=== PATIENT | female | born 1930 | race Caucasian/White ===

== ENCOUNTER 2017-06-11 15:50 | Emergency (ER) | payer MEDICARE, OTHER ==
[~2017-06-11] VITALS: Ht 165.1 cm; Wt 83.9 kg
[~2017-06-11 15:50] MED LIST: ACET-77 PO; ACID1TAB PO; ALBU2.5V4 INH; AMLO5TAB2 PO; AMOX1TAB12 PO; APIX5TAB PO; ASCO1TAB36 PO; ASPI-983 PO; BENZ-36 PO; CALC1TAB29 PO; CHOL10007 PO; DILT120C63 PO; DILT240C90 PO; DOCU-143 PO; DOCU100C37 PO; FAMO-119 PO; FISH1CAP15 PO; GFCD10B PO; HYDR-3812 PO; IBUP200C11 PO; LEVO125T6 PO; LISI1TAB10 PO; LOPE2CAP PO; METO-370 PO; MULT-1029 PO; SIMV20TA3 PO; SULF1TAB35 PO
--- OUTSIDE RECORDS SUMMARY | 2017-06-11 15:58 | XMS REPORT | Continuity of Care Document ---
Author Author [facility] Organization [facility] Address Unknown Phone Unavailable Allergies Active Description Code Type Severity Reaction Onset Reported/Identified Relationship to Patient Clinical Status Yes No Known Drug Allergies [id number] Drug Allergy Unknown N/A 05/06/2016 Yes Fish Containing Products [id number] Drug Allergy Unknown N/A 06/02/2016 Medications There is no data. Problems Date Dx Coded Attending Type Code Diagnosis Diagnosed By 05/21/2013 RIN MORALES MD Ot 721.0 CERVICAL SPONDYLOSIS 05/21/2013 RIN MORALES MD Ot V57.1 PHYSICAL THERAPY NEC 09/14/2013 LUANN TORRES DRIFT MINER Ot 715.96 OSTEOARTHROS NOS-L/LEG 09/14/2013 LUANN TORRES DRIFT MINER Ot V57.1 PHYSICAL THERAPY NEC 11/28/2014 LUANN TORRES [employer] Ot 716.90 11/28/2014 LUANN TORRES APRN Ot 724.5 11/28/2014 LUANN TORRES APRN Ot V57.1 12/07/2014 LUANN TORRES [employer] Ot 716.90 ARTHROPATHY NOS-UNSPEC 12/07/2014 LUANN TORRES DR[employer] MINER Ot 724.5 BACKACHE NOS 12/07/2014 LUANN TORRES [employer] MINER Ot V57.1 PHYSICAL THERAPY NEC 11/22/2015 Ot R05 COUGH 12/13/2015 VIVI OATES MD Ot J18.9 PNEUMONIA, UNSPECIFIED ORGANISM 12/17/2015 Ot R05 COUGH 12/28/2015 VIVI OATES MD Ot R00.2 PALPITATIONS 12/28/2015 VIVI OATES MD Ot R42 DIZZINESS AND GIDDINESS 01/01/2016 VIVI OATES MD Ot J18.9 PNEUMONIA, UNSPECIFIED ORGANISM 01/07/2016 VIVI OATES MD Ot R00.2 PALPITATIONS 01/07/2016 VIVI OATES MD Ot R42 DIZZINESS AND GIDDINESS 03/23/2016 VIVI OATES MD Ot R00.2 PALPITATIONS 03/23/2016 VIVI OATES MD Ot R42 DIZZINESS AND GIDDINESS 03/28/2016 VIVI OATES MD Ot R00.2 PALPITATIONS 03/28/2016 VIVI OATES MD Ot R42 DIZZINESS AND GIDDINESS 05/04/2016 Ot 401.9 HYPERTENSION NOS 05/04/2016 Ot 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 05/04/2016 Ot 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 05/04/2016 Ot V76.12 OTH SCREEN MAMMO-MALIGN NEOPLASM OF [place] 05/04/2016 Ot 401.9 HYPERTENSION NOS 05/04/2016 Ot 782.3 EDEMA 05/04/2016 Ot 786.09 RESPIRATORY ABNORM NEC 05/04/2016 VIVI OATES MD Ot 719.41 JOINT PAIN-SHLDER 05/04/2016 VIVI OATES MD Ot 723.1 CERVICALGIA 05/04/2016 VIVI OATES MD Ot 729.5 PAIN IN LIMB 05/04/2016 Ot 721.0 CERVICAL SPONDYLOSIS 05/04/2016 Ot V57.1 PHYSICAL THERAPY NEC 05/04/2016 LUANN TORRES APRN Ot 719.46 JOINT PAIN-L/LEG 05/04/2016 Ot R05 COUGH 05/04/2016 VIVI OATES MD Ot J18.9 PNEUMONIA, UNSPECIFIED ORGANISM 05/04/2016 VIVI OATES MD Ot R00.2 PALPITATIONS 05/04/2016 VIVI OATES MD Ot R42 DIZZINESS AND GIDDINESS 05/05/2016 SANIYA CORRALES MD Ot M54.5 LOW BACK PAIN 05/06/2016 Ot 721.0 CERVICAL SPONDYLOSIS 05/06/2016 Ot V57.1 PHYSICAL THERAPY NEC 05/06/2016 VIVI OATES MD Ot R00.2 PALPITATIONS 05/06/2016 VIVI OATES MD Ot R42 DIZZINESS AND GIDDINESS 05/11/2016 GALLAGHER DO, GEMINI Ot E03.9 HYPOTHYROIDISM, UNSPECIFIED 05/11/2016 GALLAGHER DO, GEMINI Ot E78.5 HYPERLIPIDEMIA, UNSPECIFIED 05/11/2016 GALLAGHER DO, GEMINI Ot I10 ESSENTIAL (PRIMARY) HYPERTENSION 05/11/2016 GALLAGHER DO GEMINI Ot K21.9 GASTRO-ESOPHAGEAL REFLUX DISEASE WITHOUT 05/11/2016 GALLAGHER DO GEMINI Ot M48.06 SPINAL STENOSIS, LUMBAR REGION 05/11/2016 GALLGAHER GEMINI BRADEN Ot M54.16 RADICULOPATHY, LUMBAR REGION 05/11/2016 AILEEN BRADENGEMINI Ot M71.38 OTHER BURSAL CYST, OTHER SITE 05/11/2016 AILEEN BRADEN GEMINI Ot T84.84XA PAIN DUE TO INTERNAL ORTHOPEDIC PROSTH D 05/15/2016 KYLIE REYES MD Ot E03.9 HYPOTHYROIDISM, UNSPECIFIED 05/15/2016 KYLIE REYES MD Ot E78.5 HYPERLIPIDEMIA, UNSPECIFIED 05/15/2016 KYLIE REYES MD E Ot F41.9 ANXIETY DISORDER, UNSPECIFIED 05/15/2016 KYLIE REYES MD Ot I10 ESSENTIAL (PRIMARY) HYPERTENSION 05/15/2016 KYLIE REYES MD Ot K21.9 GASTRO-ESOPHAGEAL REFLUX DISEASE WITHOUT 05/15/2016 KYLIE REYES MD Ot M54.5 LOW BACK PAIN 05/15/2016 KYLIE REYES MD Ot R29.898 OTH SYMPTOMS AND SIGNS INVOLVING THE MUS 05/15/2016 KYLIE REYES MD Ot Z48.89 ENCOUNTER FOR OTHER SPECIFIED SURGICAL A 05/15/2016 KYLIE REYES MD Ot Z96.651 PRESENCE OF RIGHT ARTIFICIAL KNEE JOINT 05/15/2016 KYLIE REYES MD Ot Z96.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 LEFT ARTIFICIAL KNEE JOINT 05/24/2016 REJI LAU MD Ot A41.89 OTHER SPECIFIED SEPSIS 05/24/2016 REJI LAU MD Ot B96.4 PROTEUS (MIRABILIS) (MORGANII) CAUSING D 05/24/2016 REJI LAU MD Ot B96.89 OTH BACTERIAL AGENTS THE CAUSE OF DIS 05/24/2016 REJI LAU MD Ot D64.89 OTHER SPECIFIED ANEMIAS 05/24/2016 REJI LAU MD Ot E78.00 PURE HYPERCHOLESTEROLEMIA, UNSPECIFIED 05/24/2016 REJI LAU MD Ot E87.1 HYPO-OSMOLALITY AND HYPONATREMIA 05/24/2016 REJI LAU MD Ot I10 ESSENTIAL (PRIMARY) HYPERTENSION 05/24/2016 REJI LAU MD Ot I48.0 PAROXYSMAL ATRIAL FIBRILLATION 05/24/2016 REJI LAU MD Ot I50.31 ACUTE DIASTOLIC (CONGESTIVE) HEART FAILU 05/24/2016 REJI LAU MD Ot J18.9 PNEUMONIA, UNSPECIFIED ORGANISM 05/24/2016 REJI LAU MD Ot K80.20 CALCULUS OF GALLBLADDER W/O CHOLECYSTITI 05/24/2016 REJI LAU MD Ot N30.00 ACUTE CYSTITIS WITHOUT HEMATURIA 05/24/2016 REJI LAU MD Ot R19.7 DIARRHEA, UNSPECIFIED 05/24/2016 REJI LAU MD Ot R73.9 HYPERGLYCEMIA, UNSPECIFIED 05/24/2016 REJI LAU MD Ot Z87.891 PERSONAL HISTORY OF NICOTINE DEPENDENCE 05/24/2016 REJI LAU MD Ot Z98.890 OTHER SPECIFIED POSTPROCEDURAL STATES 05/28/2016 SAVANNA GUIDO, SANIYA Howell Ot M54.5 LOW BACK PAIN 05/30/2016 KYLIE REYES MD E Ot B00.1 HERPESVIRAL VESICULAR DERMATITIS 05/30/2016 KYLIE REYES MD E Ot E03.9 HYPOTHYROIDISM, UNSPECIFIED 05/30/2016 FADUMO REYES MDIC E Ot E87.1 HYPO-OSMOLALITY AND HYPONATREMIA 05/30/2016 FADUMO REYES MDIC E Ot E87.70 FLUID OVERLOAD, UNSPECIFIED 05/30/2016 AMY GUIDO KYLIE E Ot I10 ESSENTIAL (PRIMARY) HYPERTENSION 05/30/2016 AMY GUIDO KYLIE E Ot I48.91 UNSPECIFIED ATRIAL FIBRILLATION 05/30/2016 KYLIE REYES MD E Ot J18.9 PNEUMONIA, UNSPECIFIED ORGANISM 05/30/2016 KYLIE REYES MD E Ot R19.7 DIARRHEA, UNSPECIFIED 05/30/2016 KYLIE REYES MD E Ot R41.0 DISORIENTATION, UNSPECIFIED 05/30/2016 KYLIE REYES MD E Ot R53.1 WEAKNESS 05/30/2016 KYLIE REYES MD E Ot R60.0 LOCALIZED EDEMA 05/30/2016 FADUMO REYES MDIC E Ot T36.95XA ADVERSE EFFECT OF UNSP SYSTEMIC ANTIBIOT 05/30/2016 FADUMO REYES MDIC E Ot Z79.01 [facility] (CURRENT) USE OF 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 05/31/2016 KYLIE REYES MD E Ot B00.1 HERPESVIRAL VESICULAR DERMATITIS 05/31/2016 AMY GUIDO KYLIE E Ot E03.9 HYPOTHYROIDISM, UNSPECIFIED 05/31/2016 KYLIE REYES MD E Ot E87.1 HYPO-OSMOLALITY AND HYPONATREMIA 05/31/2016 KYLIE REYES MD E Ot E87.70 FLUID OVERLOAD, UNSPECIFIED 05/31/2016 KYLIE REYES MD E Ot I10 ESSENTIAL (PRIMARY) HYPERTENSION 05/31/2016 FADUMO REYES MDIC E Ot I48.91 UNSPECIFIED ATRIAL FIBRILLATION 05/31/2016 KYLIE REYES MD E Ot J18.9 PNEUMONIA, UNSPECIFIED ORGANISM 05/31/2016 FADUMO REYES MDIC E Ot R19.7 DIARRHEA, UNSPECIFIED 05/31/2016 KYLIE REYES MD E Ot R41.0 DISORIENTATION, UNSPECIFIED 05/31/2016 FADUMO REYES MDIC E Ot R53.1 WEAKNESS 05/31/2016 FADUMO REYES MDIC E Ot R60.0 LOCALIZED EDEMA 05/31/2016 AMY GUIDO KYLIE E Ot T36.95XA ADVERSE EFFECT OF UNSP SYSTEMIC ANTIBIOT 05/31/2016 KYLIE REYES MD E Ot Z79.01 [employer] (CURRENT) USE OF 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 06/01/2016 KYLIE REYES MD E Ot B00.1 HERPESVIRAL VESICULAR DERMATITIS 06/01/2016 FADUMO REYES MDIC E Ot E03.9 HYPOTHYROIDISM, UNSPECIFIED 06/01/2016 KYLIE REYES MD E Ot E87.1 HYPO-OSMOLALITY AND HYPONATREMIA 06/01/2016 FADUMO REYES MDIC E Ot E87.70 FLUID OVERLOAD, UNSPECIFIED 06/01/2016 KYLIE REYES MD E Ot I10 ESSENTIAL (PRIMARY) HYPERTENSION 06/01/2016 KYLIE REYES MD E Ot I48.91 UNSPECIFIED ATRIAL FIBRILLATION 06/01/2016 KYLIE REYES MD E Ot J18.9 PNEUMONIA, UNSPECIFIED ORGANISM 06/01/2016 KYLIE REYES MD E Ot R19.7 DIARRHEA, UNSPECIFIED 06/01/2016 FADUMO REYES MDIC E Ot R41.0 DISORIENTATION, UNSPECIFIED 06/01/2016 AMY GUIDO KYLIE E Ot R53.1 WEAKNESS 06/01/2016 AMY GUIDO KYLIE E Ot R60.0 LOCALIZED EDEMA 06/01/2016 FADUMO REYES MDIC E Ot T36.95XA ADVERSE EFFECT OF UNSP SYSTEMIC ANTIBIOT 06/01/2016 KYLIE REYES MD E Ot Z79.01 [facility] (CURRENT) USE OF 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 06/01/2016 KYLIE REYES MD E Ot B00.1 HERPESVIRAL VESICULAR DERMATITIS 06/01/2016 FADUMO REYES MDIC E Ot E03.9 HYPOTHYROIDISM, UNSPECIFIED 06/01/2016 KYLIE REYES MD E Ot E87.1 HYPO-OSMOLALITY AND HYPONATREMIA 06/01/2016 KYLIE REYES MD E Ot E87.70 FLUID OVERLOAD, UNSPECIFIED 06/01/2016 KYLIE REYES MD E Ot I10 ESSENTIAL (PRIMARY) HYPERTENSION 06/01/2016 FADUMO REYES MDIC E Ot I48.91 UNSPECIFIED ATRIAL FIBRILLATION 06/01/2016 FADUMO REYES MDIC E Ot J18.9 PNEUMONIA, UNSPECIFIED ORGANISM 06/01/2016 FADUMO REYES MDIC E Ot R19.7 DIARRHEA, UNSPECIFIED 06/01/2016 FADUMO REYES MDIC E Ot R41.0 DISORIENTATION, UNSPECIFIED 06/01/2016 FADUMO REYES MDIC E Ot R53.1 WEAKNESS 06/01/2016 FADUMO REYES MDIC E Ot R60.0 LOCALIZED EDEMA 06/01/2016 AMY GUIDO KYLIE E Ot T36.95XA ADVERSE EFFECT OF UNSP SYSTEMIC ANTIBIOT 06/01/2016 KYLIE REYES MD E Ot Z79.01 [employer] (CURRENT) USE OF 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 06/02/2016 KYLIE REYES MD E Ot B00.1 HERPESVIRAL VESICULAR DERMATITIS 06/02/2016 FADUMO REYES MDIC E Ot E03.9 HYPOTHYROIDISM, UNSPECIFIED 06/02/2016 FADUMO REYES MDIC E Ot E87.1 HYPO-OSMOLALITY AND HYPONATREMIA 06/02/2016 KYLIE REYES MD E Ot E87.70 FLUID OVERLOAD, UNSPECIFIED 06/02/2016 FADUMO REYES MDIC E Ot I10 ESSENTIAL (PRIMARY) HYPERTENSION 06/02/2016 FADUMO REYES MDIC E Ot I48.91 UNSPECIFIED ATRIAL FIBRILLATION 06/02/2016 AMY GUIDO KYLIE E Ot J18.9 PNEUMONIA, UNSPECIFIED ORGANISM 06/02/2016 AMY GUIDO KYLIE E Ot R19.7 DIARRHEA, UNSPECIFIED 06/02/2016 AMY GUIDO KYLIE E Ot R41.0 DISORIENTATION, UNSPECIFIED 06/02/2016 FADUMO REYES MDIC E Ot R53.1 WEAKNESS 06/02/2016 FADUMO REYES MDIC E Ot R60.0 LOCALIZED EDEMA 06/02/2016 REYES MD, KYLIE E Ot T36.95XA ADVERSE EFFECT OF UNSP SYSTEMIC ANTIBIOT 06/02/2016 AMY GUIDO KYLIE E Ot Z79.01 [employer] (CURRENT) USE OF 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 06/02/2016 Ot 721.0 CERVICAL SPONDYLOSIS 06/02/2016 Ot V57.1 PHYSICAL THERAPY NEC 06/02/2016 VIVI OATES MD Ot R00.2 PALPITATIONS 06/02/2016 VIVI OATES MD Ot R42 DIZZINESS AND GIDDINESS 06/02/2016 AMY GUIDO KYLIE E Ot B00.1 HERPESVIRAL VESICULAR DERMATITIS 06/02/2016 AMY GUIDO KYLIE E Ot E03.9 HYPOTHYROIDISM, UNSPECIFIED 06/02/2016 AMY GUIDO KYLIE E Ot E87.1 HYPO-OSMOLALITY AND HYPONATREMIA 06/02/2016 AMY GUIDO KYLIE E Ot E87.70 FLUID OVERLOAD, UNSPECIFIED 06/02/2016 AMY GUIDO KYLIE E Ot I10 ESSENTIAL (PRIMARY) HYPERTENSION 06/02/2016 AMY GUIDO KYLIE E Ot I48.91 UNSPECIFIED ATRIAL FIBRILLATION 06/02/2016 AMY GUIDO KYLIE E Ot J18.9 PNEUMONIA, UNSPECIFIED ORGANISM 06/02/2016 AMY GUIDO KYLIE E Ot R19.7 DIARRHEA, UNSPECIFIED 06/02/2016 AMY GUIDO KYLIE E Ot R41.0 DISORIENTATION, UNSPECIFIED 06/02/2016 AMY GUIDO KYLIE E Ot R53.1 WEAKNESS 06/02/2016 AMY GUIDO KYLIE E Ot R60.0 LOCALIZED EDEMA 06/02/2016 AMY GUIDO KYLIE E Ot T36.95XA ADVERSE EFFECT OF UNSP SYSTEMIC ANTIBIOT 06/02/2016 AMY GUIDO KYLIE E Ot Z79.01 [employer] (CURRENT) USE OF 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 06/02/2016 AMY GUIDO KYLIE E Ot B00.1 HERPESVIRAL VESICULAR DERMATITIS 06/02/2016 AMY GUIDO KYLIE E Ot E03.9 HYPOTHYROIDISM, UNSPECIFIED 06/02/2016 AMY GUIDO KYLIE E Ot E87.1 HYPO-OSMOLALITY AND HYPONATREMIA 06/02/2016 AMY GUIDO KYLIE E Ot E87.70 FLUID OVERLOAD, UNSPECIFIED 06/02/2016 AMY GUIDO KYLIE E Ot I10 ESSENTIAL (PRIMARY) HYPERTENSION 06/02/2016 AMY GUIDO KYLIE E Ot I48.91 UNSPECIFIED ATRIAL FIBRILLATION 06/02/2016 REYES MD, KYLIE E Ot J18.9 PNEUMONIA, UNSPECIFIED ORGANISM 06/02/2016 KYLIE REYES MD, Ot R19.7 DIARRHEA, UNSPECIFIED 06/02/2016 KYLIE REYES MD, Ot R41.0 DISORIENTATION, UNSPECIFIED 06/02/2016 KYLIE REYES MD, Ot R53.1 WEAKNESS 06/02/2016 KYLIE REYES MD, Ot R60.0 LOCALIZED EDEMA 06/02/2016 KYLIE REYES MD, Ot T36.95XA ADVERSE EFFECT OF UNSP SYSTEMIC ANTIBIOT 06/02/2016 KYLIE REYES MD, Ot Z79.01 [facility] (CURRENT) USE OF 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 Procedures Code Description Performed By Performed On [id number] INTRODUCE OF ANTI-INFLAM INTO EPIDURAL S 05/07/2016 [id number] EXCISION OF LUMBAR SPINAL CORD, OPEN SANAZ 05/08/2016 [id number] RELEASE LUMBAR NERVE, OPEN APPROACH 05/08/2016 [id number] REMOVAL OF INT FIX FROM LUM JT, OPEN SANAZ 05/08/2016 [id number] CAODAISM OF CARDIAC RHYTHM, SINGLE 05/20/2016 Results Test Result Range Complete urinalysis with reflex to culture - 05/06/16 19:40 Urine color determination YELLOW NRG Urine clarity determination CLEAR NRG Urine pH measurement by test strip 5 5-9 Specific gravity of urine by test strip 1.015 1.016- 1.022 Urine protein assay by test strip, semi-quantitative NEGATIVE NEGATIVE Urine glucose detection by automated test strip NEGATIVE NEGATIVE Erythrocytes detection in urine sediment by light microscopy NEGATIVE NEGATIVE Urine ketones detection by automated test strip NEGATIVE NEGATIVE Urine nitrite detection by test strip NEGATIVE NEGATIVE Urine total bilirubin detection by test strip NEGATIVE NEGATIVE Urine urobilinogen measurement by automated test strip (mass/volume) NORMAL NORMAL Urine leukocyte esterase detection by dipstick 1+ NEGATIVE Automated urine sediment erythrocyte count by microscopy (number/high power field) NONE NRG Automated urine sediment leukocyte count by microscopy (number/high power field ) RARE NRG Bacteria detection in urine sediment by light microscopy TRACE NRG Squamous epithelial cells detection in urine sediment by light microscopy 0-2 NRG Crystals detection in urine sediment by light microscopy NONE NRG Casts detection in urine sediment by light microscopy NONE NRG Mucus detection in urine sediment by light microscopy NEGATIVE NRG Complete urinalysis with reflex to culture NO NRG Complete blood count (CBC) with automated white blood cell (WBC) differential - 05/07/16 05:12 Blood leukocytes automated count (number/volume) 9.4 10*3/uL 4.3-11.0 Blood erythrocytes automated count (number/volume) 4.30 10*6/uL 4.35-5.85 Venous blood hemoglobin measurement (mass/volume) 12.8 g/dL 11.5-16.0 Blood hematocrit (volume fraction) 37 % 35-52 Automated erythrocyte mean corpuscular volume 87 [foz_us] 80-99 Automated erythrocyte mean corpuscular hemoglobin (mass per erythrocyte) 30 pg 25-34 Automated erythrocyte mean corpuscular hemoglobin concentration measurement ( mass/volume) 34 g/dL 32-36 Automated erythrocyte distribution width ratio 13.0 % 10.0-14.5 Automated blood platelet count (count/volume) 218 10*3/uL 130-400 Automated blood platelet mean volume measurement 10.7 [foz_us] 7.4-10.4 Automated blood neutrophils/100 leukocytes 92 % 42-75 Automated blood lymphocytes/100 leukocytes 5 % 12-44 Blood monocytes/100 leukocytes 3 % 0-12 Automated blood eosinophils/100 leukocytes 0 % 0-10 Automated blood basophils/100 leukocytes 0 % 0-10 Blood neutrophils automated count (number/volume) 8.7 10*3 1.8-7.8 Blood lymphocytes automated count (number/volume) 0.5 10*3 1.0-4.0 Blood monocytes automated count (number/volume) 0.3 10*3 0.0-1.0 Automated eosinophil count 0.0 10*3/uL 0.0-0.3 Automated blood basophil count (count/volume) 0.0 10*3/uL 0.0-0.1 Blood manual differential performed detection - 05/07/16 05:12 Blood monocytes/100 leukocytes 3 % NRG Manual blood segmented neutrophils/100 leukocytes 93 % NRG Blood band neutrophils/100 leukocytes 0 % NRG Manual blood lymphocytes/100 leukocytes 4 % NRG Manual eosinophils/100 leukocytes in nose 0 % NRG Manual blood basophils/100 leukocytes 0 % NRG Blood erythrocyte morphology finding identification NORMAL NRG Methicillin resistant Staphylococcus aureus (MRSA) screening culture - 08:20 Methicillin resistant Staphylococcus aureus (MRSA) screening culture NEG NRG Complete blood count (CBC) with automated white blood cell (WBC) differential - 05/13/16 05:39 Blood leukocytes automated count (number/volume) 12.6 10*3/uL 4.3-11.0 Blood erythrocytes automated count (number/volume) 3.94 10*6/uL 4.35-5.85 Venous blood hemoglobin measurement (mass/volume) 12.1 g/dL 11.5-16.0 Blood hematocrit (volume fraction) 35 % 35-52 Automated erythrocyte mean corpuscular volume 88 [foz_us] 80-99 Automated erythrocyte mean corpuscular hemoglobin (mass per erythrocyte) 31 pg 25-34 Automated erythrocyte mean corpuscular hemoglobin concentration measurement ( mass/volume) 35 g/dL 32-36 Automated erythrocyte distribution width ratio 13.3 % 10.0-14.5 Automated blood platelet count (count/volume) 194 10*3/uL 130-400 Automated blood platelet mean volume measurement 10.3 [foz_us] 7.4-10.4 Automated blood neutrophils/100 leukocytes 87 % 42-75 Automated blood lymphocytes/100 leukocytes 7 % 12-44 Blood monocytes/100 leukocytes 6 % 0-12 Automated blood eosinophils/100 leukocytes 1 % 0-10 Automated blood basophils/100 leukocytes 0 % 0-10 Blood neutrophils automated count (number/volume) 10.9 10*3 1.8-7.8 Blood lymphocytes automated count (number/volume) 0.8 10*3 1.0-4.0 Blood monocytes automated count (number/volume) 0.8 10*3 0.0-1.0 Automated eosinophil count 0.1 10*3/uL 0.0-0.3 Automated blood basophil count (count/volume) 0.0 10*3/uL 0.0-0.1 Comprehensive metabolic panel - 05/13/16 05:39 Serum or plasma sodium measurement (moles/volume) 136 mmol/L 135-145 Serum or plasma potassium measurement (moles/volume) 4.2 mmol/L 3.6-5.0 Serum or plasma chloride measurement (moles/volume) 102 mmol/L 98-107 Carbon dioxide 23 mmol/L 21-32 Serum or plasma anion gap determination (moles/volume) 11 mmol/L 5-14 Serum or plasma urea nitrogen measurement (mass/volume) 40 mg/dL 7-18 Serum or plasma creatinine measurement (mass/volume) 1.01 mg/dL 0.60-1.30 Serum or plasma urea nitrogen/creatinine mass ratio 40 NRG Serum or plasma creatinine measurement with calculation of estimated glomerular filtration rate 52 NRG Serum or plasma glucose measurement (mass/volume) 135 mg/dL 70-105 Serum or plasma calcium measurement (mass/volume) 9.0 mg/dL 8.5-10.1 Serum or plasma total bilirubin measurement (mass/volume) 0.8 mg/dL 0.1-1.0 Serum or plasma alkaline phosphatase measurement (enzymatic activity/volume) 67 U/L 40-136 Serum or plasma aspartate aminotransferase measurement (enzymatic activity/ volume) 18 U/L 5-34 Serum or plasma alanine aminotransferase measurement (enzymatic activity/volume ) 21 U/L 0-55 Serum or plasma protein measurement (mass/volume) 5.6 g/dL 6.4-8.2 Serum or plasma albumin measurement (mass/volume) 3.5 g/dL 3.2-4.5 Blood manual differential performed detection - 05/13/16 05:39 Blood monocytes/100 leukocytes 3 % NRG Manual blood segmented neutrophils/100 leukocytes 91 % NRG Blood band neutrophils/100 leukocytes 0 % NRG Manual blood lymphocytes/100 leukocytes 6 % NRG Manual eosinophils/100 leukocytes in nose 0 % NRG Manual blood basophils/100 leukocytes 0 % NRG Blood poikilocytosis detection by light microscopy SLIGHT NRG Complete urinalysis with reflex to culture - 05/16/16 12:00 Urine color determination YELLOW NRG Urine clarity determination CLEAR NRG Urine pH measurement by test strip 5 5-9 Specific gravity of urine by test strip 1.020 1.016- 1.022 Urine protein assay by test strip, semi-quantitative 1+ NEGATIVE Urine glucose detection by automated test strip NEGATIVE NEGATIVE Erythrocytes detection in urine sediment by light microscopy NEGATIVE NEGATIVE Urine ketones detection by automated test strip NEGATIVE NEGATIVE Urine nitrite detection by test strip NEGATIVE NEGATIVE Urine total bilirubin detection by test strip NEGATIVE NEGATIVE Urine urobilinogen measurement by automated test strip (mass/volume) NORMAL NORMAL Urine leukocyte esterase detection by dipstick 3+ NEGATIVE Automated urine sediment erythrocyte count by microscopy (number/high power field) NONE NRG Automated urine sediment leukocyte count by microscopy (number/high power field ) [HPF] NRG Bacteria detection in urine sediment by light microscopy FEW NRG Squamous epithelial cells detection in urine sediment by light microscopy 2-5 NRG Crystals detection in urine sediment by light microscopy NONE NRG Casts detection in urine sediment by light microscopy NONE NRG Mucus detection in urine sediment by light microscopy NEGATIVE NRG Complete urinalysis with reflex to culture YES NRG Bacterial urine culture - 05/16/16 12:00 Bacterial urine culture [id number] NRG COLONY COUNT 10,000/ML - 100,000/ML NRG FTX;REPORTABLE SENSITIVITY REPORTED AT 0755, 05-18-16 NRG URINE CULTURE RESULTS PLUS NRG Bacterial susceptibility panel - 05/16/16 12:00 Gentamicin susceptibility test by minimum inhibitory concentration < = NRG Trimethoprim/sulfamethoxazole susceptibility test by minimum inhibitoryconcentration <= NRG Tobramycin susceptibility test by minimum inhibitory concentration < = NRG Cefazolin susceptibility test by minimum inhibitory concentration > = NRG Ceftriaxone susceptibility test by minimum inhibitory concentration 16 NRG Piperacillin/tazobactam susceptibility test by minimum inhibitory concentration >= NRG Ciprofloxacin susceptibility test by minimum inhibitory concentration <= NRG Meropenem susceptibility test by minimum inhibitory concentration < = NRG Nitrofurantoin susceptibility test by minimum inhibitory concentration 64 NRG Aztreonam susceptibility test by minimum inhibitory concentration 16 NRG Cefepime susceptibility test by minimum inhibitory concentration <= NRG Bacterial susceptibility panel - 05/16/16 12:00 Gentamicin susceptibility test by minimum inhibitory concentration < = NRG Trimethoprim/sulfamethoxazole susceptibility test by minimum inhibitoryconcentration <= NRG Ampicillin susceptibility test by minimum inhibitory concentration > = NRG Tobramycin susceptibility test by minimum inhibitory concentration < = NRG Cefazolin susceptibility test by minimum inhibitory concentration > = NRG Ceftriaxone susceptibility test by minimum inhibitory concentration <= NRG Ampicillin/sulbactam susceptibility test by minimum inhibitory concentration <= NRG Piperacillin/tazobactam susceptibility test by minimum inhibitory concentration <= NRG Ciprofloxacin susceptibility test by minimum inhibitory concentration <= NRG Meropenem susceptibility test by minimum inhibitory concentration < = NRG Nitrofurantoin susceptibility test by minimum inhibitory concentration R NRG Aztreonam susceptibility test by minimum inhibitory concentration < = NRG Cefepime susceptibility test by minimum inhibitory concentration <= NRG Complete blood count (CBC) with automated white blood cell (WBC) differential - 05/16/16 12:07 Blood leukocytes automated count (number/volume) 21.6 10*3/uL 4.3-11.0 Blood erythrocytes automated count (number/volume) 4.05 10*6/uL 4.35-5.85 Venous blood hemoglobin measurement (mass/volume) 12.2 g/dL 11.5-16.0 Blood hematocrit (volume fraction) 35 % 35-52 Automated erythrocyte mean corpuscular volume 87 [foz_us] 80-99 Automated erythrocyte mean corpuscular hemoglobin (mass per erythrocyte) 30 pg 25-34 Automated erythrocyte mean corpuscular hemoglobin concentration measurement ( mass/volume) 35 g/dL 32-36 Automated erythrocyte distribution width ratio 13.5 % 10.0-14.5 Automated blood platelet count (count/volume) 211 10*3/uL 130-400 Automated blood platelet mean volume measurement 10.3 [foz_us] 7.4-10.4 Automated blood neutrophils/100 leukocytes 93 % 42-75 Automated blood lymphocytes/100 leukocytes 2 % 12-44 Blood monocytes/100 leukocytes 5 % 0-12 Automated blood eosinophils/100 leukocytes 0 % 0-10 Automated blood basophils/100 leukocytes 0 % 0-10 Blood neutrophils automated count (number/volume) 20.1 10*3 1.8-7.8 Blood lymphocytes automated count (number/volume) 0.5 10*3 1.0-4.0 Blood monocytes automated count (number/volume) 1.0 10*3 0.0-1.0 Automated eosinophil count 0.0 10*3/uL 0.0-0.3 Automated blood basophil count (count/volume) 0.0 10*3/uL 0.0-0.1 Comprehensive metabolic panel - 05/16/16 12:07 Serum or plasma sodium measurement (moles/volume) 132 mmol/L 135-145 Serum or plasma potassium measurement (moles/volume) 4.5 mmol/L 3.6-5.0 Serum or plasma chloride measurement (moles/volume) 98 mmol/L 98-107 Carbon dioxide 24 mmol/L 21-32 Serum or plasma anion gap determination (moles/volume) 10 mmol/L 5-14 Serum or plasma urea nitrogen measurement (mass/volume) 42 mg/dL 7-18 Serum or plasma creatinine measurement (mass/volume) 1.24 mg/dL 0.60-1.30 Serum or plasma urea nitrogen/creatinine mass ratio 34 NRG Serum or plasma creatinine measurement with calculation of estimated glomerular filtration rate 41 NRG Serum or plasma glucose measurement (mass/volume) 158 mg/dL 70-105 Serum or plasma calcium measurement (mass/volume) 9.4 mg/dL 8.5-10.1 Serum or plasma total bilirubin measurement (mass/volume) 2.0 mg/dL 0.1-1.0 Serum or plasma alkaline phosphatase measurement (enzymatic activity/volume) 91 U/L 40-136 Serum or plasma aspartate aminotransferase measurement (enzymatic activity/ volume) 28 U/L 5-34 Serum or plasma alanine aminotransferase measurement (enzymatic activity/volume ) 40 U/L 0-55 Serum or plasma protein measurement (mass/volume) 6.8 g/dL 6.4-8.2 Serum or plasma albumin measurement (mass/volume) 4.0 g/dL 3.2-4.5 Blood manual differential performed detection - 05/16/16 12:07 Blood monocytes/100 leukocytes 5 % NRG Manual blood segmented neutrophils/100 leukocytes 94 % NRG Manual blood lymphocytes/100 leukocytes 1 % NRG Blood erythrocyte morphology finding identification NORMAL NRG Blood hypersegmented neutrophils detection by light microscopy MODERATE NRG PT panel in platelet poor plasma by coagulation assay - 05/16/16 12:49 Prothrombin time (PT) in platelet poor plasma by coagulation assay 12.8 s 12.2-14.7 INR in platelet poor plasma or blood by coagulation assay 1.0 0.8-1.4 Activated partial thromboplastin time (aPTT) in platelet poor plasma bycoagulation assay - 05/16/16 12:49 Activated partial thromboplastin time (aPTT) in platelet poor plasma bycoagulation assay 26 s 24-35 Blood lactic acid measurement (moles/volume) - 05/16/16 12:49 Blood lactic acid measurement (moles/volume) 0.7 mmol/L 0.5-2.0 Bacterial blood culture - 05/16/16 12:49 Bacterial blood culture NG NR Bacterial blood culture - 05/16/16 13:05 Bacterial blood culture NG NR Blood lactic acid measurement (moles/volume) - 05/16/16 18:28 Blood lactic acid measurement (moles/volume) 1.4 mmol/L 0.5-2.0 Complete blood count (CBC) with automated white blood cell (WBC) differential - 05/17/16 05:20 Blood leukocytes automated count (number/volume) 15.0 10*3/uL 4.3-11.0 Blood erythrocytes automated count (number/volume) 3.50 10*6/uL 4.35-5.85 Venous blood hemoglobin measurement (mass/volume) 10.5 g/dL 11.5-16.0 Blood hematocrit (volume fraction) 31 % 35-52 Automated erythrocyte mean corpuscular volume 89 [foz_us] 80-99 Automated erythrocyte mean corpuscular hemoglobin (mass per erythrocyte) 30 pg 25-34 Automated erythrocyte mean corpuscular hemoglobin concentration measurement ( mass/volume) 34 g/dL 32-36 Automated erythrocyte distribution width ratio 13.7 % 10.0-14.5 Automated blood platelet count (count/volume) 154 10*3/uL 130-400 Automated blood platelet mean volume measurement 10.5 [foz_us] 7.4-10.4 Automated blood neutrophils/100 leukocytes 91 % 42-75 Automated blood lymphocytes/100 leukocytes 4 % 12-44 Blood monocytes/100 leukocytes 5 % 0-12 Automated blood eosinophils/100 leukocytes 0 % 0-10 Automated blood basophils/100 leukocytes 0 % 0-10 Blood neutrophils automated count (number/volume) 13.7 10*3 1.8-7.8 Blood lymphocytes automated count (number/volume) 0.5 10*3 1.0-4.0 Blood monocytes automated count (number/volume) 0.8 10*3 0.0-1.0 Automated eosinophil count 0.0 10*3/uL 0.0-0.3 Automated blood basophil count (count/volume) 0.0 10*3/uL 0.0-0.1 Comprehensive metabolic panel - 05/17/16 05:20 Serum or plasma sodium measurement (moles/volume) 135 mmol/L 135-145 Serum or plasma potassium measurement (moles/volume) 4.3 mmol/L 3.6-5.0 Serum or plasma chloride measurement (moles/volume) 104 mmol/L 98-107 Carbon dioxide 23 mmol/L 21-32 Serum or plasma anion gap determination (moles/volume) 8 mmol/L 5-14 Serum or plasma urea nitrogen measurement (mass/volume) 32 mg/dL 7-18 Serum or plasma creatinine measurement (mass/volume) 0.95 mg/dL 0.60-1.30 Serum or plasma urea nitrogen/creatinine mass ratio 34 NRG Serum or plasma creatinine measurement with calculation of estimated glomerular filtration rate 56 NRG Serum or plasma glucose measurement (mass/volume) 142 mg/dL 70-105 Serum or plasma calcium measurement (mass/volume) 8.3 mg/dL 8.5-10.1 Serum or plasma total bilirubin measurement (mass/volume) 1.3 mg/dL 0.1-1.0 Serum or plasma alkaline phosphatase measurement (enzymatic activity/volume) 81 U/L 40-136 Serum or plasma aspartate aminotransferase measurement (enzymatic activity/ volume) 25 U/L 5-34 Serum or plasma alanine aminotransferase measurement (enzymatic activity/volume ) 34 U/L 0-55 Serum or plasma protein measurement (mass/volume) 5.5 g/dL 6.4-8.2 Serum or plasma albumin measurement (mass/volume) 3.1 g/dL 3.2-4.5 Complete blood count (CBC) with automated white blood cell (WBC) differential - 05/18/16 04:50 Blood leukocytes automated count (number/volume) 11.7 10*3/uL 4.3-11.0 Blood erythrocytes automated count (number/volume) 3.18 10*6/uL 4.35-5.85 Venous blood hemoglobin measurement (mass/volume) 9.6 g/dL 11.5-16.0 Blood hematocrit (volume fraction) 28 % 35-52 Automated erythrocyte mean corpuscular volume 88 [foz_us] 80-99 Automated erythrocyte mean corpuscular hemoglobin (mass per erythrocyte) 30 pg 25-34 Automated erythrocyte mean corpuscular hemoglobin concentration measurement ( mass/volume) 34 g/dL 32-36 Automated erythrocyte distribution width ratio 13.6 % 10.0-14.5 Automated blood platelet count (count/volume) 148 10*3/uL 130-400 Automated blood platelet mean volume measurement 10.2 [foz_us] 7.4-10.4 Automated blood neutrophils/100 leukocytes 93 % 42-75 Automated blood lymphocytes/100 leukocytes 2 % 12-44 Blood monocytes/100 leukocytes 5 % 0-12 Automated blood eosinophils/100 leukocytes 0 % 0-10 Automated blood basophils/100 leukocytes 0 % 0-10 Blood neutrophils automated count (number/volume) 10.8 10*3 1.8-7.8 Blood lymphocytes automated count (number/volume) 0.3 10*3 1.0-4.0 Blood monocytes automated count (number/volume) 0.6 10*3 0.0-1.0 Automated eosinophil count 0.0 10*3/uL 0.0-0.3 Automated blood basophil count (count/volume) 0.0 10*3/uL 0.0-0.1 Comprehensive metabolic panel - 05/18/16 04:50 Serum or plasma sodium measurement (moles/volume) 133 mmol/L 135-145 Serum or plasma potassium measurement (moles/volume) 4.0 mmol/L 3.6-5.0 Serum or plasma chloride measurement (moles/volume) 105 mmol/L 98-107 Carbon dioxide 20 mmol/L 21-32 Serum or plasma anion gap determination (moles/volume) 8 mmol/L 5-14 Serum or plasma urea nitrogen measurement (mass/volume) 25 mg/dL 7-18 Serum or plasma creatinine measurement (mass/volume) 0.83 mg/dL 0.60-1.30 Serum or plasma urea nitrogen/creatinine mass ratio 30 NRG Serum or plasma creatinine measurement with calculation of estimated glomerular filtration rate > NRG Serum or plasma glucose measurement (mass/volume) 123 mg/dL 70-105 Serum or plasma calcium measurement (mass/volume) 7.7 mg/dL 8.5-10.1 Serum or plasma total bilirubin measurement (mass/volume) 1.1 mg/dL 0.1-1.0 Serum or plasma alkaline phosphatase measurement (enzymatic activity/volume) 77 U/L 40-136 Serum or plasma aspartate aminotransferase measurement (enzymatic activity/ volume) 28 U/L 5-34 Serum or plasma alanine aminotransferase measurement (enzymatic activity/volume ) 35 U/L 0-55 Serum or plasma protein measurement (mass/volume) 5.0 g/dL 6.4-8.2 Serum or plasma albumin measurement (mass/volume) 2.7 g/dL 3.2-4.5 Serum or plasma troponin i.cardiac measurement (mass/volume) - 05/18/16 04:50 Serum or plasma troponin i.cardiac measurement (mass/volume) < ng/ mL <0.30 Serum or plasma lithium measurement (moles/volume) - 05/18/16 04:50 BNP level 431.9 pg/mL <100.0 Serum or plasma C reactive protein measurement (mass/volume) - 05/18/16 04:50 Serum or plasma C reactive protein measurement (mass/volume) 26.71 mg/dL 0.00-0.50 THYROID STIMULATING HORMONE - 05/18/16 04:50 THYROID STIMULATING HORMONE 0.24 u[iU]/mL 0.35-4.94 PT panel in platelet poor plasma by coagulation assay - 05/18/16 04:50 Prothrombin time (PT) in platelet poor plasma by coagulation assay 14.3 s 12.2-14.7 INR in platelet poor plasma or blood by coagulation assay 1.1 0.8-1.4 Activated partial thromboplastin time (aPTT) in platelet poor plasma bycoagulation assay - 05/18/16 04:50 Activated partial thromboplastin time (aPTT) in platelet poor plasma bycoagulation assay 33 s 24-35 Activated partial thromboplastin time (aPTT) in platelet poor plasma bycoagulation assay - 05/18/16 13:10 Activated partial thromboplastin time (aPTT) in platelet poor plasma bycoagulation assay 106 s 24-35 Bacterial blood culture - 05/18/16 14:56 Bacterial blood culture NG NRG Bacterial blood culture - 05/18/16 14:57 Bacterial blood culture NG NRG Activated partial thromboplastin time (aPTT) in platelet poor plasma bycoagulation assay - 05/18/16 17:22 Activated partial thromboplastin time (aPTT) in platelet poor plasma bycoagulation assay 63 s 24-35 Activated partial thromboplastin time (aPTT) in platelet poor plasma bycoagulation assay - 05/18/16 23:45 Activated partial thromboplastin time (aPTT) in platelet poor plasma bycoagulation assay > s 24-35 Bacterial urine culture - 05/19/16 04:30 Bacterial urine culture [id number] NRG COLONY COUNT 10,000/ML - 100,000/ML NRG FTX;REPORTABLE NO FURTHER STUDIES UNLESS REQUESTED NR Automated blood complete blood count (hemogram) panel - 05/19/16 07:48 Blood leukocytes automated count (number/volume) 11.4 10*3/uL 4.3-11.0 Blood erythrocytes automated count (number/volume) 3.31 10*6/uL 4.35-5.85 Venous blood hemoglobin measurement (mass/volume) 9.7 g/dL 11.5-16.0 Blood hematocrit (volume fraction) 29 % 35-52 Automated erythrocyte mean corpuscular volume 88 [foz_us] 80-99 Automated erythrocyte mean corpuscular hemoglobin (mass per erythrocyte) 29 pg 25-34 Automated erythrocyte mean corpuscular hemoglobin concentration measurement ( mass/volume) 33 g/dL 32-36 Automated erythrocyte distribution width ratio 13.9 % 10.0-14.5 Automated blood platelet count (count/volume) 161 10*3/uL 130-400 Automated blood platelet mean volume measurement 11.5 [foz_us] 7.4-10.4 Activated partial thromboplastin time (aPTT) in platelet poor plasma bycoagulation assay - 05/19/16 07:48 Activated partial thromboplastin time (aPTT) in platelet poor plasma bycoagulation assay 145 s 24-35 Comprehensive metabolic panel - 05/19/16 07:48 Serum or plasma sodium measurement (moles/volume) 130 mmol/L 135-145 Serum or plasma potassium measurement (moles/volume) 3.8 mmol/L 3.6-5.0 Serum or plasma chloride measurement (moles/volume) 99 mmol/L 98-107 Carbon dioxide 22 mmol/L 21-32 Serum or plasma anion gap determination (moles/volume) 9 mmol/L 5-14 Serum or plasma urea nitrogen measurement (mass/volume) 26 mg/dL 7-18 Serum or plasma creatinine measurement (mass/volume) 0.95 mg/dL 0.60-1.30 Serum or plasma urea nitrogen/creatinine mass ratio 27 NRG Serum or plasma creatinine measurement with calculation of estimated glomerular filtration rate 56 NRG Serum or plasma glucose measurement (mass/volume) 157 mg/dL 70-105 Serum or plasma calcium measurement (mass/volume) 7.8 mg/dL 8.5-10.1 Serum or plasma total bilirubin measurement (mass/volume) 0.9 mg/dL 0.1-1.0 Serum or plasma alkaline phosphatase measurement (enzymatic activity/volume) 94 U/L 40-136 Serum or plasma aspartate aminotransferase measurement (enzymatic activity/ volume) 43 U/L 5-34 Serum or plasma alanine aminotransferase measurement (enzymatic activity/volume ) 49 U/L 0-55 Serum or plasma protein measurement (mass/volume) 5.2 g/dL 6.4-8.2 Serum or plasma albumin measurement (mass/volume) 2.6 g/dL 3.2-4.5 Serum or plasma phosphate measurement (mass/volume) - 05/19/16 07:48 Serum or plasma phosphate measurement (mass/volume) 3.2 mg/dL 2.3-4.7 Magnesium - 05/19/16 07:48 Magnesium 1.5 mg/dL 1.8-2.4 Activated partial thromboplastin time (aPTT) in platelet poor plasma bycoagulation assay - 05/19/16 14:30 Activated partial thromboplastin time (aPTT) in platelet poor plasma bycoagulation assay 93 s 24-35 Activated partial thromboplastin time (aPTT) in platelet poor plasma bycoagulation assay - 05/19/16 20:20 Activated partial thromboplastin time (aPTT) in platelet poor plasma bycoagulation assay 102 s 24-35 Complete blood count (CBC) with automated white blood cell (WBC) differential - 05/20/16 04:29 Blood leukocytes automated count (number/volume) 8.6 10*3/uL 4.3-11.0 Blood erythrocytes automated count (number/volume) 3.10 10*6/uL 4.35-5.85 Venous blood hemoglobin measurement (mass/volume) 9.3 g/dL 11.5-16.0 Blood hematocrit (volume fraction) 27 % 35-52 Automated erythrocyte mean corpuscular volume 86 [foz_us] 80-99 Automated erythrocyte mean corpuscular hemoglobin (mass per erythrocyte) 30 pg 25-34 Automated erythrocyte mean corpuscular hemoglobin concentration measurement ( mass/volume) 35 g/dL 32-36 Automated erythrocyte distribution width ratio 13.6 % 10.0-14.5 Automated blood platelet count (count/volume) 172 10*3/uL 130-400 Automated blood platelet mean volume measurement 10.4 [foz_us] 7.4-10.4 Automated blood neutrophils/100 leukocytes 93 % 42-75 Automated blood lymphocytes/100 leukocytes 2 % 12-44 Blood monocytes/100 leukocytes 5 % 0-12 Automated blood eosinophils/100 leukocytes 0 % 0-10 Automated blood basophils/100 leukocytes 0 % 0-10 Blood neutrophils automated count (number/volume) 8.0 10*3 1.8-7.8 Blood lymphocytes automated count (number/volume) 0.2 10*3 1.0-4.0 Blood monocytes automated count (number/volume) 0.4 10*3 0.0-1.0 Automated eosinophil count 0.0 10*3/uL 0.0-0.3 Automated blood basophil count (count/volume) 0.0 10*3/uL 0.0-0.1 Comprehensive metabolic panel - 05/20/16 04:29 Serum or plasma sodium measurement (moles/volume) 127 mmol/L 135-145 Serum or plasma potassium measurement (moles/volume) 3.6 mmol/L 3.6-5.0 Serum or plasma chloride measurement (moles/volume) 99 mmol/L 98-107 Carbon dioxide 17 mmol/L 21-32 Serum or plasma anion gap determination (moles/volume) 11 mmol/L 5-14 Serum or plasma urea nitrogen measurement (mass/volume) 28 mg/dL 7-18 Serum or plasma creatinine measurement (mass/volume) 1.12 mg/dL 0.60-1.30 Serum or plasma urea nitrogen/creatinine mass ratio 25 NRG Serum or plasma creatinine measurement with calculation of estimated glomerular filtration rate 46 NRG Serum or plasma glucose measurement (mass/volume) 161 mg/dL 70-105 Serum or plasma calcium measurement (mass/volume) 7.6 mg/dL 8.5-10.1 Serum or plasma total bilirubin measurement (mass/volume) 0.6 mg/dL 0.1-1.0 Serum or plasma alkaline phosphatase measurement (enzymatic activity/volume) 107 U/L 40-136 Serum or plasma aspartate aminotransferase measurement (enzymatic activity/ volume) 59 U/L 5-34 Serum or plasma alanine aminotransferase measurement (enzymatic activity/volume ) 70 U/L 0-55 Serum or plasma protein measurement (mass/volume) 5.1 g/dL 6.4-8.2 Serum or plasma albumin measurement (mass/volume) 2.6 g/dL 3.2-4.5 Serum or plasma phosphate measurement (mass/volume) - 05/20/16 04:29 Serum or plasma phosphate measurement (mass/volume) 2.8 mg/dL 2.3-4.7 Magnesium - 05/20/16 04:29 Magnesium 1.5 mg/dL 1.8-2.4 Activated partial thromboplastin time (aPTT) in platelet poor plasma bycoagulation assay - 05/20/16 04:29 Activated partial thromboplastin time (aPTT) in platelet poor plasma bycoagulation assay 77 s 24-35 Sputum Gram stain - 05/20/16 06:15 GRAM STAIN SPUTUM AND MIXED BACTERIAL [facility] Bacterial sputum culture - 11/23/16 06:15 Bacterial sputum culture NORMAL NRG Vancomycin trough - 05/20/16 06:50 Vancomycin trough 9.6 ug/mL 10.0-20.0 Complete blood count (CBC) with automated white blood cell (WBC) differential - 05/21/16 04:13 Blood leukocytes automated count (number/volume) 7.5 10*3/uL 4.3-11.0 Blood erythrocytes automated count (number/volume) 2.96 10*6/uL 4.35-5.85 Venous blood hemoglobin measurement (mass/volume) 8.7 g/dL 11.5-16.0 Blood hematocrit (volume fraction) 26 % 35-52 Automated erythrocyte mean corpuscular volume 86 [foz_us] 80-99 Automated erythrocyte mean corpuscular hemoglobin (mass per erythrocyte) 29 pg 25-34 Automated erythrocyte mean corpuscular hemoglobin concentration measurement ( mass/volume) 34 g/dL 32-36 Automated erythrocyte distribution width ratio 13.7 % 10.0-14.5 Automated blood platelet count (count/volume) 203 10*3/uL 130-400 Automated blood platelet mean volume measurement 10.2 [foz_us] 7.4-10.4 Automated blood neutrophils/100 leukocytes 92 % 42-75 Automated blood lymphocytes/100 leukocytes 3 % 12-44 Blood monocytes/100 leukocytes 5 % 0-12 Automated blood eosinophils/100 leukocytes 0 % 0-10 Automated blood basophils/100 leukocytes 0 % 0-10 Blood neutrophils automated count (number/volume) 6.9 10*3 1.8-7.8 Blood lymphocytes automated count (number/volume) 0.3 10*3 1.0-4.0 Blood monocytes automated count (number/volume) 0.4 10*3 0.0-1.0 Automated eosinophil count 0.0 10*3/uL 0.0-0.3 Automated blood basophil count (count/volume) 0.0 10*3/uL 0.0-0.1 PT panel in platelet poor plasma by coagulation assay - 05/21/16 04:13 Prothrombin time (PT) in platelet poor plasma by coagulation assay 14.4 s 12.2-14.7 INR in platelet poor plasma or blood by coagulation assay 1.2 0.8-1.4 Activated partial thromboplastin time (aPTT) in platelet poor plasma bycoagulation assay - 05/21/16 04:13 Activated partial thromboplastin time (aPTT) in platelet poor plasma bycoagulation assay 91 s 24-35 Comprehensive metabolic panel - 05/21/16 04:13 Serum or plasma sodium measurement (moles/volume) 132 mmol/L 135-145 Serum or plasma potassium measurement (moles/volume) 3.8 mmol/L 3.6-5.0 Serum or plasma chloride measurement (moles/volume) 104 mmol/L 98-107 Carbon dioxide 17 mmol/L 21-32 Serum or plasma anion gap determination (moles/volume) 11 mmol/L 5-14 Serum or plasma urea nitrogen measurement (mass/volume) 22 mg/dL 7-18 Serum or plasma creatinine measurement (mass/volume) 1.09 mg/dL 0.60-1.30 Serum or plasma urea nitrogen/creatinine mass ratio 20 NRG Serum or plasma creatinine measurement with calculation of estimated glomerular filtration rate 48 NRG Serum or plasma glucose measurement (mass/volume) 172 mg/dL 70-105 Serum or plasma calcium measurement (mass/volume) 7.6 mg/dL 8.5-10.1 Serum or plasma total bilirubin measurement (mass/volume) 0.5 mg/dL 0.1-1.0 Serum or plasma alkaline phosphatase measurement (enzymatic activity/volume) 101 U/L 40-136 Serum or plasma aspartate aminotransferase measurement (enzymatic activity/ volume) 55 U/L 5-34 Serum or plasma alanine aminotransferase measurement (enzymatic activity/volume ) 80 U/L 0-55 Serum or plasma protein measurement (mass/volume) 4.9 g/dL 6.4-8.2 Serum or plasma albumin measurement (mass/volume) 2.5 g/dL 3.2-4.5 Serum or plasma phosphate measurement (mass/volume) - 05/21/16 04:13 Serum or plasma phosphate measurement (mass/volume) 3.4 mg/dL 2.3-4.7 Magnesium - 05/21/16 04:13 Magnesium 1.6 mg/dL 1.8-2.4 Complete blood count (CBC) with automated white blood cell (WBC) differential - 05/22/16 04:21 Blood leukocytes automated count (number/volume) 7.2 10*3/uL 4.3-11.0 Blood erythrocytes automated count (number/volume) 3.07 10*6/uL 4.35-5.85 Venous blood hemoglobin measurement (mass/volume) 9.0 g/dL 11.5-16.0 Blood hematocrit (volume fraction) 26 % 35-52 Automated erythrocyte mean corpuscular volume 86 [foz_us] 80-99 Automated erythrocyte mean corpuscular hemoglobin (mass per erythrocyte) 29 pg 25-34 Automated erythrocyte mean corpuscular hemoglobin concentration measurement ( mass/volume) 34 g/dL 32-36 Automated erythrocyte distribution width ratio 13.8 % 10.0-14.5 Automated blood platelet count (count/volume) 222 10*3/uL 130-400 Automated blood platelet mean volume measurement 9.7 [foz_us] 7.4-10.4 Automated blood neutrophils/100 leukocytes 89 % 42-75 Automated blood lymphocytes/100 leukocytes 4 % 12-44 Blood monocytes/100 leukocytes 7 % 0-12 Automated blood eosinophils/100 leukocytes 1 % 0-10 Automated blood basophils/100 leukocytes 0 % 0-10 Blood neutrophils automated count (number/volume) 6.4 10*3 1.8-7.8 Blood lymphocytes automated count (number/volume) 0.3 10*3 1.0-4.0 Blood monocytes automated count (number/volume) 0.5 10*3 0.0-1.0 Automated eosinophil count 0.0 10*3/uL 0.0-0.3 Automated blood basophil count (count/volume) 0.0 10*3/uL 0.0-0.1 Activated partial thromboplastin time (aPTT) in platelet poor plasma bycoagulation assay - 05/22/16 04:21 Activated partial thromboplastin time (aPTT) in platelet poor plasma bycoagulation assay 37 s 24-35 Comprehensive metabolic panel - 05/22/16 04:21 Serum or plasma sodium measurement (moles/volume) 133 mmol/L 135-145 Serum or plasma potassium measurement (moles/volume) 3.5 mmol/L 3.6-5.0 Serum or plasma chloride measurement (moles/volume) 104 mmol/L 98-107 Carbon dioxide 19 mmol/L 21-32 Serum or plasma anion gap determination (moles/volume) 10 mmol/L 5-14 Serum or plasma urea nitrogen measurement (mass/volume) 22 mg/dL 7-18 Serum or plasma creatinine measurement (mass/volume) 1.30 mg/dL 0.60-1.30 Serum or plasma urea nitrogen/creatinine mass ratio 17 NRG Serum or plasma creatinine measurement with calculation of estimated glomerular filtration rate 39 NRG Serum or plasma glucose measurement (mass/volume) 157 mg/dL 70-105 Serum or plasma calcium measurement (mass/volume) 7.9 mg/dL 8.5-10.1 Serum or plasma total bilirubin measurement (mass/volume) 0.6 mg/dL 0.1-1.0 Serum or plasma alkaline phosphatase measurement (enzymatic activity/volume) 102 U/L 40-136 Serum or plasma aspartate aminotransferase measurement (enzymatic activity/ volume) 41 U/L 5-34 Serum or plasma alanine aminotransferase measurement (enzymatic activity/volume ) 75 U/L 0-55 Serum or plasma protein measurement (mass/volume) 5.1 g/dL 6.4-8.2 Serum or plasma albumin measurement (mass/volume) 2.6 g/dL 3.2-4.5 Serum or plasma phosphate measurement (mass/volume) - 05/22/16 04:21 Serum or plasma phosphate measurement (mass/volume) 3.2 mg/dL 2.3-4.7 Magnesium - 05/22/16 04:21 Magnesium 2.1 mg/dL 1.8-2.4 Blood manual differential performed detection - 05/22/16 04:21 Blood monocytes/100 leukocytes 6 % NRG Manual blood segmented neutrophils/100 leukocytes 88 % NRG Blood band neutrophils/100 leukocytes 2 % NRG Manual blood lymphocytes/100 leukocytes 4 % NRG Manual eosinophils/100 leukocytes in nose 0 % NRG Manual blood basophils/100 leukocytes 0 % NRG Blood polychromasia detection by light microscopy SLIGHT NRG Blood ovalocytes detection by light microscopy SLIGHT NRG Blood toxic granules detection by light microscopy 2+ NRG Blood poikilocytosis detection by light microscopy SLIGHT NRG Blood job cells detection by light microscopy SLIGHT NRG THYROID STIMULATING HORMONE - 05/22/16 04:21 THYROID STIMULATING HORMONE 0.61 u[iU]/mL 0.35-4.94 Complete blood count (CBC) with automated white blood cell (WBC) differential - 05/23/16 05:25 Blood leukocytes automated count (number/volume) 7.6 10*3/uL 4.3-11.0 Blood erythrocytes automated count (number/volume) 3.28 10*6/uL 4.35-5.85 Venous blood hemoglobin measurement (mass/volume) 9.6 g/dL 11.5-16.0 Blood hematocrit (volume fraction) 28 % 35-52 Automated erythrocyte mean corpuscular volume 87 [foz_us] 80-99 Automated erythrocyte mean corpuscular hemoglobin (mass per erythrocyte) 29 pg 25-34 Automated erythrocyte mean corpuscular hemoglobin concentration measurement ( mass/volume) 34 g/dL 32-36 Automated erythrocyte distribution width ratio 13.8 % 10.0-14.5 Automated blood platelet count (count/volume) 263 10*3/uL 130-400 Automated blood platelet mean volume measurement 9.2 [foz_us] 7.4-10.4 Automated blood neutrophils/100 leukocytes 86 % 42-75 Automated blood lymphocytes/100 leukocytes 7 % 12-44 Blood monocytes/100 leukocytes 7 % 0-12 Automated blood eosinophils/100 leukocytes 1 % 0-10 Automated blood basophils/100 leukocytes 0 % 0-10 Blood neutrophils automated count (number/volume) 6.5 10*3 1.8-7.8 Blood lymphocytes automated count (number/volume) 0.5 10*3 1.0-4.0 Blood monocytes automated count (number/volume) 0.5 10*3 0.0-1.0 Automated eosinophil count 0.1 10*3/uL 0.0-0.3 Automated blood basophil count (count/volume) 0.0 10*3/uL 0.0-0.1 Comprehensive metabolic panel - 05/23/16 05:25 Serum or plasma sodium measurement (moles/volume) 138 mmol/L 135-145 Serum or plasma potassium measurement (moles/volume) 4.1 mmol/L 3.6-5.0 Serum or plasma chloride measurement (moles/volume) 104 mmol/L 98-107 Carbon dioxide 22 mmol/L 21-32 Serum or plasma anion gap determination (moles/volume) 12 mmol/L 5-14 Serum or plasma urea nitrogen measurement (mass/volume) 22 mg/dL 7-18 Serum or plasma creatinine measurement (mass/volume) 1.38 mg/dL 0.60-1.30 Serum or plasma urea nitrogen/creatinine mass ratio 16 NRG Serum or plasma creatinine measurement with calculation of estimated glomerular filtration rate 36 NRG Serum or plasma glucose measurement (mass/volume) 135 mg/dL 70-105 Serum or plasma calcium measurement (mass/volume) 8.4 mg/dL 8.5-10.1 Serum or plasma total bilirubin measurement (mass/volume) 0.7 mg/dL 0.1-1.0 Serum or plasma alkaline phosphatase measurement (enzymatic activity/volume) 101 U/L 40-136 Serum or plasma aspartate aminotransferase measurement (enzymatic activity/ volume) 33 U/L 5-34 Serum or plasma alanine aminotransferase measurement (enzymatic activity/volume ) 69 U/L 0-55 Serum or plasma protein measurement (mass/volume) 5.6 g/dL 6.4-8.2 Serum or plasma albumin measurement (mass/volume) 2.9 g/dL 3.2-4.5 Magnesium - 05/23/16 05:25 Magnesium 1.6 mg/dL 1.8-2.4 Complete blood count (CBC) with automated white blood cell (WBC) differential - 05/24/16 04:00 Blood leukocytes automated count (number/volume) 7.5 10*3/uL 4.3-11.0 Blood erythrocytes automated count (number/volume) 3.15 10*6/uL 4.35-5.85 Venous blood hemoglobin measurement (mass/volume) 9.3 g/dL 11.5-16.0 Blood hematocrit (volume fraction) 28 % 35-52 Automated erythrocyte mean corpuscular volume 88 [foz_us] 80-99 Automated erythrocyte mean corpuscular hemoglobin (mass per erythrocyte) 30 pg 25-34 Automated erythrocyte mean corpuscular hemoglobin concentration measurement ( mass/volume) 34 g/dL 32-36 Automated erythrocyte distribution width ratio 13.8 % 10.0-14.5 Automated blood platelet count (count/volume) 281 10*3/uL 130-400 Automated blood platelet mean volume measurement 9.2 [foz_us] 7.4-10.4 Automated blood neutrophils/100 leukocytes 84 % 42-75 Automated blood lymphocytes/100 leukocytes 9 % 12-44 Blood monocytes/100 leukocytes 6 % 0-12 Automated blood eosinophils/100 leukocytes 1 % 0-10 Automated blood basophils/100 leukocytes 0 % 0-10 Blood neutrophils automated count (number/volume) 6.3 10*3 1.8-7.8 Blood lymphocytes automated count (number/volume) 0.6 10*3 1.0-4.0 Blood monocytes automated count (number/volume) 0.5 10*3 0.0-1.0 Automated eosinophil count 0.1 10*3/uL 0.0-0.3 Automated blood basophil count (count/volume) 0.0 10*3/uL 0.0-0.1 Comprehensive metabolic panel - 05/24/16 04:00 Serum or plasma sodium measurement (moles/volume) 138 mmol/L 135-145 Serum or plasma potassium measurement (moles/volume) 3.9 mmol/L 3.6-5.0 Serum or plasma chloride measurement (moles/volume) 105 mmol/L 98-107 Carbon dioxide 23 mmol/L 21-32 Serum or plasma anion gap determination (moles/volume) 10 mmol/L 5-14 Serum or plasma urea nitrogen measurement (mass/volume) 21 mg/dL 7-18 Serum or plasma creatinine measurement (mass/volume) 1.14 mg/dL 0.60-1.30 Serum or plasma urea nitrogen/creatinine mass ratio 18 NRG Serum or plasma creatinine measurement with calculation of estimated glomerular filtration rate 45 NRG Serum or plasma glucose measurement (mass/volume) 140 mg/dL 70-105 Serum or plasma calcium measurement (mass/volume) 8.3 mg/dL 8.5-10.1 Serum or plasma total bilirubin measurement (mass/volume) 0.6 mg/dL 0.1-1.0 Serum or plasma alkaline phosphatase measurement (enzymatic activity/volume) 91 U/L 40-136 Serum or plasma aspartate aminotransferase measurement (enzymatic activity/ volume) 30 U/L 5-34 Serum or plasma alanine aminotransferase measurement (enzymatic activity/volume ) 62 U/L 0-55 Serum or plasma protein measurement (mass/volume) 5.2 g/dL 6.4-8.2 Serum or plasma albumin measurement (mass/volume) 2.8 g/dL 3.2-4.5 Magnesium - 05/24/16 04:00 Magnesium 1.6 mg/dL 1.8-2.4 Complete urinalysis with reflex to culture - 05/31/16 20:55 Urine color determination YELLOW NRG Urine clarity determination SLIGHTLY CLOUDY NRG Urine pH measurement by test strip 5 5-9 Specific gravity of urine by test strip 1.020 1.016- 1.022 Urine protein assay by test strip, semi-quantitative 1+ NEGATIVE Urine glucose detection by automated test strip NEGATIVE NEGATIVE Erythrocytes detection in urine sediment by light microscopy 2+ NEGATIVE Urine ketones detection by automated test strip NEGATIVE NEGATIVE Urine nitrite detection by test strip NEGATIVE NEGATIVE Urine total bilirubin detection by test strip NEGATIVE NEGATIVE Urine urobilinogen measurement by automated test strip (mass/volume) 1 mg/dL NORMAL Urine leukocyte esterase detection by dipstick 3+ NEGATIVE Automated urine sediment erythrocyte count by microscopy (number/high power field) [HPF] NRG Automated urine sediment leukocyte count by microscopy (number/high power field ) [HPF] NRG Bacteria detection in urine sediment by light microscopy FEW NRG Squamous epithelial cells detection in urine sediment by light microscopy 5-10 NRG Crystals detection in urine sediment by light microscopy NONE NRG Casts detection in urine sediment by light microscopy NONE NRG Mucus detection in urine sediment by light microscopy TRACE NRG Complete urinalysis with reflex to culture YES NRG Bacterial urine culture - 05/31/16 20:55 Bacterial urine culture [id number] NRG COLONY COUNT <10,000 NRG FTX;REPORTABLE SENSITIVITY REPORTED AT 0817, 06-02-16 NRG Bacterial susceptibility panel - 05/31/16 20:55 Trimethoprim/sulfamethoxazole susceptibility test by minimum inhibitoryconcentration <= NRG Cefazolin susceptibility test by minimum inhibitory concentration > = NRG Ceftriaxone susceptibility test by minimum inhibitory concentration 16 NRG Piperacillin/tazobactam susceptibility test by minimum inhibitory concentration >= NRG Ciprofloxacin susceptibility test by minimum inhibitory concentration <= NRG Meropenem susceptibility test by minimum inhibitory concentration < = NRG Nitrofurantoin susceptibility test by minimum inhibitory concentration 64 NRG Aztreonam susceptibility test by minimum inhibitory concentration 16 NRG Cefepime susceptibility test by minimum inhibitory concentration <= NRG Complete blood count (CBC) with automated white blood cell (WBC) differential - 06/01/16 04:20 Blood leukocytes automated count (number/volume) 11.9 10*3/uL 4.3-11.0 Blood erythrocytes automated count (number/volume) 3.74 10*6/uL 4.35-5.85 Venous blood hemoglobin measurement (mass/volume) 11.1 g/dL 11.5-16.0 Blood hematocrit (volume fraction) 33 % 35-52 Automated erythrocyte mean corpuscular volume 88 [foz_us] 80-99 Automated erythrocyte mean corpuscular hemoglobin (mass per erythrocyte) 30 pg 25-34 Automated erythrocyte mean corpuscular hemoglobin concentration measurement ( mass/volume) 34 g/dL 32-36 Automated erythrocyte distribution width ratio 14.7 % 10.0-14.5 Automated blood platelet count (count/volume) 241 10*3/uL 130-400 Automated blood platelet mean volume measurement 9.2 [foz_us] 7.4-10.4 Automated blood neutrophils/100 leukocytes 89 % 42-75 Automated blood lymphocytes/100 leukocytes 6 % 12-44 Blood monocytes/100 leukocytes 5 % 0-12 Automated blood eosinophils/100 leukocytes 1 % 0-10 Automated blood basophils/100 leukocytes 0 % 0-10 Blood neutrophils automated count (number/volume) 10.6 10*3 1.8-7.8 Blood lymphocytes automated count (number/volume) 0.7 10*3 1.0-4.0 Blood monocytes automated count (number/volume) 0.5 10*3 0.0-1.0 Automated eosinophil count 0.1 10*3/uL 0.0-0.3 Automated blood basophil count (count/volume) 0.0 10*3/uL 0.0-0.1 Comprehensive metabolic panel - 06/01/16 04:20 Serum or plasma sodium measurement (moles/volume) 139 mmol/L 135-145 Serum or plasma potassium measurement (moles/volume) 4.3 mmol/L 3.6-5.0 Serum or plasma chloride measurement (moles/volume) 105 mmol/L 98-107 Carbon dioxide 24 mmol/L 21-32 Serum or plasma anion gap determination (moles/volume) 10 mmol/L 5-14 Serum or plasma urea nitrogen measurement (mass/volume) 28 mg/dL 7-18 Serum or plasma creatinine measurement (mass/volume) 0.85 mg/dL 0.60-1.30 Serum or plasma urea nitrogen/creatinine mass ratio 33 NRG Serum or plasma creatinine measurement with calculation of estimated glomerular filtration rate > NRG Serum or plasma glucose measurement (mass/volume) 133 mg/dL 70-105 Serum or plasma calcium measurement (mass/volume) 8.7 mg/dL 8.5-10.1 Serum or plasma total bilirubin measurement (mass/volume) 0.7 mg/dL 0.1-1.0 Serum or plasma alkaline phosphatase measurement (enzymatic activity/volume) 100 U/L 40-136 Serum or plasma aspartate aminotransferase measurement (enzymatic activity/ volume) 18 U/L 5-34 Serum or plasma alanine aminotransferase measurement (enzymatic activity/volume ) 39 U/L 0-55 Serum or plasma protein measurement (mass/volume) 5.7 g/dL 6.4-8.2 Serum or plasma albumin measurement (mass/volume) 3.2 g/dL 3.2-4.5 Encounters ACCT No. Visit Date/Time Discharge Status Pt. Type Provider Facility Loc./Unit Complaint [id number] 05/24/2016 15:18:00 06/02/2016 13:00:00 DIS Inpatient KYLIE REYES MD [facility] IRF DEBILITY [id number] 2016 13:55:00 05/24/2016 15:18:00 DIS Inpatient JUDI GUIDO, REJI Tony [facility] 4TH SEPSIS,UTI [id number] 05/11/2016 11:31:00 05/15/2016 11:00:00 DIS Inpatient KYLIE REYES MD [facility] IRF LUMBAR RADIOLOPATHY, INTRACTABLE LOW BACK PAIN [id number] 05/08/2016 10:00:00 05/11/2016 11:30:00 DIS Inpatient GEMINI GALLAGHER DO [facility] 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, INTRACTABLE LOW BACK PAIN [id number] 05/04/2016 16:50:00 05/04/2016 23:59:59 CLS Outpatient SANIYA CORRALES MD [facility] RAD LOW BACK PAIN [id number] 03/24/2016 10:30:00 03/24/2016 23:59:59 CLS Preadmit VIVI OATES MD [facility] CARD DIZZINESS,PALPITATIONS [id number] 12/24/2015 10:29:00 03/23/2016 00:01:00 DIS Outpatient VIVI OATES MD [facility] CARD DIZZINESS,PALPITATIONS [id number] 12/10/2015 13:11:00 12/10/2015 23:59:59 CLS Outpatient VIVI OATES MD [facility] RAD FLU PNEUMONIA [id number] 12/05/2014 13:00:00 12/07/2014 15:38:00 DIS Outpatient LUANN TORRES APRN [facility] REHAB BACK PAIN, ARTHRITIS [id number] 08/25/2013 13:30:00 09/14/2013 09:39:00 DIS Outpatient LUANN TORRES APRN [facility] REHAB RT KNEE PAIN OA [id number] 07/11/2013 14:43:00 07/11/2013 23:59:59 CLS Outpatient LUANN TORRES APRN [facility] RAD KNEE PAIN [id number] 03/23/2013 10:30:00 05/21/2013 00:01:00 DIS Outpatient RIN MORALES MD [facility] REHAB CERVICAL SPONDYLOSIS, CERVICALGIA [id number] 05/09/2013 13:08:00 05/09/2013 23:59:59 CLS Outpatient [id number] 02/06/2013 13:05:00 02/06/2013 23:59:59 CLS Outpatient LASHON GUIDO, VIVI Arias [facility] RAD RT SHOULDER PAIN,ARM PAIN ,HAND AND NECK PAIN [id number] 06/11/2017 15:51:00 ACT Emergency CATRACHITO GUIDO, TERRENCE Blanco [facility] ER FALL [id number] 11/20/2015 10:47:00 Document Registration [id number] 05/22/2013 00:00:00 Document Registration [id number] 11/30/2011 08:18:00 Document Registration [id number] 03/05/2011 09:46:00 Document Registration [id number] 11/26/2010 06:46:00 Document Registration
--- NOTE | 2017-06-11 16:00 | ED Head Injury ---
General Stated Complaint: FALL Source: patient Exam Limitations: no limitations History of Present Illness Time seen by provider: 15:58 Initial Comments [place] and fell striking the right side of her head. No loss of consciousness. No dizziness. No neck pain. She has no pain, however, she is concerned because she is on Eliquis. Also reported some midsternal pain just after the fall. Occurred: just prior to arrival Severity: moderate Loss of Consciousness: no loss of consciousness Allergies and Home Medications Allergies Coded Allergies: Fish Containing Products (Verified Allergy, Unknown, 06/02/16) Home Medications Acetaminophen 500 Mg Tablet, 500 MG PO Q4H PRN for TEMPERATURE GREATER THAN 101 for 14 Days Prescribed by: GEMINI GALLAGHER on 05/24/16 1207 Amlodipine Besylate 5 Mg Tablet, 5 MG PO DAILY, (Reported) Apixaban 5 Mg Tablet, 5 MG PO BID for 14 Days Prescribed by: GEMINI GALLAGHER on 05/24/16 120 Aspirin 81 Mg Tablet.dr, 81 MG PO DAILY for 14 Days Prescribed by: GEMINI GALLAGHER on 05/24/16 1207 Calcium Carbonate/Vitamin D3 1 Each Tablet, 1 TAB PO HS, (Reported) Diltiazem HCl 120 Mg Cap.er.24h, 120 MG PO HS for 14 Days Prescribed by: GEMINI GALLAGHER on 05/24/16 120 Diltiazem HCl 240 Mg Cap.er.24h, 240 MG PO DAILY for 14 Days Prescribed by: GEMINI GALLAGHER on 05/24/16 120 Famotidine 20 Mg Tablet, 20 MG PO DAILY PRN for ACID REFLUX, (Reported) L. Acidophilus/Bulgaricus 1 Each Tablet, 1 TAB.CHEW PO AC for 14 Days Prescribed by: GEMINI GALLAGHER on 05/24/16 1207 Levothyroxine Sodium 125 Mcg Tablet, 125 MCG PO DAILY, (Reported) Metoprolol Succinate 50 Mg Tab.er.24h, 50 MG PO HS, (Reported) Simvastatin 20 Mg Tablet, 20 MG PO HS, (Reported) Sulfamethoxazole/Trimethoprim 1 Each Tablet, 1 EACH PO BID for 7 Days Prescribed by: AERL DOLAN on 06/02/16 1115 Constitutional: see HPI Eyes: No Symptoms Reported Ears, Nose, Mouth, Throat: no symptoms reported Respiratory: see HPI Cardiovascular: no symptoms reported Genitourinary: no symptoms reported Musculoskeletal: no symptoms reported Skin: no symptoms reported Psychiatric/Neurological: No Symptoms Reported Past [id number]-[id number] Hx Patient Social History Type Used: Cigarettes Former Smoker, Quit: May 24, 1966 Recent Hopitalizations: Yes Immunizations Up To Date Date of Pneumonia Vaccine: October 28, 2015 Seasonal Allergies Seasonal Allergies: No Surgeries Surgeries: Hysterectomy, Joint Replacement Respiratory Respiratory Disorders: Pneumonia Currently Using CPAP: No Currently Using BIPAP: No Cardiovascular Cardiac Disorders: High Cholesterol, Hypertension Reproductive System Hx Reproductive Disorders: Yes POT MAKER History: Hysterectomy Gastrointestinal Gastrointestinal Disorders: Gastroesophageal Reflux, Chronic Constipation, Chronic Diarrhea, Gall Bladder Disease Musculoskeletal Musculoskeletal Disorders: Arthritis, Back Injury, Chronic Back Pain Endocrine Endocrine Disorders: Hypothyroidsim Psychosocial Behavioral Health Disorders: Anxiety Blood Transfusions Adverse Reaction to a Blood Tr: No Family Medical History Significant Family History: No Pertinent Family Hx Family Medial History: Physical Exam Vital Signs Vital Sign - Last 12Hours 06/11/17 15:50 Temp 98.0 Pulse 74 Resp 18 B/P (MAP) 153/63 (93) Pulse Ox 94 Capillary Refill : General Appearance: WD/WN, no apparent distress HEENT: PERRL/EOMI, normal ENT inspection, other (hematoma right synagogue. no bleeding no lacerations) Neck: non-tender, full range of motion Cardiovascular: regular rate, rhythm, no edema Respiratory: chest non-tender, lungs clear, normal breath sounds, no respiratory distress, no accessory muscle use Gastrointestinal: normal bowel sounds, non tender Extremities: normal range of motion, non-tender Psychiatric: alert, oriented x 3 Crainal Nerves: normal hearing, normal speech, PERRL no hip pain [place] Coma Score Best Eye Response: (4) Open Spontaneously Best Verbal Response: (5) Oriented Best Motor Response: (6) Obeys Commands Isma Total: 15 Progress/Results/Core Measures Results/Orders My Orders Orders - DOLORES BURGESS APRN Ct Head/Cervical Spine Wo (06/11/17 15:56) Chest Pa/Lat (2 View) (06/11/17 15:56) Vital Signs/I&O Vital Sign - Last 12Hours 06/11/17 15:50 Temp 98.0 Pulse 74 Resp 18 B/P (MAP) 153/63 (93) Pulse Ox 94 Departure Communication (Admissions) Family Conversation Patient will be discharged to home in care of her daughter. Patient remains a symptomatically. Still no neck pain. Progress Notes NAME: NIKHIL ARAIZA [facility] REC#: [id number] PT STATUS: REG ER : 1930 PHYSICIAN: DOLORES BURGESS WEB COORDINATOR ADMIT DATE: 06/11/17/ER Draft Date of Exam:06/11/17 CT HEAD/CERVICAL SPINE WO INDICATION: Fall with head and neck pain. CT BRAIN FINDINGS: Noncontrast study was performed. CT HEAD FINDINGS: There are diffuse atrophic changes. There is no subdural or epidural collection. There is a calcified lesion along the left side of the falx in the posterior frontal region, measuring about 1.7 cm in greatest diameter, compatible with a densely calcified meningioma. This does not cause significant mass effect or shift. There is no intraparenchymal abnormality in the brain. Calvarial windows show no fractures. There is right frontal scalp swelling. CT CERVICAL SPINE FINDINGS: Axial slices are obtained with sagittal and coronal reconstructions without contrast. There is no evidence of cervical spine fracture. There is extensive degenerative change throughout the cervical spine. There is disc space narrowing with osteophyte formation at essentially all levels. There is about 3 mm of anterolisthesis of C3 on C4, which may be on a degenerative basis. There is marked degenerative change throughout the facets. There is significant neural frontal narrowing at C5-6 on both sides due to osteophyte formation. There is moderate diffuse canal narrowing due to osteophytes. IMPRESSION: 1. CT brain shows atrophic changes with no acute intracranial hemorrhage, mass effect or calvarial fracture. There is right frontal scalp swelling. There is incidental calcified meningioma along the anterior falx to the left of the midline. 2. CT cervical spine demonstrates extensive degenerative findings throughout the cervical spine, as described above, with no acute fracture. There is about 3 mm of anterolisthesis of C3 on C4 which may be on a degenerative basis although we do not have prior studies for comparison. Dictated on workstation # [id number] Dict: 06/11/17 1645 Trans: 06/11/17 1701 PJE [id number] Interpreted by: TYLER OCHOA MD Electronically signed by: Impression Impression: Primary Impression: Scalp contusion Disposition: 01 HOME, SELF-CARE Condition: Stable Departure-Patient Inst. Decision time for Depature: 17:04 Referrals: VIVI OATES MD (PCP/Family) Primary Care Physician Patient Instructions: Minor Head Injury (DC) Add. Discharge Instructions: 1. Return to the emergency room for any concerns such as confusion, nausea, headache. Follow up with your doctor next week. Please stay with her daughter brett or have her stay with use was to keep an eye on you and evaluate for any confusion and bring you back to the emergency room if she has any concerns. DOLORES BURGESS WEB COORDINATOR Jun 11, 2017 16:00
--- NOTE | 2017-06-11 16:41 | Diagnostic Imaging Report ---
INDICATION: Fall. TECHNIQUE: Two view chest at 4:48 PM. CORRELATION STUDY: 05/22/2016. FINDINGS: The heart size, mediastinal configuration, and pulmonary vasculature are within normal limits. The lungs are clear with no consolidating infiltrate. There is no significant pleural effusion or pneumothorax. There is mild eventration of the right diaphragm. Multilevel degenerative changes including bridging osteophytes are noted in the thoracic spine. There are advanced degenerative changes of the bilateral shoulders. IMPRESSION: Negative for acute abnormality about the chest. Dictated by: Dictated on workstation # [id number]
--- NOTE | 2017-06-11 17:02 | Diagnostic Imaging Report ---
INDICATION: Fall with head and neck pain. CT BRAIN FINDINGS: Noncontrast study was performed. CT HEAD FINDINGS: There are diffuse atrophic changes. There is no subdural or epidural collection. There is a calcified lesion along the left side of the falx in the posterior frontal region, measuring about 1.7 cm in greatest diameter, compatible with a densely calcified meningioma. This does not cause significant mass effect or shift. There is no intraparenchymal abnormality in the brain. Calvarial windows show no fractures. There is right frontal scalp swelling. CT CERVICAL SPINE FINDINGS: Axial slices are obtained with sagittal and coronal reconstructions without contrast. There is no evidence of cervical spine fracture. There is extensive degenerative change throughout the cervical spine. There is disc space narrowing with osteophyte formation at essentially all levels. There is about 3 mm of anterolisthesis of C3 on C4, which may be on a degenerative basis. There is marked degenerative change throughout the facets. There is significant neural frontal narrowing at C5-6 on both sides due to osteophyte formation. There is moderate diffuse canal narrowing due to osteophytes. IMPRESSION: 1. CT brain shows atrophic changes with no acute intracranial hemorrhage, mass effect or calvarial fracture. There is right frontal scalp swelling. There is incidental calcified meningioma along the anterior falx to the left of the midline. 2. CT cervical spine demonstrates extensive degenerative findings throughout the cervical spine, as described above, with no acute fracture. There is about 3 mm of anterolisthesis of C3 on C4 which may be on a degenerative basis although we do not have prior studies for comparison. Dictated by: Dictated on workstation # [id number]
[2017-06-11 17:17] VITALS: BP 177/70
== END 2017-06-11 17:17 | disposition home or self-care (01) ==
LOC: EDUNIT# 15:50 → ER 15:51
DX: S00.03XA Contusion of scalp, initial encounter (principal); E78.00 Pure hypercholesterolemia, unspecified; I10 Essential (primary) hypertension; K21.9 Gastro-esophageal reflux disease without esophagitis; F41.9 Anxiety disorder, unspecified; E03.9 Hypothyroidism, unspecified; Z87.19 Personal history of other diseases of the digestive system; Z79.01 Long term (current) use of anticoagulants; Z79.82 Long term (current) use of aspirin; Z90.710 Acquired absence of both cervix and uterus; Z87.01 Personal history of pneumonia (recurrent); W01.198A Fall on same level from slipping, tripping and stumbling with subsequent striking against other object, initial encounter
CPT/HCPCS: 70450; 71020; 72125; 99283

== ENCOUNTER 2017-08-26 14:42 | Observation (INO) | payer MEDICARE, OTHER ==
[~2017-08-26] VITALS: Ht 165.1 cm; Wt 83.9 kg
[~2017-08-26 14:42] MED LIST changes: +ACHD5005 PO; -HYDR-3812 PO
--- OUTSIDE RECORDS SUMMARY | 2017-08-26 14:49 | XMS REPORT | Continuity of Care Document ---
Author Author [facility] Organization [facility] Address Unknown Phone Unavailable Allergies Active Description Code Type Severity Reaction Onset Reported/Identified Relationship to Patient Clinical Status Yes No Known Drug Allergies [id number] Drug Allergy Unknown N/A 05/06/2016 Yes Fish Containing Products [id number] Drug Allergy Unknown N/A 06/02/2016 Medications There is no data. Problems Date Dx Coded Attending Type Code Diagnosis Diagnosed By 05/21/2013 RIN MORALES MD Ot 721.0 CERVICAL SPONDYLOSIS 05/21/2013 RIN MORALES MD Ot V57.1 PHYSICAL THERAPY NEC 09/14/2013 LUANN TORRES SENIOR HRIS ANALYST Ot 715.96 OSTEOARTHROS NOS-L/LEG 09/14/2013 LUANN TORRES SENIOR HRIS ANALYST Ot V57.1 PHYSICAL THERAPY NEC 11/28/2014 LUANN TORRES SENIOR HRIS ANALYST Ot 716.90 11/28/2014 LUANN TORRES APRN Ot 724.5 11/28/2014 LUANN TORRES APRN Ot V57.1 12/07/2014 LUANN TORRES SENIOR HRIS ANALYST Ot 716.90 ARTHROPATHY NOS-UNSPEC 12/07/2014 LUANN TORRES SENIOR HRIS ANALYST Ot 724.5 BACKACHE NOS 12/07/2014 LUANN TORRES SENIOR HRIS ANALYST Ot V57.1 PHYSICAL THERAPY NEC 11/22/2015 Ot [...] Ot M48.06 SPINAL STENOSIS, LUMBAR REGION 05/11/2016 GALLAGHER GEMINI BRADEN Ot M54.16 RADICULOPATHY, LUMBAR REGION [...] E87.70 FLUID OVERLOAD, UNSPECIFIED 05/30/2016 AMY GUIDO KLYIE E Ot I10 ESSENTIAL (PRIMARY) HYPERTENSION 05/30/2016 [...] 05/30/2016 FADUMO REYES MDIC E Ot Z79.01 GROUP HOME (CURRENT) USE OF 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 05/31/2016 KYLIE REYES [...] 05/31/2016 KYLIE REYES MD E Ot 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7 DIARRHEA, UNSPECIFIED 06/02/2016 KYLIE REYES MD Ot R41.0 DISORIENTATION, UNSPECIFIED 06/02/2016 KYLIE REYES MD Ot R53.1 WEAKNESS 06/02/2016 KYLIE REYES MD Ot R60.0 LOCALIZED EDEMA 06/02/2016 KYLIE REYES MD Ot T36.95XA ADVERSE EFFECT OF UNSP SYSTEMIC ANTIBIOT 06/02/2016 KYLIE REYES MD Ot Z79.01 GROUP HOME (CURRENT) USE OF 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 06/11/2017 DOLORES BURGESS APRN Ot E03.9 HYPOTHYROIDISM, UNSPECIFIED 06/11/2017 DOLORES BURGESS APRN Ot E78.00 PURE HYPERCHOLESTEROLEMIA, UNSPECIFIED 06/11/2017 DOLORES BURGESS APRN Ot F41.9 ANXIETY DISORDER, UNSPECIFIED 06/11/2017 DOLORES BURGESS APRN Ot I10 ESSENTIAL (PRIMARY) HYPERTENSION 06/11/2017 DOLORES BURGESS APRN Ot K21.9 GASTRO-ESOPHAGEAL REFLUX DISEASE WITHOUT 06/11/2017 DOLORES BURGESS APRN Ot S00.03XA CONTUSION OF SCALP, INITIAL ENCOUNTER 06/11/2017 DOLORES BURGESS APRN Ot W01.198A FALL SAME LEV FROM SLIP/TRIP W STRIKE AG 06/11/2017 DOLORES BURGESS APRN Ot Z79.01 GROUP HOME (CURRENT) USE OF 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 06/11/2017 DOLORES BURGESS APRN Ot Z79.82 GROUP HOME (CURRENT) USE OF ASPIRIN 06/11/2017 DOLORES BURGESS APRN Ot Z87.01 PERSONAL HISTORY OF PNEUMONIA (RECURRENT 06/11/2017 DOLORES BURGESS APRN Ot Z87.19 PERSONAL HISTORY OF OTHER DISEASES OF TH 06/11/2017 DOLORES BURGESS APRN Ot Z90.710 ACQUIRED ABSENCE OF BOTH CERVIX AND UTER Procedures Code Description Performed By Performed On 3T6V73U INTRODUCE OF ANTI-INFLAM INTO EPIDURAL S 05/07/2016 [id number] EXCISION OF LUMBAR SPINAL CORD, OPEN SANAZ 05/08/2016 [id number] RELEASE LUMBAR NERVE, OPEN APPROACH 05/08/2016 7FU958B REMOVAL OF INT FIX FROM LUM JT, OPEN SANAZ 05/08/2016 [id number] EVANGELICAL OF CARDIAC RHYTHM, SINGLE 05/20/2016 Results Test [...] culture - 05/16/16 12:00 Bacterial urine culture [id number] NRG COLONY COUNT 10,000/ML - 100,000/ML NRG FTX;REPORTABLE SENSITIVITY REPORTED AT 0755, 05-18-16 NR URINE CULTURE RESULTS PLUS NR Bacterial susceptibility panel - 05/16/16 12:00 Gentamicin [...] - 05/16/16 12:49 Bacterial blood culture NG NRG Bacterial blood culture - 05/16/16 13:05 Bacterial blood culture NG NRG Blood lactic acid measurement (moles/volume) - 05/16/16 [...] culture - 05/19/16 04:30 Bacterial urine culture [id number] NRG COLONY COUNT 10,000/ML - 100,000/ML NRG FTX;REPORTABLE NO FURTHER STUDIES UNLESS REQUESTED NRG Automated blood complete blood count (hemogram) panel [...] GRAM STAIN SPUTUM AND MIXED BACTERIAL [facility] Bacterial sputum culture - 05/20/16 06:15 Bacterial sputum culture NORMAL [facility] Vancomycin trough - 05/20/16 06:50 Vancomycin trough [...] culture - 05/31/16 20:55 Bacterial urine culture [id number] NRG COLONY COUNT <10,000 NRG FTX;REPORTABLE SENSITIVITY [...] 0.0 10*3/uL 0.0-0.1 Comprehensive metabolic panel - 12/05/16 04:20 Serum or plasma sodium measurement (moles/volume) [...] Status Pt. Type Provider Facility Loc./Unit Complaint [id number] 06/11/2017 15:51:00 06/11/2017 17:17:00 DIS Emergency DOLORES BURGESS SENIOR HRIS ANALYST [facility] ER FALL [id number] 05/24/2016 15:18:00 06/02/2016 13:00:00 DIS Inpatient KYLIE REYES MD [facility] IRF DEBILITY [id number] 2016 13:55:00 05/24/2016 15:18:00 DIS Inpatient JUDI GUIDO, REJI Tony [facility] 4TH SEPSIS,UTI [id number] 05/11/2016 11:31:00 05/15/2016 11:00:00 DIS Inpatient KYLIE REYES MD [facility] IRF LUMBAR RADIOLOPATHY, INTRACTABLE LOW BACK PAIN [id number] 05/08/2016 10:00:00 05/11/2016 11:30:00 DIS Inpatient GEMINI GALLAGHER DO [facility] 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, INTRACTABLE LOW BACK PAIN [id number] 05/04/2016 16:50:00 05/04/2016 23:59:59 CLS Outpatient SANIYA CORRALES MD [facility] RAD LOW BACK PAIN [id number] 03/24/2016 10:30:00 03/24/2016 23:59:59 CLS Preadmit VIVI OATES MD [facility] CARD DIZZINESS,PALPITATIONS [id number] 12/24/2015 10:29:00 03/23/2016 00:01:00 DIS Outpatient VIVI OATES MD [facility] CARD DIZZINESS,PALPITATIONS [id number] 12/10/2015 13:11:00 12/10/2015 23:59:59 CLS Outpatient VIVI OATES MD [facility] RAD FLU PNEUMONIA [id number] 12/05/2014 13:00:00 12/07/2014 15:38:00 DIS Outpatient LUANN TORRES APRN [facility] REHAB BACK PAIN, ARTHRITIS [id number] 08/25/2013 13:30:00 09/14/2013 09:39:00 DIS Outpatient LUANN TORRES APRN [facility] REHAB RT KNEE PAIN OA [id number] 07/11/2013 14:43:00 07/11/2013 23:59:59 CLS Outpatient LUANN TORRES APRN [facility] RAD KNEE PAIN [id number] 03/23/2013 10:30:00 05/21/2013 00:01:00 DIS Outpatient RIN MORALES MD [facility] REHAB CERVICAL SPONDYLOSIS, CERVICALGIA [id number] 05/09/2013 13:08:00 05/09/2013 23:59:59 CLS Outpatient [id number] 02/06/2013 13:05:00 02/06/2013 23:59:59 [facility] Outpatient LASHON GUIDO, VIVI Arias [facility] RT SHOULDER PAIN,ARM PAIN ,HAND AND NECK PAIN [id number] 11/20/2015 10:47:00 Document Registration [id number] 05/22/2013 00:00:00 Document Registration [id number] 11/30/2011 08:18:00 Document Registration [id number] 03/05/2011 09:46:00 Document Registration [id number] 11/26/2010 06:46:00 Document Registration
--- NOTE | 2017-08-26 14:54 | ED General ---
General Stated Complaint: DIZZY/NAUSEA Source of Information: Patient, EMS Exam Limitations: No Limitations History of Present Illness Date Seen by Provider: Aug 26, 2017 Time Seen by Provider: 14:50 Initial Comments To ER per EMS from home with reports of sudden onset dizziness nausea and vomiting. She had awakened and was going about her daily activities. She developed sudden onset dizziness, became very nauseous. EMS was summoned and gave 4 mg of Zofran in route to the hospital without significant improvement in the nausea. She is on Eliquis history of paroxysmal atrial fibrillation. Does report a humming sensation in left ear last night. Timing/Duration: 1-3 Hours Severity: Severe Allergies and Home Medications Allergies Coded Allergies: Fish Containing Products (Verified Allergy, Unknown, 06/02/16) Home Medications Acetaminophen 500 Mg Tablet, 500 MG PO Q4H PRN for TEMPERATURE GREATER THAN 101 Prescribed by: GEMINI GALLAGHER on 05/24/16 1207 Amlodipine Besylate 5 Mg Tablet, 5 MG PO DAILY, (Reported) Apixaban 5 Mg Tablet, 5 MG PO BID Prescribed by: GEMINI GALLAGHER on 05/24/16 120 Aspirin 81 Mg Tablet.dr, 81 MG PO DAILY Prescribed by: GEMINI GALLAGHER on 05/24/16 1207 Calcium Carbonate/Vitamin D3 1 Each Tablet, 1 TAB PO HS, (Reported) Diltiazem HCl 120 Mg Cap.er.24h, 120 MG PO HS Prescribed by: GEMINI GALLAGHER on 05/24/16 120 Diltiazem HCl 240 Mg Cap.er.24h, 240 MG PO DAILY Prescribed by: GEMINI GALLAGHER on 05/24/16 1207 Famotidine 20 Mg Tablet, 20 MG PO DAILY PRN for ACID REFLUX, (Reported) L. Acidophilus/Bulgaricus 1 Each Tablet, 1 TAB.CHEW PO AC Prescribed by: GEMINI GALLAGHER on 05/24/16 120 Levothyroxine Sodium 125 Mcg Tablet, 125 MCG PO DAILY, (Reported) Metoprolol Succinate 50 Mg Tab.er.24h, 50 MG PO HS, (Reported) Simvastatin 20 Mg Tablet, 20 MG PO HS, (Reported) Sulfamethoxazole/Trimethoprim 1 Each Tablet, 1 EACH PO BID Prescribed by: EARL DOLAN on 06/02/16 1115 Constitutional: see HPI EENTM: see HPI Respiratory: no symptoms reported Cardiovascular: no symptoms reported Genitourinary: no symptoms reported Musculoskeletal: no symptoms reported Skin: no symptoms reported Psychiatric/Neurological: See HPI, Other (dizzy) Hematologic/Lymphatic: No Symptoms Reported Immunological/Allergic: no symptoms reported Past Iqlslgq-Uxjixh-Ovvoii Hx Patient Social History Type Used: Cigarettes Former Smoker, Quit: May 24, 1966 Recent Hopitalizations: Yes Immunizations Up To Date Date of Pneumonia Vaccine: October 28, 2015 Seasonal Allergies Seasonal Allergies: No Surgeries History of Surgeries: Yes (CYST REMOVED, GOITER REMOVED, LAMINECTOMY) Surgeries: Hysterectomy, Joint Replacement Respiratory History of Respiratory Disorde: Yes Respiratory Disorders: Pneumonia Currently Using CPAP: No Currently Using BIPAP: No Cardiovascular History of Cardiac Disorders: Yes Cardiac Disorders: High Cholesterol, Hypertension Neurological History of Neurological Disord: No Reproductive System Hx Reproductive Disorders: Yes 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 Gastrointestinal History of Gastrointestinal Di: Yes (TAKES PEPCID) Gastrointestinal Disorders: Gastroesophageal Reflux, Chronic Constipation, Chronic Diarrhea, Gall Bladder Disease Musculoskeletal History of Musculoskeletal Dis: Yes Musculoskeletal Disorders: Arthritis, Back Injury, Chronic Back Pain Endocrine History of Endocrine Disorders: Yes Endocrine Disorders: Hypothyroidsim Cancer History of Cancer: No Psychosocial History of Psychiatric Problem: Yes Behavioral Health Disorders: Anxiety Integumentary History of Skin or Integumenta: No Blood Transfusions History of Blood Disorders: No Adverse Reaction to a Blood Tr: No Family Medical History Significant Family History: No Pertinent Family Hx Family Medial History: Physical Exam Vital Signs Vital Signs - First Documented 08/26/17 14:52 Temp 98.4 Pulse 75 Resp 18 B/P (MAP) 198/90 (126) Pulse Ox 93 O2 Delivery Room Air Capillary Refill : General Appearance: No Apparent Distress, WD/WN Eyes: Bilateral Eye Normal Inspection, Bilateral Eye PERRL, Bilateral Eye EOMI HEENT: PERRL/EOMI, TMs Normal, Other (patient is unable to open her eyes due to the dizziness. Dizziness is worse with movement.) Neck: Full Range of Motion, Normal Inspection Respiratory: Lungs Clear, Normal Breath Sounds, No Accessory Muscle Use, No Respiratory Distress Cardiovascular: Regular Rate, Rhythm, Normal Peripheral Pulses Gastrointestinal: Normal Bowel Sounds, Non Tender, Soft Extremity: Normal Capillary Refill, Normal Inspection, Normal Range of Motion Neurologic/Psychiatric: Alert, Oriented x3, No Motor/Sensory Deficits Skin: Normal Color, Warm/Dry Progress/Results/Core Measures Suspected Sepsis SIRS Temperature: Pulse: Respiratory Rate: Laboratory Tests 08/26/17 14:50: White Blood Count 6.3 Blood Pressure / Mean: Laboratory Tests 08/26/17 14:50: Creatinine 1.01, Platelet Count 216, Total Bilirubin 1.2H Results/Orders Lab Results Laboratory Tests Test 08/26/17 14:50 08/26/17 15:23 Range/Units White Blood Count 6.3 4.3-11.0 10^3/uL Red Blood Count 3.42 L 4.35-5.85 10^6/uL Hemoglobin 11.1 L 11.5-16.0 G/DL Hematocrit 33 L 35-52 % Mean Corpuscular Volume 95 80-99 FL Mean Corpuscular Hemoglobin 33 25-34 PG Mean Corpuscular Hemoglobin Concent 34 32-36 G/DL Red Cell Distribution Width 16.0 H 10.0-14.5 % Platelet Count 216 130-400 10^3/uL Mean Platelet Volume 9.5 7.4-10.4 FL Neutrophils (%) (Auto) 77 H 42-75 % Lymphocytes (%) (Auto) 13 12-44 % Monocytes (%) (Auto) 6 0-12 % Eosinophils (%) (Auto) 5 0-10 % Basophils (%) (Auto) 0 0-10 % Neutrophils # (Auto) 4.8 1.8-7.8 X 10^3 Lymphocytes # (Auto) 0.8 L 1.0-4.0 X 10^3 Monocytes # (Auto) 0.4 0.0-1.0 X 10^3 Eosinophils # (Auto) 0.3 0.0-0.3 10^3/uL Basophils # (Auto) 0.0 0.0-0.1 10^3/uL Sodium Level 136 135-145 MMOL/L Potassium Level 4.7 3.6-5.0 MMOL/L Chloride Level 102 98-107 MMOL/L Carbon Dioxide Level 21 21-32 MMOL/L Anion Gap 13 5-14 MMOL/L Blood Urea Nitrogen 21 H 7-18 MG/DL Creatinine 1.01 0.60-1.30 MG/DL Estimat Glomerular Filtration Rate 52 BUN/Creatinine Ratio 21 Glucose Level 153 H 70-105 MG/DL Calcium Level 8.9 8.5-10.1 MG/DL Total Bilirubin 1.2 H 0.1-1.0 MG/DL Aspartate Amino Transf (AST/SGOT) 26 5-34 U/L Alanine Aminotransferase (ALT/SGPT) 19 0-55 U/L Alkaline Phosphatase 103 40-136 U/L B-Type Natriuretic Peptide 97.2 <100.0 PG/ML Total Protein 7.2 6.4-8.2 GM/DL Albumin 4.0 3.2-4.5 GM/DL Urine Color YELLOW Urine Clarity CLEAR Urine pH 8 5-9 Urine Specific [place] 1.010 L 1.016-1.022 Urine Protein 1+ H NEGATIVE Urine Glucose (UA) NEGATIVE NEGATIVE Urine Ketones NEGATIVE NEGATIVE Urine Nitrite NEGATIVE NEGATIVE Urine Bilirubin NEGATIVE NEGATIVE Urine Urobilinogen NORMAL NORMAL MG/DL Urine Leukocyte Esterase 1+ H NEGATIVE Urine RBC (Auto) 2+ H NEGATIVE Urine RBC 2-5 H /HPF Urine WBC 0-2 /HPF Urine Squamous Epithelial Cells 10-25 H /HPF Urine Crystals NONE /LPF Urine Bacteria TRACE /HPF Urine Casts NONE /LPF Urine Mucus NEGATIVE /LPF Urine Culture Indicated NO My Orders Orders - DOLORES BURGESS APRN Cbc With Automated Diff (08/26/17 14:48) Comprehensive Metabolic Panel (08/26/17 14:48) Ekg Tracing (08/26/17 14:48) Ua Culture If Indicated (08/26/17 14:48) Ct Head Wo (08/26/17 14:48) Promethazine Injection (Phenergan Injec (08/26/17 15:00) Chest 1 View, Ap/Pa Only (08/26/17 14:57) BNP (08/26/17 14:57) Ct Angio Head/Neck (08/26/17 15:58) Ns Iv 1000 Ml (Sodium Chloride 0.9%) (08/26/17 16:00) Iohexol Injection (Omnipaque 350 Mg/Ml 1 (08/26/17 16:15) Sodium Chloride Flush (Catheter Flush Sy (08/26/17 16:15) Ns (Ivpb) (Sodium Chloride 0.9%) (08/26/17 16:15) Pharmacy Communication (Pharmacy Communi (08/26/17 16:05) Medications Given in ED Current Medications Medications Dose Ordered Sig/Susanne Route Start Time Stop Time Status Last Admin Dose Admin Iohexol 100 ml ONCE ONCE IV 08/26/17 16:15 3/1/18 16:16 DC 08/26/17 16:39 85 ML Promethazine HCl 12.5 mg ONCE ONCE IVP 08/26/17 15:00 08/26/17 15:01 DC 08/26/17 15:03 12.5 MG Sodium Chloride 10 ml NEEDED PRN IV 08/26/17 16:15 08/26/17 16:39 10 ML Sodium Chloride 250 ml ONCE ONCE IV 08/26/17 16:15 08/26/17 16:16 DC 08/26/17 16:39 80 ML Vital Signs/I&O Vital Sign - Last 12Hours 08/26/17 14:52 Temp 98.4 Pulse 75 Resp 18 B/P (MAP) 198/90 (126) Pulse Ox 93 O2 Delivery Room Air Capillary Refill : Diagnostic Imaging Diagonstic Imaging: Xray, CT Comments NAME: JOSE GNIKHIL J Ouner REC#: [id number] PT STATUS: REG ER : 1930 PHYSICIAN: DOLORES BURGESS APRN ADMIT DATE: 08/26/17/ER Draft Date of Exam:08/26/17 CT HEAD WO INDICATION: Dizziness and nausea. CT head obtained without IV contrast and compared with 06/11/2017. FINDINGS: There are diffuse atrophic changes. There are no extra-axial fluid collections. No intracranial hemorrhage. There are patchy low-density changes in the deep white matter compatible with chronic ischemic change, similar to the prior study. There is no acute intracranial abnormality. There is a calcified lesion along the left side of the falx, measuring about 1.6 cm, probably a calcified meningioma. This is unchanged compared to the prior study as well. IMPRESSION: Atrophic changes and chronic changes in the deep white matter. No acute hemorrhage or mass effect or acute intracranial abnormality. 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 Dictated on workstation # [id number] Dict: 08/26/17 1532 Trans: 08/26/17 1545 [id number] Interpreted by: TYLER OCHOA MD Electronically signed by: NAME: NIKHIL ARAIZA Ouner REC#: [id number] PT STATUS: REG ER : 1930 PHYSICIAN: DOLORES BURGESS APRN ADMIT DATE: 08/26/17/ER Draft Date of Exam:08/26/17 CHEST 1 VIEW, AP/PA ONLY PATIENT HISTORY: Dizziness and nausea. TECHNIQUE: Single frontal view of the chest. COMPARISON: 06/11/2017 FINDINGS: Lung volumes are mildly decreased when compared to the prior study. Mildly increased interstitial opacities are seen in the right lung base, may represent mild infiltrate versus atelectasis. The cardiac silhouette is upper normal in size. No pleural effusion or pneumothorax is seen. Degenerative changes are seen in the spine and shoulders, with no acute osseous abnormality seen. IMPRESSION: Mildly increased interstitial opacities in right lung base, may represent infiltrate or atelectasis. Dictated on workstation # [id number] Dict: 08/26/17 1545 Trans: 08/26/17 1550 [id number] Interpreted by: KENNEDY IVORY MD Electronically signed by: Departure Communication (Admissions) Progress Notes 1603-patient states that her nausea is gone but the dizziness persists. She is very lethargic from the 12.5 mg of Phenergan given. She lives at home alone and daughter at the bedside states that she cannot care for the patient and would prefer admission and at least until patient is able to perform activities of daily living again as it stands currently, her dizziness is incapacitating. Her renal function is less than perfect but due to concern of posterior circulation occlusion we will proceed with a CT angiogram head and neck and hydrate with fluids. 1731- CT angiogram unremarkable for occlusion or stenosis. We'll admit the patient due to her inability to care for herself at home secondary to this dizziness. Once this improves, she can be discharged home more safely.. Impression Impression: Primary Impression: Vertigo Disposition: HOME, SELF-CARE Condition: Stable Departure-Patient Inst. Decision time for Depature: 15:54 Referrals: VIVI OATES MD (PCP/Family) Primary Care Physician Patient Instructions: Vertigo (a Type of Dizziness) (DC) Add. Discharge Instructions: 1. Return to ER for any concerns 2. Follow up with your your doctor next week for recheck. DOLORES BURGESS APRN Aug 26, 2017 14:54
[2017-08-26 14:55] LABS: BASOPHILS % (AUTO) 0 % (0-10); EOSINOPHILS # (AUTO) 0.3 10^3/uL (0.0-0.3); EOSINOPHILS % (AUTO) 5 % (0-10); HEMATOCRIT 33 % (35-52); HEMOGLOBIN 11.1 G/DL (11.5-16.0); LYMPHOCYTES # (AUTO) 0.8 X 10^3 (1.0-4.0); LYMPHOCYTES % (AUTO) 13 % (12-44); MEAN CORPUSCULAR HEMOGLOBIN 33 PG (25-34); MEAN CORPUSCULAR HGB CONC 34 G/DL (32-36); MEAN CORPUSCULAR VOLUME 95 FL (80-99); MEAN PLATELET VOLUME 9.5 FL (7.4-10.4); MONOCYTES # (AUTO) 0.4 X 10^3 (0.0-1.0); MONOCYTES % (AUTO) 6 % (0-12); NEUTROPHILS # (AUTO) 4.8 X 10^3 (1.8-7.8); NEUTROPHILS % (AUTO) 77 % (42-75); PLATELET COUNT 216 10^3/uL (130-400); RED BLOOD COUNT 3.42 10^6/uL (4.35-5.85); WHITE BLOOD COUNT 6.3 10^3/uL (4.3-11.0)
[2017-08-26] MEDS ORDERED: PROMETHAZINE INJ 25 MG/ML (PHENERGAN) AMP IVP ONE (15:00)
[2017-08-26 15:19] LABS: BILIRUBIN,TOTAL 1.2 MG/DL (0.1-1.0); CALCIUM 8.9 MG/DL (8.5-10.1); CREATININE SERUM 1.01 MG/DL (0.60-1.30); POTASSIUM 4.7 MMOL/L (3.6-5.0); TOTAL PROTEIN 7.2 GM/DL (6.4-8.2)
[2017-08-26 15:27] LABS: BILIRUBIN,URINE NEGATIVE (NEGATIVE); CLARITY,URINE CLEAR; COLOR,URINE YELLOW; GLUCOSE, URINE (UA) NEGATIVE (NEGATIVE); KETONES,URINE NEGATIVE (NEGATIVE); LEUKOCYTE ESTERASE ,URINE 1+ (NEGATIVE); NITRITE,URINE NEGATIVE (NEGATIVE); PH,URINE 8 (5-9); PROTEIN,URINE 1+ (NEGATIVE); UROBILINOGEN,URINE NORMAL (NORMAL)
--- NOTE | 2017-08-26 15:46 | Diagnostic Imaging Report ---
INDICATION: Dizziness and nausea. CT head obtained without IV contrast and compared with 06/11/2017. FINDINGS: There are diffuse atrophic changes. There are no extra-axial fluid collections. No intracranial hemorrhage. There are patchy low-density changes in the deep white matter compatible with chronic ischemic change, similar to the prior study. There is no acute intracranial abnormality. There is a calcified lesion along the left side of the falx, measuring about 1.6 cm, probably a calcified meningioma. This is unchanged compared to the prior study as well. IMPRESSION: Atrophic changes and chronic changes in the deep white matter. No acute hemorrhage or mass effect or acute intracranial abnormality. 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 Dictated by: Dictated on workstation # [id number]
[2017-08-26 15:47] LABS: BACTERIA,URINE TRACE /HPF; WBC,URINE 0-2 /HPF
--- NOTE | 2017-08-26 15:51 | Diagnostic Imaging Report ---
PATIENT HISTORY: Dizziness and nausea. TECHNIQUE: Single frontal view of the chest. COMPARISON: 06/11/2017 FINDINGS: Lung volumes are mildly decreased when compared to the prior study. Mildly increased interstitial opacities are seen in the right lung base, may represent mild infiltrate versus atelectasis. The cardiac silhouette is upper normal in size. No pleural effusion or pneumothorax is seen. Degenerative changes are seen in the spine and shoulders, with no acute osseous abnormality seen. IMPRESSION: Mildly increased interstitial opacities in right lung base, may represent infiltrate or atelectasis. Dictated by: Dictated on workstation # [id number]
[2017-08-26] MEDS ORDERED: NS IV 1000 ML 1,000 ML IV SCH (16:00)
[2017-08-26] MEDS ORDERED: NS 250 ML (IVPB) BAG IV ONE (16:15)
[2017-08-26] MEDS ORDERED: CATHETER FLUSH 10 ML SYR IV PRN ×2 (16:15→18:30)
[2017-08-26] MEDS ORDERED: IOHEXOL 350 MG/ML 100 ML (OMNIPAQUE 350) VIAL IV ONE (16:15)
--- NOTE | 2017-08-26 17:26 | Diagnostic Imaging Report ---
PROCEDURE: CT angiography of the head and CT angiography of the neck with and without contrast. TECHNIQUE: Contiguous noncontrast images were obtained from the skull base through the vertex. After intravenous contrast administration, helical CT angiography of the neck was performed. Source data was reformatted into multiple MIP projections. Delayed post contrast acquisition was also obtained. DATE: August 26, 2017. INDICATION: 87-year-old female, dizziness, nausea. High blood pressure. COMPARISON: CT head without contrast, August 26, 2017. CT head and cervical spine, June 11, 2017. FINDINGS: There is a densely calcified extra-axial mass along the left side of the falx, most compatible with meningioma which measures 1.7 x 1.2 cm in size. This is unchanged in size since June 11, 2017. There is very mild proportional prominence of the ventricles and CSF spaces, consistent with very mild cerebral volume loss. There is no abnormal extra-axial fluid collection. There is no abnormal intracranial enhancement. There is no pronounced mass effect or midline shift. The visualized portions of the paranasal sinuses, mastoid air cells, and middle ears are well aerated. The left common carotid artery is patent. There are calcifications at the left carotid bifurcation. The left internal carotid artery is patent. There is no high-grade stenosis of the left internal carotid artery. The left anterior cerebral artery is patent. The left middle cerebral artery is patent. There is a patent anterior communicating artery. The right anterior cerebral artery is patent. The right middle cerebral artery is patent. The right internal carotid artery is patent. There are mild areas of calcified plaque along the proximal right internal carotid artery which is without significant stenosis. There is also calcified plaque at the right carotid bifurcation. The right common carotid artery is patent. There is conventional origin of the left vertebral artery. The left vertebral artery is patent. The basilar artery is patent. The right and left posterior cerebral arteries are patent. The left posterior cerebral artery is predominantly supplied by a patent left posterior communicating artery. The right and left posterior inferior cerebellar arteries are patent. The right vertebral artery is patent and conventional in origin. Lung apices are clear. The thyroid gland is not seen and may be surgically absent. There is no identified abnormally enlarged lymph node in the neck which meets CT size criteria for adenopathy. There are multilevel degenerative changes of the spine. There is no identified acute bony abnormality. IMPRESSION: 1. Extra-axial lesion along the left side of the falx measuring 1.2 x 1.7 cm in size which is densely calcified and most compatible with meningioma. This is unchanged in size since June 11, 2017. 2. Patent arterial head and neck vasculature without high-grade stenosis, occlusion, or aneurysm. 3. Very mild cerebral volume loss. 4. Absence of visualization of the thyroid. No identified abnormally enlarged cervical lymph node in the neck specifically meeting CT size criteria for adenopathy. Dictated by: Dictated on workstation # [id number]
--- OUTSIDE RECORDS SUMMARY | 2017-08-26 17:44 | XMS REPORT | Continuity of Care Document ---
Author Author [facility] Organization [facility] Address Unknown Phone Unavailable Allergies Active Description Code Type Severity Reaction Onset Reported/Identified Relationship to Patient Clinical Status Yes No Known Drug Allergies [id number] Drug Allergy Unknown N/A 05/06/2016 Yes Fish Containing Products [id number] Drug Allergy Unknown N/A 06/02/2016 Medications There is no data. Problems Date Dx Coded Attending Type Code Diagnosis Diagnosed By 05/21/2013 RIN MORALES MD Ot 721.0 CERVICAL SPONDYLOSIS 05/21/2013 RIN MORALES MD Ot V57.1 PHYSICAL THERAPY NEC 09/14/2013 LUANN TORRES STATION JAILER Ot 715.96 OSTEOARTHROS NOS-L/LEG 09/14/2013 LUANN TORRES STATION JAILER Ot V57.1 PHYSICAL THERAPY NEC 11/28/2014 LUANN TORRES STATION JAILER Ot 716.90 11/28/2014 LUANN TORRES APRN Ot 724.5 11/28/2014 LUANN TORRES APRN Ot V57.1 12/07/2014 LUANN TORRES STATION JAILER Ot 716.90 ARTHROPATHY NOS-UNSPEC 12/07/2014 LUANN TORRES STATION JAILER Ot 724.5 BACKACHE NOS 12/07/2014 LUANN TORRES STATION JAILER Ot V57.1 PHYSICAL THERAPY NEC 11/22/2015 Ot [...] OATES MD Ot R00.2 PALPITATIONS 03/23/2016 VIVI OTAES MD Ot R42 DIZZINESS AND GIDDINESS 03/28/2016 [...] OATES MD Ot R00.2 PALPITATIONS 05/04/2016 VIVI OTAES MD Ot R42 DIZZINESS AND GIDDINESS 05/05/2016 [...] 05/30/2016 FADUMO REYES MDIC E Ot Z79.01 MCC (CURRENT) USE OF 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 05/31/2016 KYLIE REYES [...] 05/31/2016 KYLIE REYES MD E Ot Z79.01 ARBORIST (CURRENT) USE OF 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 06/01/2016 KYLIE REYES [...] 06/01/2016 KYLIE REYES MD E Ot Z79.01 MCC (CURRENT) USE OF 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 06/01/2016 KYLIE REYES [...] 06/01/2016 KYLIE REYES MD E Ot Z79.01 ARBORIST (CURRENT) USE OF 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 06/02/2016 KYLIE REYES [...] 06/02/2016 AMY GUIDO KYLIE E Ot Z79.01 ARBORIST (CURRENT) USE OF 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 06/02/2016 Ot 721.0 [...] 06/02/2016 AMY GUIDO KYLIE E Ot Z79.01 ARBORIST (CURRENT) USE OF 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 06/02/2016 AMY GUIDO [...] ANTIBIOT 06/02/2016 KYLIE REYES MD Ot Z79.01 MCC (CURRENT) USE OF 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 06/11/2017 DOLORES BURGESS [...] AG 06/11/2017 DOLORES BURGESS APRN Ot Z79.01 MCC (CURRENT) USE OF 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 06/11/2017 DOLORES BURGESS APRN Ot Z79.82 MCC (CURRENT) USE OF ASPIRIN 06/11/2017 DOLORES BURGESS APRN Ot Z87.01 PERSONAL HISTORY OF PNEUMONIA (RECURRENT 06/11/2017 DOLORES BURGESS APRN Ot Z87.19 PERSONAL HISTORY OF OTHER DISEASES OF TH 06/11/2017 DOLORES BURGESS APRN Ot Z90.710 ACQUIRED ABSENCE OF BOTH CERVIX AND UTER Procedures Code Description Performed By Performed On 1G3Y19V INTRODUCE OF ANTI-INFLAM INTO EPIDURAL S 05/07/2016 14KE6QO EXCISION OF LUMBAR SPINAL CORD, OPEN SANAZ 05/08/2016 91BX6VT RELEASE LUMBAR NERVE, OPEN APPROACH 05/08/2016 9TR750F REMOVAL OF INT FIX FROM LUM JT, OPEN SANAZ 05/08/2016 [id number] SYNAGOGUE OF CARDIAC RHYTHM, SINGLE 05/20/2016 Results Test [...] culture - 05/16/16 12:00 Bacterial urine culture [id number] NRG COLONY COUNT 10,000/ML - 100,000/ML NRG [...] culture - 05/19/16 04:30 Bacterial urine culture [id number] NRG COLONY COUNT 10,000/ML - 100,000/ML NRG [...] GRAM STAIN SPUTUM AND MIXED BACTERIAL NIEVES [facility] Bacterial sputum culture - 05/20/16 06:15 Bacterial sputum culture NORMAL [facility] Vancomycin trough - 05/20/16 06:50 [...] culture - 05/31/16 20:55 Bacterial urine culture [id number] NRG COLONY COUNT <10,000 NRG FTX;REPORTABLE SENSITIVITY [...] plasma albumin measurement (mass/volume) 3.2 g/dL 3.2-4.5 Complete blood count (CBC) with automated white blood cell (WBC) differential - 08/26/17 14:50 Blood leukocytes automated count (number/volume) 6.3 10*3/uL 4.3-11.0 Blood erythrocytes automated count (number/volume) 3.42 10*6/uL 4.35-5.85 Venous blood hemoglobin measurement (mass/volume) 11.1 g/dL 11.5-16.0 Blood hematocrit (volume fraction) 33 % 35-52 Automated erythrocyte mean corpuscular volume 95 [foz_us] 80-99 Automated erythrocyte mean corpuscular hemoglobin (mass per erythrocyte) 33 pg 25-34 Automated erythrocyte mean corpuscular hemoglobin concentration measurement ( mass/volume) 34 g/dL 32-36 Automated erythrocyte distribution width ratio 16.0 % 10.0-14.5 Automated blood platelet count (count/volume) 216 10*3/uL 130-400 Automated blood platelet mean volume measurement 9.5 [foz_us] 7.4-10.4 Automated blood neutrophils/100 leukocytes 77 % 42-75 Automated blood lymphocytes/100 leukocytes 13 % 12-44 Blood monocytes/100 leukocytes 6 % 0-12 Automated blood eosinophils/100 leukocytes 5 % 0-10 Automated blood basophils/100 leukocytes 0 % 0-10 Blood neutrophils automated count (number/volume) 4.8 10*3 1.8-7.8 Blood lymphocytes automated count (number/volume) 0.8 10*3 1.0-4.0 Blood monocytes automated count (number/volume) 0.4 10*3 0.0-1.0 Automated eosinophil count 0.3 10*3/uL 0.0-0.3 Automated blood basophil count (count/volume) 0.0 10*3/uL 0.0-0.1 Comprehensive metabolic panel - 08/26/17 14:50 Serum or plasma sodium measurement (moles/volume) 136 mmol/L 135-145 Serum or plasma potassium measurement (moles/volume) 4.7 mmol/L 3.6-5.0 Serum or plasma chloride measurement (moles/volume) 102 mmol/L 98-107 Carbon dioxide 21 mmol/L 21-32 Serum or plasma anion gap determination (moles/volume) 13 mmol/L 5-14 Serum or plasma urea nitrogen measurement (mass/volume) 21 mg/dL 7-18 Serum or plasma creatinine measurement (mass/volume) 1.01 mg/dL 0.60-1.30 Serum or plasma urea nitrogen/creatinine mass ratio 21 NRG Serum or plasma creatinine measurement with calculation of estimated glomerular filtration rate 52 NRG Serum or plasma glucose measurement (mass/volume) 153 mg/dL 70-105 Serum or plasma calcium measurement (mass/volume) 8.9 mg/dL 8.5-10.1 Serum or plasma total bilirubin measurement (mass/volume) 1.2 mg/dL 0.1-1.0 Serum or plasma alkaline phosphatase measurement (enzymatic activity/volume) 103 U/L 40-136 Serum or plasma aspartate aminotransferase measurement (enzymatic activity/ volume) 26 U/L 5-34 Serum or plasma alanine aminotransferase measurement (enzymatic activity/volume ) 19 U/L 0-55 Serum or plasma protein measurement (mass/volume) 7.2 g/dL 6.4-8.2 Serum or plasma albumin measurement (mass/volume) 4.0 g/dL 3.2-4.5 Serum or plasma lithium measurement (moles/volume) - 08/26/17 14:50 BNP level 97.2 pg/mL <100.0 Complete urinalysis with reflex to culture - 08/26/17 15:23 Urine color determination YELLOW NRG Urine clarity determination CLEAR NRG Urine pH measurement by test strip 8 5-9 Specific gravity of urine by test strip 1.010 1.016- 1.022 Urine protein assay by test [...] detection in urine sediment by light microscopy 10-25 NRG Crystals detection in urine sediment by light microscopy NONE NRG Casts detection in urine sediment by light microscopy NONE NRG Mucus detection in urine sediment by light microscopy NEGATIVE NRG Complete urinalysis with reflex to culture NO NRG Encounters ACCT No. Visit Date/Time Discharge Status Pt. Type Provider Facility Loc./Unit Complaint [id number] 06/11/2017 15:51:00 06/11/2017 17:17:00 DIS Emergency DOLORES BURGESS STATION JAILER [facility] ER FALL [id number] 05/24/2016 15:18:00 06/02/2016 13:00:00 DIS Inpatient KYLIE REYES MD [facility] IRF DEBILITY [id number] 2016 13:55:00 05/24/2016 15:18:00 DIS Inpatient JUDI GUIDO, REJI Tony [facility] 4TH SEPSIS,UTI [id number] 05/11/2016 11:31:00 05/15/2016 11:00:00 DIS Inpatient KYLIE REYES MD [facility] IRF LUMBAR RADIOLOPATHY, INTRACTABLE LOW BACK PAIN [id number] 05/08/2016 10:00:00 05/11/2016 11:30:00 DIS Inpatient GEMINI GALLAGHER DO [facility] 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, INTRACTABLE LOW BACK PAIN [id number] 05/04/2016 16:50:00 05/04/2016 23:59:59 CLS Outpatient SANIYA CORRALES MD [facility] RAD LOW BACK PAIN [id number] 03/24/2016 10:30:00 03/24/2016 23:59:59 CLS Preadmit VIVI OATES MD [facility] CARD DIZZINESS,PALPITATIONS [id number] 12/24/2015 10:29:00 03/23/2016 00:01:00 DIS Outpatient VIVI OATES MD [facility] CARD DIZZINESS,PALPITATIONS [id number] 12/10/2015 13:11:00 12/10/2015 23:59:59 CLS Outpatient VIVI OATES MD [facility] RAD FLU PNEUMONIA [id number] 12/05/2014 13:00:00 12/07/2014 15:38:00 DIS Outpatient LUANN TORRES APRN [facility] REHAB BACK PAIN, ARTHRITIS [id number] 08/25/2013 13:30:00 09/14/2013 09:39:00 DIS Outpatient LUANN TORRES APRN [facility] REHAB RT KNEE PAIN OA [id number] 07/11/2013 14:43:00 07/11/2013 23:59:59 CLS Outpatient LUANN TORRES APRN [facility] RAD KNEE PAIN [id number] 03/23/2013 10:30:00 05/21/2013 00:01:00 DIS Outpatient RIN MORALES MD [facility] REHAB CERVICAL SPONDYLOSIS, CERVICALGIA [id number] 05/09/2013 13:08:00 05/09/2013 23:59:59 CLS Outpatient [id number] 02/06/2013 13:05:00 02/06/2013 23:59:59 [facility] Outpatient LASHON GUIDO, VIVI Arias [facility] RT SHOULDER PAIN,ARM PAIN ,HAND AND NECK PAIN [id number] 08/26/2017 14:57:00 Document Registration [id number] 11/20/2015 10:47:00 Document Registration [id number] 05/22/2013 00:00:00 Document Registration [id number] 11/30/2011 08:18:00 Document Registration [id number] 03/05/2011 09:46:00 Document Registration [id number] 11/26/2010 06:46:00 Document Registration
[2017-08-26 18:05] VITALS: BP 188/72
[2017-08-26] MEDS ORDERED: ONDANSETRON 4 MG/2 ML (SDV) Z0FRAN IV PRN (18:30)
[2017-08-26] MEDS ORDERED: PROMETHAZINE 25 MG (PHENERGAN) TAB PO PRN (18:30)
[2017-08-26] MEDS ORDERED: ACETAMINOPHEN 325 MG TABLET/CAPLET (TYLENOL) PO PRN (18:30)
[2017-08-26] MEDS: NS IV 1000 ML 1,000 ML IV SCH (19:41)
[2017-08-26 20:00] VITALS: BP 112/72
[2017-08-26] MEDS ORDERED: INFLUENZA TRIvalent 2017-2018 0.5 ML/45 MCG SYR IM ONE (20:00)
[2017-08-26] MEDS: MECLIZINE 25 MG (ANTIVERT) TAB PO SCH (22:04)
[2017-08-27] VITALS: BP 170/76
[2017-08-27 04:00] VITALS: BP 155/70
[2017-08-27] MEDS: MECLIZINE 25 MG (ANTIVERT) TAB PO SCH ×3 (05:47→21:07)
[2017-08-27 06:49] LABS: CALCIUM 8.4 MG/DL (8.5-10.1); CREATININE SERUM 0.92 MG/DL (0.60-1.30); POTASSIUM 4.4 MMOL/L (3.6-5.0)
[2017-08-27] MEDS: NS IV 1000 ML 1,000 ML IV SCH ×2 (07:45→21:07)
[2017-08-27 08:00] VITALS: BP 150/80
[2017-08-27] MEDS ORDERED: ROSU5TAB11 PO (08:25)
[2017-08-27] MEDS ORDERED: DILT240C53 PO (08:25)
[2017-08-27] MEDS ORDERED: TRIM100T PO (08:25)
[2017-08-27] MEDS ORDERED: DILT120C53 PO (08:25)
[2017-08-27] MEDS ORDERED: ASPI-983 PO (08:36)
[2017-08-27] MEDS ORDERED: APIX5TAB PO (08:36)
[2017-08-27] MEDS ORDERED: LOPE-134 PO (08:36)
[2017-08-27] MEDS ORDERED: IBUP-30 PO (08:36)
[2017-08-27] MEDS ORDERED: L.AC1CAP6 PO (08:36)
[2017-08-27] MEDS ORDERED: OMEG-9 PO (08:36)
[2017-08-27] MEDS ORDERED: LORA10TA76 PO (08:36)
[2017-08-27] MEDS ORDERED: FAMOTIDINE 20 MG (PEPCID) TABLET PO PRN (09:00)
[2017-08-27] MEDS ORDERED: NON-FORMULARY MEDICATION 1 EA EA (Loperamide HCl (Imodium A-D) 2 MG) PO PRN (09:00)
[2017-08-27] MEDS ORDERED: LORATADINE (CLARITIN) 10 MG TAB PO PRN (09:00)
[2017-08-27] MEDS ORDERED: IBUPROFEN TABLET 200 MG TAB PO PRN (09:00)
[2017-08-27] MEDS: LEVOTHYROXINE 125 MCG (LEVOTHROID) TABLET PO SCH (09:22)
[2017-08-27] MEDS: ASPIRIN E.C. 81 MG (ECOTRIN) TAB PO SCH (09:23)
[2017-08-27] MEDS: DILTIAZEM 240 MG (CARDIZEM CD) CAP PO SCH (09:23)
[2017-08-27] MEDS: APIXABAN 5 MG (ELIQUIS) TABLET PO SCH ×2 (09:23→21:07)
--- NOTE | 2017-08-27 09:27 | Short Stay Summary-Hospitalist ---
HPI History of Present Illness: HPI/Chief Complaint CC: Severe vertigo HPI: This is an 87-year-old white female known to me from prior hospital stays who presents to the ER with complaints of severe vertigo. She awoke yesterday morning with a whooshing sound in her left ear then became very dizzy andthe room spinning and was at high risk for falls. In-depth workup in the ER ensued and showed no evidence of any central source of vertigo so she was placed in the hospital due to incapacitating vertigo and high risk for falls and subtle confusion. Patient feels much better but is slightly dizzy and has vertigo when she stood up with physical therapy so will hold off until discharge tomorrow and she will go home with her daughter with a walker. Source: patient Exam Limitations: no limitations Date Seen 08/27/17 Time Seen by Provider: 08:30 Attending Physician Staci Cowart DO PCP Jugn Burkett MD Referring Physician Date of Admission Aug 26, 2017 at 17:37 Home Medications & Allergies Home Medications Reviewed patient Home Medication Reconciliation Form Allergies Allergies Coded Allergies Fish Containing Products (Verified Allergy, Unknown, 06/02/16) Past Lichqcn-Tpfylk-Djdyjx Hx Patient Social History Marrital Status: Employed/Student: retired Alcohol Use: Denies Use Recreational Drug Use: No Smoking Status: Former Smoker Former Smoker, Quit: May 24, 1966 Type Used: Cigarettes Physical Abuse Screen: No Sexual Abuse: No Recent Foreign Travel: No Contact w/other who traveled: No Recent Hopitalizations: Yes Recent Infectious Disease Expo: No Immunizations Up To Date Date of Pneumonia Vaccine: October 28, 2015 Seasonal Allergies Seasonal Allergies: No Surgeries Yes (CYST REMOVED, GOITER REMOVED, LAMINECTOMY) Hysterectomy, Joint Replacement Respiratory Yes COPD Currently Using CPAP: No Currently Using BIPAP: No Cardiovascular Yes High Cholesterol, Hypertension Neurological Yes Dementia, Neuropathy Reproductive System Hx Reproductive Disorders: Yes 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 Genitourinary No Gastrointestinal Yes (TAKES PEPCID) Gastroesophageal Reflux, Chronic Constipation, Chronic Diarrhea, Gall Bladder Disease Musculoskeletal Yes Arthritis, Back Injury, Chronic Back Pain Endocrine History of Endocrine Disorders: Yes Endocrine Disorders: Hypothyroidsim HEENT History of HEENT Disorders: No Cancer No Psychosocial History of Psychiatric Problem: Yes Behavioral Health Disorders: Anxiety Integumentary History of Skin or Integumenta: No Blood Transfusions History of Blood Disorders: No Adverse Reaction to a Blood Tr: No Family Medical History Significant Family History: No Pertinent Family Hx Family Hx: Review of Systems Constitutional: see HPI, dizziness EENTM: ear pain Respiratory: no symptoms reported Cardiovascular: no symptoms reported Gastrointestinal: no symptoms reported Genitourinary: no symptoms reported Musculoskeletal: no symptoms reported Skin: no symptoms reported Psychiatric/Neurological: No Symptoms Reported All Other Systems Reviewed Negative Unless Noted: Yes Physical Exam Physical Exam Vital Signs Vital Signs - First Documented 08/26/17 08/26/17 14:52 18:05 Temp 98.4 Pulse 75 Resp 18 B/P (MAP) 198/90 (126) Pulse Ox 93 O2 Delivery Room Air O2 Flow Rate 2.00 Capillary Refill : Less Than 3 Seconds General Appearance: No Apparent Distress, WD/WN, Chronically ill Eyes: Bilateral Eye Normal Inspection, Bilateral Eye PERRL HEENT: PERRL/EOMI, Normal ENT Inspection, Pharynx Normal Neck: Full Range of Motion, Normal Inspection, Non Tender, Supple, Carotid Bruit Respiratory: Chest Non Tender, Lungs Clear, Normal Breath Sounds, No Accessory Muscle Use, No Respiratory Distress Cardiovascular: No Edema, No Gallop, No JVD, No Murmur, Normal Peripheral Pulses, Irregularly Irregular Gastrointestinal: Normal Bowel Sounds, No Organomegaly, No Pulsatile Mass, Non Tender, Soft Back: Normal Inspection, No CVA Tenderness, No Vertebral Tenderness Extremity: Normal Capillary Refill, Normal Inspection, Normal Range of Motion, Non Tender, No Calf Tenderness, No Pedal Edema Neurologic/Psychiatric: Alert, Oriented x3, No Motor/Sensory Deficits, Depressed Affect, Other (subtle cognitive deficit) Skin: Normal Color, Warm/Dry Lymphatic: No Adenopathy Results Results/Procedures Lab Laboratory Tests 08/26/17 14:50 08/27/17 05:52 Short Stay Diagnosis Discharge Diagnosis-Short Stay Admission Diagnosis Assessment: Severe and incapacitating vertigo at high risk for falls Lumbar stenosisstatus post surgical resolution Hypertension Atrial fibrillation Hypothyroidism Chronic UTIs Overactive bladder History of hyponatremia Final Discharge Diagnosis Assessment: Severe and incapacitating vertigo at high risk for falls Lumbar stenosisstatus post surgical resolution Hypertension Atrial fibrillation Hypothyroidism Chronic UTIs Overactive bladder History of hyponatremia Conclusion Plan Plan: PT Fall risk Home meds Monitor closely Clinical Quality Measures DVT/VTE Risk/Contraindication: Risk Factor Score Per Nursin RFS Level Per Nursing on Admit: 4+=Very High STACI COWART DO Aug 27, 2017 09:27
[2017-08-27] MEDS ORDERED: LOPERAMIDE 2 MG (IMODIUM) CAP PO PRN (09:30)
--- NOTE | 2017-08-27 11:20 | Physical Therapy Evaluation ---
PT Evaluation-General Medical Diagnosis Admission Date Aug 26, 2017 at 17:37 Medical Diagnosis: vertigo Onset Date: Aug 26, 2017 Therapy Diagnosis Therapy Diagnosis: dizziness; weakness Height/Weight Height (Feet): 5 Height (Inches): 5.00 Weight (Pounds): 185 Weight (Ounces): 0.0 Precautions Precautions/Isolations: Fall Prevention, Standard Precautions Referral Physician: Supa Reason for Referral: Evaluation/Treatment Medical History Pertinent Medical History: Atrial Fib, Arthritis, HTN, Hypothroidism, Smoking Current History Pt had acute onset of dizziness/vertigo and nausea; unable to get up. Presented to ED via EMS. Reviewed History: Yes Social History Home: Single Level Current Living Status: Alone Entry Into Home: Stairs With Railing Prior/Core FIM Prior Level of Function Functional [place] Measure 0=Not Assessed/NA 4=Minimal Assistance 1=Total Assistance 5=Supervision or Setup 2=Maximal Assistance 6=Modified [place] 3=Moderate Assistance 7=Complete [place] Bed Mobility: 6 Transfers (B,C,W/C) (FIM): 6 Gait: 6 (uses a cane) Locomotion: 6 (cane) Pt lives alone and cares for herself; her spouse is in an [employer]ESE. PT Evaluation-Current Subjective Reports light nausea and dizziness when sitting up. Agrees to get to the chairl. Pain Numeric Pain Scale: 0-No Pain Location: No Pain Reported Pt/Family Goals Home alone as before Objective Patient Orientation: Person, Confused (in terms of safety or problem solving), Place, Time, Situation Problem Solving: Fair Attachments: IV ROM/Strength ROM Lower Extremities wNL Strength Lower Extremities WFL Integumentary/Posture Integumentary Refer to nursing notes. Bowel Incontinence: No Posture normal and symmetrical Neuromuscular (Tone, Coordination, Reflexes) WFL Sensory Vision: Functional Hearing: Functional Hand Dominance: Right Sensation Right Lower Extremit: Intact Sensation Left Lower Extremity: Intact Transfers Functional [place] Measure 0=Not Assessed/NA 4=Minimal Assistance 1=Total Assistance 5=Supervision or Setup 2=Maximal Assistance 6=Modified [place] 3=Moderate Assistance 7=Complete [place] Transfers (B, C, W/C) (FIM): 5 transfers are SBA for safety due to dizziness; pt does require cues to sequence ; seems to have a bit of difficulty with problem solving. Gait Mode of Locomotion: Walk Anticipated Mode of Locomotion: Walk Gait (FIM): 2 Distance (FIM): 5=425-68 ft Distance: 50 ft Gait Assistive Device: FWW Balance Sitting Static: Good Sitting Dynamic: Good Standing Static: Fair Standing Dynamic: Fair Treatment Pt was able to walk to the watkins and back with FWW; pt up in chair post treatment with needs met and daughter present. Assessment/Needs Pt is slow with mobilty and does need some cues to sequence. She is limited by reports of dizziness. She did fairly well with mobility but may benefit from short term PT to work on mobility and safety. Rehab Potential: Good PT Jail Goals Quality Director Goals PT Quality Director Goals Time Frame: Aug 31, 2017 Transfers (B,C,W/C) (FIM): 6 Gait (FIM): 6 Gait distance (FIM): 3=150 ft Gait Assistive Device: FWW PT Plan Problem List Problem List: Activity Tolerance, Functional Strength, Safety, Balance, Gait, Transfer, Bed Mobility Treatment/Plan Treatment Plan: Continue Plan of Care Treatment Plan: Bed Mobility, Education, Functional Activity Gwen, Functional Strength, Gait, Safety, Therapeutic Exercise, Transfers Treatment Duration: Aug 31, 2017 Frequency: 6 times per week Estimated Hrs Per Day: .25 hour per day Patient and/or Family Agrees t: Yes Safety Risks/Education Patient Education: Transfer Techniques, Safety Issues Teaching Recipient: Patient Teaching Methods: Demonstration, Discussion Response to Teaching: Reinforcement Needed Time/GCodes Time In: 950 Time Out: 1010 Total Billed Treatment Time: 20 Total Billed Treatment visit EVM 20 CRISTHIAN VENTURA PT Aug 27, 2017 11:20
[2017-08-27] MEDS: LACTOBACILLUS Acidoph/Bulgar (LACTINEX/FLORANEX) TAB PO SCH (11:43)
[2017-08-27] MEDS: OMEGA 3 (FISH OIL) 1000 MG CAP PO SCH (11:43)
[2017-08-27 12:00] VITALS: BP 155/77
[2017-08-27] MEDS ORDERED: NON-FORMULARY MEDICATION 1 EA EA (L.acidoph & Paracasei,B.lactis (Probiotic) 1 CAP) PO SCH (12:00)
--- NOTE | 2017-08-27 15:14 | Occupational Therapy Eval ---
OT Evaluation-General/PLF Medical Diagnosis Admission Date Aug 26, 2017 at 17:37 Medical Diagnosis: vertigo Onset Date: Aug 26, 2017 Therapy Diagnosis Therapy Diagnosis: decr self care Height/Weight Height (Feet): 5 Height (Inches): 5.00 Weight (Pounds): 185 Weight (Ounces): 0.0 Precautions Precautions/Isolations: Fall Prevention, Standard Precautions Safety Interventions: Reorient-PRN Referral Physician: Supa Referral Reason: Evaluation/Treatment Medical History Pertinent Medical History: Atrial Fib, Arthritis, GERD, HTN, Hypothroidism, Smoking Additional Medical History Goiter removed. Pneumonia. Chronic diarrhea and constipation, UTIs. Anxiety. Joint replacement. Lumbar stenosis, L3-5 laminectomy. Current History Dizziness, nausea/vomiting Reviewed History: Yes Social History Home: Single Level Current Living Status: Alone Entry Into Home: Stairs With Railing ADL-Prior Level of Function ADL PLOF Comments Pt reported that she has been able to manage her basic self care needs and also manages laundry, simple cooking, cleaning. She does not drive any longer. Daughter lives nearby and checks on her. is living in [facility]) DME/Equipment: Bath Bench, Grab Bars, Tall Toilet, Tub/Shower OT Current Status Subjective Pt seen in room, up in recliner, agreeable to OT. Pain reported 0/10 Appearance Alert, cooperative Mental Status/Objective Attachments: Central Line, IV Current Glasses/Contacts: Yes Hand Dominance: Right Upper Extremity ROM Grossly WFL bilat Upper Extremity Strength Grossly WFL bilat ADL-Treatment ADL-Current Pt was able to lean forward to take slipper sock off and put it on without problems with dizziness. She got up from recliner with SBA, talked to bathroom with SBA for safety, FWW with OT managing IV pole. Nursing reported that she pretty much toilets herself except that they help her with wiping. She said that this is a problem that she's had for several years and just uses wash clothes. She has tried toilet aids and doesn't use them. She was able to get on/ off toilet without assistance except using grab bar and declined to manage clothing and actually toilet. She walked back to her recliner with SBA, FWW, no dizziness reported and no LOb observed. She anticipates discharge to home tomorrow, with no problems. Both she and her daughter do not anticipate any concerns with discharge since her dizziness appears to be resolving. Functional [place] Measure 0=Not Assessed/NA 4=Minimal Assistance 1=Total Assistance 5=Supervision or Setup 2=Maximal Assistance 6=Modified [place] 3=Moderate Assistance 7=Complete IndependenceIRFPAI Quality Coding Scale 6 Independent with activity with or without an assistive device 5 Patient requires set up or clean up by helper. Patient completes activity by themselves 4 Supervision or touching assist (CGA). [place] provide cues , steadying assist 3 The helper provides less than half the effort to complete the activity 2 The helper provides more than half the effort to complete the activity 1 Dependent. The helper does all the effort to complete an activity 7 Patient refused to complete or attempt activity 9 The patient did not perform the activity before the current illness or injury 88 Not attempted due to Medical conditions or safety concerns Education OT Patient Education: Purpose of tx/functional activities, Rehab process Teaching Recipient: Patient Teaching Methods: Discussion Response to Teaching: Verbalize Understanding OT Education/Plan Problem List/Assessment Assessment: No Skilled OT Needs ID'd Pt is able to manage basic ADLs at prior level of function, per her report. No skilled OT needs identified Discharge Recommendations Plan/Recommendations: Discontinue OT Treatment Plan/Plan of Care Treatment,Training & Education: No Patient would benefit from OT for education, treatment and training to promote independence in ADL's, mobility, safety and/or upper extremity function for ADL' s. Treatment Duration: Aug 27, 2017 Frequency: 1 time per week Estimated Hrs Per Day: .25 hour per day Agreement: Yes Rehab Potential: Good Time/GCodes Start Time: 14:10 Stop Time: 14:38 Total Time Billed (hr/min): 28 Billed Treatment Time visit, 28 minutes evaluation low intensity ARTEMIO SALEH OT Aug 27, 2017 15:13
[2017-08-27 16:39] VITALS: BP 166/71
[2017-08-27] MEDS ORDERED: CALCIUM CARB + VIT D 600 MG (CALCARB + D) TAB PO SCH (17:00)
[2017-08-27 20:31] VITALS: BP 168/73
[2017-08-27] MEDS ORDERED: ROSUVASTATIN 5 MG (CRESTOR) TABLET PO SCH (21:00)
[2017-08-27] MEDS ORDERED: VITAMIN D3 PO SCH (21:00)
[2017-08-27] MEDS ORDERED: CALCIUM CARBONATE PO SCH (21:00)
[2017-08-27] MEDS ORDERED: [UNRECOGNIZED DRUG - OTHER] PO SCH (21:00)
[2017-08-27] MEDS ORDERED: NON-FORMULARY MEDICATION 1 EA EA (Trimethoprim 100 MG) PO SCH (21:00)
[2017-08-27] MEDS ORDERED: meTOproloL SUCCINATE 50 MG (TOPROL XL) TAB PO SCH (21:00)
[2017-08-27] MEDS ORDERED: DILTIAZEM 120 MG (CARDIZEM CD) CAP PO SCH (21:00)
[2017-08-28] VITALS: BP 160/67
[2017-08-28 04:00] VITALS: BP 130/92
[2017-08-28] MEDS: LEVOTHYROXINE 125 MCG (LEVOTHROID) TABLET PO SCH (05:33)
[2017-08-28] MEDS: MECLIZINE 25 MG (ANTIVERT) TAB PO SCH (05:33)
[2017-08-28] MEDS ORDERED: DILTIAZEM 180 MG (CARDIZEM CD) CAP PO PRN (07:30)
[2017-08-28 08:00] VITALS: BP 146/69
[2017-08-28] MEDS: DILTIAZEM 240 MG (CARDIZEM CD) CAP PO SCH (09:02)
[2017-08-28] MEDS: APIXABAN 5 MG (ELIQUIS) TABLET PO SCH (09:03)
[2017-08-28] MEDS: ASPIRIN E.C. 81 MG (ECOTRIN) TAB PO SCH (09:03)
[2017-08-28] MEDS: NS IV 1000 ML 1,000 ML IV SCH (10:33)
--- NOTE | 2017-08-28 11:12 | Discharge Summary-Hospitalist ---
Diagnosis/Chief Complaint Date of Admission Aug 26, 2017 at 18:15 Date of Discharge Admission Diagnosis Assessment: Severe and incapacitating vertigo at high risk for falls Lumbar stenosis status post surgical resolution Hypertension Atrial fibrillation Hypothyroidism Chronic UTIs Overactive bladder History of hyponatremia Discharge Diagnosis Assessment: Severe and incapacitating vertigo at high risk for falls almost entirely resolved at discharge Lumbar stenosis status post surgical resolution Hypertension Atrial fibrillation with episode of slight atrial fibrillation with rapid ventricular response resolved with additional dose of Cardizem appreciate Dr. Squires consultation Hypothyroidism Chronic UTIs Overactive bladder History of hyponatremia Cognitive deficit noted Plan: PT Fall risk Home meds Monitor closely Discharge Summary Discharge Physical Examination Allergies: Coded Allergies: Fish Containing Products (Verified Allergy, Unknown, 06/02/16) Vitals & I&Os Vital Signs Date Time Temp Pulse Resp B/P (MAP) Pulse Ox O2 Delivery O2 Flow Rate FiO2 08/28/17 13:05 67 18 110/57 96 Room Air 08/28/17 12:00 99.5 2.00 Hospital Course Note from 08/28/17: Patient doing well but had a tachycardic episode with A. fib with RVR of 120 last night prompting cardiology consultation who gave an additional dose of Cardizem placed on telemetry and IV fluids but now doing much better. She agrees that she wants to go home and will evaluate any need for additional medication from cardiology in order to discharge her. Sure he has a walker at home and her daughter lives with her No fever, vital signs stable, pleasant, improved, in chair, family at bedside Irregular irregular rhythm with heart rate of 72, clear to auscultation bilaterally No edema Hospital course: Patient had a brief Hospital course she was placed in observation due to no organic cause that could be reversed of vertigo. Her home medications were resumed patient was placed on gentle IV fluids and physical therapy was consulted. Vertigo eventually resolved with conservative management did have an episode of A. fib with RVR that resolved with additional dose of Cardizem given by cardiology consultation which was appreciated. Patient was eating and drinking bowels were moving and she was in agreement for discharge with close follow-up with primary care provider. Discussion & Recommendations Discharge Planning: <30 minutes discharge planning Discharge Home Medications: Active Scripts Active Reported Imodium A-D (Loperamide HCl) 2 Mg Tablet 2 Mg PO UD PRN Claritin (Loratadine) 10 Mg Tablet 10 Mg PO HS PRN Advil (Ibuprofen) 200 Mg Tablet 400 Mg PO TID PRN Fish Oil 1,400 mg Softgel ([place]-3/Dha/Epa/Fish Oil) 1 Each Capsule.dr 1,400 Mg PO 1200 Probiotic (L.acidoph & Paracasei,B.lactis) 1 Each Capsule 1 Cap PO 1200 Aspirin EC (Aspirin) 81 Mg Tablet.dr 81 Mg PO DAILY Eliquis (Apixaban) 5 Mg Tablet 5 Mg PO BID Trimethoprim 100 Mg Tablet 100 Mg PO HS Rosuvastatin Calcium 5 Mg Tablet 5 Mg PO HS Cartia Xt (Diltiazem HCl) 120 Mg Cap.er.24h 120 Mg PO HS Cartia Xt (Diltiazem HCl) 240 Mg Cap.er.24h 240 Mg PO DAILY Pepcid (Famotidine) 20 Mg Tablet 20 Mg PO DAILY PRN Metoprolol Succinate 50 Mg Tab.er.24h 50 Mg PO HS Levothyroxine Sodium 125 Mcg Tablet 125 Mcg PO DAILY Os-Sanya 500+D3 Caplet (Calcium Carbonate/Vitamin D3) 1 Each Tablet 1 Tab PO HS Instructions to patient/family Please see electronic discharge instructions given to patient. Clinical Quality Measures DVT/VTE Risk/Contraindication: Risk Factor Score Per Nursin RFS Level Per Nursing on Admit: 4+=Very High GEMINI GALLAGHER DO Aug 28, 2017 11:12
[2017-08-28 12:00] VITALS: BP 110/57
[2017-08-28] MEDS: OMEGA 3 (FISH OIL) 1000 MG CAP PO SCH (12:12)
[2017-08-28] MEDS: LACTOBACILLUS Acidoph/Bulgar (LACTINEX/FLORANEX) TAB PO SCH (12:13)
--- NOTE | 2017-08-28 12:51 | Consultation-Cardiology ---
HPI-Cardiology Cardiology Consultation: Date of Consultation 08/28/17 Time Seen by Provider: 12:40 Date of Admission Attending Physician Staci Cowart DO Admitting Physician Jung Burkett MD Consulting Physician ANTWON BURLESON MD, MA, FACP, FACC, FSCAI, CCDS HPI: Chief Complaint: Vertigo and dizziness HPI: 87 yo woman admitted with vertigo, ringing in the ears, and dizziness to Dr Cowart. We have been asked in consult because of PAF. She has a chronic h/o of PAF. Heart rate has been under fair control during the hosp. She does not report palp or syncope or cp or shortness of breath. Vertigo is better Review of Systems-Cardiology Review of Systems Constitutional: malaise, No weight loss, No weight gain Eyes: No vision change Ears/Nose/Throat: As described under HPI, No ear discharge, No nasal drainage, No recent hearing loss Respiratory: As described under HPI Cardiovascular: As described under HPI Gastrointestinal: No constipation, No diarrhea, No vomiting Genitourinary: No dysuria, No hematuria, No urine frequency changes Musculoskeletal: back pain (chronic) Skin: No rash, No ulcerations Psychiatric/Neurological: As described under HPI, No seizure, No focal weakness , No syncope Hematologic: No bleeding abnormalities All Other Systems Reviewed Negative Unless Noted: Yes OWB-Pmnwdn-Tvtjmb Hx Patient Social History Marrital Status: Employed/Student: retired Alcohol Use: Denies Use Recreational Drug Use: No Smoking Status: Former Smoker Type Used: Cigarettes Recent Foreign Travel: No Recent Infectious Disease Expo: No Physical Abuse Screen: No Sexual Abuse: No Immunizations Up To Date Date of Pneumonia Vaccine: October 28, 2015 Past Medical History PMH As described under Assessment. Family Medical History Family Medical History: No fam history of early CAD Family History: Allergies and Home Medications Allergies Coded Allergies: Fish Containing Products (Verified Allergy, Unknown, 06/02/16) Home Medications Apixaban 5 Mg Tablet, 5 MG PO BID, (Reported) Aspirin 81 Mg Tablet.dr, 81 MG PO DAILY, (Reported) Calcium Carbonate/Vitamin D3 1 Each Tablet, 1 TAB PO HS, (Reported) Diltiazem HCl 240 Mg Cap.er.24h, 240 MG PO DAILY, (Reported) Diltiazem HCl 120 Mg Cap.er.24h, 120 MG PO HS, (Reported) Famotidine 20 Mg Tablet, 20 MG PO DAILY PRN for ACID REFLUX, (Reported) Ibuprofen 200 Mg Tablet, 400 MG PO TID PRN for PAIN-MILD, (Reported) L.acidoph & Paracasei,B.lactis 1 Each Capsule, 1 CAP PO 1200, (Reported) Levothyroxine Sodium 125 Mcg Tablet, 125 MCG PO DAILY, (Reported) Loperamide HCl 2 Mg Tablet, 2 MG PO UD PRN for DIARRHEA, (Reported) Loratadine 10 Mg Tablet, 10 MG PO HS PRN for ALLERGIES, (Reported) Metoprolol Succinate 50 Mg Tab.er.24h, 50 MG PO HS, (Reported) [place]-3/Dha/Epa/Fish Oil 1 Each Capsule.dr, 1,400 MG PO 1200, (Reported) Rosuvastatin Calcium 5 Mg Tablet, 5 MG PO HS, (Reported) Trimethoprim 100 Mg Tablet, 100 MG PO HS, (Reported) Patient Home Medication List Home Medication List Reviewed: Yes Physical Exam-Cardiology Physical Exam Vital Signs/I&O Vital Sign - Last 12Hours 08/28/17 08/28/17 08/28/17 08/28/17 01:00 04:00 07:30 08:00 Temp 98.5 99.2 Pulse 74 90 71 75 Resp 20 16 B/P (MAP) 130/92 (105) 146/69 (94) Pulse Ox 91 92 O2 Delivery Nasal Cannula Nasal Cannula O2 Flow Rate 2.00 2.00 08/28/17 08/28/17 09:00 12:00 Temp 99.5 Pulse 67 Resp 18 B/P (MAP) 110/57 (74) Pulse Ox 99 96 O2 Delivery Nasal Cannula Nasal Cannula O2 Flow Rate 2.00 2.00 Intake and Output 08/28/17 00:00 Intake Total 1580 ml Output Total 850 ml Balance 730 ml Capillary Refill : Less Than 3 Seconds Constitutional: AAO x 3, well-developed, well-nourished HEENT: EOMI, hearing is well preserved, No xanthelasmas are seen Neck: No carotid bruit, carotid pulses are 2 + bilaterally, with good upstrokes Respiratory: No accessory muscle use, lungs clear to percussion, lungs clear to auscultation Cardiovascular: irregularly irregular, S1 and S2, systolic murmur (faint MAHENDRA at card base) Gastrointestinal: No tender, soft, No guarding, No rebound, audible bowel sounds Extremities: No clubbing, No cyanosis, No significant edema Neurologic/Psychiatric: oriented x 3, other (walks with a walker at the time of this exam), grossly intact, power is 5/5 both on sides Skin: No rash on exposed areas, No ulcerations on exposed areas Data Review Labs Laboratory Tests 08/26/17 14:50 08/27/17 05:52 ECG Impression ECG Comment ECG at 12:41 on 08/28/17: A Fib with levi trate 75 bpm, no evidence of ischemia A/P-Cardiology Assessment/Admission Diagnosis Vertigo and dizziness of undetermined etiology (no syncope) being managed by Dr Cowart Paroxysmal atrial fibrillation. In a fib during this admission with fair to good rate control. On long-acting dilt for rate control and apixaban for stroke prophylaxis History of chronic compensated left ventricular diastolic dysfunction. Most recent 2-D echocardiogram of April 2016 showe normal left ventricular size, EF 60 percent, mild mitral and tricuspid regurgitation, PA pressure 45 mmHg Hypertension, controlled Hypothyroidism, managed by primary care physician. Mild bilateral carotid stenosis, nonobstructive disease, last ultrasound was done in June 2016. Monitored by Dr Garcia Hyperlipidemia, managed by Dr Garcia Discussion and Recomendations * Heart rate well controlled at the time of this writing * Continue long-acting dilt and metoprolol and apixaban that she has been taking chronically (managed by Dr Mccabe) * We have advised outpatient f/u with Dr Garcia within a week or two * We answered her CV related questions Clinical Quality Measures DVT/VTE Risk/Contraindication: Risk Factor Score Per Nursin RFS Level Per Nursing on Admit: 4+=Very High ANTWON BURLESON MD FACP FAC CCDS Aug 28, 2017 12:51
[2017-08-28 13:05] VITALS: BP 110/57
--- NOTE | 2017-08-28 14:15 | Physical Therapy Daily Note ---
PT Daily Note-Current Subjective Pt denied vertigo or any episode of dizziness in the past 12 hours. Mental Status Patient Orientation: Person, Place, Situation Transfers Functional Sandwich Measure 0=Not Assessed/NA 4=Minimal Assistance 1=Total Assistance 5=Supervision or Setup 2=Maximal Assistance 6=Modified Sandwich 3=Moderate Assistance 7=Complete IndependenceIRFPAI Quality Coding Scale 6 Independent with activity with or without an assistive device 5 Patient requires set up or clean up by helper. Patient completes activity by themselves 4 Supervision or touching assist (CGA). [place] provide cues , steadying assist 3 The helper provides less than half the effort to complete the activity 2 The helper provides more than half the effort to complete the activity 1 Dependent. The helper does all the effort to complete an activity 7 Patient refused to complete or attempt activity 9 The patient did not perform the activity before the current illness or injury 88 Not attempted due to Medical conditions or safety concerns Transfers (B, C, W/C) (FIM): 5 Scootin Rollin Supine to/from Sit: 5 Sit to/from Stand: 5 Gait Training Gait (FIM): 5 Distance (FIM): 3=150 ft Distance: 250ft Gait Level of Assist: 5 Gait Persons Needed: 1 Gait Assistive Device: FWW (1) Balance Special Test Comments Pt was able to perform narrow stance with no LOB. Standing with normal stance with additional head movement, without adverse effects. Assessment Pt did not report dizziness or display any instability with treatment. PT Abap Developer Goals Abap Developer Goals PT Nursing Home Goals Time Frame: Aug 31, 2017 Transfers (B,C,W/C) (FIM): 6 Gait (FIM): 6 Gait distance (FIM): 3=150 ft Gait Assistive Device: FWW PT Plan Treatment/Plan Treatment Plan: Continue Plan of Care Treatment Plan: Bed Mobility, Education, Functional Activity Gwen, Functional Strength, Gait, Safety, Therapeutic Exercise, Transfers Treatment Duration: Aug 31, 2017 Frequency: 6 times per week Estimated Hrs Per Day: .25 hour per day Patient and/or Family Agrees t: Yes Discharge Recommendations Plan Instructed family (daughter) that if she has any further issues with dizziness/ vertigo, to contact her physician and we can do a full assessment in the outpatient clinic. Therapy D/C Recommendations: Home w/ Family Support Time/GCodes Time In: 1105 Time Out: 1120 Total Billed Treatment Time: 15 Total Billed Treatment 1, gt 15 GARRET PRECIADO PT Aug 28, 2017 14:14
== END 2017-08-28 13:05 | disposition home or self-care (01) ==
LOC: EDUNIT# 14:42 → ER 14:43 → 4TH 17:37 → UNDOADMOB 17:37 → 4TH 18:15
PROVIDERS: ADMIT Internal Medicine; ATTEND Internal Medicine
DX: R42 Dizziness and giddiness (principal); I48.1 Persistent atrial fibrillation; I11.0 Hypertensive heart disease with heart failure; I50.32 Chronic diastolic (congestive) heart failure; I08.1 Rheumatic disorders of both mitral and tricuspid valves; I65.23 Occlusion and stenosis of bilateral carotid arteries; E03.9 Hypothyroidism, unspecified; N32.81 Overactive bladder; J44.9 Chronic obstructive pulmonary disease, unspecified; E78.5 Hyperlipidemia, unspecified; F03.90 Unspecified dementia, unspecified severity, without behavioral disturbance, psychotic disturbance, mood disturbance, and anxiety; G62.9 Polyneuropathy, unspecified; K21.9 Gastro-esophageal reflux disease without esophagitis; F41.9 Anxiety disorder, unspecified; Z79.82 Long term (current) use of aspirin; Z79.899 Other long term (current) drug therapy
CPT/HCPCS: 36415; 70450; 70496; 70498; 71045; 80048; 80053; 81000; 83880; 85025; 94760; 96361; 96374

== ENCOUNTER 2017-09-08 09:37 | Day surgery (SDC) | payer MEDICARE, OTHER ==
[~2017-09-08] VITALS: Ht 165.1 cm; Wt 83.9 kg
[~2017-09-08 09:37] MED LIST changes: +DILT120C53 PO; +DILT240C53 PO; +IBUP-30 PO; +L.AC1CAP6 PO; +LOPE-134 PO; +LORA10TA76 PO; +OMEG-9 PO; +ROSU5TAB11 PO; +TRIM100T PO
--- OUTSIDE RECORDS SUMMARY | 2017-09-08 09:43 | XMS REPORT | Continuity of Care Document ---
Author Author [facility] Organization [facility] Address Unknown Phone Unavailable Allergies Active Description Code Type Severity Reaction Onset Reported/Identified Relationship to Patient Clinical Status Yes No Known Drug Allergies [id number] Drug Allergy Unknown N/A 05/06/2016 Yes Fish Containing Products [id number] Drug Allergy Unknown N/A 06/02/2016 Medications There is no data. Problems Date Dx Coded Attending Type Code Diagnosis Diagnosed By 05/21/2013 RIN MORALES MD Ot 721.0 CERVICAL SPONDYLOSIS 05/21/2013 RIN MORALES MD Ot V57.1 PHYSICAL THERAPY NEC 09/14/2013 LUANN TORRES REGISTERED NURSE CARDIAC Ot 715.96 OSTEOARTHROS NOS-L/LEG 09/14/2013 LUANN TORRES REGISTERED NURSE CARDIAC Ot V57.1 PHYSICAL THERAPY NEC 11/28/2014 LUANN TORRES REGISTERED NURSE CARDIAC Ot 716.90 11/28/2014 LUANN TORRES APRN Ot 724.5 11/28/2014 LUANN TORRES APRN Ot V57.1 12/07/2014 LUANN TORRES REGISTERED NURSE CARDIAC Ot 716.90 ARTHROPATHY NOS-UNSPEC 12/07/2014 LUANN TORRES REGISTERED NURSE CARDIAC Ot 724.5 BACKACHE NOS 12/07/2014 LUANN TORRES REGISTERED NURSE CARDIAC Ot V57.1 PHYSICAL THERAPY NEC 11/22/2015 Ot [...] E Ot R19.7 DIARRHEA, UNSPECIFIED 05/30/2016 KYLIE REEYS MD E Ot R41.0 DISORIENTATION, UNSPECIFIED 05/30/2016 KYLIE REYES MD E Ot R53.1 WEAKNESS 05/30/2016 KYLIE REYES MD E Ot R60.0 LOCALIZED EDEMA 05/30/2016 FADUMO REYES MDIC E Ot T36.95XA ADVERSE EFFECT OF UNSP SYSTEMIC ANTIBIOT 05/30/2016 FADUMO REYES MDIC E Ot Z79.01 SENIOR LIVING (CURRENT) USE OF 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 05/31/2016 KYLIE REYES [...] 05/31/2016 KYLIE REYES MD E Ot Z79.01 SEED PACKER (CURRENT) USE OF 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 06/01/2016 KYLIE REYES [...] 06/01/2016 KYLIE REYES MD E Ot Z79.01 SENIOR LIVING (CURRENT) USE OF 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 06/01/2016 KYLIE REYES [...] 06/01/2016 KYLIE REYES MD E Ot Z79.01 SEED PACKER (CURRENT) USE OF 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 06/02/2016 KYLIE REYES [...] 06/02/2016 AMY GUIDO KYLIE E Ot Z79.01 SEED PACKER (CURRENT) USE OF 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 06/02/2016 Ot 721.0 [...] 06/02/2016 AMY GUIDO KYLIE E Ot Z79.01 SEED PACKER (CURRENT) USE OF 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 06/02/2016 AMY GUIDO [...] ANTIBIOT 06/02/2016 KYLIE REYES MD Ot Z79.01 SENIOR LIVING (CURRENT) USE OF 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 06/11/2017 DOLORES BURGESS APRN Ot E03.9 HYPOTHYROIDISM, UNSPECIFIED 06/11/2017 DOLORES BURGESS APRN Ot E78.00 PURE HYPERCHOLESTEROLEMIA, UNSPECIFIED 06/11/2017 DOLORES BURGESS APRN Ot F41.9 ANXIETY DISORDER, UNSPECIFIED 06/11/2017 DOLORES BURGESS APRN Ot I10 ESSENTIAL (PRIMARY) HYPERTENSION 06/11/2017 DOLORES BURGESS APRN Ot K21.9 GASTRO-ESOPHAGEAL REFLUX DISEASE WITHOUT 06/11/2017 DOLORES BURGESS APRN Ot S00.03XA CONTUSION OF SCALP, INITIAL ENCOUNTER 06/11/2017 ODLORES BURGESS APRN Ot W01.198A FALL SAME LEV FROM SLIP/TRIP W STRIKE AG 06/11/2017 DOLORES BURGESS APRN Ot Z79.01 SENIOR LIVING (CURRENT) USE OF 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 06/11/2017 DOLORES BURGESS APRN Ot Z79.82 SENIOR LIVING (CURRENT) USE OF ASPIRIN 06/11/2017 DOLORES BURGESS APRN Ot Z87.01 PERSONAL HISTORY OF PNEUMONIA (RECURRENT 06/11/2017 DOLORES BURGESS APRN Ot Z87.19 PERSONAL HISTORY OF OTHER DISEASES OF TH 06/11/2017 DOLORES BURGESS APRN Ot Z90.710 ACQUIRED ABSENCE OF BOTH CERVIX AND UTER 08/28/2017 GALLAGHER DO GEMINI Ot E03.9 HYPOTHYROIDISM, UNSPECIFIED 08/28/2017 GALLAGHER DO GEMINI Ot E78.5 HYPERLIPIDEMIA, UNSPECIFIED 08/28/2017 GALLAGHER DO GEMINI Ot F03.90 UNSPECIFIED DEMENTIA WITHOUT BEHAVIORAL 08/28/2017 AILEEN BRADEN GEMINI Ot F41.9 ANXIETY DISORDER, UNSPECIFIED 08/28/2017 AILEEN BRADEN GEMINI Ot G62.9 POLYNEUROPATHY, UNSPECIFIED 08/28/2017 AILEEN BRADEN GEMINI Ot I08.1 RHEUMATIC DISORDERS OF BOTH MITRAL AND T 08/28/2017 AILEEN BRADEN GEMINI Ot I11.0 HYPERTENSIVE HEART DISEASE WITH HEART FA 08/28/2017 AILEEN BRADEN GEMINI Ot I48.1 PERSISTENT ATRIAL FIBRILLATION 08/28/2017 AILEEN BRADEN GEMINI Ot I50.32 CHRONIC DIASTOLIC (CONGESTIVE) HEART ALBERT 08/28/2017 AILEEN BRADEN GEMINI Ot 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 08/28/2017 AILEEN BRADEN GEMINI Ot J44.9 CHRONIC OBSTRUCTIVE PULMONARY DISEASE, U 08/28/2017 AILEEN BRADEN GEMINI Ot K21.9 GASTRO-ESOPHAGEAL REFLUX DISEASE WITHOUT 08/28/2017 AILEEN BRADEN GEMINI Ot N32.81 OVERACTIVE BLADDER 08/28/2017 GALLAGHER GEMINI Ot R42 DIZZINESS AND GIDDINESS 08/28/2017 GALLAGHER GEMINI Ot Z79.82 SEED PACKER (CURRENT) USE OF ASPIRIN 08/28/2017 AILEEN BRADEN GEMINI Ot Z79.899 OTHER SENIOR LIVING (CURRENT) DRUG THERAPY Procedures Code Description Performed By Performed On 3J3O41M INTRODUCE OF ANTI-INFLAM INTO EPIDURAL S 05/07/2016 [id number] EXCISION OF LUMBAR SPINAL CORD, OPEN SANAZ 05/08/2016 [id number] RELEASE LUMBAR NERVE, OPEN APPROACH 05/08/2016 [id number] REMOVAL OF INT FIX FROM LUM JT, OPEN SANAZ 05/08/2016 [id number] HINDU OF CARDIAC RHYTHM, SINGLE 05/20/2016 Results Test [...] culture - 05/16/16 12:00 Bacterial urine culture [id number] NRG COLONY COUNT 10,000/ML - 100,000/ML NRG FTX;REPORTABLE SENSITIVITY REPORTED AT 0755, 16 NR URINE CULTURE RESULTS PLUS NR Bacterial susceptibility panel - 05/16/16 12:00 Gentamicin susceptibility test by minimum inhibitory concentration < = NRG Trimethoprim/sulfamethoxazole susceptibility test by minimum inhibitoryconcentration <= NRG Tobramycin susceptibility test by minimum inhibitory concentration < = NR Cefazolin susceptibility test by minimum inhibitory concentration > = NR Ceftriaxone susceptibility test by minimum inhibitory concentration 16 NRG Piperacillin/tazobactam susceptibility test by minimum inhibitory concentration >= NR Ciprofloxacin susceptibility test by minimum inhibitory concentration <= NRG Meropenem susceptibility test by minimum inhibitory concentration < = NR Nitrofurantoin susceptibility test by minimum inhibitory concentration 64 NRG Aztreonam susceptibility test by minimum inhibitory concentration 16 NRG Cefepime susceptibility test by minimum inhibitory concentration <= NR Bacterial susceptibility panel - 05/16/16 12:00 Gentamicin susceptibility test by minimum inhibitory concentration < = NRG Trimethoprim/sulfamethoxazole susceptibility test by minimum inhibitoryconcentration <= NRG Ampicillin susceptibility test by minimum inhibitory concentration > = NR Tobramycin susceptibility test by minimum inhibitory concentration < = NRG Cefazolin susceptibility test by minimum inhibitory concentration > = NR Ceftriaxone susceptibility test by minimum inhibitory concentration [...] culture - 05/19/16 04:30 Bacterial urine culture [id number] NRG COLONY COUNT 10,000/ML - 100,000/ML NRG [...] calculation of estimated glomerular filtration rate 56 NR Serum or plasma glucose measurement (mass/volume) 157 [...] GRAM STAIN SPUTUM AND MIXED BACTERIAL NIEVES NRG Bacterial sputum culture - 05/20/16 06:15 Bacterial sputum culture NORMAL NRG Vancomycin [...] measurement (mass/volume) 2.8 g/dL 3.2-4.5 Magnesium - 11/27/16 04:00 Magnesium 1.6 mg/dL 1.8-2.4 Complete urinalysis [...] culture - 05/31/16 20:55 Bacterial urine culture [id number] NRG COLONY COUNT <10,000 NRG FTX;REPORTABLE SENSITIVITY [place]PORTED AT 0817, 12-6-16 NRG Bacterial susceptibility panel - 05/31/16 20:55 [...] urinalysis with reflex to culture NO NRG Whole blood basic metabolic panel - 08/27/17 05:52 Serum or plasma sodium measurement (moles/volume) 142 mmol/L 135-145 Serum or plasma potassium measurement (moles/volume) 4.4 mmol/L 3.6-5.0 Serum or plasma chloride measurement (moles/volume) 107 mmol/L 98-107 Carbon dioxide 24 mmol/L 21-32 Serum or plasma anion gap determination (moles/volume) 11 mmol/L 5-14 Serum or plasma urea nitrogen measurement (mass/volume) 16 mg/dL 7-18 Serum or plasma creatinine measurement (mass/volume) 0.92 mg/dL 0.60-1.30 Serum or plasma urea nitrogen/creatinine mass ratio 17 NRG Serum or plasma creatinine measurement with calculation of estimated glomerular filtration rate 58 NRG Serum or plasma glucose measurement (mass/volume) 148 mg/dL 70-105 Serum or plasma calcium measurement (mass/volume) 8.4 mg/dL 8.5-10.1 Encounters ACCT No. Visit Date/Time Discharge Status Pt. Type Provider Facility Loc./Unit Complaint [id number] 08/26/2017 18:15:00 08/28/2017 13:05:00 DIS Outpatient GEMINI GALLAGHER DO [facility] 4TH VERTIGO,INCAPACITATE [id number] 06/11/2017 15:51:00 06/11/2017 17:17:00 DIS Emergency DOLORES BURGESS APRN [facility] ER FALL [id number] 05/24/2016 15:18:00 06/02/2016 13:00:00 DIS Inpatient KYLIE REYES MD [facility] IRF DEBILITY [id number] 2016 13:55:00 05/24/2016 15:18:00 DIS Inpatient JUDI GUIDO, REJI M [facility] 4TH SEPSIS,UTI [id number] 05/11/2016 11:31:00 05/15/2016 11:00:00 DIS Inpatient KYLIE REYES MD [facility] IRF LUMBAR RADIOLOPATHY, INTRACTABLE LOW BACK PAIN [id number] 05/08/2016 10:00:00 05/11/2016 11:30:00 DIS Inpatient GEMINI GALLAGHER DO [facility] 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, INTRACTABLE LOW BACK PAIN [id number] 05/04/2016 16:50:00 05/04/2016 23:59:59 CLS Outpatient SANIYA CORRALES MD [facility] RAD LOW BACK PAIN [id number] 03/24/2016 10:30:00 03/24/2016 23:59:59 CLS Preadmit VIVI OATES MD [facility] CARD DIZZINESS,PALPITATIONS [id number] 12/24/2015 10:29:00 03/23/2016 00:01:00 DIS Outpatient VIVI OATES MD [facility] CARD DIZZINESS,PALPITATIONS [id number] 12/10/2015 13:11:00 12/10/2015 23:59:59 CLS Outpatient VIVI OATES MD [facility] RAD FLU PNEUMONIA [id number] 12/05/2014 13:00:00 12/07/2014 15:38:00 DIS Outpatient LUANN TORRES APRN [facility] REHAB BACK PAIN, ARTHRITIS [id number] 08/25/2013 13:30:00 09/14/2013 09:39:00 DIS Outpatient LUANN TORRES APRN [facility] REHAB RT KNEE PAIN OA [id number] 07/11/2013 14:43:00 07/11/2013 23:59:59 CLS Outpatient LUANN TORRES APRN [facility] RAD KNEE PAIN [id number] 03/23/2013 10:30:00 05/21/2013 00:01:00 DIS Outpatient CARMEN GUIDO, RIN Abarca [facility] REHAB CERVICAL SPONDYLOSIS, CERVICALGIA [id number] 05/09/2013 13:08:00 05/09/2013 23:59:59 CLS Outpatient [id number] 02/06/2013 13:05:00 02/06/2013 23:59:59 CLS Outpatient LASHON GUIDO, VIVI Arias [facility] RAD RT SHOULDER PAIN,ARM PAIN ,HAND AND NECK PAIN [id number] 11/20/2015 10:47:00 Document Registration [id number] 05/22/2013 00:00:00 Document Registration [id number] 11/30/2011 08:18:00 Document Registration [id number] 03/05/2011 09:46:00 Document Registration [id number] 11/26/2010 06:46:00 Document Registration
[2017-09-08 10:29] VITALS: BP 171/70
[2017-09-08] MEDS ORDERED: LIDOCAINE 1% INJ 50 ML (XYLOCAINE) VIAL ONE (10:41)
--- NOTE | 2017-09-08 11:20 | Implantation of Loop Monitor ---
Implant of Loop Monitior IMPLANTATION OF LOOP MONITOR REPORT DATE OF PROCEDURE: 09/08/17 PREOP DIAGNOSIS: Long-term surveillance of atrial fibrillation POSTOP DIAGNOSIS: Atrial fibrillation, s/p implantation of loop recorder. PROCEDURE DETAILS: The patient is a 87 female with history of paroxysmal atrial fibrillation requiring long-term surveillance. Therefore implantable loop recorder was discussed and agreed with the patient. Informed consent was taken. All risks and complications were discussed at length. The patient was draped and prepped in the usual sterile fashion. Local anesthesia was lidocaine, which was given in the substernal area close to the 4th intercostal space. Loop monitor Cinnamon with serial number [id number] was implanted according to the protocol. Steri-Strips were placed at the end of the procedure. There were no complications and the patient tolerated the procedure well. The device was interrogated with a voltage of. ANESTHESIA: Local anesthesia with lidocaine. COMPLICATIONS: None CONTRAST/FLUOROSCOPY: None CONCLUSION: 1. Successful implantation of loop monitor for judgment of atrial fibrillation 2. No complication and the patient tolerated the procedure well. CESAR LEYVA MD Sep 08, 2017 11:20
[2017-09-08 11:55] VITALS: BP 168/72
== END 2017-09-08 11:57 | disposition home or self-care (01) ==
LOC: CATH 09:37
PROVIDERS: ATTEND Internal Medicine Cardiovascular Disease
DX: I48.0 Paroxysmal atrial fibrillation (principal); I10 Essential (primary) hypertension; I65.23 Occlusion and stenosis of bilateral carotid arteries; E03.9 Hypothyroidism, unspecified; E78.5 Hyperlipidemia, unspecified; Z79.82 Long term (current) use of aspirin; Z79.899 Other long term (current) drug therapy; Z87.891 Personal history of nicotine dependence
CPT/HCPCS: 33282

== ENCOUNTER 2017-11-01 16:05 | Inpatient (IN) | payer MEDICARE, OTHER ==
[~2017-11-01] VITALS: Ht 165.1 cm; Wt 84.8 kg
--- NOTE | 2017-11-01 16:35 | ED General ---
General Chief Complaint: Neurological Problems Stated Complaint: WEAKNESS/CONFUSION/BLOOD IN URINE Source of Information: Patient, Family Exam Limitations: No Limitations History of Present Illness Date Seen by Provider: November 01, 2017 Time Seen by Provider: 16:32 Initial Comments 87-year-old female presents to ER from home accompanied by daughter. She prefers to be called Brinda. Complaints of altered mental status since last night. Daughter noticed last night at sabianism the patient became unusually lethargic and this morning was unable to get out of bed without assistance and had been incontinent of urine. Daughter helped her to the chair, took a urine sample to Dr. Oates's office and the plan was for her to be seen at Dr. Oates' s office tomorrow. However, daughter was concerned patient should be seen sooner given the symptoms. The patient herself only reports dizziness. She denies any recent falls or head injuries. Daughter believes this to be related to a bladder infection as she had a similar presentation with a bladder infection about a year ago. The patient is on trimethoprim daily for UTI suppression. Timing/Duration: 1-2 Days Severity: Moderate Allergies and Home Medications Allergies Coded Allergies: Fish Containing Products (Verified Allergy, Unknown, 06/02/16) Home Medications Apixaban 5 Mg Tablet, 5 MG PO BID, (Reported) Aspirin 81 Mg Tablet.dr, 81 MG PO DAILY, (Reported) Calcium Carbonate/Vitamin D3 1 Each Tablet, 1 TAB PO HS, (Reported) Diltiazem HCl 240 Mg Cap.er.24h, 240 MG PO DAILY, (Reported) Diltiazem HCl 120 Mg Cap.er.24h, 120 MG PO HS, (Reported) Famotidine 20 Mg Tablet, 20 MG PO DAILY PRN for ACID REFLUX, (Reported) Ibuprofen 200 Mg Tablet, 400 MG PO TID PRN for PAIN-MILD, (Reported) L.acidoph & Paracasei,B.lactis 1 Each Capsule, 1 CAP PO 1200, (Reported) Levothyroxine Sodium 125 Mcg Tablet, 125 MCG PO DAILY, (Reported) Loperamide HCl 2 Mg Tablet, 2 MG PO UD PRN for DIARRHEA, (Reported) Loratadine 10 Mg Tablet, 10 MG PO HS PRN for ALLERGIES, (Reported) Metoprolol Succinate 50 Mg Tab.er.24h, 50 MG PO HS, (Reported) [place]-3/Dha/Epa/Fish Oil 1 Each Capsule.dr, 1,400 MG PO 1200, (Reported) Rosuvastatin Calcium 5 Mg Tablet, 5 MG PO HS, (Reported) Trimethoprim 100 Mg Tablet, 100 MG PO HS, (Reported) Patient Home Medication List Home Medication List Reviewed: Yes Review of Systems Constitutional: see HPI EENTM: see HPI Respiratory: no symptoms reported Cardiovascular: no symptoms reported Genitourinary: no symptoms reported Musculoskeletal: no symptoms reported Skin: no symptoms reported Psychiatric/Neurological: No Symptoms Reported Hematologic/Lymphatic: No Symptoms Reported Immunological/Allergic: no symptoms reported Past Bbwzppe-Fstmwq-Aaryjt Hx Patient Social History Type Used: Cigarettes Former Smoker, Quit: May 24, 1966 Recent Foreign Travel: No Contact w/Someone Who Travel: No Recent Hopitalizations: Yes Immunizations Up To Date Date of Pneumonia Vaccine: October 28, 2015 Seasonal Allergies Seasonal Allergies: No Past Medical History Surgeries: Yes (CYST REMOVED, GOITER REMOVED, LAMINECTOMY) Hysterectomy, Joint Replacement Respiratory: Yes Pneumonia Currently Using CPAP: No Currently Using BIPAP: No Cardiac: Yes High Cholesterol, Hypertension Neurological: Yes Dementia, Neuropathy 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 Genitourinary: No Gastrointestinal: Yes (TAKES PEPCID) Gastroesophageal Reflux, Chronic Constipation, Chronic Diarrhea, Gall Bladder Disease Musculoskeletal: Yes Arthritis, Back Injury, Chronic Back Pain Endocrine: Yes Hypothyroidsim HEENT: No Cancer: No Psychosocial: Yes Anxiety Integumentary: No Blood Disorders: No Adverse Reaction/Blood Tranf: No Family Medical History No Pertinent Family Hx Physical Exam Vital Signs Vital Signs - First Documented 11/01/17 16:23 Temp 99.3 Pulse 74 Resp 20 B/P (MAP) 125/100 (108) Pulse Ox 95 O2 Delivery Room Air Capillary Refill : General Appearance: No Apparent Distress, WD/WN Eyes: Bilateral Eye Normal Inspection, Bilateral Eye PERRL, Bilateral Eye EOMI HEENT: PERRL/EOMI, TMs Normal Neck: Full Range of Motion, Normal Inspection Respiratory: Normal Breath Sounds, No Accessory Muscle Use, No Respiratory Distress Cardiovascular: Normal Peripheral Pulses Extremity: Other (Trace pitting edema bilateral lower extremities) Neurologic/Psychiatric: Alert, Other (She is alert, smiling and pleasant, she is unaware of the year or the month but she knows her name and where she is at. When asked why she is at the hospital she replies "because my daughter thinks I' m sick") Skin: Normal Color, Warm/Dry Progress/Results/Core Measures Suspected Sepsis SIRS Temperature: Pulse: Respiratory Rate: Laboratory Tests 11/01/17 16:45: White Blood Count 6.6 Blood Pressure / Mean: Laboratory Tests 11/01/17 16:45: Creatinine 1.58H, Platelet Count 141, Total Bilirubin 2.0H Results/Orders Lab Results Laboratory Tests Test 11/01/17 16:45 11/01/17 17:26 Range/Units White Blood Count 6.6 4.3-11.0 10^3/uL Red Blood Count 2.85 L 4.35-5.85 10^6/uL Hemoglobin 9.8 L 11.5-16.0 G/DL Hematocrit 28 L 35-52 % Mean Corpuscular Volume 100 H 80-99 FL Mean Corpuscular Hemoglobin 34 25-34 PG Mean Corpuscular Hemoglobin Concent 35 32-36 G/DL Red Cell Distribution Width 15.8 H 10.0-14.5 % Platelet Count 141 130-400 10^3/uL Mean Platelet Volume 8.8 7.4-10.4 FL Neutrophils (%) (Auto) 93 H 42-75 % Lymphocytes (%) (Auto) 4 L 12-44 % Monocytes (%) (Auto) 4 0-12 % Eosinophils (%) (Auto) 0 0-10 % Basophils (%) (Auto) 0 0-10 % Neutrophils # (Auto) 6.1 1.8-7.8 X 10^3 Lymphocytes # (Auto) 0.3 L 1.0-4.0 X 10^3 Monocytes # (Auto) 0.2 0.0-1.0 X 10^3 Eosinophils # (Auto) 0.0 0.0-0.3 10^3/uL Basophils # (Auto) 0.0 0.0-0.1 10^3/uL Neutrophils % (Manual) 77 % Lymphocytes % (Manual) 3 % Monocytes % (Manual) 1 % Eosinophils % (Manual) 0 % Band Neutrophils 19 % Blood Morphology Comment NORMAL Sodium Level 134 L 135-145 MMOL/L Potassium Level 4.6 3.6-5.0 MMOL/L Chloride Level 100 98-107 MMOL/L Carbon Dioxide Level 25 21-32 MMOL/L Anion Gap 9 5-14 MMOL/L Blood Urea Nitrogen 30 H 7-18 MG/DL Creatinine 1.58 H 0.60-1.30 MG/DL Estimat Glomerular Filtration Rate 31 BUN/Creatinine Ratio 19 Glucose Level 160 H 70-105 MG/DL Calcium Level 8.4 L 8.5-10.1 MG/DL Total Bilirubin 2.0 H 0.1-1.0 MG/DL Aspartate Amino Transf (AST/SGOT) 45 H 5-34 U/L Alanine Aminotransferase (ALT/SGPT) 30 0-55 U/L Alkaline Phosphatase 81 40-136 U/L Troponin I < 0.30 <0.30 NG/ML Total Protein 6.0 L 6.4-8.2 GM/DL Albumin 3.5 3.2-4.5 GM/DL Urine Color ANNAMARIA H Urine Clarity SLIGHTLY CLOUDY Urine pH 5 5-9 Urine Specific [place] 1.025 H 1.016-1.022 Urine Protein 1+ H NEGATIVE Urine Glucose (UA) NEGATIVE NEGATIVE Urine Ketones NEGATIVE NEGATIVE Urine Nitrite NEGATIVE NEGATIVE Urine Bilirubin 1+ H NEGATIVE Urine Urobilinogen 1 NORMAL MG/DL Urine Leukocyte Esterase 2+ H NEGATIVE Urine RBC (Auto) 3+ H NEGATIVE Urine RBC 2-5 H /HPF Urine WBC 2-5 /HPF Urine Squamous Epithelial Cells 5-10 /HPF Urine Crystals NONE /LPF Urine Bacteria TRACE /HPF Urine Casts PRESENT /LPF Urine Coarse Granular Casts 5-10 H /LPF Urine Mucus SMALL H /LPF Urine Culture Indicated YES My Orders Orders - DOLORES BURGESS APRN Cbc With Automated Diff (11/01/17 16:22) Comprehensive Metabolic Panel (11/01/17 16:22) Ua Culture If Indicated (11/01/17 16:22) Ekg Tracing (11/01/17 16:22) Troponin I (11/01/17 16:22) Iv [place]-Insert (Order) (11/01/17 16:22) Ns Iv 1000 Ml (Sodium Chloride 0.9%) (11/01/17 16:45) Manual Differential (11/01/17 16:45) Chest 1 View, Ap/Pa Only (11/01/17 17:25) Urine Culture (11/01/17 17:26) Ct Head Wo (11/01/17 18:12) Vital Signs/I&O 11/01/17 11/01/17 11/01/17 16:23 19:40 20:35 Temp 99.3 99.3 101.7 Pulse 74 74 Resp 20 20 B/P (MAP) 125/100 (108) 118/91 (108) Pulse Ox 95 95 O2 Delivery Room Air Capillary Refill : Progress Note : Progress Note NAME: NIKHIL ARAIZA [facility] REC#: [id number] PT STATUS: REG ER : 1930 PHYSICIAN: DOLORES BURGESS APRN ADMIT DATE: 11/01/17/ER Signed Date of Exam:11/01/17 CHEST 1 VIEW, AP/PA ONLY INDICATION: Chest pain. FINDINGS: Loop recorder overlies the left chest. The heart is enlarged, increased from prior. There is mild distention of the central vascularity. No effusion or pneumothorax. Elevated right diaphragm noted. IMPRESSION: Increased heart size and vascular congestion. No acute pleural pathology. Loop recorder overlies the left chest. Right diaphragmatic elevation more pronounced. Dictated by: Dictated on workstation # [id number] Dict: 11/01/171823 Trans: 11/01/171846 [facility] [id number] Interpreted by: BERNARDO MESA Electronically signed by: BERNARDO MESA 11/01/171846 Departure Communication (Admissions) Time/Spoke to Admitting Phy: 18:10 I discussed the acute renal insufficiency. She states that the patient has been on clindamycin for a salivary gland infection on the left a few weeks ago and then amoxicillin after having a tooth pulled. She finished the antibiotics during the last week of September and was having some loose stools but not but they would consider diarrhea. The loose stools have resolved and in fact she is now a bit constipated secondary to Imodium use over the past few days but patient has not been drinking her usual amount of fluids. Impression Primary Impression: Acute renal insufficiency Additional Impression: Altered mental status Disposition: 01 HOME, SELF-CARE Condition: Stable Admissions Decision to Admit Reason: Admit from ER (General) Decision to Admit/Date: November 01, 2017 Time/Decision to Admit Time: 18:10 Departure-Patient Inst. Referrals: VIVI OATES MD (PCP/Family) Primary Care Physician DOLORES BURGESS APRN November 01, 2017 16:35
[2017-11-01] MEDS ORDERED: NS IV 1000 ML 1,000 ML IV SCH (16:45)
[2017-11-01 17:04] LABS: BASOPHILS % (AUTO) 0 % (0-10); EOSINOPHILS % (AUTO) 0 % (0-10); HEMATOCRIT 28 % (35-52); HEMOGLOBIN 9.8 G/DL (11.5-16.0); LYMPHOCYTES # (AUTO) 0.3 X 10^3 (1.0-4.0); LYMPHOCYTES % (AUTO) 4 % (12-44); MEAN CORPUSCULAR HEMOGLOBIN 34 PG (25-34); MEAN CORPUSCULAR HGB CONC 35 G/DL (32-36); MEAN CORPUSCULAR VOLUME 100 FL (80-99); MEAN PLATELET VOLUME 8.8 FL (7.4-10.4); MONOCYTES # (AUTO) 0.2 X 10^3 (0.0-1.0); MONOCYTES % (AUTO) 4 % (0-12); NEUTROPHILS # (AUTO) 6.1 X 10^3 (1.8-7.8); NEUTROPHILS % (AUTO) 93 % (42-75); PLATELET COUNT 141 10^3/uL (130-400); RED BLOOD COUNT 2.85 10^6/uL (4.35-5.85); RED CELL DISTRIBUTION WIDTH 15.8 % (10.0-14.5); WHITE BLOOD COUNT 6.6 10^3/uL (4.3-11.0)
[2017-11-01 17:21] LABS: ALANINE AMINOTRANSFERASE 30 U/L (0-55); ALBUMIN 3.5 GM/DL (3.2-4.5); ALKALINE PHOSPHATASE 81 U/L (40-136); BUN/CREATININE RATIO 19; CALCIUM 8.4 MG/DL (8.5-10.1); CARBON DIOXIDE 25 MMOL/L (21-32); CHLORIDE 100 MMOL/L (98-107); CREATININE SERUM 1.58 MG/DL (0.60-1.30); GFR ESTIMATED 31; GLUCOSE 160 MG/DL (70-105); POTASSIUM 4.6 MMOL/L (3.6-5.0); SODIUM 134 MMOL/L (135-145)
[2017-11-01 17:35] LABS: CLARITY,URINE SLIGHTLY CLOUDY; COLOR,URINE AMBER; GLUCOSE, URINE (UA) NEGATIVE (NEGATIVE); KETONES,URINE NEGATIVE (NEGATIVE); LEUKOCYTE ESTERASE ,URINE 2+ (NEGATIVE); NITRITE,URINE NEGATIVE (NEGATIVE); PH,URINE 5 (5-9); PROTEIN,URINE 1+ (NEGATIVE); UROBILINOGEN,URINE 1 MG/DL (NORMAL)
[2017-11-01 18:06] LABS: BACTERIA,URINE TRACE /HPF; BILIRUBIN,URINE 1+ (NEGATIVE)
[2017-11-01 18:14] LABS: BAND NEUTROPHILS 19 %; EOSINOPHILS % (MANUAL) 0 %; LYMPHOCYTES % (MANUAL) 3 %; MONOCYTES % (MANUAL) 1 %; NEUTROPHILS % (MANUAL) 77 %; RBC MORPH NORMAL
--- NOTE | 2017-11-01 18:30 | Diagnostic Imaging Report ---
INDICATION: Chest pain. FINDINGS: Loop recorder overlies the left chest. The heart is enlarged, increased from prior. There is mild distention of the central vascularity. No effusion or pneumothorax. Elevated right diaphragm noted. IMPRESSION: Increased heart size and vascular congestion. No acute pleural pathology. Loop recorder overlies the left chest. Right diaphragmatic elevation more pronounced. Dictated by: Dictated on workstation # [id number]
--- NOTE | 2017-11-01 18:43 | Diagnostic Imaging Report ---
PROCEDURE: CT head without contrast. TECHNIQUE: Multiple contiguous axial images were obtained through the brain without the use of intravenous contrast. INDICATION: Weakness and confusion. COMPARISON: Study compared 08/26/2017. FINDINGS: Atrophy is an unchanged chronic finding. Heavily calcified extra-axial nodule left parafalcine near the vertex anteriorly unchanged presumed densely calcified meningioma 1.6 cm without adjacent edema. No new mass. No hemorrhage. No sulcal effacement. No evidence for elevation to the intracranial pressures. Slight chronic white matter small vessel sequelae stable. No acute finding. IMPRESSION: Unchanged from prior. Calcified parafalcine meningioma chronic. Atrophy and minimal white matter disease chronic. No hemorrhage, edema or acute finding. Dictated by: Dictated on workstation # [id number]
[2017-11-01] MEDS: ACETAMINOPHEN 325 MG TABLET/CAPLET (TYLENOL) PO PRN (20:35)
[2017-11-01] MEDS: NS IV 1000 ML 1,000 ML IV SCH (22:27)
[2017-11-02] VITALS: BP 145/64
[2017-11-02 03:50] VITALS: BP 147/65
[2017-11-02] MEDS: ACETAMINOPHEN 325 MG TABLET/CAPLET (TYLENOL) PO PRN ×2 (05:08→11:47)
[2017-11-02 07:19] LABS: CALCIUM 7.7 MG/DL (8.5-10.1); CREATININE SERUM 1.19 MG/DL (0.60-1.30); POTASSIUM 4.4 MMOL/L (3.6-5.0)
[2017-11-02 08:00] VITALS: BP 138/50
[2017-11-02] MEDS ORDERED: IBUPROFEN 600 MG (MOTRIN) TAB PO PRN (08:15)
[2017-11-02] MEDS: NS IV 1000 ML 1,000 ML IV SCH ×2 (08:20→21:23)
--- NOTE | 2017-11-02 09:49 | History & Physical-Hospitalist ---
History of Present Illness HPI/Chief Complaint CC: Severe weakness with acute renal failure HPI: This is an 87-year-old white female debilitated clinic patient of Dr. Burkett known to me from multiple hospital stays that presented to the ER with severe weakness and overall decline status after receiving clindamycin for left neck mass diagnosed at urgent care and had seen Osiel Medrano for the fatigue and not feeling well but she completed that antibiotic and then she took amoxicillin prior to a dentist procedure due to history of joint replacement and overall continued to decline was not feeling well unable to really get out of bed so she went to the ER found to have acute renal failure and just overall decline status. At this current time her confusion has resolved her daughters at the bedside and she is willing to get up and around so I initiated physical therapy and had the nurse help her to the chair and we will restart all of her home medications and monitor closely. I will slow her IV fluids down since the renal failure is now resolved and will monitor patient closely. Source: patient, caregiver Exam Limitations: no limitations Date Seen 11/02/17 Time Seen by Provider: 09:00 Attending Physician Terrance Briceno MD PCP Jung Burkett MD Referring Physician Date of Admission November 01, 2017 at 19:10 Home Medications & Allergies Home Medications Reviewed patient Home Medication Reconciliation performed by pharmacy medication reconciliations engine emission technician and/or nursing. Patients Allergies have been reviewed. Allergies Allergies Coded Allergies Fish Containing Products (Verified Allergy, Unknown, 06/02/16) Past Gavfjmr-Kdvqer-Jgbqow Hx Past Med/Social Hx: Reviewed Nursing Past Med/Soc Hx, Reviewed and Corrections made Patient Social History Marrital Status: single Employed/Student: retired Alcohol Use: Denies Use Recreational Drug Use: No Smoking Status: Former Smoker Former Smoker, Quit: May 24, 1966 Type Used: Cigarettes 2nd Hand Smoke Exposure: No Physical Abuse Screen: No Sexual Abuse: No Recent Foreign Travel: No Contact w/other who traveled: No Recent Hopitalizations: No Recent Infectious Disease Expo: No Immunizations Up To Date Pediatric: No Date of Pneumonia Vaccine: October 28, 2015 Seasonal Allergies Seasonal Allergies: No Past Medical History Surgeries: Hysterectomy, Joint Replacement Respiratory: COPD Currently Using CPAP: No Currently Using BIPAP: No Cardiac: High Cholesterol, Hypertension Neurological: Dementia, Neuropathy Reproductive: Yes Hysterectomy Gastrointestinal: Gastroesophageal Reflux, Gall Bladder Disease Musculoskeletal: Chronic Back Pain Endocrine: Hypothyroidsim Psychosocial: Anxiety History of Blood Disorders: No Adverse Reaction to Blood [place]: No Family History No Pertinent Family Hx, Hypertension Review of Systems Constitutional: see HPI, dizziness, malaise, weakness EENTM: no symptoms reported Respiratory: no symptoms reported Cardiovascular: no symptoms reported Gastrointestinal: abdominal pain (LUQ) Genitourinary: decreased output Musculoskeletal: back pain Skin: no symptoms reported Psychiatric/Neurological: Anxiety, Depressed All Other Systems Reviewed Negative Unless Noted: Yes Physical Exam Physical Exam Vital Signs Vital Signs - First Documented 11/01/17 16:23 Temp 99.3 Pulse 74 Resp 20 B/P (MAP) 125/100 (108) Pulse Ox 95 O2 Delivery Room Air Capillary Refill : Less Than 3 Seconds General Appearance: No Apparent Distress, WD/WN, Chronically ill, Obese Eyes: Bilateral Eye Normal Inspection, Bilateral Eye PERRL HEENT: PERRL/EOMI, Normal ENT Inspection, Pharynx Normal Neck: Full Range of Motion, Normal Inspection, Non Tender, Supple, Carotid Bruit Respiratory: Chest Non Tender, Lungs Clear, Normal Breath Sounds, No Accessory Muscle Use, No Respiratory Distress Cardiovascular: No Edema, No Gallop, No JVD, No Murmur, Normal Peripheral Pulses, Irregularly Irregular Gastrointestinal: Normal Bowel Sounds, No Organomegaly, No Pulsatile Mass, Non Tender, Soft Back: Normal Inspection, No CVA Tenderness, No Vertebral Tenderness Extremity: Normal Capillary Refill, Normal Inspection, Normal Range of Motion, Non Tender, No Calf Tenderness, No Pedal Edema Neurologic/Psychiatric: Alert, Oriented x3 (decreased recall noted), No Motor/ Sensory Deficits, Normal Mood/Affect Skin: Normal Color, Warm/Dry Lymphatic: No Adenopathy Results Results/Procedures Labs Laboratory Tests 11/01/17 16:45 11/02/17 06:18 Patient resulted labs reviewed. Assessment/Plan Admission Diagnosis Assessment: Acute renal failure with altered mental status Admission Status: Observation Assessment and Plan Plan: Restart all home meds Decrease IV fluid to 70 mL/hour Check labs in morning Out of bed Physical therapy Monitor closely Diagnosis/Problems Diagnosis/Problems (1) Altered mental status Status: Acute Qualifiers: Altered mental status type: delirium Qualified Codes: R41.0 - Disorientation, unspecified (2) Acute renal insufficiency Status: Acute (3) Atrial fibrillation Status: Chronic (4) CAD (coronary artery disease) Status: Chronic Qualifiers: Coronary Disease-Associated Artery/Lesion type: [place] artery [place] vs. transplanted heart: [place] heart Associated angina: without angina Qualified Codes: I25.10 - Atherosclerotic heart disease of [place] coronary artery without angina pectoris (5) Dementia Status: Chronic Qualifiers: Dementia type: Alzheimer's disease Alzheimer's disease onset: unspecified onset Dementia behavioral disturbance: without behavioral disturbance Qualified Codes: G30.9 - Alzheimer's disease, unspecified; F02.80 - Dementia in other diseases classified elsewhere without behavioral disturbance (6) Debility Status: Chronic Clinical Quality Measures DVT/VTE Risk/Contraindication: Risk Factor Score Per Nursin RFS Level Per Nursing on Admit: 3=High GEMINI GALLAGHER DO November 02, 2017 09:49
[2017-11-02] MEDS ORDERED: APIX5TAB PO (10:59)
[2017-11-02] MEDS ORDERED: RANI150T46 PO (10:59)
[2017-11-02] MEDS ORDERED: AMOX500C2 PO (11:01)
[2017-11-02 11:59] VITALS: BP 126/62
--- NOTE | 2017-11-02 14:13 | Physical Therapy Evaluation ---
PT Evaluation-General Medical Diagnosis Admission Date November 01, 2017 at 19:10 Medical Diagnosis: AMS/weakness/ARF Onset Date: November 01, 2017 Therapy Diagnosis Therapy Diagnosis: debility/weakness Height/Weight Height (Feet): 5 Height (Inches): 5.00 Weight (Pounds): 187 Weight (Ounces): 0.0 Precautions Precautions/Isolations: Fall Prevention, Standard Precautions Weight Bear Status Right Lower Extremity: Right Full Weight Bearing Left Lower Extremity: Left Full Weight Bearing Referral Physician: Supa Reason for Referral: Evaluation/Treatment Medical History Pertinent Medical History: Atrial Fib, Arthritis, GERD, HTN, Hypothroidism, Smoking Current History ED via daughter with confusion/weakness and blood in urine Reviewed History: Yes Social History Home: Single Level Current Living Status: Alone (with family checking in on her frequently) Prior/Core FIM Prior Level of Function Functional [place] Measure 0=Not Assessed/NA 4=Minimal Assistance 1=Total Assistance 5=Supervision or Setup 2=Maximal Assistance 6=Modified [place] 3=Moderate Assistance 7=Complete [place] Bed Mobility: 6 Transfers (B,C,W/C) (FIM): 6 Gait: 6 uses FWW PT Evaluation-Current Subjective Patient agrees to PT. Family present. Pain Numeric Pain Scale: 0-No Pain Location: No Pain Reported Objective Patient Orientation: Person, Time, Situation Problem Solving: Fair Attachments: IV ROM/Strength ROM Lower Extremities bilateral LE WNL Strength Lower Extremities 4/5 grossly bilaterally Integumentary/Posture Integumentary refer to nursing notes Bowel Incontinence: No Bladder Incontinence: No Posture WFL Neuromuscular (Tone, Coordination, Reflexes) grossly intact Sensory Vision: Wears Glasses Hearing: Functional Sensation Right Lower Extremit: Impaired Sensation Left Lower Extremity: Impaired Transfers Functional [place] Measure 0=Not Assessed/NA 4=Minimal Assistance 1=Total Assistance 5=Supervision or Setup 2=Maximal Assistance 6=Modified [place] 3=Moderate Assistance 7=Complete [place] Transfers (B, C, W/C) (FIM): 5 Scootin Rollin Supine to/from Sit: 5 Sit to/from Stand: 5 Gait Mode of Locomotion: Walk Anticipated Mode of Locomotion: Walk Gait (FIM): 5 Distance (FIM): 3=150 ft Distance: 250' Gait Level of Assist: 5 Gait Assistive Device: FWW Comments/Gait Description slow, safe, steady Balance Sitting Static: Normal Sitting Dynamic: Normal Standing Static: Normal Standing Dynamic: Normal Assessment/Needs 87 y.o. female, will benefit from short term skilled PT to address functional strength and mobility to improve current LOF and to return to home or care facility at maximum LOF. Rehab Potential: Fair PT Secondary School Teacher Goals Skilled Nursing Goals PT Secondary School Teacher Goals Time Frame: November 12, 2017 Transfers (B,C,W/C) (FIM): 6 Gait (FIM): 6 Gait distance (FIM): 3=150 ft Gait Level of Assist: 6 Gait Assistive Device: FWW PT Plan Problem List Problem List: Activity Tolerance, Functional Strength, Safety Treatment/Plan Treatment Plan: Continue Plan of Care Treatment Plan: Bed Mobility, Education, Functional Activity Gwen, Functional Strength, Gait, Safety, Therapeutic Exercise, Transfers Treatment Duration: November 12, 2017 Frequency: 6 times per week Estimated Hrs Per Day: .25 hour per day Patient and/or Family Agrees t: Yes Discharge Recommendations Therapy D/C Recommendations: Home w/ Family Support, Intermediate Placement Time/GCodes Time In: 1300 Time Out: 1320 Total Billed Treatment Time: 20 Total Billed Treatment 1 visit [facility] 20 min ABDULAZIZ BLACKMAN PT November 02, 2017 14:12
--- NOTE | 2017-11-02 14:33 | Occupational Therapy Eval ---
OT Evaluation-General/PLF Medical Diagnosis Admission Date November 01, 2017 at 19:10 Medical Diagnosis: AMS/weakness/ARF Onset Date: November 01, 2017 Therapy Diagnosis Therapy Diagnosis: decreased self care Height/Weight Height (Feet): 5 Height (Inches): 5.00 Weight (Pounds): 187 Weight (Ounces): 0.0 Precautions Precautions/Isolations: Fall Prevention, Standard Precautions Referral Physician: Supa Medical History Pertinent Medical History: Atrial Fib, Arthritis, GERD, HTN, Hypothroidism, Smoking Additional Medical History high cholesterol, dementia, neuropathy, gallbladder disease, chronic back pain, anxiety Reviewed History: Yes Social History Home: Single Level Current Living Status: Alone (with family checking in on her frequently) ADL-Prior Level of Function ADL PLOF Comments Pt reports being independent with basic self care and mobility. Has a systems tester 1x/month for heavy cleaning. Pt states she does not drive anymore and daughter provides transportation. DME/Equipment: Bath Chair, Grab Bars, Shower, Tall Toilet, Tub/Shower OT Current Status Subjective Pt sitting in chair, agrees to treatment. Pt has no c/o pain. Mental Status/Objective Patient Orientation: Person, Place Attachments: IV Current Glasses/Contacts: Yes Hearing Aids: No Dentures/Partials: No Hand Dominance: Right Upper Extremity ROM Grossly WFL. Unable to assess right elbow secondary to placement of IV and brace to keep elbow straight. Upper Extremity Coordination Fair Upper Extremity Sensation intact per pt report ADL-Treatment ADL-Current Pt states she was able to feed herself and states she just finished bathing with assist from nursing. Pt sit to stand with supervision. Demonstrates ability to perform transfers with SBA. ADLs somewhat difficult to assess secondary to placement of IV and brace to keep right elbow straight (pt is right handed.) Will continue to assess in future sessions. Pt sitting in chair with needs met after session. Functional [place] Measure 0=Not Assessed/NA 4=Minimal Assistance 1=Total Assistance 5=Supervision or Setup 2=Maximal Assistance 6=Modified [place] 3=Moderate Assistance 7=Complete IndependenceIRFPAI Quality Coding Scale 6 Independent with activity with or without an assistive device 5 Patient requires set up or clean up by helper. Patient completes activity by themselves 4 Supervision or touching assist (CGA). [place] provide cues , steadying assist 3 The helper provides less than half the effort to complete the activity 2 The helper provides more than half the effort to complete the activity 1 Dependent. The helper does all the effort to complete an activity 7 Patient refused to complete or attempt activity 9 The patient did not perform the activity before the current illness or injury 88 Not attempted due to Medical conditions or safety concerns Education OT Patient Education: Rehab process Teaching Recipient: Patient Teaching Methods: Discussion Response to Teaching: Reinforcement Needed OT Short Term Goals Short Term Goals 1=Demonstrate adherence to instructed precautions during ADL tasks. 2=Patient will verbalize/demonstrate understanding of assistive devices/ modifications for ADL. 3=Patient will improve strength/tolerance for activity to enable patient to perform ADL's. OT Java Development Team Lead Goals Java Development Team Lead Goals Time Frame: November 16, 2017 Eating (FIM): 6 Grooming(FIM): 6 Bathing(FIM): 5 Upper Body Dressing(FIM): 5 Lower Body Dressing(FIM): 5 Toileting(FIM): 6 Toilet/Commode Transfer(FIM): 6 Additional Goals: 2-Verbalize Understanding, 3-ImproveStrength/Gwen 1=Demonstrate adherence to instructed precautions during ADL tasks. 2=Patient will verbalize/demonstrate understanding of assistive devices/ modifications for ADL. 3=Patient will improve strength/tolerance for activity to enable patient to perform ADL's. OT Education/Plan Problem List/Assessment Assessment: Decreased Activ Tolerance, Decreased UE Strength, Dependent Transfers, Impaired Self-Care Skills Pt to benefit from skilled OT intervention for ADL training, transfers, strengthening, and safety education to increase functional independence and allow safe discharge. Discharge Recommendations Plan/Recommendations: Continue POC Treatment Plan/Plan of Care Treatment,Training & Education: Yes Patient would benefit from OT for education, treatment and training to promote independence in ADL's, mobility, safety and/or upper extremity function for ADL' s. Plan of Care: ADL Retraining, Functional Mobility, UE Funct Exercise/Act Treatment Duration: November 16, 2017 Frequency: 5 times per week Estimated Hrs Per Day: .25 hour per day Agreement: Yes Rehab Potential: Fair Time/GCodes Start Time: 13:45 Stop Time: 14:01 Total Time Billed (hr/min): 16 Billed Treatment Time 1 visit, EUGENIO(16minutes) HARIS KING OT November 02, 2017 14:33
[2017-11-02] MEDS ORDERED: LORATADINE (CLARITIN) 10 MG TAB PO PRN (16:23)
[2017-11-02] MEDS ORDERED: LOPERAMIDE 2 MG (IMODIUM) CAP PO PRN (16:30)
[2017-11-02] MEDS ORDERED: IBUPROFEN TABLET 200 MG TAB PO PRN (16:30)
[2017-11-02 16:52] VITALS: BP 112/57
[2017-11-02 20:00] VITALS: BP 134/68
[2017-11-02] MEDS ORDERED: meTOproloL SUCCINATE 50 MG (TOPROL XL) TAB PO SCH (21:00)
[2017-11-02] MEDS ORDERED: DILTIAZEM 120 MG (CARDIZEM CD) CAP PO SCH (21:00)
[2017-11-02] MEDS ORDERED: ROSUVASTATIN 5 MG (CRESTOR) TABLET PO SCH (21:00)
[2017-11-02] MEDS ORDERED: FAMOTIDINE 20 MG (PEPCID) TABLET PO PRN (21:00)
[2017-11-02] MEDS: APIXABAN 5 MG (ELIQUIS) TABLET PO SCH (21:23)
[2017-11-03] VITALS: BP 126/73
[2017-11-03 06:07] LABS: BASOPHILS % (AUTO) 0 % (0-10); EOSINOPHILS % (AUTO) 0 % (0-10); HEMATOCRIT 25 % (35-52); HEMOGLOBIN 8.7 G/DL (11.5-16.0); LYMPHOCYTES # (AUTO) 0.2 X 10^3 (1.0-4.0); LYMPHOCYTES % (AUTO) 7 % (12-44); MEAN CORPUSCULAR HEMOGLOBIN 35 PG (25-34); MEAN CORPUSCULAR HGB CONC 34 G/DL (32-36); MEAN CORPUSCULAR VOLUME 101 FL (80-99); MEAN PLATELET VOLUME 9.5 FL (7.4-10.4); MONOCYTES # (AUTO) 0.1 X 10^3 (0.0-1.0); MONOCYTES % (AUTO) 4 % (0-12); NEUTROPHILS # (AUTO) 3.1 X 10^3 (1.8-7.8); NEUTROPHILS % (AUTO) 90 % (42-75); PLATELET COUNT 73 10^3/uL (130-400); RED CELL DISTRIBUTION WIDTH 15.7 % (10.0-14.5); WHITE BLOOD COUNT 3.4 10^3/uL (4.3-11.0)
[2017-11-03 06:28] LABS: ALBUMIN 2.9 GM/DL (3.2-4.5); BILIRUBIN,TOTAL 2.9 MG/DL (0.1-1.0); CALCIUM 7.4 MG/DL (8.5-10.1); CREATININE SERUM 1.18 MG/DL (0.60-1.30); POTASSIUM 4.6 MMOL/L (3.6-5.0)
[2017-11-03 08:00] VITALS: BP 138/64
[2017-11-03] MEDS ORDERED: FAMOTIDINE 20 MG (PEPCID) TABLET PO PRN (08:00)
[2017-11-03] MEDS ORDERED: DILTIAZEM 240 MG (CARDIZEM CD) CAP PO SCH (09:00)
[2017-11-03] MEDS ORDERED: LACTOBACILLUS Acidoph/Bulgar (LACTINEX/FLORANEX) TAB PO SCH (09:00)
[2017-11-03] MEDS ORDERED: LEVOTHYROXINE 125 MCG (LEVOTHROID) TABLET PO SCH (09:00)
[2017-11-03] MEDS ORDERED: ASPIRIN E.C. 81 MG (ECOTRIN) TAB PO SCH (09:00)
[2017-11-03] MEDS: APIXABAN 5 MG (ELIQUIS) TABLET PO SCH (09:05)
[2017-11-03] MEDS ORDERED: ACID1TAB5 PO (10:23)
[2017-11-03] MEDS ORDERED: CIPR500T4 PO (10:23)
--- NOTE | 2017-11-03 10:28 | D/C HH Face to Face Order ---
D/C Face to Face Orders Instructions for Patient Patient Instructions/FollowUp: Brendon Medrano 11/08/17 at 2:30pm Physician to follow Patient: Dr Burkett Discharge Diet for Home: No Restrictions Patient Problems: Recurrent UTI Dementia AF Anemis of chronic illness Patient Data-Allergies,Ht & Wt Patient Allergies: Coded Allergies: Fish Containing Products (Verified Allergy, Unknown, 06/02/16) Height (Feet): 5 Height (Inches): 5.00 Weight (Pounds): 187 Weight (Ounces): 0.0 Home Health Need/Face to Face Date of Face to Face: November 03, 2017 Clinical Findings: Generalized weakness and fatigue I have seen Pt [id number]: Yes Discharged To: Home Diagnosis/Conditions: Recurrent UTI Dementia AF Anemis of chronic illness Patient is Homebound due to: CognItive deficits, Jaja fall risk due to instabilty Homebound Status Due to the above stated illness, injury or surgical procedure (medical condition or diagnosis) and associated clinical findings, the patient is homebound because of his/her inability to leave home except with aid of a supportive device and/or person AND leaving the home requires a considerable and taxing effort or is medically contraindicated. Pt req the following assistanc: [facility] Nursing Orders Home Health Services Order: Nursing Services, Medical Clerical Assistant-Evaluate & Treat, Physical Therapy-Evaluate & Treat Home Health Infusion Therapy Line Start Date: November 01, 2017 Line Start Time: 1645 Line Type: Peripheral IV Site Location: Antecubital Certify Stmt I certify that this patient is under my care and that I, a nurse practitioner or a physician; a general assistant working with me, had a face to face encounter that - meets the physician face to face encounter requirements with this patient as dated. GEMINI GALLAGHER DO November 03, 2017 10:28
--- NOTE | 2017-11-03 10:29 | Discharge Summary-Hospitalist ---
Diagnosis/Chief Complaint Date of Admission November 01, 2017 at 19:10 Date of Discharge Discharge Date: November 03, 2017 Admission Diagnosis Assessment: Acute renal failure with altered mental status Discharge Diagnosis Plan: Restart all home meds Decrease IV fluid to 70 mL/hour Check labs in morning Out of bed Physical therapy Monitor closely (1) Altered mental status Status: Resolved (2) Acute renal insufficiency Status: Resolved (3) Atrial fibrillation Status: Chronic (4) CAD (coronary artery disease) Status: Chronic (5) Dementia Status: Chronic (6) Debility Status: Chronic (7) Urinary tract infection Status: Acute Assessment & Plan: Receive notification of low level Pseudomonas on urine culture at day of discharge so we'll place on Cipro per sensitivity profile the patient has recurrent UTIs Discharge Summary Discharge Physical Exam Allergies: Coded Allergies: Fish Containing Products (Verified Allergy, Unknown, 06/02/16) Vitals & I&Os Vital Signs Date Time Temp Pulse Resp B/P (MAP) Pulse Ox O2 Delivery O2 Flow Rate FiO2 11/03/17 09:00 Room Air 11/03/17 08:00 98.2 72 18 138/64 (88) 94 General Appearance: Alert, Cooperative, Other (poor recall no change in baseline) Respiratory: Clear to Auscultation, Normal Air Movement Cardiovascular: Regular Rate Neuro: Normal Gait, Normal Speech, Strength at 5/5 X4 Ext Psych/Mental Status: Mood NL Hospital Course Hospital course: Patient was admitted for altered mental status with delirium on dementia chronic baseline and acute renal failure. Patient was placed on IV fluids which resolved renal failure at time of discharge. UA originally showed no evidence of active infection she does have history of recurrent UTIs and on day of discharge she was found to have Pseudomonas between 10,000 and less than 100,000 colonies so she was placed on Cipro 500 mg twice a day at time of discharge. Overall she appeared to be very declined I did speak with provider Brendon Medrano with Dr. Burkett office and he recommended usp placement but she was very resistant and the daughter told me that she was really unable to keep on taking care of her because she can't be there 18/01 and patient was very upset and very worried that she would be placed in a usp but at this point I think that that is the only option for the patient that they will need to talk to Brendon Medrano and Dr. Burkett regarding those arrangements. At this current time patient has a poor long-term prognosis would be better served in an assisted living versus skilled care usp facility but we'll discharge home at her insistence and the daughter in agreement but will have home health with physical therapy to evaluate and nursing services to evaluate but overall prognosis remains poor. Labs (last 24 hrs) Laboratory Tests 11/03/17 05:20: White Blood Count 3.4L, Red Blood Count 2.50L, Hemoglobin 8.7L, Hematocrit 25L, Mean Corpuscular Volume 101H, Mean Corpuscular Hemoglobin 35H, Mean Corpuscular Hemoglobin Concent 34, Red Cell Distribution Width 15.7H, Platelet Count 73L, Mean Platelet Volume 9.5, Neutrophils (%) (Auto) 90H, Lymphocytes (%) (Auto) 7L , Monocytes (%) (Auto) 4, Eosinophils (%) (Auto) 0, Basophils (%) (Auto) 0, Neutrophils # (Auto) 3.1, Lymphocytes # (Auto) 0.2L, Monocytes # (Auto) 0.1, Eosinophils # (Auto) 0.0, Basophils # (Auto) 0.0, Sodium Level 136, Potassium Level 4.6, Chloride Level 105, Carbon Dioxide Level 20L, Anion Gap 11, Blood Urea Nitrogen 28H, Creatinine 1.18, Estimat Glomerular Filtration Rate 43, BUN/ Creatinine Ratio 24, Glucose Level 176H, Calcium Level 7.4L, Total Bilirubin 2.9H, Aspartate Amino Transf (AST/SGOT) 48H, Alanine Aminotransferase (ALT/SGPT ) 33, Alkaline Phosphatase 91, Total Protein 5.0L, Albumin 2.9L Microbiology 11/01/17 Urine Culture - Final, Complete Pseudomonas aeruginosa Patient resulted labs reviewed. Pending Labs Laboratory Tests 11/03/17 05:20: White Blood Count 3.4, Red Blood Count 2.50, Hemoglobin 8.7, Hematocrit 25, Mean Corpuscular Volume 101, Mean Corpuscular Hemoglobin 35, Mean Corpuscular Hemoglobin Concent 34, Red Cell Distribution Width 15.7, Platelet Count 73, Mean Platelet Volume 9.5, Neutrophils (%) (Auto) 90, Lymphocytes (%) (Auto) 7, Monocytes (%) (Auto) 4, Eosinophils (%) (Auto) 0, Basophils (%) (Auto) 0, Neutrophils # (Auto) 3.1, Lymphocytes # (Auto) 0.2, Monocytes # (Auto) 0.1, Eosinophils # (Auto) 0.0, Basophils # (Auto) 0.0, Sodium Level 136, Potassium Level 4.6, Chloride Level 105, Carbon Dioxide Level 20, Anion Gap 11, Blood Urea Nitrogen 28, Creatinine 1.18, Estimat Glomerular Filtration Rate 43, BUN/ Creatinine Ratio 24, Glucose Level 176, Calcium Level 7.4, Total Bilirubin 2.9, Aspartate Amino Transf (AST/SGOT) 48, Alanine Aminotransferase (ALT/SGPT) 33, Alkaline Phosphatase 91, Total Protein 5.0, Albumin 2.9 Discussion & Recommendations Discharge Planning: <30 minutes discharge planning Discharge Home Medications: Active Scripts Active Lactinex Chewable Tablet (L. Acidophilus/Bulgaricus) 1 Each Tab.chew 1 Each PO ACHS Ciprofloxacin HCl 500 Mg Tablet 500 Mg PO BID Reported Amoxicillin 500 Mg Capsule PO UD PRN Zantac (Ranitidine HCl) 150 Mg Tablet 150 Mg PO BID PRN Eliquis (Apixaban) 5 Mg Tablet 5 Mg PO BID Imodium A-D (Loperamide HCl) 2 Mg Tablet 2 Mg PO UD PRN Claritin (Loratadine) 10 Mg Tablet 10 Mg PO HS PRN Advil (Ibuprofen) 200 Mg Tablet 200-400 Mg PO TID PRN Fish Oil 1,400 mg Softgel ([place]-3/Dha/Epa/Fish Oil) 1 Each Capsule.dr 1,400 Mg PO 1200 Probiotic (L.acidoph & Paracasei,B.lactis) 1 Each Capsule 1 Cap PO 1200 Aspirin EC (Aspirin) 81 Mg Tablet.dr 81 Mg PO DAILY Rosuvastatin Calcium 5 Mg Tablet 5 Mg PO HS Cartia Xt (Diltiazem HCl) 120 Mg Cap.er.24h 120 Mg PO HS Cartia Xt (Diltiazem HCl) 240 Mg Cap.er.24h 240 Mg PO DAILY Metoprolol Succinate 50 Mg Tab.er.24h 50 Mg PO HS Levothyroxine Sodium 125 Mcg Tablet 125 Mcg PO DAILY [place] 500+D3 Caplet (Calcium Carbonate/Vitamin D3) 1 Each Tablet 1 Tab PO HS Instructions to patient/family Please see electronic discharge instructions given to patient. Clinical Quality Measures DVT/VTE Risk/Contraindication: Risk Factor Score Per Nursin RFS Level Per Nursing on Admit: 3=High Problem Qualifiers (1) Altered mental status: Altered mental status type: delirium Qualified Codes: R41.0 - Disorientation , unspecified (2) CAD (coronary artery disease): Coronary Disease-Associated Artery/Lesion type: [place] artery [place] vs. transplanted heart: [place] heart Associated angina: without angina Qualified Codes: I25.10 - Atherosclerotic heart disease of [place] coronary artery without angina pectoris (3) Dementia: Dementia type: Alzheimer's disease Alzheimer's disease onset: unspecified onset Dementia behavioral disturbance: without behavioral disturbance Qualified Codes: G30.9 - Alzheimer's disease, unspecified; F02.80 - Dementia in other diseases classified elsewhere without behavioral disturbance (4) Urinary tract infection: Urinary tract infection type: acute cystitis Hematuria presence: without hematuria Qualified Codes: N30.00 - Acute cystitis without hematuria GEMINI GALLAGHER DO November 03, 2017 10:29
[2017-11-03] MEDS ORDERED: CIPROFLOXACIN 500 MG (CIPRO) TABLET PO SCH (10:30)
--- NOTE | 2017-11-03 11:57 | Occ Therapy Progress Note ---
Therapy Progress Note Pt sitting in chair with daughter present. Pt states she has already showered, dressed, and walked in the hallway this morning. Pt states she will be discharged home today. Declined activity at this time, states she is waiting for her lunch to be delivered. Pt has no questions or concerns at this time. Daughter states pt has everything for home and will be having someone present when she showers for increased safety. Pt sitting in chair with needs met and daughter present. 1, visit HARIS KING OT November 03, 2017 11:56
--- NOTE | 2017-11-03 13:19 | Physical Therapy Daily Note ---
PT Daily Note-Current Subjective Pt just finishing shower & dressing with Aide's assistance upon arrival. Dr Cowart arrives at start of tx to discuss discharge today. Pt agrees to PT but is very anxious about discharge. Pain Location: No Pain Reported Mental Status Patient Orientation: Person, Time, Situation Transfers Functional [place] Measure 0=Not Assessed/NA 4=Minimal Assistance 1=Total Assistance 5=Supervision or Setup 2=Maximal Assistance 6=Modified [place] 3=Moderate Assistance 7=Complete IndependenceIRFPAI Quality Coding Scale 6 Independent with activity with or without an assistive device 5 Patient requires set up or clean up by helper. Patient completes activity by themselves 4 Supervision or touching assist (CGA). [place] provide cues , steadying assist 3 The helper provides less than half the effort to complete the activity 2 The helper provides more than half the effort to complete the activity 1 Dependent. The helper does all the effort to complete an activity 7 Patient refused to complete or attempt activity 9 The patient did not perform the activity before the current illness or injury 88 Not attempted due to Medical conditions or safety concerns Scootin Sit to/from Stand: 5 Weight Bearing Right Lower Extremity: Right Full Weight Bearing Left Lower Extremity: Left Full Weight Bearing Gait Training Distance (FIM): 3=150 ft Distance: 250' Gait Level of Assist: 5 Gait Persons Needed: 1 Gait Assistive Device: FWW CLIENT RELATIONSHIP MANAGER assists pt with management of IV pole. Treatments Pt returns to recliner after leaving bathroom with Aide. Pt rests and Dr Cowart checks pt. Pt then transfers from recliner to standing using FWW at A. Pt ambulates in hallway then returns to room to rest in recliner at end of tx. Pt has all needs met, including call light in hand at end of tx. Assessment Current Status: Good Progress Pt is not socially aware of limitations sometimes but Dr Cowart states this is baseline. Pt does not always follow VC given because pt feels she has a better way to complete task. PT Product Safety Officer Goals [facility] Goals PT Product Safety Officer Goals Time Frame: November 12, 2017 Transfers (B,C,W/C) (FIM): 6 Gait (FIM): 6 Gait distance (FIM): 3=150 ft Gait Level of Assist: 6 Gait Assistive Device: FWW PT Plan Problem List Problem List: Activity Tolerance, Safety Treatment/Plan Treatment Plan: Continue Plan of Care Treatment Plan: Bed Mobility, Education, Functional Activity Gwen, Functional Strength, Gait, Safety, Therapeutic Exercise, Transfers Treatment Duration: November 12, 2017 Frequency: 6 times per week Estimated Hrs Per Day: .25 hour per day Patient and/or Family Agrees t: Yes Safety Risks/Education Patient Education: Gait Training, Transfer Techniques, Correct Positioning, Safety Issues Teaching Recipient: Patient Teaching Methods: Discussion Response to Teaching: Reinforcement Needed Time/GCodes Time In: 1015 Time Out: 1035 Total Billed Treatment Time: 20 Total Billed Treatment 1, GT (20m) G Codes Necessary: REINA Butt CLIENT RELATIONSHIP MANAGER November 03, 2017 13:19
[2017-11-03 13:28] VITALS: BP 138/64
== END 2017-11-03 12:15 | disposition home health service (06) | DRG 683 ==
LOC: EDUNIT# 16:05 → ER 16:07 → 4TH 19:10
PROVIDERS: ADMIT Internal Medicine; ATTEND Internal Medicine
DX: N17.9 Acute kidney failure, unspecified (principal); R41.82 Altered mental status, unspecified; N30.00 Acute cystitis without hematuria; J44.9 Chronic obstructive pulmonary disease, unspecified; I48.91 Unspecified atrial fibrillation; I25.10 Atherosclerotic heart disease of native coronary artery without angina pectoris; I10 Essential (primary) hypertension; E78.00 Pure hypercholesterolemia, unspecified; E03.9 Hypothyroidism, unspecified; E66.9 Obesity, unspecified; G30.9 Alzheimer's disease, unspecified; F02.80 Dementia in other diseases classified elsewhere, unspecified severity, without behavioral disturbance, psychotic disturbance, mood disturbance, and anxiety; G62.9 Polyneuropathy, unspecified; K21.9 Gastro-esophageal reflux disease without esophagitis; K59.09 Other constipation; M19.91 Primary osteoarthritis, unspecified site; M54.9 Dorsalgia, unspecified; F41.9 Anxiety disorder, unspecified; F32.9 Major depressive disorder, single episode, unspecified; Z68.31 Body mass index [BMI] 31.0-31.9, adult; Z87.891 Personal history of nicotine dependence
CPT/HCPCS: 36415; 70450; 71045; 80048; 80053; 81000; 84484; 85007; 85025; 85027; 87077; 87088; 87186; 93005; 96360; 96361

== ENCOUNTER 2017-11-08 09:22 | Inpatient (IN) | payer MEDICARE, OTHER ==
[~2017-11-08] VITALS: Ht 165.1 cm; Wt 85.7 kg
[~2017-11-08 09:22] MED LIST changes: +ACID1TAB5 PO; +AMOX500C2 PO; +CIPR500T4 PO; +RANI150T46 PO
--- NOTE | 2017-11-08 11:35 | Physical Therapy Evaluation ---
PT Evaluation-General Medical Diagnosis Admission Date 11/08/2017 Medical Diagnosis: debility Onset Date: November 05, 2017 Therapy Diagnosis Therapy Diagnosis: weakness; abn gait Height/Weight Height (Feet): 5 Height (Inches): 5.00 Weight (Pounds): 187 Weight (Ounces): 0.0 Precautions Precautions/Isolations: Standard Precautions Referral Physician: sherley Reason for Referral: Evaluation/Treatment Medical History Pertinent Medical History: Atrial Fib, Arthritis, GERD, HTN, Hypothroidism, Smoking Current History Pt admitted to ARU post recent hospital stay with UTI and confusion. Physician and daughter report a recent decline in her mobility at home and recent falls. Reviewed History: Yes Social History Home: Single Level Current Living Status: Alone (family checks on her frequently and provides transportation) Entry Into Home: Stairs Without Railing (1 step up) PT Steps Inside Home: 3 (handrail on both sides but she can only reach 1 side at a time. the steps are from the main level of the house down to the living room. ) Prior/Core FIM Prior Level of Function Functional [place] Measure 0=Not Assessed/NA 4=Minimal Assistance 1=Total Assistance 5=Supervision or Setup 2=Maximal Assistance 6=Modified [place] 3=Moderate Assistance 7=Complete [place] Bed Mobility: 7 Transfers (B,C,W/C) (FIM): 6 Gait: 6 (FWW or cane for ambulation) Pt lives alone with family checking on her frequently. She ambulates in her home mod indep; she reports she is able to prepare light meals. PT Evaluation-Current Subjective Agreeable to PT. reports she remembers being her about a year and a half ago. Wants to get stronger. Pain Numeric Pain Scale: 0-No Pain Location: No Pain Reported Comment: Pt reprots she occas has back pain, but no pain right now. Pt/Family Goals Return home as before. Objective Patient Orientation: Person, Place, Time, Situation Problem Solving: Fair ROM/Strength ROM Lower Extremities WFL Strenght Lower Extremities B LE strength is grossly 4/5 throughout; except hip flexion is 3/5. Integumentary/Posture Integumentary Intact; refer to nursing notes. Bladder Incontinence: Yes (leakage) Posture normal and symmetrical Neuromuscular (Tone, Coordination, Reflexes) functional and intact Sensory Vision: Wears Glasses Hearing: Functional Hand Dominance: Right Sensation Right Lower Extremit: Intact Sensation Left Lower Extremity: Intact Transfers Functional [place] Measure 0=Not Assessed/NA 4=Minimal Assistance 1=Total Assistance 5=Supervision or Setup 2=Maximal Assistance 6=Modified [place] 3=Moderate Assistance 7=Complete IndependenceIRFPAI Quality Coding Scale 6 Independent with activity with or without an assistive device 5 Patient requires set up or clean up by helper. Patient completes activity by themselves 4 Supervision or touching assist (CGA). [place] provide cues , steadying assist 3 The helper provides less than half the effort to complete the activity 2 The helper provides more than half the effort to complete the activity 1 Dependent. The helper does all the effort to complete an activity 7 Patient refused to complete or attempt activity 9 The patient did not perform the activity before the current illness or injury 88 Not attempted due to Medical conditions or safety concerns Transfers (B, C, W/C) (FIM): 4 Roll Left to Right (QC): 5 Supine to/from Sit: 5 Sit to/from Stand: 4 (CGA for safety and skilled cues for hand placement) bed t/f WC(FIM only if WC use): 4 Sit to Lying (QC): 5 Lying to Sitting/Side of Bed(Q: 5 Sit to Stand (QC): 4 Chair/Kqb-rq-Dytbt Xfer(QC): 4 Car Transfer (QC): 4 Gait Does the Patient Walk?: Yes Mode of Locomotion: Walk Anticipated Mode of Locomotion: Walk Gait (FIM): 4 Distance (FIM): 3=150 ft Walk 10 feet (QC): 4 Walk 50 ft with 2 Turns(QC): 4 Walk 150 ft (QC): 4 Walking 10ft/uneven surface-QC: 4 Gait Assistive Device: FWW Comments/Gait Description CGa for safety with giat. Wheelchair Training Does the Pt Use a Wheelchair?: No Stairs Stairs (FIM): 2 #of Steps: 1 1 Step (curb) (QC): 4 4 Steps (QC): 88 12 Steps (QC): 88 Balance Sitting Static: Good Sitting Dynamic: Fair (impaired with functional activity) Standing Static: Fair Standing Dynamic: Fair (fair with AD and CGA) Treatment Co treat with OT. OT addressed functional tasks such as lower body dressing and toileting as PT addressed fucntional balance in sitting and standing for these tasks with tactile and verbal cues for safety and balance. Due to her new admission and learning new information and the complexity of skill, skill of 2 clinicians is indicated this visit. Assessment/Needs Pt presents with a recent decline in functional mobilty and functional strength ; she is needing increased assist from her daughter at home and has experienced recent falls. She has decreased safety with gait and transfers, impaired balance and seems to have some safety awareness deficits. She will benefit from skilled PT to address these deficits and allow her to return home as before. Rehab Potential: Good (good family support; motivated; compliant) PT Short Term Goals Short Term Goals Time Frame: November 15, 2017 Transfers (B,C,W/C) (FIM): 5 Gait (FIM): 5 Distance (FIM): 3=150 ft Gait Assistive Device: FWW PT Assisted Goals Regional Program Manager Goals PT Assisted Goals Time Frame: November 24, 2017 Transfers (B,C,W/C) (FIM): 7 Sit to Lying (QC): 6 Lying-Sitting on Side/Bed(QC): 6 Sit to Stand (QC): 6 Roll Left to Right (QC): 6 Chair/Ycg-fu-Qrhbg Xfer(QC): 6 Car Transfer (QC): 6 Does the Patient Walk: Yes Gait (FIM): 6 Gait distance (FIM): 3=150 ft Walk 10 feet (QC): 6 Walk 10ft-Uneven Surface(QC): 6 Walk 50ft with 2 Turns (QC): 6 Walk 150 ft (QC): 6 Gait Level of Assist: 6 Gait Assistive Device: FWW Does the Pt use WC or Scooter?: No Stairs (FIM): 5 # of Steps: 8 1 Step (curb) (QC): 6 4 Steps (QC): 5 12 Steps (QC): 88 Picking up an Object (QC): 4 LTG's are set with goal to be mod indep in her home. PT Plan Problem List Problem List: Activity Tolerance, Functional Strength, Safety, Balance, Gait, Transfer, Bed Mobility Treatment/Plan Treatment Plan: Continue Plan of Care Treatment Plan: Bed Mobility, Education, Functional Activity Gwen, Functional Strength, Group Therapy, Gait, Safety, Therapeutic Exercise, Transfers Treatment Duration: November 24, 2017 Frequency: At least 5 of 7 days/Wk (IRF) Estimated Hrs Per Day: 1.5 hours per day Patient and/or Family Agrees t: Yes Safety Risks/Education Patient Education: Transfer Techniques, Safety Issues Teaching Recipient: Patient, Family Teaching Methods: Discussion Response to Teaching: Reinforcement Needed Discharge Recommendations Therapy D/C Recommendations: Physical Therapy Home Care Time/GCodes Time In: 1105 Time Out: 1215 (out [id number] (OT eval)) Total Billed Treatment Time: 60 Total Billed Treatment visit EVM 10 FA 50 (of this time, co treat x 40 minutes) CRISTHIAN VENTURA PT November 08, 2017 11:35
[2017-11-08 12:00] VITALS: BP 129/69
[2017-11-08] MEDS ORDERED: LORATADINE (CLARITIN) 10 MG TAB PO PRN (12:15)
[2017-11-08] MEDS ORDERED: IBUPROFEN TABLET 200 MG TAB PO PRN (12:15)
[2017-11-08] MEDS ORDERED: ZANTAC 150 MG PO PRN (12:30)
[2017-11-08] MEDS ORDERED: FAMOTIDINE 20 MG (PEPCID) TABLET PO PRN (13:00)
--- NOTE | 2017-11-08 13:53 | Occupational Therapy Eval ---
OT Evaluation-General/PLF Medical Diagnosis Admission Date November 08, 2017 at 12:19 Medical Diagnosis: debility Onset Date: November 05, 2017 Therapy Diagnosis Therapy Diagnosis: Weakness Height/Weight Height (Feet): 5 Height (Inches): 5.00 Weight (Pounds): 187 Weight (Ounces): 0.0 Precautions Precautions/Isolations: Standard Precautions Weight Bear Status Weight Bearing Restriction: Weight Bearing/Tolerated Referral Physician: sherley Referral Reason: Activity Tolerance, Self Care, Evaluation/Treatment, Strengthening/ROM Medical History Pertinent Medical History: Atrial Fib, Arthritis, GERD, HTN, Hypothroidism, Smoking Additional Medical History knee replacement Current History Pt. in hospital recently for infections. Pt. on different antibiotics. Daughter reports that she has had increasing weakness and confusion. Reviewed History: Yes Social History Home: Single Level Current Living Status: Alone (family checks on her frequently and provides transportation) Entry Into Home: Stairs Without Railing (1 step up) Steps Inside Home: 3 (handrail on both sides but she can only reach 1 side at a time. the steps are from the main level of the house down to the living room. ) ADL-Prior Level of Function ADL PLOF Comments Daughter states that pt. is able to do most basic ADL skills, but that she stays with her while she showers and provides supervision. Pt. does report however that she can't "wipe." Daughter states that they have bought toileting device, but that pt. is unable to fully use it. DME/Equipment: Bath Bench, Tub/Shower DME/Equipment Comments Pt. has a walker and cane. OT Current Status Subjective Pt. does not report pain level. Appearance Pt. up in chair. Agrees to work with therapy. Mental Status/Objective Patient Orientation: Person, Unable to Assess Current Glasses/Contacts: Yes Hand Dominance: Right Upper Extremity ROM Pt. has limited ROM in right shoulder. Does not state why. Full ROM demonstrated in left shoulder. Upper Extremity Strength 3+/5 left UE, 2+/5 right UE. ADL-Treatment Functional [place] Measure 0=Not Assessed/NA 4=Minimal Assistance 1=Total Assistance 5=Supervision or Setup 2=Maximal Assistance 6=Modified [place] 3=Moderate Assistance 7=Complete IndependenceIRFPAI Quality Coding Scale 6 Independent with activity with or without an assistive device 5 Patient requires set up or clean up by helper. Patient completes activity by themselves 4 Supervision or touching assist (CGA). [place] provide cues , steadying assist 3 The helper provides less than half the effort to complete the activity 2 The helper provides more than half the effort to complete the activity 1 Dependent. The helper does all the effort to complete an activity 7 Patient refused to complete or attempt activity 9 The patient did not perform the activity before the current illness or injury 88 Not attempted due to Medical conditions or safety concerns Lower Body Dressing (FIM): 5 (SBA to doff/don shoes and socks. This is a struggle however for pt.) Lower Body Dressing (QC): 4 On/Off Footwear (QC): 4 Toileting (FIM): 5 (SBA to cleanse self after urinating.) Toileting Hygiene (QC): 4 Transfers (B, C, W/C) (FIM): 4 (CGA to ambulate with walker.) Toilet/Commode Transfer (FIM): 4 Toilet Transfer (QC): 4 Other Treatments OT/PT co-treated due to pt's fatigue level. OT focused on ADL education and training while PT focused on transfer training and mobility. Education OT Patient Education: Correct positioning, Modified ADL techniques, Progress toward Goal/Update tx plan, Purpose of tx/functional activities, Reviewed precautions, Rehab process, Transfer techniques Teaching Recipient: Patient Teaching Methods: Demonstration, Discussion Response to Teaching: Verbalize Understanding, Return Demonstration OT Short Term Goals Short Term Goals Transfers (B,C,W/C) (FIM): 5 1=Demonstrate adherence to instructed precautions during ADL tasks. 2=Patient will verbalize/demonstrate understanding of assistive devices/ modifications for ADL. 3=Patient will improve strength/tolerance for activity to enable patient to perform ADL's. OT Fpc Goals Fpc Goals Time Frame: November 22, 2017 Eating (FIM): 6 Eating (QC): 6 Groomin Oral Hygiene (QC): 6 Bathing(FIM): 6 Shower/Bathe Self (QC): 5 Upper Body Dressing(FIM): 6 Upper Body Dressing (QC): 6 Lower Body Dressing(FIM): 6 Lower Body Dressing (QC): 6 On/Off Footwear (QC): 6 Toileting(FIM): 6 Toileting Hygiene (QC): 6 Transfers (B,C,W/C) (FIM): 6 Toilet/Commode Transfer(FIM): 6 Toilet/Commode Transfer (QC): 6 Shower Transfer(FIM): 5 Additional Goals: 1-Demonstrate ADL Tasks, 2-Verbalize Understanding, 3- ImproveStrength/Gwen 1=Demonstrate adherence to instructed precautions during ADL tasks. 2=Patient will verbalize/demonstrate understanding of assistive devices/ modifications for ADL. 3=Patient will improve strength/tolerance for activity to enable patient to perform ADL's. OT Education/Plan Problem List/Assessment Assessment: Decreased Activ Tolerance, Decreased UE Strength, Dependent Transfers, Impaired I ADL's, Impaired Self-Care Skills, Restricted Funct UE ROM Discharge Recommendations Plan/Recommendations: Continue POC Therapy D/C Recommendations: Home w/ Family Support, Occupational Therapy Home Care Equpiment Recommendations-D/C: Hip Kit Treatment Plan/Plan of Care Treatment,Training & Education: Yes Patient would benefit from OT for education, treatment and training to promote independence in ADL's, mobility, safety and/or upper extremity function for ADL' s. Plan of Care: ADL Retraining, Functional Mobility, Group Exercise/Act as Ind, UE Funct Exercise/Act Treatment Duration: November 22, 2017 Frequency: At least 5 of 7 days/Wk (IRF) Estimated Hrs Per Day: 1.5 hours per day Agreement: Yes Rehab Potential: Good (good family support; motivated; compliant) Time/GCodes Start Time: 11:15 Stop Time: 12:05 Total Time Billed (hr/min): 50 Billed Treatment Time 1476-5471 1, EVM x 10 minutes [id number] ADL x 40 minutes DAVID PFEIFFER OT November 08, 2017 13:53
--- NOTE | 2017-11-08 14:55 | Therapy Group Daily Note ---
Therapy Daily Group Note Patient Education Topic Home Safety, Fall Prevention Other/Notes Pt ambulated using FWW to [facility] for OT/PT group. Group consisted of introductions (name, place from, word of advice for people starting out in the field they worked in), socialization and home safety education. Pt was able to introduce self appropriately then actively listened to peers. Pt was able to contribute to surrounding conversations with peers. Pt verbalized strategies for home safety and gave examples of safety against fraud. Pt then ambulated back to room using FWW. After group, pt sitting in recliner with call light/ phone in reach. All needs met in room. Start Time: 13:00 Stop Time: 14:20 Total Billed Treatment Time: 80 Total Billed Treatment 1-GRP CRISTHIAN STACK November 08, 2017 14:55
--- NOTE | 2017-11-08 15:30 | ST Cognitive Linguistic Eval ---
Speech Evaluation-General Medical Diagnosis Debility Onset Date: November 05, 2017 Therapy Diagnosis Therapy Diagnosis: Confusion Precautions Precautions/Isolations: Standard Precautions Referral Referring Physician: Dr. Jerson Jaramillo Reason for Referral: Evaluation/Treatment Cognitive Evaluation Medical History Pertinent Medical History: Atrial Fib, Arthritis, GERD, HTN, Hypothroidism, Smoking Current History The patient was recently admitted to [facility] with a diagnosis of debility. Reviewed History: Yes Social History Current Living Status: Alone (family checks on her frequently and provides transportation) Speech PLF-Current Status Prior Level of Function The patient reported a loss of memory function "slowly over the past months." When probed for additional information and details regarding the memory impairment, the patient grew defensive and said "you know what, just don't ask me." Subjective The patient was seated upright in recliner upon entrance (chair alarm in place) . The patient greeted the clinician appropriately, however, quickly stated "you can talk if you talk fast, I don't need you just in here chatting." The clinician shared her intent for a cognitive, speech, and language evaluation and the patient hesitantly agreed. Per patient, "if you're just going to ask me to subtract seven from stuff, you can forget it." Language Eval: Auditory Comprehends Simple Yes/No Ques: Mild (The patient attempted to re-word yes and no questions. While she answered the questions appropriately and accurately, she often displayed a delayed response.) Indent/Objects Multiple [place]: Functional Ident/Pics in Multiple [place]: Functional Follows Complex Directions: Moderate Follows General Conversations: Mild Language Eval: Verbal Language Completes Spontaneous Greeting: Functional Produces Auto, Serial Info: Functional Imitates Simple Words/Phrases: Functional Word Finding: Mild Requests Basic Needs: Functional States Basic Personal Info: Functional Language Evaluation: Reading Comprehends Single Nouns: Functional Follows Simple Written Direct: Functional The patient was able to read the hospital menu, as well as, the TV guide. Prior to placing these objects in front of the patient, the patient stated, "I can't see. I just can't see anything so no, I guess I don't read that well." Regardless of this statement, the patient was able to easily and accurately read both objects. Language Evaluation: Writing Writes Personal Information: Functional (The patient transcribed her first name prior to refusing additional writing tasks.) Cognitive Patient Orientation The patient stated the month was September (October), however, was accurate with date, day of week, year, city, and location. Objective Cognitive Domain Attention: Moderate (Frequent redirection to task was required.) Memory: Moderate (The patient was unable to recall why she was in the hospital last week and why she is currently admitted on this date. "I said if you want this information, you need to get it from my daughter. I don't know any of it. I don't even know why I'm here. I just can't get right." The patient was asked to repeat five digits forward and stated, "No, I'm not going to do that. This is just a stupid trick.") Problem Solving: Moderate (The patient's confusion results in increased impulsivity and lack of awareness.) Objective Impression The patient displays moderate confusion which is impacted by reduced memory abilities, poor attention to task, and high impulsivity. The importance of speech pathology was discussed with the patient, as well as, the skilled therapy tasks the patient could receive from this service. The patient abruptly stated, "no, I said I don't want to do this. I know my memory is slipping but that's just how it is. I said no." The clinician offered the patient an opportunity to think about completing speech therapy, however, the patient stated, "I don't need you coming in here asking me again. I'm not going to do it." Regardless of clinician's evaluation and the patient's increased confusion, speech pathology will be discontinued at the patient's persistent, abrupt, and insistent request. Communication/Social Cognition Comprehension: 3 Expression: 4 Social Interaction: 4 Problem Solvin Memory: 3 Speech Patient Assess Expression of Ideas/Wants: Exhibits (3) Understanding [place] Content: Usually Understands (3) Brief Interview-Mental Status: Yes Repetition of Three Words: Three (3) Temporal Orientation: Year: Correct (3) Temporal Orientation: Month: Missed by 6 days-1 month (1) Temporal Orientation: Day: Correct (1) Recall : Wear to say "Sock": Yes, no cue required (2) Recall : Color: Yes, no cue required (2) Recall : Bed: Yes, no cue required (2) Speech-Plan Treatment Plan Speech Therapy Treatment Plan: Discontinue ST Evaluation, only. Frequency: Modified Program (IRF) (No ST warranted.) Estimated Hrs Per Day: Other (No ST warranted.) Rehab Potential: Guarded Safety Risks/Education Teaching Recipient: Patient Teaching Methods: Discussion Response to Teaching: Reinforcement Needed Education Topics Provided: Results, Recommendations, Plan of Care Time Speech Therapy Time In: 15:00 Speech Therapy Time Out: 15:20 Total Billed Time: 20 Billed Treatment Time 1, KAYCEE BAUTISTA November 08, 2017 15:30
[2017-11-08] MEDS ORDERED: LACTOBACILLUS Acidoph/Bulgar (LACTINEX/FLORANEX) TAB PO SCH (16:00)
[2017-11-08] MEDS ORDERED: CALCIUM CARB + VIT D 600 MG (CALCARB + D) TAB PO SCH (17:00)
[2017-11-08 17:05] VITALS: BP 131/71
[2017-11-08] MEDS: LACTOBACILLUS Acidoph/Bulgar (LACTINEX/FLORANEX) TAB PO SCH ×2 (17:09→21:46)
--- NOTE | 2017-11-08 19:14 | PM&R Post Admission Assessment ---
Post Admission Physician Asses Date seen by provider: November 08, 2017 Time seen by provider: 19:00 Admisison Dx: (1) Debility The preadmission screen agrees with the post admission assessment that the patient is a good candidate for inpatient rehabilitation. The patient will have a comprehensive program of inpatient rehabilitation with a goal of maximizing level of functional independence prior to discharge home with family and HHC. The patient will have PT/OT ninety minutes per day, each discipline, five days a week for gait, strengthening, conditioning, balance, ADLs, any patient/family/caregiver training as necessary. Speech therapy to do cognitive assessment and treat as indicated. Rehabilitation nursing to assist with bowel, bladder, skin, medication administration, pain management. Cnc Service Technician to assist with discharge planning, community reentry. SCD's for DVT prophylaxis. She appears to be well motivated to participate in three hours of therapy a day. She should be able to tolerate three hours of therapy a day from a medical standpoint. She should benefit from the three hours of therapy a day. She has a reasonable discharge plan, reasonable discharge rehabilitation goals and a supportive family. She has various comorbidities that need to be closely monitored with medications and treatments adjusted on a daily basis as needed. These include: UTI Mi;ld dementia A FIB CAD Barriers to discharge for this patient who had been independent prior to this are for her to be modified independent to supervision for ADLs and mobility skills prior to discharge home with family and HHC, so as to lessen the burden of the caregivers. Risks for this patient include: 1. Fall 2. Fracture 3. DVT 4. Pulmonary embolism 5. Recurrent UTI 6. Skin breakdown 7. Contractures 8. Poorly controlled pain 9. Urinary retention 10. Recurrent UTI 11. Respiratory infection 12. Aspiration 13. Worsening confusion/dementia Estimated Length of Stay: 10-14 days Prognosis: Rehab prognosis appears good for goal of discharge home with family and HHC modified independent to supervision for ADLs and mobility skills. General: Alert, Oriented X3, Cooperative, No Acute Distress HEENT: Atraumatic, PERRLA, EOMI, Mucous Memb Moist/[place] Neck: Supple, No JVD Lungs: Clear to Auscultation Heart: Regular Rate Abdomen: Normal Bowel Sounds, Soft, No Tenderness Extremities: No Edema Neuro: Other (Upper limb strength 2+5 RUE 3+/5 LUE Lower limb strength 3/5 hip flex distal 4/5 MIld memory loss ) KYLIE REYES MD November 08, 2017 19:14
--- NOTE | 2017-11-08 19:42 | HISTORY AND PHYSICAL ---
DATE OF SERVICE: 11/08/2017 CHIEF COMPLAINT: Difficulty with walking. HISTORY OF PRESENT ILLNESS: The patient is an 87-year-old female, who lives alone in [place], [place], but has family checking on her daily and doing her meds, who has had a general decline in function since being released from this hospital on the following treatment for a UTI. She had been modified independent with a front wheel walker or cane prior to this, but has had some memory loss, which has impacted upon her function as well. Currently, she is on antibiotic for UTI. She is min assist for transfers, min assist for ambulation with a front wheel walker. She has limited endurance. She is min assist for lower body dressing, toileting hygiene and toilet transfers. One of her daughters is in to visit her this evening. PAST MEDICAL HISTORY: UTI, dehydration with altered mental status, atrial fibrillation, coronary artery disease, mild dementia, UTI. PAST SURGICAL HISTORY: She has had prior spinal surgery and a knee replacement. ALLERGIES: FISH-CONTAINING PRODUCTS. FAMILY HISTORY: Noncontributory. SOCIAL HISTORY: Essentially as per above. PCP, Dr. Burkett. Hospitalist service following the patient at this time. Tobaccoism. REVIEW OF SYSTEMS: A 10-point review of systems significant for weakness, UTIs, memory loss. MEDICATIONS: 1. ASA 81 mg p.o. every day. 2. Diltiazem 240 mg p.o. daily. 3. Synthroid 125 mcg p.o. daily. 4. Cipro 500 mg p.o. b.i.d. 5. Eliquis 5 mg p.o. b.i.d. 6. Toprol-XL 50 mg p.o. at bedtime. 7. Crestor 5 mg p.o. at bedtime. 8. Diltiazem 120 mg p.o. at bedtime. 9. Lactinex 1 tablet p.o. q.i.d., a.c. and at bedtime. 10. Pepcid 20 mg p.o. b.i.d. p.r.n. heartburn. 11. Ibuprofen one to two tablets p.o. t.i.d. p.r.n. mild pain. 12. Claritin 10 mg p.o. at bedtime p.r.n. allergies. 13. Imodium 2 mg p.o. as needed p.r.n. loose stools. PHYSICAL EXAMINATION: GENERAL: Significant for a pleasant female appearing her stated age, sitting in chair in no acute distress. VITAL SIGNS: She is afebrile, pulse is 67, respirations 18, blood pressure 129/69, O2 sat 95% on room air. HEENT: Vision, speech, hearing is functional. No oral lesion is noted. NECK: Supple without mass. HEART: Regular rhythm. CHEST: Clear. ABDOMEN: Soft, nontender, bowel sounds present. EXTREMITIES: No limb edema. No calf tenderness. MUSCULOSKELETAL: The patient has functional active range of motion in all 4 extremities. NEUROLOGIC: She has mild memory loss. Strength, the right upper limb is 2+/5 and left upper limb 3+/5. She has limited active range of motion in the right shoulder. Full range of motion demonstrated in left shoulder. She is right hand dominant. Speech therapy notes some cognitive deficits, but the patient declines any compensatory technique therapy for this and speech therapy has signed off. Strength in both lower extremities grossly 4/5 except for hip flexion 3/5. She does report some bladder leakage. Sensation is grossly intact to touch. ASSESSMENT: 1. General debilitation secondary to recurrent urinary tract infection associated with dehydration and confusion. 2. Urinary tract infection, under treatment. 3. Coronary artery disease, stable. 4. Atrial fibrillation, controlled with medication. 5. Recent acute renal insufficiency, resolved. 6. Mild dementia PLAN: The patient will have a comprehensive program of inpatient rehabilitation with goal of maximizing level of functional independence prior to discharge home with home health care and family. The patient will have PT and OT 90 minutes per day each discipline, 5 days a week for 10 to 14 days for gait strengthening, conditioning, ADLs. Please see post-admission physician evaluation for details of plan of care. This is a separate document. Speech therapy has done cognitive assessment found some recommendations to assist the patient with her memory loss. The patient declined. They have signed off. Rehabilitation nursing assist with bowel, bladder, skin care, medication administration, pain management and certified social workers in health care assist with discharge planning, community reentry. Follow up with Dr. Cowart and hospitalist service as per their schedule. Continue current medications.SCDS for DVT Prophylaxis. ESTIMATED LENGTH OF STAY: 10 to 14 days. PROGNOSIS: Rehab prognosis appears good for goal of discharging home with family and home health care and modified independent to supervision for ADLs and mobility skills. DIET: Regular. CODE STATUS: Full code. Job ID: [id number] DocumentID: [id number] Dictated Date: 11/08/2017 19:07:52 Flow Coordinator Date: 11/08/2017 19:42:28 Dictated By: KYLIE REYES MD [facility]
[2017-11-08] MEDS ORDERED: [UNRECOGNIZED DRUG - OTHER] PO SCH (21:00)
[2017-11-08] MEDS ORDERED: OS CAL PO SCH (21:00)
[2017-11-08] MEDS ORDERED: DILTIAZEM 60 MG (CARDIZEM) TAB PO SCH (21:00)
[2017-11-08] MEDS: DILTIAZEM 120 MG (CARDIZEM CD) CAP PO SCH (21:46)
[2017-11-08] MEDS: CALCIUM CARB + VIT D 600 MG (CALCARB + D) TAB PO SCH (21:46)
[2017-11-08] MEDS: meTOproloL SUCCINATE 50 MG (TOPROL XL) TAB PO SCH (21:46)
[2017-11-08] MEDS: ROSUVASTATIN 5 MG (CRESTOR) TABLET PO SCH (21:46)
[2017-11-08] MEDS: CIPROFLOXACIN 500 MG (CIPRO) TABLET PO SCH (21:46)
[2017-11-08] MEDS: APIXABAN 5 MG (ELIQUIS) TABLET PO SCH (21:46)
[2017-11-09] MEDS: LACTOBACILLUS Acidoph/Bulgar (LACTINEX/FLORANEX) TAB PO SCH ×4 (05:57→20:03)
[2017-11-09] MEDS: LEVOTHYROXINE 125 MCG (LEVOTHROID) TABLET PO SCH (05:57)
[2017-11-09 06:46] VITALS: BP 120/66
[2017-11-09] MEDS: APIXABAN 5 MG (ELIQUIS) TABLET PO SCH ×2 (07:50→20:03)
[2017-11-09] MEDS: DILTIAZEM 240 MG (CARDIZEM CD) CAP PO SCH (07:50)
[2017-11-09] MEDS: ASPIRIN E.C. 81 MG (ECOTRIN) TAB PO SCH (07:50)
[2017-11-09] MEDS: CIPROFLOXACIN 500 MG (CIPRO) TABLET PO SCH ×2 (07:50→20:03)
--- NOTE | 2017-11-09 09:18 | Physical Therapy Daily Note ---
PT Daily Note-Current Subjective Agreeable to PT. Reports she slept well last night. Pain Numeric Pain Scale: 0-No Pain Location: No Pain Reported Mental Status Patient Orientation: Person, Confused (slight confusion/problem solving), Place , Time, Situation Transfers Functional [place] Measure 0=Not Assessed/NA 4=Minimal Assistance 1=Total Assistance 5=Supervision or Setup 2=Maximal Assistance 6=Modified [place] 3=Moderate Assistance 7=Complete IndependenceIRFPAI Quality Coding Scale 6 Independent with activity with or without an assistive device 5 Patient requires set up or clean up by helper. Patient completes activity by themselves 4 Supervision or touching assist (CGA). [place] provide cues , steadying assist 3 The helper provides less than half the effort to complete the activity 2 The helper provides more than half the effort to complete the activity 1 Dependent. The helper does all the effort to complete an activity 7 Patient refused to complete or attempt activity 9 The patient did not perform the activity before the current illness or injury 88 Not attempted due to Medical conditions or safety concerns Transfers (B, C, W/C) (FIM): 4 Supine to/from Sit: 4 Sit to Stand (QC): 4 (skilled cues for hand placement and sequencing. ) Multiple sit to stand transfers during treatment session this date. Toileted x 2 and on/off chair several times, all iwth CGA and cues for sequencing, hand placment and safety. Gait Training Does the Patient Walk?: Yes Gait (FIM): 4 Distance (FIM): 3=150 ft Distance: 150 ft x 4 and 50 ft x 4 Gait Assistive Device: FWW Skilled cues for safety with gait. Exercises NuStep Minutes: 12 (functonal strength and act pelon) Treatments Treatment focused on functional mobiltty and transfers throughout the session; out of bed training, sit to stand, gait, varied surfaces to stand up from, Assessment Current Status: Good Progress She seems a bit confused this morning but able to process direction. Decreased problem solving skills. Mobility is safe and only requires CGA and cues for sequencing. PT Short Term Goals Short Term Goals Time Frame: November 15, 2017 Transfers (B,C,W/C) (FIM): 5 Gait (FIM): 5 Distance (FIM): 3=150 ft Gait Assistive Device: FWW PT Mcfp Goals Account Coordinator Goals PT Mcfp Goals Time Frame: November 24, 2017 Transfers (B,C,W/C) (FIM): 7 Sit to Lying (QC): 6 Lying-Sitting on Side/Bed(QC): 6 Sit to Stand (QC): 6 Roll Left to Right (QC): 6 Chair/Cdd-yy-Lbwsz Xfer(QC): 6 Car Transfer (QC): 6 Does the Patient Walk: Yes Gait (FIM): 6 Gait distance (FIM): 3=150 ft Walk 10 feet (QC): 6 Walk 10ft-Uneven Surface(QC): 6 Walk 50ft with 2 Turns (QC): 6 Walk 150 ft (QC): 6 Gait Level of Assist: 6 Gait Assistive Device: FWW Does the Pt use WC or Scooter?: No Stairs (FIM): 5 # of Steps: 8 1 Step (curb) (QC): 6 4 Steps (QC): 5 12 Steps (QC): 88 Picking up an Object (QC): 4 PT Plan Problem List Problem List: Activity Tolerance, Functional Strength, Safety, Balance, Gait, Transfer Treatment/Plan Treatment Plan: Continue Plan of Care Treatment Plan: Bed Mobility, Education, Functional Activity Gwen, Functional Strength, Group Therapy, Gait, Safety, Therapeutic Exercise, Transfers Treatment Duration: November 24, 2017 Frequency: At least 5 of 7 days/Wk (IRF) Estimated Hrs Per Day: 1.5 hours per day Patient and/or Family Agrees t: Yes Safety Risks/Education Patient Education: Transfer Techniques, Safety Issues Teaching Recipient: Patient Teaching Methods: Demonstration, Discussion Response to Teaching: Reinforcement Needed Time/GCodes Time In: 810 Time Out: 910 Total Billed Treatment Time: 60 Total Billed Treatment visit EX 12 FA 48 CRISTHIAN VENTURA PT November 09, 2017 09:18
--- NOTE | 2017-11-09 11:16 | Occupational Ther Daily Note ---
OT Current Status-Daily Note Subjective Pt alert, sitting in recliner. Pt c/o stomach rolling, but was able to eat something. Pt agrees to therapy. No c/o pain. Mental Status/Objective Patient Orientation: Person, Place, Time, Situation Functional [place] Measure 0=Not Assessed/NA 4=Minimal Assistance 1=Total Assistance 5=Supervision or Setup 2=Maximal Assistance 6=Modified [place] 3=Moderate Assistance 7=Complete [place] ADL-Treatment Pt agrees to shower. Set up for clothing. After therapy, pt sitting in recliner with call light/phone in reach. All needs met in room. Functional [place] Measure 0=Not Assessed/NA 4=Minimal Assistance 1=Total Assistance 5=Supervision or Setup 2=Maximal Assistance 6=Modified [place] 3=Moderate Assistance 7=Complete IndependenceIRFPAI Quality Coding Scale 6 Independent with activity with or without an assistive device 5 Patient requires set up or clean up by helper. Patient completes activity by themselves 4 Supervision or touching assist (CGA). [place] provide cues , steadying assist 3 The helper provides less than half the effort to complete the activity 2 The helper provides more than half the effort to complete the activity 1 Dependent. The helper does all the effort to complete an activity 7 Patient refused to complete or attempt activity 9 The patient did not perform the activity before the current illness or injury 88 Not attempted due to Medical conditions or safety concerns Eating (FIM): 6 (Set own self up and uses regular utensils to eat with.) Grooming (FIM): 5 (Standing at sink with FWW, pt able to complete own grooming , supervision for safety.) Oral Hygiene (QC): 4 Bathing (FIM): 5 (SBA using shower bench, grabbar, hand held shower and ) Bathing Location: L Arm, R Arm, L Upper Leg, R Upper Leg, L Lower Leg ( including foot), R Lower Leg (including foot), Chest, Abdomen, Buttocks, Perineal Area Shower/Bathe Self (QC): 4 Upper Body (FIM): 5 (Setup. Pt able to complete own upper body dressing.) Upper Body Dressing (QC): 5 Lower Body Dressing (FIM): 5 (Set up and education for sock aide and dressing stick to doff socks. Pt able to don clothing with supervision.) Lower Body Dressing (QC): 4 On/Off Footwear (QC): 4 Toileting (FIM): 5 (SBA for toileting.) Toileting Hygiene (QC): 4 Toilet/Commode Transfer (FIM): 5 (SBA for transfer.) Toilet Transfer (QC): 4 Shower Transfer(FIM): 5 (SBA using shower bench, grabbar and FWW.) OT Short Term Goals Short Term Goals Transfers (B,C,W/C) (FIM): 5 1=Demonstrate adherence to instructed precautions during ADL tasks. 2=Patient will verbalize/demonstrate understanding of assistive devices/ modifications for ADL. 3=Patient will improve strength/tolerance for activity to enable patient to perform ADL's. OT Assault Amphibious Vehicle Crewman Goals Residential Goals Time Frame: November 22, 2017 Eating (FIM): 6 Eating (QC): 6 Groomin Oral Hygiene (QC): 6 Bathing(FIM): 6 Shower/Bathe Self (QC): 5 Upper Body Dressing(FIM): 6 Upper Body Dressing (QC): 6 Lower Body Dressing(FIM): 6 Lower Body Dressing (QC): 6 On/Off Footwear (QC): 6 Toileting(FIM): 6 Toileting Hygiene (QC): 6 Transfers (B,C,W/C) (FIM): 6 Toilet/Commode Transfer(FIM): 6 Toilet/Commode Transfer (QC): 6 Shower Transfer(FIM): 5 Additional Goals: 1-Demonstrate ADL Tasks, 2-Verbalize Understanding, 3- ImproveStrength/Gwen 1=Demonstrate adherence to instructed precautions during ADL tasks. 2=Patient will verbalize/demonstrate understanding of assistive devices/ modifications for ADL. 3=Patient will improve strength/tolerance for activity to enable patient to perform ADL's. OT Education/Plan Discharge Recommendations Plan/Recommendations: Continue POC Treatment Plan/Plan of Care Patient would benefit from OT for education, treatment and training to promote independence in ADL's, mobility, safety and/or upper extremity function for ADL' s. Plan of Care: ADL Retraining, Functional Mobility, Group Exercise/Act as Ind, UE Funct Exercise/Act Treatment Duration: November 22, 2017 Frequency: At least 5 of 7 days/Wk (IRF) Estimated Hrs Per Day: 1.5 hours per day Agreement: Yes Rehab Potential: Guarded Time/GCodes Start Time: 01:00 Stop Time: 11:00 Total Time Billed (hr/min): 60 Billed Treatment Time 1 visit-ADL 4 (60 min) CRISTHIAN STACK November 09, 2017 11:16
--- NOTE | 2017-11-09 13:39 | Physical Therapy Daily Note ---
PT Daily Note-Current Subjective Patient is in recliner and agrees to PT. Pain Numeric Pain Scale: 0-No Pain Location: No Pain Reported Mental Status Patient Orientation: Confused Transfers Functional [place] Measure 0=Not Assessed/NA 4=Minimal Assistance 1=Total Assistance 5=Supervision or Setup 2=Maximal Assistance 6=Modified [place] 3=Moderate Assistance 7=Complete IndependenceIRFPAI Quality Coding Scale 6 Independent with activity with or without an assistive device 5 Patient requires set up or clean up by helper. Patient completes activity by themselves 4 Supervision or touching assist (CGA). [place] provide cues , steadying assist 3 The helper provides less than half the effort to complete the activity 2 The helper provides more than half the effort to complete the activity 1 Dependent. The helper does all the effort to complete an activity 7 Patient refused to complete or attempt activity 9 The patient did not perform the activity before the current illness or injury 88 Not attempted due to Medical conditions or safety concerns Transfers (B, C, W/C) (FIM): 5 Scootin Sit to/from Stand: 5 Sit to Stand (QC): 5 Gait Training Does the Patient Walk?: Yes Gait (FIM): 5 Distance (FIM): 3=150 ft Distance: 200' x 3 Walk 10 feet (QC): 5 Walk 50 ft with 2 Turns(QC): 5 Walk 150 ft (QC): 5 Gait Level of Assist: 5 Gait Assistive Device: FWW functional gait sequence/Patient requires redirection to remain on task. Exercises Seated Therapy Exercises: Ankle pumps, Long arc quads Seated Reps: 15 (2 sets) Standing: Heel/toe raises, 3 way Ex=Flex, Abd, Ext, Mini squats Standing Reps: 15 Assessment Patient requires redirection to remain on task and it appears patient's confusion increases in p.m. Patient is progressing with gross motor skills. PT Short Term Goals Short Term Goals Time Frame: November 15, 2017 Transfers (B,C,W/C) (FIM): 5 Gait (FIM): 5 Distance (FIM): 3=150 ft Gait Assistive Device: FWW PT Roll Up Machine Operator Goals Roll Up Machine Operator Goals PT Roll Up Machine Operator Goals Time Frame: November 24, 2017 Transfers (B,C,W/C) (FIM): 7 Sit to Lying (QC): 6 Lying-Sitting on Side/Bed(QC): 6 Sit to Stand (QC): 6 Roll Left to Right (QC): 6 Chair/Hca-va-Scfsb Xfer(QC): 6 Car Transfer (QC): 6 Does the Patient Walk: Yes Gait (FIM): 6 Gait distance (FIM): 3=150 ft Walk 10 feet (QC): 6 Walk 10ft-Uneven Surface(QC): 6 Walk 50ft with 2 Turns (QC): 6 Walk 150 ft (QC): 6 Gait Level of Assist: 6 Gait Assistive Device: FWW Does the Pt use WC or Scooter?: No Stairs (FIM): 5 # of Steps: 8 1 Step (curb) (QC): 6 4 Steps (QC): 5 12 Steps (QC): 88 Picking up an Object (QC): 4 PT Plan Treatment/Plan Treatment Plan: Continue Plan of Care Treatment Plan: Bed Mobility, Education, Functional Activity Gwen, Functional Strength, Group Therapy, Gait, Safety, Therapeutic Exercise, Transfers Treatment Duration: November 24, 2017 Frequency: At least 5 of 7 days/Wk (IRF) Estimated Hrs Per Day: 1.5 hours per day Patient and/or Family Agrees t: Yes Time/GCodes Time In: 1300 Time Out: 1330 Total Billed Treatment Time: 30 Total Billed Treatment 1 visit EX 15 min GT 15 min ABDULAZIZ BLACKMAN PT November 09, 2017 13:39
--- NOTE | 2017-11-09 14:07 | Occupational Ther Daily Note ---
OT Current Status-Daily Note Subjective Pt alert, sitting in recliner. Pt agreed to therapy. No c/o pain at this time. Mental Status/Objective Patient Orientation: Person, Place, Time, Situation Functional [place] Measure 0=Not Assessed/NA 4=Minimal Assistance 1=Total Assistance 5=Supervision or Setup 2=Maximal Assistance 6=Modified [place] 3=Moderate Assistance 7=Complete [place] ADL-Treatment Pt able to go from sit to stand, supervision. Ambulated with FWW to therapy gym , required verbal cues to keep FWW in front when transferring to surface. After therapy, pt sitting in recliner with call light/phone in reach. All needs met in room. Functional [place] Measure 0=Not Assessed/NA 4=Minimal Assistance 1=Total Assistance 5=Supervision or Setup 2=Maximal Assistance 6=Modified [place] 3=Moderate Assistance 7=Complete IndependenceIRFPAI Quality Coding Scale 6 Independent with activity with or without an assistive device 5 Patient requires set up or clean up by helper. Patient completes activity by themselves 4 Supervision or touching assist (CGA). [place] provide cues , steadying assist 3 The helper provides less than half the effort to complete the activity 2 The helper provides more than half the effort to complete the activity 1 Dependent. The helper does all the effort to complete an activity 7 Patient refused to complete or attempt activity 9 The patient did not perform the activity before the current illness or injury 88 Not attempted due to Medical conditions or safety concerns Other Treatment Pt completed arm bike 15 min duration 10 rogers resistance, 2 breaks, to increase strength and activity tolerance for daily functional tasks. OT Short Term Goals Short Term Goals Transfers (B,C,W/C) (FIM): 5 1=Demonstrate adherence to instructed precautions during ADL tasks. 2=Patient will verbalize/demonstrate understanding of assistive devices/ modifications for ADL. 3=Patient will improve strength/tolerance for activity to enable patient to perform ADL's. OT Tool Grinder Goals Senior Care Goals Time Frame: November 22, 2017 Eating (FIM): 6 Eating (QC): 6 Groomin Oral Hygiene (QC): 6 Bathing(FIM): 6 Shower/Bathe Self (QC): 5 Upper Body Dressing(FIM): 6 Upper Body Dressing (QC): 6 Lower Body Dressing(FIM): 6 Lower Body Dressing (QC): 6 On/Off Footwear (QC): 6 Toileting(FIM): 6 Toileting Hygiene (QC): 6 Transfers (B,C,W/C) (FIM): 6 Toilet/Commode Transfer(FIM): 6 Toilet/Commode Transfer (QC): 6 Shower Transfer(FIM): 5 Additional Goals: 1-Demonstrate ADL Tasks, 2-Verbalize Understanding, 3- ImproveStrength/Gwen 1=Demonstrate adherence to instructed precautions during ADL tasks. 2=Patient will verbalize/demonstrate understanding of assistive devices/ modifications for ADL. 3=Patient will improve strength/tolerance for activity to enable patient to perform ADL's. OT Education/Plan Discharge Recommendations Plan/Recommendations: Continue POC Treatment Plan/Plan of Care Patient would benefit from OT for education, treatment and training to promote independence in ADL's, mobility, safety and/or upper extremity function for ADL' s. Plan of Care: ADL Retraining, Functional Mobility, Group Exercise/Act as Ind, UE Funct Exercise/Act Treatment Duration: November 22, 2017 Frequency: At least 5 of 7 days/Wk (IRF) Estimated Hrs Per Day: 1.5 hours per day Agreement: Yes Rehab Potential: Guarded Time/GCodes Start Time: 13:30 Stop Time: 14:00 Total Time Billed (hr/min): 30 Billed Treatment Time 1 visit-FA 1 (10 min) EX 1 (20 min) CRISTHIAN STACK November 09, 2017 14:07
[2017-11-09] MEDS ORDERED: FAMOTIDINE 20 MG (PEPCID) TABLET PO PRN (14:15)
--- NOTE | 2017-11-09 14:51 | PM & R (SOAP) Progress Note ---
Subjective This was a face to face visit with the patient. Date Seen by Provider: November 09, 2017 Time Seen by Provider: 08:00 Subjective/Events-last exam Patient was seen in her room this AM Adjusting well to unit Patient SBA for transfers Review of Systems Neurological: Weakness Objective Physician Exam Last Set of Vital Signs Vital Signs Date Time Temp Pulse Resp B/P (MAP) Pulse Ox O2 Delivery O2 Flow Rate FiO2 11/09/17 08:00 Room Air 11/09/17 06:46 98.4 70 18 120/66 (84) 95 Capillary Refill : I&O Intake and Output 11/09/17 00:00 Intake Total 150 ml Balance 150 ml Intake Oral 150 ml # Voids 1 Daily Weight Change No General: Alert, Oriented X3, Cooperative, No Acute Distress HEENT: Atraumatic, PERRLA, EOMI, Mucous Memb Moist/[place] Neck: Supple, No JVD Lungs: Clear to Auscultation Heart: Regular Rate Abdomen: Normal Bowel Sounds, Soft, No Tenderness Extremities: No Edema Neuro: Other (Upper limb strength 2+5 RUE 3+/5 LUE Lower limb strength 3/5 hip flex distal 4/5 MIld memory loss ) Assessment/Plan Assessment and Plan General debil secondary to recurrent UTIS UTI under treatment CAD stable A FIB controlled with meds Recent Acute renal insufficiency due to dehydration resolved Mild dementia Plan CONTINE PT/OT Patient declines ST Team CONference tomorrow F/U with PCP (1) Debility Status: Acute Co-Morbidities that are continuing to impact the rehab process: (include details ) KYLIE REYES MD November 09, 2017 14:51
[2017-11-09 16:56] VITALS: BP 154/72
[2017-11-09] MEDS: CALCIUM CARB + VIT D 600 MG (CALCARB + D) TAB PO SCH (20:03)
[2017-11-09] MEDS: ROSUVASTATIN 5 MG (CRESTOR) TABLET PO SCH (20:03)
[2017-11-09] MEDS: meTOproloL SUCCINATE 50 MG (TOPROL XL) TAB PO SCH (20:03)
[2017-11-09] MEDS: DILTIAZEM 120 MG (CARDIZEM CD) CAP PO SCH (20:03)
[2017-11-09] MEDS ORDERED: inSUlin ASPART (NovoLOG) 1 UNIT/0.01 ML (CHARGE PER UNIT) SC SCH (21:00)
[2017-11-10] MEDS: LEVOTHYROXINE 125 MCG (LEVOTHROID) TABLET PO SCH (04:34)
[2017-11-10] MEDS: LACTOBACILLUS Acidoph/Bulgar (LACTINEX/FLORANEX) TAB PO SCH ×4 (04:34→20:22)
[2017-11-10 05:54] VITALS: BP 134/68
--- NOTE | 2017-11-10 08:49 | PM & R (SOAP) Progress Note ---
Subjective This was a face to face visit with the patient. Date Seen by Provider: November 10, 2017 Time Seen by Provider: 08:05 Subjective/Events-last exam Patient was seen in her room this AM Patient SBA for transfers Review of Systems Neurological: Confusion Objective Physician Exam Last Set of Vital Signs Vital Signs Date Time Temp Pulse Resp B/P (MAP) Pulse Ox O2 Delivery O2 Flow Rate FiO2 11/10/17 05:54 97.2 66 19 134/68 (90) 97 Room Air Capillary Refill : I&O Intake and Output 11/10/17 00:00 Intake Total 950 ml Balance 950 ml Intake Oral 950 ml # Voids 14 # Bowel Movements 3 General: Alert, Oriented X3, Cooperative, No Acute Distress HEENT: Atraumatic, PERRLA, EOMI, Mucous Memb Moist/[place] Neck: Supple, No JVD Lungs: Clear to Auscultation Heart: Regular Rate Abdomen: Normal Bowel Sounds, Soft, No Tenderness Extremities: No Edema Neuro: Other (Upper limb strength 2+5 RUE 3+/5 LUE Lower limb strength 3/5 hip flex distal 4/5 MIld memory loss ) Assessment/Plan Assessment and Plan General debil secondary to recurrent UTI UTI under treatment CAD Stable A FIB controlled with med Recent Acute renal insuffiicency resolved Mild dementia Plan Continue PT/Ot Patient has declined ST Team Conference later today-See report for full functional update and POC and TINOS (1) Debility Status: Acute Co-Morbidities that are continuing to impact the rehab process: (include details ) KYLIE REYES MD November 10, 2017 08:49
--- NOTE | 2017-11-10 08:54 | Individualized Plan of Care ---
Individualized Plan of Care Rehab Nursing IPOC Order Admission Date November 08, 2017 at 12:19 Current Orders Orders Admission Arrival Bed Request (11/08/17 11:19) General/Regular (11/08/17 Lunch) Ciprofloxacin Tablet (Cipro Tablet) (11/08/17 21:00) Lactobacillus/Bulgaricus Tab (Lactinex (11/08/17 16:00) Apixaban Tablet (Eliquis Tablet) (11/08/17 21:00) Aspirin Enteric Coated Tablet (Ecotrin T (11/09/17 09:00) Diltiazem Cd 24 Hr Capsule (Cardizem Cd (11/09/17 09:00) Diltiazem Tablet (Cardizem Tablet) (11/08/17 21:00) Ibuprofen Tablet (Motrin Tablet) (11/08/17 12:15) (Nf) Os-Sanya 500+D3 (11/08/17 21:00) Levothyroxine Tablet (Synthroid Tablet) (11/09/17 06:30) Loratadine Tablet (Claritin Tablet) (11/08/17 12:15) Loperamide Capsule (Imodium Capsule) (11/08/17 12:15) Metoprolol Succinate (Xl) Tab (Toprol Xl (11/08/17 21:00) Lactobacillus/Bulgaricus Tab (Lactinex (11/08/17 16:00) Rosuvastatin Tablet (Crestor Tablet) (11/08/17 21:00) (Nf) Zantac (11/08/17 12:30) Calcium Carbonate W/Vitamin D3 (Calcarb (11/08/17 17:00) Famotidine Tablet (Pepcid Tablet) (11/08/17 13:00) Diltiazem Cd 24 Hr Capsule (Cardizem Cd (11/08/17 21:00) Sequential Compression Device 08,20 (11/08/17 14:27) Dvt/Vte Risk - Notifiy Physici 08 (11/08/17 14:27) Consult Physician (11/08/17 14:27) Physical Therapy [place] (11/08/17 14:27) Occupational Therapy Order (11/08/17 14:27) Request Speech/Language Servic (11/08/17 14:27) Calcium Carbonate W/Vitamin D3 (Calcarb (11/08/17 21:00) Patient Visit (11/08/17 ) Speech Sound Lang Comp (11/08/17 ) Patient Visit (11/08/17 ) Pt Eval Moderate Complexity (11/08/17 ) Functional Activities, Ea 15 (11/08/17 ) Patient Visit (11/09/17 ) Functional Activities, Ea 15 (11/09/17 ) Exercise Therap, Ea 15 Min (11/09/17 ) Patient Visit (11/09/17 ) Exercise Therap, Ea 15 Min (11/09/17 ) Gait Training, Ea 15 Min (11/09/17 ) Famotidine Tablet (Pepcid Tablet) (11/09/17 14:15) Insulin Aspart (Novolog) (Novolog (Charg (11/09/17 21:00) Other Nursing Orders: Monitor for urinary retention and constipation PT IPOC Problem List: Activity Tolerance, Functional Strength, Safety, Balance, Gait, Transfer Treatment Plan: Continue Plan of Care Bed Mobility, Education, Functional Activity Gwen, Functional Strength, Group Therapy, Gait, Safety, Therapeutic Exercise, Transfers Treatment Duration: November 24, 2017 Frequency: At least 5 of 7 days/Wk (IRF) Estimated Hrs Per Day: 1.5 hours per day OT IPOC Problems: Decreased Activ Tolerance, Decreased UE Strength, Dependent Transfers , Impaired I ADL's, Impaired Self-Care Skills, Restricted Funct UE ROM OT Treatment, Training and Edu: Yes Plan of Care: ADL Retraining, Functional Mobility, Group Exercise/Act as Ind, UE Funct Exercise/Act Treatment Duration: November 22, 2017 Frequency: At least 5 of 7 days/Wk (IRF) Estimated Hrs Per Day: 1.[address] IPOC Speech Therapy Treatment Plan: Discontinue ST Treatment Duration: November 10, 2017 Frequency: Modified Program (IRF) (No ST warranted.) Estimated Hrs Per Day: Other (No ST warranted.) Nutritional Chemist/Case Mgmt Nutritional Chemist/Case Managemen: Discharge Planning, Patient/Family Counseling Dietitian/Railroad Crane Operator Dietitian/Railroad Crane Operator to monitor nutritional status and make changes and/or recommendations as needed and work with speech pathology on dietary upgrades as the occur. Physician IPOC Medical Issues being managed closely and that require the 24 hour availability of a physician UTI MIld dementia CAD A FIB: Medical Issues: Bowel/Bladder Function, DVT Prophylaxis, Falls Precautions, Fluid/Electrolyte/Nutrition Balance, Infection Protection, Pain Management, Other (List) (as per above) Brief Synthesis of Preadmission Screen, Post-Admission Evaluation, and Therapy Evaluations: 87 yo female who lives alone and was recently discharged from Hospital for treatment of UTI associated with dehydration and increased confusion who is admitted to IRU as she was struggling at home Has supportive daughter who lives nearby Has mild dementia.Had been Modified Independent until recently Medical Prognosis: Good Anticipated Length of Stay: 11-17-17 Modified Independent to supervision for adls and mobility skills Anticipated d/c Destination: Home with family and [facility] KYLIE BROOKS MD November 10, 2017 08:54
--- NOTE | 2017-11-10 09:00 | Occupational Ther Daily Note ---
OT Current Status-Daily Note Subjective Pt alert, lying in bed. Pt agreed to therapy. No c/o pain. Mental Status/Objective Patient Orientation: Person, Place, Time, Situation Functional [place] Measure 0=Not Assessed/NA 4=Minimal Assistance 1=Total Assistance 5=Supervision or Setup 2=Maximal Assistance 6=Modified [place] 3=Moderate Assistance 7=Complete [place] ADL-Treatment Functional [place] Measure 0=Not Assessed/NA 4=Minimal Assistance 1=Total Assistance 5=Supervision or Setup 2=Maximal Assistance 6=Modified [place] 3=Moderate Assistance 7=Complete IndependenceIRFPAI Quality Coding Scale 6 Independent with activity with or without an assistive device 5 Patient requires set up or clean up by helper. Patient completes activity by themselves 4 Supervision or touching assist (CGA). [place] provide cues , steadying assist 3 The helper provides less than half the effort to complete the activity 2 The helper provides more than half the effort to complete the activity 1 Dependent. The helper does all the effort to complete an activity 7 Patient refused to complete or attempt activity 9 The patient did not perform the activity before the current illness or injury 88 Not attempted due to Medical conditions or safety concerns Grooming (FIM): 5 (Supervision standing at sink with FWW. Pt able to complete. ) Oral Hygiene (QC): 4 Bathing (FIM): 5 (Supervision. Pt able to complete using shower bench, hand held shower, grabbar and long handle sponge.) Bathing Location: L Arm, R Arm, L Upper Leg, R Upper Leg, L Lower Leg ( including foot), R Lower Leg (including foot), Chest, Abdomen, Buttocks, Perineal Area Shower/Bathe Self (QC): 4 Upper Body (FIM): 5 Upper Body Dressing (QC): 5 Lower Body Dressing (FIM): 5 (Set up and SBA for lower body dressing.) Lower Body Dressing (QC): 4 On/Off Footwear (QC): 5 Toileting (FIM): 5 (Pt using toileting tongs to cleanse self after bowel movement. Manipulates clothing using grabbars and FWW. Supervision.) Toileting Hygiene (QC): 4 Toilet/Commode Transfer (FIM): 5 (Supervision using FWW.) Toilet Transfer (QC): 4 Shower Transfer(FIM): 5 (Supervision using grabbar, FWW and shower bench.) After therapy, pt sitting in recliner with call light/phone in reach. Safety measures in place. All needs met in room. OT Short Term Goals Short Term Goals Transfers (B,C,W/C) (FIM): 5 1=Demonstrate adherence to instructed precautions during ADL tasks. 2=Patient will verbalize/demonstrate understanding of assistive devices/ modifications for ADL. 3=Patient will improve strength/tolerance for activity to enable patient to perform ADL's. OT Gamb Cutter Goals Gamb Cutter Goals Time Frame: November 22, 2017 Eating (FIM): 6 Eating (QC): 6 Groomin Oral Hygiene (QC): 6 Bathing(FIM): 6 Shower/Bathe Self (QC): 5 Upper Body Dressing(FIM): 6 Upper Body Dressing (QC): 6 Lower Body Dressing(FIM): 6 Lower Body Dressing (QC): 6 On/Off Footwear (QC): 6 Toileting(FIM): 6 Toileting Hygiene (QC): 6 Transfers (B,C,W/C) (FIM): 6 Toilet/Commode Transfer(FIM): 6 Toilet/Commode Transfer (QC): 6 Shower Transfer(FIM): 5 Additional Goals: 1-Demonstrate ADL Tasks, 2-Verbalize Understanding, 3- ImproveStrength/Gwen 1=Demonstrate adherence to instructed precautions during ADL tasks. 2=Patient will verbalize/demonstrate understanding of assistive devices/ modifications for ADL. 3=Patient will improve strength/tolerance for activity to enable patient to perform ADL's. OT Education/Plan Discharge Recommendations Plan/Recommendations: Continue POC Treatment Plan/Plan of Care Patient would benefit from OT for education, treatment and training to promote independence in ADL's, mobility, safety and/or upper extremity function for ADL' s. Plan of Care: ADL Retraining, Functional Mobility, Group Exercise/Act as Ind, UE Funct Exercise/Act Treatment Duration: November 22, 2017 Frequency: At least 5 of 7 days/Wk (IRF) Estimated Hrs Per Day: 1.5 hours per day Agreement: Yes Rehab Potential: Guarded Time/GCodes Start Time: 08:00 Stop Time: 09:00 Total Time Billed (hr/min): 60 Billed Treatment Time 1 visit-ADL 4 (60 min) CRISTHIAN STACK November 10, 2017 09:00
[2017-11-10] MEDS: CIPROFLOXACIN 500 MG (CIPRO) TABLET PO SCH (09:29)
[2017-11-10] MEDS: APIXABAN 5 MG (ELIQUIS) TABLET PO SCH ×2 (09:30→20:22)
[2017-11-10] MEDS: ASPIRIN E.C. 81 MG (ECOTRIN) TAB PO SCH (09:30)
[2017-11-10] MEDS: DILTIAZEM 240 MG (CARDIZEM CD) CAP PO SCH (09:34)
--- NOTE | 2017-11-10 11:05 | Physical Therapy Daily Note ---
PT Daily Note-Current Subjective Pt. smiles, explains her routine at home and that she feels very comfortable with her arrangement with her daughter. Denies any pain Pain Numeric Pain Scale: 0-No Pain Mental Status Patient Orientation: Normal For Age Transfers Functional [place] Measure 0=Not Assessed/NA 4=Minimal Assistance 1=Total Assistance 5=Supervision or Setup 2=Maximal Assistance 6=Modified [place] 3=Moderate Assistance 7=Complete IndependenceIRFPAI Quality Coding Scale 6 Independent with activity with or without an assistive device 5 Patient requires set up or clean up by helper. Patient completes activity by themselves 4 Supervision or touching assist (CGA). [place] provide cues , steadying assist 3 The helper provides less than half the effort to complete the activity 2 The helper provides more than half the effort to complete the activity 1 Dependent. The helper does all the effort to complete an activity 7 Patient refused to complete or attempt activity 9 The patient did not perform the activity before the current illness or injury 88 Not attempted due to Medical conditions or safety concerns Transfers (B, C, W/C) (FIM): 6 Scootin Rollin Supine to/from Sit: 6 Sit to/from Stand: 6 Bed to/from Chair: 6 Gait Training Does the Patient Walk?: Yes Gait (FIM): 5 Distance (FIM): 3=150 ft (x3) Gait Level of Assist: 5 Gait Persons Needed: 1 Gait Assistive Device: FWW Stair Training Stair Training: Handrails/: 1 handrail (and 1 cane) Stairs (FIM): 5 #of Steps: 4 Stairs: Pattern: Reciprocal Level of Assist: 5 household exception Exercises Supine Ex: Bridging, Ankle pumps, Quad Set, Rolling, Glut sets, Heel Slides, Short Arc Quads, Scooting, Straight leg raise, Hip abd/add Supine Reps: 12 NuStep Minutes: 12 NuStep Workload: 4 Assessment Current Status: Good Progress PT Short Term Goals Short Term Goals Time Frame: November 15, 2017 Transfers (B,C,W/C) (FIM): 5 Gait (FIM): 5 Distance (FIM): 3=150 ft Gait Assistive Device: FWW PT Internal Revenue Service Agent Goals Internal Revenue Service Agent Goals PT Penitentiary Goals Time Frame: November 24, 2017 Transfers (B,C,W/C) (FIM): 7 Sit to Lying (QC): 6 Lying-Sitting on Side/Bed(QC): 6 Sit to Stand (QC): 6 Roll Left to Right (QC): 6 Chair/Ala-bx-Mnszk Xfer(QC): 6 Car Transfer (QC): 6 Does the Patient Walk: Yes Gait (FIM): 6 Gait distance (FIM): 3=150 ft Walk 10 feet (QC): 6 Walk 10ft-Uneven Surface(QC): 6 Walk 50ft with 2 Turns (QC): 6 Walk 150 ft (QC): 6 Gait Level of Assist: 6 Gait Assistive Device: FWW Does the Pt use WC or Scooter?: No Stairs (FIM): 5 # of Steps: 8 1 Step (curb) (QC): 6 4 Steps (QC): 5 12 Steps (QC): 88 Picking up an Object (QC): 4 PT Plan Treatment/Plan Treatment Plan: Continue Plan of Care Treatment Plan: Bed Mobility, Education, Functional Activity Gwen, Functional Strength, Group Therapy, Gait, Safety, Therapeutic Exercise, Transfers Treatment Duration: November 24, 2017 Frequency: At least 5 of 7 days/Wk (IRF) Estimated Hrs Per Day: 1.5 hours per day Patient and/or Family Agrees t: Yes Safety Risks/Education Patient Education: Gait Training, Transfer Techniques, Steps Teaching Recipient: Patient Teaching Methods: Demonstration, Discussion Response to Teaching: Verbalize Understanding, Return Demonstration, Reinforcement Needed Time/GCodes Time In: 1000 Time Out: 1100 Total Billed Treatment Time: 60 Total Billed Treatment 1,FA30m,EX20m,GT10m G Codes Necessary: No AVRIL AUGUSTIN PTA November 10, 2017 11:05
--- NOTE | 2017-11-10 14:43 | Therapy Group Daily Note ---
Therapy Daily Group Note Patient Education Topic Other List Below Other/Notes Pt was an active participant in OT/PT group. She introduced herself and contributed to education/discussion on spine anatomy/curves and posture, and tying it to prevention. She also did correlating UE, trunk and LE seated exercises. She walked to and from group with SBA, FWW and was left up in her recliner, chair alarm on, all needs met. Start Time: 13:00 Stop Time: 14:10 Total Billed Treatment Time: 70 Total Billed Treatment visit, 70 minutes group ARTEMIO SALEH OT November 10, 2017 14:43
--- NOTE | 2017-11-10 15:59 | Consultation-Hospitalist ---
HPI History of Present Illness: HPI/Chief Complaint Pt is an 87yoCF with a PMH of a-fib, hypothyroidism, and recent UTI who is admitted for rehab. She was admitted roughly 1 week ago for UTi and was discharged home but her functional status was declining and she felt very weak so she was admitted for acute IRU here with plan to DC home again. She states she is feeling well and has not complaints. She is starting to get an appetite again and she is feeling stronger. I am consulted for medical management. Source: patient Exam Limitations: no limitations Date Seen 11/10/17 Attending Physician Jerson Jaramillo MD PCP Jung Burkett MD Referring Physician Clint Date of Admission November 08, 2017 at 12:19 Home Medications & Allergies Home Medications Reviewed patient Home Medication Reconciliation performed by pharmacy medication reconciliations electrical service technician and/or nursing. Patients Allergies have been reviewed. Allergies Allergies Coded Allergies Fish Containing Products (Verified Allergy, Unknown, 06/02/16) Past Gxazaeq-Kmhbqu-Fwdsms Hx Past Med/Social Hx: Reviewed Nursing Past Med/Soc Hx Patient Social History Marrital Status: Employed/Student: retired Alcohol Use: Denies Use Recreational Drug Use: No Smoking Status: Former Smoker Former Smoker, Quit: May 24, 1966 Type Used: Cigarettes 2nd Hand Smoke Exposure: No Physical Abuse Screen: No Sexual Abuse: No Recent Foreign Travel: No Contact w/other who traveled: No Recent Hopitalizations: No Recent Infectious Disease Expo: No Immunizations Up To Date Pediatric: No Date of Pneumonia Vaccine: October 28, 2015 Seasonal Allergies Seasonal Allergies: No Past Medical History Surgeries: Hysterectomy, Joint Replacement Respiratory: COPD Currently Using CPAP: No Currently Using BIPAP: No Cardiac: High Cholesterol, Hypertension Neurological: Dementia, Neuropathy Reproductive: Yes Hysterectomy Genitourinary: Renal Failure, UTI-Chronic Gastrointestinal: Gastroesophageal Reflux, Gall Bladder Disease Musculoskeletal: Chronic Back Pain Endocrine: Hypothyroidsim Psychosocial: Anxiety, Depression History of Blood Disorders: No Adverse Reaction to Blood [place]: No Family History Patient reports no known family medical history. No Pertinent Family Hx, Hypertension Review of Systems Constitutional: No chills, No fever; weakness EENTM: No blurred vision, No double vision, No nose congestion, No throat pain Respiratory: No cough, No dyspnea on exertion, No short of breath Cardiovascular: No chest pain, No edema, No palpitations Gastrointestinal: No abdominal pain, No constipation, No diarrhea, No nausea, No vomiting Genitourinary: No dysuria, No frequency Musculoskeletal: No joint pain, No muscle pain Skin: No lesions, No rash Psychiatric/Neurological: Denies Headache, Denies Numbness, Denies Tingling All Other Systems Reviewed Negative Unless Noted: Yes Physical Exam Physical Exam Vital Signs Vital Signs - First Documented 11/08/17 12:00 Temp 97.7 Pulse 67 Resp 18 B/P (MAP) 129/69 (89) Pulse Ox 95 O2 Delivery Room Air Capillary Refill : General Appearance: No Apparent Distress, WD/WN HEENT: PERRL/EOMI, Moist Mucous Membranes Neck: Non Tender, Supple Respiratory: Lungs Clear, No Respiratory Distress Cardiovascular: Regular Rate, Rhythm, No Murmur Gastrointestinal: Normal Bowel Sounds, Non Tender, Soft Extremity: Normal Capillary Refill, No Calf Tenderness Neurologic/Psychiatric: Alert, Oriented x3, Normal Mood/Affect Skin: Normal Color, Warm/Dry Results Results/Procedures Labs Patient resulted labs reviewed. Assessment/Plan Assessment and Plan Assess & Plan/Chief Complaint Debility Diagnosis/Problems Diagnosis/Problems (1) Debility Status: Acute Assessment & Plan: PT/OT Management per primary (2) Hypothyroidism Status: Chronic Assessment & Plan: Continue Synthroid Qualifiers: Hypothyroidism type: acquired Qualified Codes: E03.9 - Hypothyroidism, unspecified (3) Atrial fibrillation Status: Chronic Assessment & Plan: Continue on cardizem, metoprolol, and Eliquis Qualifiers: Atrial fibrillation type: chronic Qualified Codes: I48.2 - Chronic atrial fibrillation (4) Urinary tract infection Status: Resolved Assessment & Plan: Started abx on 11/03 Has completed course- will DC Qualifiers: Urinary tract infection type: acute cystitis Hematuria presence: with hematuria Qualified Codes: N30.01 - Acute cystitis with hematuria Clinical Quality Measures DVT/VTE Risk/Contraindication: Risk Factor Score Per Nursin RFS Level Per Nursing on Admit: 4+=Very High LONG MCGILL MD November 10, 2017 15:59
[2017-11-10 17:41] VITALS: BP 153/63
[2017-11-10] MEDS: DILTIAZEM 120 MG (CARDIZEM CD) CAP PO SCH (20:22)
[2017-11-10] MEDS: meTOproloL SUCCINATE 50 MG (TOPROL XL) TAB PO SCH (20:22)
[2017-11-10] MEDS: ROSUVASTATIN 5 MG (CRESTOR) TABLET PO SCH (20:22)
[2017-11-10] MEDS: CALCIUM CARB + VIT D 600 MG (CALCARB + D) TAB PO SCH (20:28)
[2017-11-11 05:17] VITALS: BP 132/77
[2017-11-11] MEDS: LEVOTHYROXINE 125 MCG (LEVOTHROID) TABLET PO SCH (06:32)
[2017-11-11] MEDS: LACTOBACILLUS Acidoph/Bulgar (LACTINEX/FLORANEX) TAB PO SCH ×4 (06:32→20:10)
--- NOTE | 2017-11-11 08:45 | Occupational Ther Daily Note ---
OT Current Status-Daily Note Subjective Pt alert, lying in bed. Pt agreed to therapy. No c/o pain at this time. Mental Status/Objective Patient Orientation: Person, Place, Time, Situation Functional [place] Measure 0=Not Assessed/NA 4=Minimal Assistance 1=Total Assistance 5=Supervision or Setup 2=Maximal Assistance 6=Modified [place] 3=Moderate Assistance 7=Complete [place] ADL-Treatment Functional [place] Measure 0=Not Assessed/NA 4=Minimal Assistance 1=Total Assistance 5=Supervision or Setup 2=Maximal Assistance 6=Modified [place] 3=Moderate Assistance 7=Complete IndependenceIRFPAI Quality Coding Scale 6 Independent with activity with or without an assistive device 5 Patient requires set up or clean up by helper. Patient completes activity by themselves 4 Supervision or touching assist (CGA). [place] provide cues , steadying assist 3 The helper provides less than half the effort to complete the activity 2 The helper provides more than half the effort to complete the activity 1 Dependent. The helper does all the effort to complete an activity 7 Patient refused to complete or attempt activity 9 The patient did not perform the activity before the current illness or injury 88 Not attempted due to Medical conditions or safety concerns Grooming (FIM): 5 (Standing at sink with FWW, pt is able to complete by self. Supervision for safety.) Oral Hygiene (QC): 4 Bathing (FIM): 5 (Using grabbar, shower bench and hand held shower pt is able to complete all areas. Supervision in standing for safety.) Bathing Location: L Arm, R Arm, L Upper Leg, R Upper Leg, L Lower Leg ( including foot), R Lower Leg (including foot), Chest, Abdomen, Buttocks, Perineal Area Shower/Bathe Self (QC): 4 Upper Body (FIM): 5 (After set up, pt able to complete by self.) Upper Body Dressing (QC): 5 Lower Body Dressing (FIM): 5 (After set up, pt able to complete by self using FWW in standing to hike pants over hips.) Lower Body Dressing (QC): 5 On/Off Footwear (QC): 5 Toileting (FIM): 5 (Pt able to complete toileting. Uses toilet aid to cleanse after BM. Supervision to make sure efficient with cleansing.) Toileting Hygiene (QC): 4 Toilet/Commode Transfer (FIM): 6 (Using FWW, grabbar and BSC pt able to complete by self.) Toilet Transfer (QC): 6 Shower Transfer(FIM): 6 (Using FWW, shower bench and grabbar pt able to complete by self.) After therapy, pt sitting in recliner with call light/phone in reach. All needs met in room. OT Short Term Goals Short Term Goals Transfers (B,C,W/C) (FIM): 5 1=Demonstrate adherence to instructed precautions during ADL tasks. 2=Patient will verbalize/demonstrate understanding of assistive devices/ modifications for ADL. 3=Patient will improve strength/tolerance for activity to enable patient to perform ADL's. OT Standards Engineer Goals Alf Goals Time Frame: November 22, 2017 Eating (FIM): 6 Eating (QC): 6 Groomin Oral Hygiene (QC): 6 Bathing(FIM): 6 Shower/Bathe Self (QC): 5 Upper Body Dressing(FIM): 6 Upper Body Dressing (QC): 6 Lower Body Dressing(FIM): 6 Lower Body Dressing (QC): 6 On/Off Footwear (QC): 6 Toileting(FIM): 6 Toileting Hygiene (QC): 6 Transfers (B,C,W/C) (FIM): 6 Toilet/Commode Transfer(FIM): 6 Toilet/Commode Transfer (QC): 6 Shower Transfer(FIM): 5 Additional Goals: 1-Demonstrate ADL Tasks, 2-Verbalize Understanding, 3- ImproveStrength/Gwen 1=Demonstrate adherence to instructed precautions during ADL tasks. 2=Patient will verbalize/demonstrate understanding of assistive devices/ modifications for ADL. 3=Patient will improve strength/tolerance for activity to enable patient to perform ADL's. OT Education/Plan Discharge Recommendations Plan/Recommendations: Continue POC Treatment Plan/Plan of Care Patient would benefit from OT for education, treatment and training to promote independence in ADL's, mobility, safety and/or upper extremity function for ADL' s. Plan of Care: ADL Retraining, Functional Mobility, Group Exercise/Act as Ind, UE Funct Exercise/Act Treatment Duration: November 22, 2017 Frequency: At least 5 of 7 days/Wk (IRF) Estimated Hrs Per Day: 1.5 hours per day Agreement: Yes Rehab Potential: Guarded Time/GCodes Start Time: 08:00 Stop Time: 09:00 Total Time Billed (hr/min): 60 Billed Treatment Time 1 visit-ADL 4 (60 min) CRISTHIAN STACK November 11, 2017 08:45
[2017-11-11] MEDS: ASPIRIN E.C. 81 MG (ECOTRIN) TAB PO SCH (08:53)
[2017-11-11] MEDS: DILTIAZEM 240 MG (CARDIZEM CD) CAP PO SCH (08:53)
[2017-11-11] MEDS: APIXABAN 5 MG (ELIQUIS) TABLET PO SCH ×2 (08:53→20:10)
--- NOTE | 2017-11-11 09:30 | PM & R (SOAP) Progress Note ---
Subjective This was a face to face visit with the patient. Date Seen by Provider: November 11, 2017 Time Seen by Provider: 08:05 Subjective/Events-last exam Patient was seen in her room this AM Patient Modified Independent for transfers and SBA for gait with walker Objective Physician Exam Last Set of Vital Signs Vital Signs Date Time Temp Pulse Resp B/P (MAP) Pulse Ox O2 Delivery O2 Flow Rate FiO2 11/11/17 05:17 98.4 62 19 132/77 (95) 96 Room Air Capillary Refill : I&O Intake and Output 11/11/17 00:00 Intake Total 1100 ml Balance 1100 ml Intake Oral 1100 ml # Voids 8 # Bowel Movements 3 General: Alert, Oriented X3, Cooperative, No Acute Distress HEENT: Atraumatic, PERRLA, EOMI, Mucous Memb Moist/[place] Neck: Supple, No JVD Lungs: Clear to Auscultation Heart: Regular Rate Abdomen: Normal Bowel Sounds, Soft, No Tenderness Extremities: No Edema Neuro: Other (Upper limb strength 2+5 RUE 3+/5 LUE Lower limb strength 3/5 hip flex distal 4/5 MIld memory loss ) Assessment/Plan Assessment and Plan General debil secondary to recurrent UTI UTI treated CAD stable A FIB controlled with meds Recent acute renal insufficiency resolved Mild dementia Plan Continue PT/OT Patient has declined ST Discharge set tentatively for wednesday11-15-17 to home with family and C Will confirm with SW (1) Debility Status: Acute Co-Morbidities that are continuing to impact the rehab process: (include details ) KYLIE REYES MD November 11, 2017 09:30
--- NOTE | 2017-11-11 11:00 | Physical Therapy Daily Note ---
PT Daily Note-Current Subjective Pt. smiling, ready to work, likes to visit with others , pleasant. States she finally has an appetite back. Pain Numeric Pain Scale: 0-No Pain Mental Status Patient Orientation: Normal For Age Transfers Functional [place] Measure 0=Not Assessed/NA 4=Minimal Assistance 1=Total Assistance 5=Supervision or Setup 2=Maximal Assistance 6=Modified [place] 3=Moderate Assistance 7=Complete IndependenceIRFPAI Quality Coding Scale 6 Independent with activity with or without an assistive device 5 Patient requires set up or clean up by helper. Patient completes activity by themselves 4 Supervision or touching assist (CGA). [place] provide cues , steadying assist 3 The helper provides less than half the effort to complete the activity 2 The helper provides more than half the effort to complete the activity 1 Dependent. The helper does all the effort to complete an activity 7 Patient refused to complete or attempt activity 9 The patient did not perform the activity before the current illness or injury 88 Not attempted due to Medical conditions or safety concerns Transfers (B, C, W/C) (FIM): 6 Scootin Rollin Supine to/from Sit: 6 Sit to/from Stand: 6 Bed to/from Chair: 6 Gait Training Does the Patient Walk?: Yes Gait (FIM): 6 Distance (FIM): 3=150 ft (175x2) Gait Level of Assist: 6 Gait Persons Needed: 0 Gait Assistive Device: FWW slightly flexed at trunk, utilized FWW and SPC for gait all with good sequence and safe practice Stair Training Stair Training: Handrails/: 1 handrail (one cane like simulating home) Stairs (FIM): 5 #of Steps: 4 Stairs: Pattern: Reciprocal Level of Assist: 5 household exception Exercises Supine Ex: Bridging, Ankle pumps, Quad Set, Rolling, Glut sets, Heel Slides, Short Arc Quads, Scooting, Straight leg raise, Hip abd/add Supine Reps: 15 NuStep Minutes: 12 NuStep Workload: 4 Treatments toileting indep as observed Assessment Current Status: Good Progress meets goals PT Short Term Goals Short Term Goals Time Frame: November 15, 2017 Transfers (B,C,W/C) (FIM): 5 Gait (FIM): 5 Distance (FIM): 3=150 ft Gait Assistive Device: FWW PT Halfway Goals Halfway Goals PT Author Goals Time Frame: November 24, 2017 Transfers (B,C,W/C) (FIM): 7 Sit to Lying (QC): 6 Lying-Sitting on Side/Bed(QC): 6 Sit to Stand (QC): 6 Rollin Roll Left to Right (QC): 6 Chair/Ash-qn-Qbpem Xfer(QC): 6 Car Transfer (QC): 6 Does the Patient Walk: Yes Gait (FIM): 6 Gait distance (FIM): 3=150 ft Walk 10 feet (QC): 6 Walk 10ft-Uneven Surface(QC): 6 Walk 50ft with 2 Turns (QC): 6 Walk 150 ft (QC): 6 Gait Level of Assist: 6 Gait Assistive Device: FWW Does the Pt use WC or Scooter?: No Stairs (FIM): 5 # of Steps: 8 1 Step (curb) (QC): 6 4 Steps (QC): 5 12 Steps (QC): 88 Picking up an Object (QC): 4 PT Plan Treatment/Plan Treatment Plan: Continue Plan of Care Treatment Plan: Bed Mobility, Education, Functional Activity Gwen, Functional Strength, Group Therapy, Gait, Safety, Therapeutic Exercise, Transfers Treatment Duration: November 24, 2017 Frequency: At least 5 of 7 days/Wk (IRF) Estimated Hrs Per Day: 1.5 hours per day Patient and/or Family Agrees t: Yes Safety Risks/Education Patient Education: Gait Training, Transfer Techniques, Steps, Correct Positioning, Disease Process, Safety Issues Teaching Recipient: Patient Teaching Methods: Demonstration, Discussion Response to Teaching: Verbalize Understanding, Return Demonstration, Reinforcement Needed Time/GCodes Time In: 1000 Time Out: 1100 Total Billed Treatment Time: 60 Total Billed Treatment 1,GT25m,FA15m,EX20m G Codes Necessary: AVRIL Matias VETERINARIAN EPIDEMIOLOGIST November 11, 2017 11:00
--- NOTE | 2017-11-11 11:26 | D/C HH Face to Face Order ---
D/C Face to Face Orders Instructions for Patient Patient Instructions/FollowUp: Dr. Burkett Physician to follow Patient: Dr. Burkett Discharge Diet for Home: Regular Diet Patient Data-Allergies,Ht & Wt Patient Allergies: Coded Allergies: Fish Containing Products (Verified Allergy, Unknown, 06/02/16) Height (Feet): 5 Height (Inches): 5.00 Weight (Pounds): 188 Weight (Ounces): 0.0 Home Health Need/Face to Face Date of Face to Face: November 15, 2017 Clinical Findings: Generalized weakness and fatigue, Muscle weakness, Unsteady gait I have seen Pt [id number]: Yes Discharged To: Home Diagnosis/Conditions: Debility Patient is Homebound due to: CognItive deficits, Jaja fall risk due to instabilty Homebound Status Due to the above stated illness, injury or surgical procedure (medical condition or diagnosis) and associated clinical findings, the patient is homebound because of his/her inability to leave home except with aid of a supportive device and/or person AND leaving the home requires a considerable and taxing effort or is medically contraindicated. Pt req the following assistanc: Walker Home Health Nursing Orders Home Health Services Order: Physical Therapy-Evaluate & Treat Therapy Orders Therapy Orders: Physical Therapy Therapy Specific Orders: Eval assistive deivces, Teach strategies/cognitive deficits, Teach enviro modifications/safety, Gait training, Increase strength/ endurance Certify Stmt I certify that this patient is under my care and that I, a nurse practitioner or a physician; a business development assistant working with me, had a face to face encounter that - meets the physician face to face encounter requirements with this patient as dated. I personally scribed for KYLIE REYES MD ([facility]) on 11/11/17 at 11:26. Electronically submitted by Kendra Wallace ([id number]). KYLIE REYES MD November 11, 2017 11:26
--- NOTE | 2017-11-11 13:46 | Occupational Ther Daily Note ---
OT Current Status-Daily Note Subjective Pt alert, sitting in recliner. Pt agrees to therapy. No c/o pain. Mental Status/Objective Functional [place] Measure 0=Not Assessed/NA 4=Minimal Assistance 1=Total Assistance 5=Supervision or Setup 2=Maximal Assistance 6=Modified [place] 3=Moderate Assistance 7=Complete [place] ADL-Treatment Functional [place] Measure 0=Not Assessed/NA 4=Minimal Assistance 1=Total Assistance 5=Supervision or Setup 2=Maximal Assistance 6=Modified [place] 3=Moderate Assistance 7=Complete IndependenceIRFPAI Quality Coding Scale 6 Independent with activity with or without an assistive device 5 Patient requires set up or clean up by helper. Patient completes activity by themselves 4 Supervision or touching assist (CGA). [place] provide cues , steadying assist 3 The helper provides less than half the effort to complete the activity 2 The helper provides more than half the effort to complete the activity 1 Dependent. The helper does all the effort to complete an activity 7 Patient refused to complete or attempt activity 9 The patient did not perform the activity before the current illness or injury 88 Not attempted due to Medical conditions or safety concerns Toileting (FIM): 4 (Pt is able to manipulate clothing. Cleansed dino area and used toilet tongs to attempt to cleanse after BM. Inefficient with cleansing buttocks assist needed to clean effectively.) Toileting Hygiene (QC): 3 Toilet/Commode Transfer (FIM): 5 (Supervision for safety using FWW, BSC and grabbars.) Toilet Transfer (QC): 4 Other Treatment Pt ambulated to therapy gym using FWW. Completed 3 dowel gianna exercises with 3# wt attached, 3 sets 10 reps. Pt fatigued quickly with R UE and required recovery breaks. Decreased ROM of R shldr. After therapy, PT took over care in therapy gym. All needs met in room. OT Short Term Goals Short Term Goals Transfers (B,C,W/C) (FIM): 5 1=Demonstrate adherence to instructed precautions during ADL tasks. 2=Patient will verbalize/demonstrate understanding of assistive devices/ modifications for ADL. 3=Patient will improve strength/tolerance for activity to enable patient to perform ADL's. OT Diabetes Education Coordinator Goals Diabetes Education Coordinator Goals Time Frame: November 22, 2017 Eating (FIM): 6 Eating (QC): 6 Groomin Oral Hygiene (QC): 6 Bathing(FIM): 6 Shower/Bathe Self (QC): 5 Upper Body Dressing(FIM): 6 Upper Body Dressing (QC): 6 Lower Body Dressing(FIM): 6 Lower Body Dressing (QC): 6 On/Off Footwear (QC): 6 Toileting(FIM): 6 Toileting Hygiene (QC): 6 Transfers (B,C,W/C) (FIM): 6 Toilet/Commode Transfer(FIM): 6 Toilet/Commode Transfer (QC): 6 Shower Transfer(FIM): 5 Additional Goals: 1-Demonstrate ADL Tasks, 2-Verbalize Understanding, 3- ImproveStrength/Gwen 1=Demonstrate adherence to instructed precautions during ADL tasks. 2=Patient will verbalize/demonstrate understanding of assistive devices/ modifications for ADL. 3=Patient will improve strength/tolerance for activity to enable patient to perform ADL's. OT Education/Plan Discharge Recommendations Plan/Recommendations: Continue POC Treatment Plan/Plan of Care Patient would benefit from OT for education, treatment and training to promote independence in ADL's, mobility, safety and/or upper extremity function for ADL' s. Plan of Care: ADL Retraining, Functional Mobility, Group Exercise/Act as Ind, UE Funct Exercise/Act Treatment Duration: November 22, 2017 Frequency: At least 5 of 7 days/Wk (IRF) Estimated Hrs Per Day: 1.5 hours per day Agreement: Yes Rehab Potential: Guarded Time/GCodes Start Time: 13:00 Stop Time: 13:30 Total Time Billed (hr/min): 30 Billed Treatment Time 1 visit-ADL 1 (20 min) EX 1 (10 min) CRISTHIAN STACK November 11, 2017 13:46
--- NOTE | 2017-11-11 14:12 | Physical Therapy Daily Note ---
PT Daily Note-Current Subjective Pt. ready to work a little for the afternoon. Requests toileting after Rx. States she cant clean herself after BM. OT concurs. Pt. explains the size and height of her car that her daughter uses to drive her around. Pain Numeric Pain Scale: 0-No Pain Mental Status Patient Orientation: Normal For Age Transfers Functional [place] Measure 0=Not Assessed/NA 4=Minimal Assistance 1=Total Assistance 5=Supervision or Setup 2=Maximal Assistance 6=Modified [place] 3=Moderate Assistance 7=Complete IndependenceIRFPAI Quality Coding Scale 6 Independent with activity with or without an assistive device 5 Patient requires set up or clean up by helper. Patient completes activity by themselves 4 Supervision or touching assist (CGA). [place] provide cues , steadying assist 3 The helper provides less than half the effort to complete the activity 2 The helper provides more than half the effort to complete the activity 1 Dependent. The helper does all the effort to complete an activity 7 Patient refused to complete or attempt activity 9 The patient did not perform the activity before the current illness or injury 88 Not attempted due to Medical conditions or safety concerns all TRFs bed, chair and toilet SBA to Mod I Gait Training Gait Assistive Device: FWW 200ft SBA many turns and some side stepping Treatments car TRF simulating her [place] all SBA Assessment Current Status: Good Progress PT Short Term Goals Short Term Goals Time Frame: November 15, 2017 Transfers (B,C,W/C) (FIM): 5 Gait (FIM): 5 Distance (FIM): 3=150 ft Gait Assistive Device: FWW PT Field Sales Manager Goals Detention Goals PT Detention Goals Time Frame: November 24, 2017 Transfers (B,C,W/C) (FIM): 7 Sit to Lying (QC): 6 Lying-Sitting on Side/Bed(QC): 6 Sit to Stand (QC): 6 Rollin Roll Left to Right (QC): 6 Chair/Rkn-er-Rtgpc Xfer(QC): 6 Car Transfer (QC): 6 Does the Patient Walk: Yes Gait (FIM): 6 Gait distance (FIM): 3=150 ft Walk 10 feet (QC): 6 Walk 10ft-Uneven Surface(QC): 6 Walk 50ft with 2 Turns (QC): 6 Walk 150 ft (QC): 6 Gait Level of Assist: 6 Gait Assistive Device: FWW Does the Pt use WC or Scooter?: No Stairs (FIM): 5 # of Steps: 8 1 Step (curb) (QC): 6 4 Steps (QC): 5 12 Steps (QC): 88 Picking up an Object (QC): 4 PT Plan Treatment/Plan Treatment Plan: Continue Plan of Care Treatment Plan: Bed Mobility, Education, Functional Activity Gwen, Functional Strength, Group Therapy, Gait, Safety, Therapeutic Exercise, Transfers Treatment Duration: November 24, 2017 Frequency: At least 5 of 7 days/Wk (IRF) Estimated Hrs Per Day: 1.5 hours per day Patient and/or Family Agrees t: Yes Safety Risks/Education Patient Education: Gait Training, Transfer Techniques, Correct Positioning, Safety Issues Teaching Recipient: Patient Teaching Methods: Demonstration, Discussion Response to Teaching: Verbalize Understanding, Return Demonstration Time/GCodes Time In: 1330 Time Out: 1400 Total Billed Treatment Time: 30 Total Billed Treatment 1,FA20m,GT10m G Codes Necessary: No AVRIL AUGUSTIN FAST FOOD RESTAURANT MANAGER November 11, 2017 14:12
[2017-11-11 17:01] VITALS: BP 128/62
[2017-11-11] MEDS: meTOproloL SUCCINATE 50 MG (TOPROL XL) TAB PO SCH (20:10)
[2017-11-11] MEDS: ROSUVASTATIN 5 MG (CRESTOR) TABLET PO SCH (20:10)
[2017-11-11] MEDS: DILTIAZEM 120 MG (CARDIZEM CD) CAP PO SCH (20:13)
[2017-11-11] MEDS: CALCIUM CARB + VIT D 600 MG (CALCARB + D) TAB PO SCH (20:14)
[2017-11-12 05:10] VITALS: BP 124/64
[2017-11-12] MEDS: LACTOBACILLUS Acidoph/Bulgar (LACTINEX/FLORANEX) TAB PO SCH ×4 (06:12→19:38)
[2017-11-12] MEDS: LEVOTHYROXINE 125 MCG (LEVOTHROID) TABLET PO SCH (06:12)
[2017-11-12] MEDS: APIXABAN 5 MG (ELIQUIS) TABLET PO SCH ×2 (08:18→19:38)
[2017-11-12] MEDS: ASPIRIN E.C. 81 MG (ECOTRIN) TAB PO SCH (08:18)
[2017-11-12] MEDS: DILTIAZEM 240 MG (CARDIZEM CD) CAP PO SCH (08:18)
--- NOTE | 2017-11-12 08:28 | PM & R (SOAP) Progress Note ---
Subjective This was a face to face visit with the patient. Date Seen by Provider: November 12, 2017 Time Seen by Provider: 08:20 Subjective/Events-last exam Patient was seen in her room this AM with RN Patient c/o diarrhea-requesting Immodium Patient SBA to Modified Independent for transfers Review of Systems Gastrointestinal: Diarrhea Objective Physician Exam Last Set of Vital Signs Vital Signs Date Time Temp Pulse Resp B/P (MAP) Pulse Ox O2 Delivery O2 Flow Rate FiO2 11/12/17 05:10 98.2 71 20 124/64 (84) 94 Room Air Capillary Refill : I&O Intake and Output 11/12/17 00:00 Intake Total 860 ml Balance 860 ml Intake Oral 860 ml # Voids 6 General: Alert, Oriented X3, Cooperative, No Acute Distress HEENT: Atraumatic, PERRLA, EOMI, Mucous Memb Moist/[place] Neck: Supple, No JVD Lungs: Clear to Auscultation Heart: Regular Rate Abdomen: Normal Bowel Sounds, Soft, No Tenderness Extremities: No Edema Neuro: Other (Upper limb strength 2+5 RUE 3+/5 LUE Lower limb strength 3/5 hip flex distal 4/5 MIld memory loss ) Assessment/Plan Assessment and Plan 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
[2017-11-12] MEDS ORDERED: LOPERAMIDE 2 MG (IMODIUM) CAP PO PRN (08:30)
[2017-11-12] MEDS ORDERED: LOPERAMIDE 2 MG (IMODIUM) CAP PO ONE (08:30)
--- NOTE | 2017-11-12 08:55 | Occupational Ther Daily Note ---
OT Current Status-Daily Note Subjective Pt alert, sitting in recliner. Pt agrees to therapy. Pt c/o of going to the bathroom throughout the night and requests an Imodium, reported to nrsg. Pt appeared tired and processing motor skills slowly. Mental Status/Objective Patient Orientation: Person, Place, Time, Situation Functional [place] Measure 0=Not Assessed/NA 4=Minimal Assistance 1=Total Assistance 5=Supervision or Setup 2=Maximal Assistance 6=Modified [place] 3=Moderate Assistance 7=Complete [place] ADL-Treatment Ambulated with FWW to closet to retrieve clothing with supervision. Ambulated to bathroom and transferred to toilet with supervision. Pt attempts to cleanse self after BM though inefficient and needs assist to efficiently cleanse self. Transferred to shower using FWW, grabbar and shower bench. Pt completed own bathing using grabbar, long handle sponge, shower bench and hand held shower. Pt was able to cleanse buttocks though requested JEFFERS to check cleanliness. Pt was able to don/doff clothing by self. Used dressing stick to doff socks. Pt requested to go back to toilet. Assist to cleanse after BM. Pt stood at sink to wash hands, declined brushing teeth. Pt then sat in recliner and fixed hair. Functional [place] Measure 0=Not Assessed/NA 4=Minimal Assistance 1=Total Assistance 5=Supervision or Setup 2=Maximal Assistance 6=Modified [place] 3=Moderate Assistance 7=Complete IndependenceIRFPAI Quality Coding Scale 6 Independent with activity with or without an assistive device 5 Patient requires set up or clean up by helper. Patient completes activity by themselves 4 Supervision or touching assist (CGA). [place] provide cues , steadying assist 3 The helper provides less than half the effort to complete the activity 2 The helper provides more than half the effort to complete the activity 1 Dependent. The helper does all the effort to complete an activity 7 Patient refused to complete or attempt activity 9 The patient did not perform the activity before the current illness or injury 88 Not attempted due to Medical conditions or safety concerns Bathing (FIM): 5 Bathing Location: L Arm, R Arm, L Upper Leg, R Upper Leg, L Lower Leg ( including foot), R Lower Leg (including foot), Chest, Abdomen, Buttocks, Perineal Area Shower/Bathe Self (QC): 4 Upper Body (FIM): 5 Upper Body Dressing (QC): 5 Lower Body Dressing (FIM): 5 Lower Body Dressing (QC): 4 On/Off Footwear (QC): 5 Toileting (FIM): 4 Toileting Hygiene (QC): 3 Toilet/Commode Transfer (FIM): 5 Toilet Transfer (QC): 4 Shower Transfer(FIM): 5 Other Treatment Arm bike 15 min duration at 15 rogers resistance to increase strength and activity tolerance for daily functional tasks. Pt felt better after nrsg brought meds in. After therapy, pt sitting in recliner with call light/phone in reach. All needs met in room. OT Short Term Goals Short Term Goals Transfers (B,C,W/C) (FIM): 5 1=Demonstrate adherence to instructed precautions during ADL tasks. 2=Patient will verbalize/demonstrate understanding of assistive devices/ modifications for ADL. 3=Patient will improve strength/tolerance for activity to enable patient to perform ADL's. OT Care Home Goals Recreational Therapist Goals Time Frame: November 22, 2017 Eating (FIM): 6 Eating (QC): 6 Groomin Oral Hygiene (QC): 6 Bathing(FIM): 6 Shower/Bathe Self (QC): 5 Upper Body Dressing(FIM): 6 Upper Body Dressing (QC): 6 Lower Body Dressing(FIM): 6 Lower Body Dressing (QC): 6 On/Off Footwear (QC): 6 Toileting(FIM): 6 Toileting Hygiene (QC): 6 Transfers (B,C,W/C) (FIM): 6 Toilet/Commode Transfer(FIM): 6 Toilet/Commode Transfer (QC): 6 Shower Transfer(FIM): 5 Additional Goals: 1-Demonstrate ADL Tasks, 2-Verbalize Understanding, 3- ImproveStrength/Gwen 1=Demonstrate adherence to instructed precautions during ADL tasks. 2=Patient will verbalize/demonstrate understanding of assistive devices/ modifications for ADL. 3=Patient will improve strength/tolerance for activity to enable patient to perform ADL's. OT Education/Plan Discharge Recommendations Plan/Recommendations: Continue POC Treatment Plan/Plan of Care Patient would benefit from OT for education, treatment and training to promote independence in ADL's, mobility, safety and/or upper extremity function for ADL' s. Plan of Care: ADL Retraining, Functional Mobility, Group Exercise/Act as Ind, UE Funct Exercise/Act Treatment Duration: November 22, 2017 Frequency: At least 5 of 7 days/Wk (IRF) Estimated Hrs Per Day: 1.5 hours per day Agreement: Yes Rehab Potential: Guarded Time/GCodes Start Time: 07:30 Stop Time: 09:00 Total Time Billed (hr/min): 90 Billed Treatment Time 1 visit-ADL 5 (75 min) EX 1 (15 min) CRISTHIAN STACK November 12, 2017 08:55
--- NOTE | 2017-11-12 10:22 | Physical Therapy Daily Note ---
PT Daily Note-Current Subjective Pt sitting in recliner upon arrival. Pt agrees to PT. Pt reports having loose BMs throughout the night although Nurse gave Imodium this morning. Pain Location: No Pain Reported Mental Status Patient Orientation: Person, Place, Situation Transfers Functional [place] Measure 0=Not Assessed/NA 4=Minimal Assistance 1=Total Assistance 5=Supervision or Setup 2=Maximal Assistance 6=Modified [place] 3=Moderate Assistance 7=Complete IndependenceIRFPAI Quality Coding Scale 6 Independent with activity with or without an assistive device 5 Patient requires set up or clean up by helper. Patient completes activity by themselves 4 Supervision or touching assist (CGA). [place] provide cues , steadying assist 3 The helper provides less than half the effort to complete the activity 2 The helper provides more than half the effort to complete the activity 1 Dependent. The helper does all the effort to complete an activity 7 Patient refused to complete or attempt activity 9 The patient did not perform the activity before the current illness or injury 88 Not attempted due to Medical conditions or safety concerns Scootin Sit to/from Stand: 5 Sit to Stand (QC): 5 Weight Bearing Right Lower Extremity: Right Full Weight Bearing Left Lower Extremity: Left Full Weight Bearing Gait Training Does the Patient Walk?: Yes Distance (FIM): 3=150 ft Distance: 150' Walk 10 feet (QC): 6 Walk 50 ft with 2 Turns(QC): 6 Walk 150 ft (QC): 6 Gait Level of Assist: 6 Gait Assistive Device: FWW Pt has slow melanie, no LOB. Wheelchair Training Does the Pt Use a Wheelchair?: No Stair Training Stair Training: Handrails/: 1 handrail, uses cane #of Steps: 8 1 Step (curb) (QC): 5 Stairs: Pattern: Step to Treatments Pt transfers from recliner to standing using FWW at Mod I then ambulates in hallway using FWW at Mod I. Pt uses NuStep for 15m at WL 4. Pt takes short rest before ambulating stairs using 1 handrail and SPC. Pt rests then ambulates to simulator for car transfer practice. Pt returns to room to use restroom. Pt resting in recliner at end of tx with all needs met, including call light. Assessment Current Status: Good Progress Pt needs occasional reminders to use arm rest to transfers before taking FWW or SPC. PT Short Term Goals Short Term Goals Time Frame: November 15, 2017 Transfers (B,C,W/C) (FIM): 5 Gait (FIM): 5 Distance (FIM): 3=150 ft Gait Assistive Device: FWW PT Snf Goals Stick Roller Goals PT Stick Roller Goals Time Frame: November 24, 2017 Transfers (B,C,W/C) (FIM): 7 Sit to Lying (QC): 6 Lying-Sitting on Side/Bed(QC): 6 Sit to Stand (QC): 6 Rollin Roll Left to Right (QC): 6 Chair/Srv-pp-Zaogs Xfer(QC): 6 Car Transfer (QC): 6 Does the Patient Walk: Yes Gait (FIM): 6 Gait distance (FIM): 3=150 ft Walk 10 feet (QC): 6 Walk 10ft-Uneven Surface(QC): 6 Walk 50ft with 2 Turns (QC): 6 Walk 150 ft (QC): 6 Gait Level of Assist: 6 Gait Assistive Device: FWW Does the Pt use WC or Scooter?: No Stairs (FIM): 5 # of Steps: 8 1 Step (curb) (QC): 6 4 Steps (QC): 5 12 Steps (QC): 88 Picking up an Object (QC): 4 PT Plan Problem List Problem List: Activity Tolerance Treatment/Plan Treatment Plan: Continue Plan of Care Treatment Plan: Bed Mobility, Education, Functional Activity Gwen, Functional Strength, Group Therapy, Gait, Safety, Therapeutic Exercise, Transfers Treatment Duration: November 24, 2017 Frequency: At least 5 of 7 days/Wk (IRF) Estimated Hrs Per Day: 1.5 hours per day Patient and/or Family Agrees t: Yes Safety Risks/Education Patient Education: Transfer Techniques, Correct Positioning, Safety Issues Teaching Recipient: Patient Teaching Methods: Discussion Response to Teaching: Verbalize Understanding Time/GCodes Time In: 900 Time Out: 1000 Total Billed Treatment Time: 60 Total Billed Treatment 1, GT (15m), EX (20m) & FA x2 (30m) G Codes Necessary: REINA Butt CORRESPONDENCE REVIEW CLERK November 12, 2017 10:22
--- NOTE | 2017-11-12 14:16 | Physical Therapy Daily Note ---
PT Daily Note-Current Subjective Patient agrees to PT. Pain Numeric Pain Scale: 0-No Pain Location: No Pain Reported Mental Status Patient Orientation: Person, Time, Situation Transfers Functional [place] Measure 0=Not Assessed/NA 4=Minimal Assistance 1=Total Assistance 5=Supervision or Setup 2=Maximal Assistance 6=Modified [place] 3=Moderate Assistance 7=Complete IndependenceIRFPAI Quality Coding Scale 6 Independent with activity with or without an assistive device 5 Patient requires set up or clean up by helper. Patient completes activity by themselves 4 Supervision or touching assist (CGA). [place] provide cues , steadying assist 3 The helper provides less than half the effort to complete the activity 2 The helper provides more than half the effort to complete the activity 1 Dependent. The helper does all the effort to complete an activity 7 Patient refused to complete or attempt activity 9 The patient did not perform the activity before the current illness or injury 88 Not attempted due to Medical conditions or safety concerns Transfers (B, C, W/C) (FIM): 5 Scootin Sit to/from Stand: 5 Sit to Stand (QC): 5 Weight Bearing Right Lower Extremity: Right Full Weight Bearing Left Lower Extremity: Left Full Weight Bearing Gait Training Does the Patient Walk?: Yes Gait (FIM): 5 Distance (FIM): 3=150 ft Distance: 150' Walk 10 feet (QC): 5 Walk 50 ft with 2 Turns(QC): 5 Walk 150 ft (QC): 5 Gait Level of Assist: 5 Gait Assistive Device: FWW safe and functional gait sequence Exercises Standing: Heel/toe raises, 3 way Ex=Flex, Abd, Ext, Mini squats Standing Reps: 15 (2 sets) NuStep Minutes: 10 NuStep Workload: 5 (to improve strength and mobility) Assessment Patient progressing with treatment plan. Noted some confusion. Plan to dismiss to home on Wednesday. PT Short Term Goals Short Term Goals Time Frame: November 15, 2017 Transfers (B,C,W/C) (FIM): 5 Gait (FIM): 5 Distance (FIM): 3=150 ft Gait Assistive Device: FWW PT Orthopaedic Technologist Goals Jail Goals PT Orthopaedic Technologist Goals Time Frame: November 24, 2017 Transfers (B,C,W/C) (FIM): 7 Sit to Lying (QC): 6 Lying-Sitting on Side/Bed(QC): 6 Sit to Stand (QC): 6 Rollin Roll Left to Right (QC): 6 Chair/Evg-us-Wixli Xfer(QC): 6 Car Transfer (QC): 6 Does the Patient Walk: Yes Gait (FIM): 6 Gait distance (FIM): 3=150 ft Walk 10 feet (QC): 6 Walk 10ft-Uneven Surface(QC): 6 Walk 50ft with 2 Turns (QC): 6 Walk 150 ft (QC): 6 Gait Level of Assist: 6 Gait Assistive Device: FWW Does the Pt use WC or Scooter?: No Stairs (FIM): 5 # of Steps: 8 1 Step (curb) (QC): 6 4 Steps (QC): 5 12 Steps (QC): 88 Picking up an Object (QC): 4 PT Plan Treatment/Plan Treatment Plan: Continue Plan of Care Treatment Plan: Bed Mobility, Education, Functional Activity Gwen, Functional Strength, Group Therapy, Gait, Safety, Therapeutic Exercise, Transfers Treatment Duration: November 24, 2017 Frequency: At least 5 of 7 days/Wk (IRF) Estimated Hrs Per Day: 1.5 hours per day Patient and/or Family Agrees t: Yes Time/GCodes Time In: 1340 Time Out: 1410 Total Billed Treatment Time: 30 Total Billed Treatment 1 visit EX x 2 30 min ABDULAZIZ BLACKMAN PT November 12, 2017 14:16
[2017-11-12 17:14] VITALS: BP 133/62
[2017-11-12] MEDS: DILTIAZEM 120 MG (CARDIZEM CD) CAP PO SCH (19:37)
[2017-11-12] MEDS: ROSUVASTATIN 5 MG (CRESTOR) TABLET PO SCH (19:38)
[2017-11-12] MEDS: meTOproloL SUCCINATE 50 MG (TOPROL XL) TAB PO SCH (19:38)
[2017-11-12] MEDS: CALCIUM CARB + VIT D 600 MG (CALCARB + D) TAB PO SCH (20:04)
[2017-11-13 05:04] VITALS: BP_SYST 109; BP_SYST 123; BP_DIAS 61; BP_DIAS 76
[2017-11-13] MEDS: LEVOTHYROXINE 125 MCG (LEVOTHROID) TABLET PO SCH (06:22)
[2017-11-13] MEDS: LACTOBACILLUS Acidoph/Bulgar (LACTINEX/FLORANEX) TAB PO SCH ×4 (06:22→20:28)
--- NOTE | 2017-11-13 07:37 | Physical Therapy Daily Note ---
PT Daily Note-Current Subjective Agreeable to PT. Anxious to discharge on Wednesday. Feels ready to go home. Mental Status Patient Orientation: Person, Place, Time, Situation Transfers Functional [place] Measure 0=Not Assessed/NA 4=Minimal Assistance 1=Total Assistance 5=Supervision or Setup 2=Maximal Assistance 6=Modified [place] 3=Moderate Assistance 7=Complete IndependenceIRFPAI Quality Coding Scale 6 Independent with activity with or without an assistive device 5 Patient requires set up or clean up by helper. Patient completes activity by themselves 4 Supervision or touching assist (CGA). [place] provide cues , steadying assist 3 The helper provides less than half the effort to complete the activity 2 The helper provides more than half the effort to complete the activity 1 Dependent. The helper does all the effort to complete an activity 7 Patient refused to complete or attempt activity 9 The patient did not perform the activity before the current illness or injury 88 Not attempted due to Medical conditions or safety concerns Sit to/from Stand: 6 Weight Bearing Right Lower Extremity: Right Full Weight Bearing Left Lower Extremity: Left Full Weight Bearing Gait Training Does the Patient Walk?: Yes Gait (FIM): 6 Distance: 150 ft, 50 ft 200 ft Gait Assistive Device: FWW safe and steady gait; no noted LOB. Stair Training Stair Training: Handrails/: 1 handrail Stairs (FIM): 5 #of Steps: 8 Stairs: Pattern: Step to Assessment Current Status: Good Progress Pt making good functional progress. Mod indep with gait and transfers. Safe on stairs. PT Short Term Goals Short Term Goals Time Frame: November 15, 2017 Transfers (B,C,W/C) (FIM): 5 (met) Gait (FIM): 5 (met) Distance (FIM): 3=150 ft Gait Assistive Device: FWW PT Chcf Goals Glass Lined Tank Repairer Goals PT Glass Lined Tank Repairer Goals Time Frame: November 24, 2017 Transfers (B,C,W/C) (FIM): 7 Sit to Lying (QC): 6 Lying-Sitting on Side/Bed(QC): 6 Sit to Stand (QC): 6 Rollin Roll Left to Right (QC): 6 Chair/Dgr-xg-Jgltu Xfer(QC): 6 Car Transfer (QC): 6 Does the Patient Walk: Yes Gait (FIM): 6 Gait distance (FIM): 3=150 ft Walk 10 feet (QC): 6 Walk 10ft-Uneven Surface(QC): 6 Walk 50ft with 2 Turns (QC): 6 Walk 150 ft (QC): 6 Gait Level of Assist: 6 Gait Assistive Device: FWW Does the Pt use WC or Scooter?: No Stairs (FIM): 5 (met) # of Steps: 8 1 Step (curb) (QC): 6 4 Steps (QC): 5 12 Steps (QC): 88 Picking up an Object (QC): 4 PT Plan Treatment/Plan Treatment Plan: Continue Plan of Care (likely discharge on Wednesday) Treatment Plan: Bed Mobility, Education, Functional Activity Gwen, Functional Strength, Group Therapy, Gait, Safety, Therapeutic Exercise, Transfers Treatment Duration: November 24, 2017 Frequency: At least 5 of 7 days/Wk (IRF) Estimated Hrs Per Day: 1.5 hours per day Patient and/or Family Agrees t: Yes Safety Risks/Education Patient Education: Safety Issues Teaching Recipient: Patient Teaching Methods: Discussion Response to Teaching: Return Demonstration Time/GCodes Time In: 705 Time Out: 730 Total Billed Treatment Time: 25 Total Billed Treatment visit GT 25 CRISTHIAN VENTURA PT November 13, 2017 07:37
[2017-11-13] MEDS: DILTIAZEM 240 MG (CARDIZEM CD) CAP PO SCH (08:24)
[2017-11-13] MEDS: ASPIRIN E.C. 81 MG (ECOTRIN) TAB PO SCH (08:25)
[2017-11-13] MEDS: APIXABAN 5 MG (ELIQUIS) TABLET PO SCH ×2 (08:25→20:27)
[2017-11-13 08:39] VITALS: BP 127/63
[2017-11-13 18:14] VITALS: BP 138/83
[2017-11-13] MEDS: CALCIUM CARB + VIT D 600 MG (CALCARB + D) TAB PO SCH (20:27)
[2017-11-13] MEDS: ROSUVASTATIN 5 MG (CRESTOR) TABLET PO SCH (20:27)
[2017-11-13] MEDS: DILTIAZEM 120 MG (CARDIZEM CD) CAP PO SCH (20:28)
[2017-11-13] MEDS: meTOproloL SUCCINATE 50 MG (TOPROL XL) TAB PO SCH (20:28)
[2017-11-14 05:45] VITALS: BP 130/73
[2017-11-14] MEDS: LEVOTHYROXINE 125 MCG (LEVOTHROID) TABLET PO SCH (06:28)
[2017-11-14] MEDS: LACTOBACILLUS Acidoph/Bulgar (LACTINEX/FLORANEX) TAB PO SCH ×4 (06:28→20:14)
[2017-11-14] MEDS: ASPIRIN E.C. 81 MG (ECOTRIN) TAB PO SCH (08:34)
[2017-11-14] MEDS: DILTIAZEM 240 MG (CARDIZEM CD) CAP PO SCH (08:34)
[2017-11-14] MEDS: APIXABAN 5 MG (ELIQUIS) TABLET PO SCH ×2 (08:34→20:14)
[2017-11-14] MEDS: LOPERAMIDE 2 MG (IMODIUM) CAP PO PRN ×2 (14:12→20:14)
[2017-11-14 17:04] VITALS: BP 154/70
[2017-11-14] MEDS: DILTIAZEM 120 MG (CARDIZEM CD) CAP PO SCH (20:14)
[2017-11-14] MEDS: CALCIUM CARB + VIT D 600 MG (CALCARB + D) TAB PO SCH (20:14)
[2017-11-14] MEDS: ROSUVASTATIN 5 MG (CRESTOR) TABLET PO SCH (20:14)
[2017-11-14] MEDS: meTOproloL SUCCINATE 50 MG (TOPROL XL) TAB PO SCH (20:14)
[2017-11-15 05:10] VITALS: BP 137/72
[2017-11-15] MEDS: LEVOTHYROXINE 125 MCG (LEVOTHROID) TABLET PO SCH (06:35)
[2017-11-15] MEDS: LACTOBACILLUS Acidoph/Bulgar (LACTINEX/FLORANEX) TAB PO SCH ×2 (06:35→11:01)
[2017-11-15] MEDS: ASPIRIN E.C. 81 MG (ECOTRIN) TAB PO SCH (07:59)
[2017-11-15] MEDS: APIXABAN 5 MG (ELIQUIS) TABLET PO SCH (07:59)
[2017-11-15] MEDS: DILTIAZEM 240 MG (CARDIZEM CD) CAP PO SCH (07:59)
--- NOTE | 2017-11-15 08:54 | Occupational Ther Daily Note ---
OT Current Status-Daily Note Subjective Pt alert, sitting in recliner. Pt agrees to therapy. No c/o pain. Pt to discharge to home today. Mental Status/Objective Patient Orientation: Person, Place, Time, Situation Functional [place] Measure 0=Not Assessed/NA 4=Minimal Assistance 1=Total Assistance 5=Supervision or Setup 2=Maximal Assistance 6=Modified [place] 3=Moderate Assistance 7=Complete [place] ADL-Treatment Pt agrees to shower. Pt able to complete all areas using FWW by self. Pt verbalized items to retrieve and retrieved all articles except pants and transported to bathroom. Safety concerns due to forgetting steps of sequence. No LOB during treatment. After therapy, pt sitting in recliner with call light/ phone in reach. All needs met in room. Functional [place] Measure 0=Not Assessed/NA 4=Minimal Assistance 1=Total Assistance 5=Supervision or Setup 2=Maximal Assistance 6=Modified [place] 3=Moderate Assistance 7=Complete IndependenceIRFPAI Quality Coding Scale 6 Independent with activity with or without an assistive device 5 Patient requires set up or clean up by helper. Patient completes activity by themselves 4 Supervision or touching assist (CGA). [place] provide cues , steadying assist 3 The helper provides less than half the effort to complete the activity 2 The helper provides more than half the effort to complete the activity 1 Dependent. The helper does all the effort to complete an activity 7 Patient refused to complete or attempt activity 9 The patient did not perform the activity before the current illness or injury 88 Not attempted due to Medical conditions or safety concerns Eating (FIM): 7 (Pt able to set self up and use regular utensils to feed self.) Eating (QC): 6 Grooming (FIM): 7 (Using sink to steady self, pt is able to complete all grooming by self.) Oral Hygiene (QC): 6 Bathing (FIM): 6 (Using shower bench, grabbar and hand held shower pt is able to complete bathing by self.) Bathing Location: L Arm, R Arm, L Upper Leg, R Upper Leg, L Lower Leg ( including foot), R Lower Leg (including foot), Chest, Abdomen, Buttocks, Perineal Area Shower/Bathe Self (QC): 6 Upper Body (FIM): 6 (Using FWW to retrieve clothing, pt is able to complete donning/doffing clothing by self.) Upper Body Dressing (QC): 6 Lower Body Dressing (FIM): 6 (Using FWW to retrieve clothing, pt is able to complete donning/doffing clothing by self.) Lower Body Dressing (QC): 6 On/Off Footwear (QC): 6 Toileting (FIM): 6 (Using FWW, elevated toilet seat and grabbars pt is able to complete by self.) Toileting Hygiene (QC): 6 Toilet/Commode Transfer (FIM): 6 (Using FWW, elevated toilet seat and grabbars pt is able to complete by self.) Toilet Transfer (QC): 6 Shower Transfer(FIM): 6 (Using shower bench, grabbars and hand held shower pt is able to complete by self.) OT Short Term Goals Short Term Goals Transfers (B,C,W/C) (FIM): 5 (met) 1=Demonstrate adherence to instructed precautions during ADL tasks. 2=Patient will verbalize/demonstrate understanding of assistive devices/ modifications for ADL. 3=Patient will improve strength/tolerance for activity to enable patient to perform ADL's. OT Librarian Special Collections Goals Retirement Goals Time Frame: November 22, 2017 Eating (FIM): 6 (Met-11/15/2017) Eating (QC): 6 (Met-11/15/2017) Groomin (Met-11/15/2017) Oral Hygiene (QC): 6 (Met-11/15/2017) Bathing(FIM): 6 (Met-11/15/2017) Shower/Bathe Self (QC): 5 (Met-11/15/2017) Upper Body Dressing(FIM): 6 (Met-11/15/2017) Upper Body Dressing (QC): 6 (Met-11/15/2017) Lower Body Dressing(FIM): 6 (Met-11/15/2017) Lower Body Dressing (QC): 6 (Met-11/15/2017) On/Off Footwear (QC): 6 (Met-11/15/2017) Toileting(FIM): 6 (Met-11/15/2017) Toileting Hygiene (QC): 6 (Met-11/15/2017) Transfers (B,C,W/C) (FIM): 6 (Met-11/15/2017) Toilet/Commode Transfer(FIM): 6 (Met-11/15/2017) Toilet/Commode Transfer (QC): 6 (Met-11/15/2017) Shower Transfer(FIM): 5 (Met-11/15/2017) Additional Goals: 1-Demonstrate ADL Tasks, 2-Verbalize Understanding, 3- ImproveStrength/Gwen 1=Demonstrate adherence to instructed precautions during ADL tasks. 2=Patient will verbalize/demonstrate understanding of assistive devices/ modifications for ADL. 3=Patient will improve strength/tolerance for activity to enable patient to perform ADL's. OT Education/Plan Discharge Recommendations Plan/Recommendations: Continue POC Treatment Plan/Plan of Care Patient would benefit from OT for education, treatment and training to promote independence in ADL's, mobility, safety and/or upper extremity function for ADL' s. Plan of Care: ADL Retraining, Functional Mobility, Group Exercise/Act as Ind, UE Funct Exercise/Act Treatment Duration: November 22, 2017 Frequency: At least 5 of 7 days/Wk (IRF) Estimated Hrs Per Day: 1.5 hours per day Agreement: Yes Rehab Potential: Guarded Time/GCodes Start Time: 08:00 Stop Time: 09:00 Total Time Billed (hr/min): 60 Billed Treatment Time 1 visit-ADL 4 (60 min) CRISTHIAN STACK November 15, 2017 08:54
--- NOTE | 2017-11-15 09:29 | Physical Therapy Daily Note ---
PT Daily Note-Current Subjective Patient in recliner pre tx, agrees to PT, no complaints of pain. Appearance Patient in recliner post tx with nurse call, phone, tray, chair alarm on. Mental Status Patient Orientation: Person, Confused, Place Transfers Functional [place] Measure 0=Not Assessed/NA 4=Minimal Assistance 1=Total Assistance 5=Supervision or Setup 2=Maximal Assistance 6=Modified [place] 3=Moderate Assistance 7=Complete IndependenceIRFPAI Quality Coding Scale 6 Independent with activity with or without an assistive device 5 Patient requires set up or clean up by helper. Patient completes activity by themselves 4 Supervision or touching assist (CGA). [place] provide cues , steadying assist 3 The helper provides less than half the effort to complete the activity 2 The helper provides more than half the effort to complete the activity 1 Dependent. The helper does all the effort to complete an activity 7 Patient refused to complete or attempt activity 9 The patient did not perform the activity before the current illness or injury 88 Not attempted due to Medical conditions or safety concerns Transfers (B, C, W/C) (FIM): 6 Scootin Rollin Roll Left to Right (QC): 6 Supine to/from Sit: 6 Sit to/from Stand: 6 Sit to Lying (QC): 6 Sit to Stand (QC): 6 Chair/Pwp-of-Uzmsd Xfer(QC): 6 Bed to/from Chair: 6 Car Transfer (QC): 6 Patient has some difficulty getting her legs into and out of the car but is able to do it without assist or cues. Patient performs bed mobility, transfers , and car transfers with mod I. Weight Bearing Right Lower Extremity: Right Full Weight Bearing Left Lower Extremity: Left Full Weight Bearing Gait Training Gait (FIM): 6 Distance: 200'x2 Walk 10 feet (QC): 6 Walk 50 ft with 2 Turns(QC): 6 Walk 150 ft (QC): 6 Walking 10ft/uneven surface-QC: 6 Gait Level of Assist: 6 Gait Assistive Device: FWW Patient can ambulate 200' with a rolling walker with mod I, including 50' with at least 2 turns of 90 degrees and 10' over an uneven surface. Patient does get confused and loses track of where she is going. Wheelchair Training Does the Pt Use a Wheelchair?: No Stair Training Stair Training: Handrails/: 2 handrails Stairs (FIM): 5 #of Steps: 12 1 Step (curb) (QC): 4 4 Steps (QC): 4 12 Steps (QC): 4 Stairs: Pattern: Reciprocal Level of Assist: 5 Patient can go up and down 12 steps using 2 handrails with SBA. Balance Picking up an Object (QC): 4 Special Test Comments SBA. Treatments bed mobility and transfers, ambulation, stair training, car transfer Assessment Current Status: Fair Progress improving mobility, patient discharging from this facility today. PT Short Term Goals Short Term Goals Time Frame: November 15, 2017 Transfers (B,C,W/C) (FIM): 5 (met) Gait (FIM): 5 (met) Distance (FIM): 3=150 ft Gait Assistive Device: FWW PT Senior Living Goals Senior Living Goals PT Senior Living Goals Time Frame: November 24, 2017 Transfers (B,C,W/C) (FIM): 7 Sit to Lying (QC): 6 (met) Lying-Sitting on Side/Bed(QC): 6 (met) Sit to Stand (QC): 6 (met) Rollin (met) Roll Left to Right (QC): 6 (met) Chair/Dbj-qh-Gfhfg Xfer(QC): 6 (met) Car Transfer (QC): 6 (met) Does the Patient Walk: Yes Gait (FIM): 6 (met) Gait distance (FIM): 3=150 ft Walk 10 feet (QC): 6 (met) Walk 10ft-Uneven Surface(QC): 6 (met) Walk 50ft with 2 Turns (QC): 6 (met) Walk 150 ft (QC): 6 (met) Gait Level of Assist: 6 (met) Gait Assistive Device: FWW Does the Pt use WC or Scooter?: No Stairs (FIM): 5 (met) # of Steps: 8 (met) 1 Step (curb) (QC): 6 4 Steps (QC): 5 12 Steps (QC): 88 Picking up an Object (QC): 4 (met) PT Plan Problem List Problem List: Activity Tolerance, Functional Strength, Safety, Balance, Gait, Transfer, Bed Mobility Treatment/Plan Treatment Plan: Discontinue PT Treatment Plan: Bed Mobility, Education, Functional Activity Gwen, Functional Strength, Group Therapy, Gait, Safety, Therapeutic Exercise, Transfers Treatment Duration: November 24, 2017 Frequency: At least 5 of 7 days/Wk (IRF) Estimated Hrs Per Day: 1.5 hours per day Patient and/or Family Agrees t: Yes Safety Risks/Education Patient Education: Gait Training, Transfer Techniques, Steps, Correct Positioning, Safety Issues Teaching Recipient: Patient Teaching Methods: Demonstration, Discussion Response to Teaching: Reinforcement Needed Time/GCodes Time In: 0900 Time Out: 924 Total Billed Treatment Time: 25 Total Billed Treatment 1 visit GT 15' FA 10' NATTY ROJAS PT November 15, 2017 09:29
--- NOTE | 2017-11-15 09:40 | Therapy Team Discharge Summary ---
Therapy Discharge Summary Discharge Recommendations Date of Discharge Therapy D/C Recommendations: Home w/ Family Support, Occupational Therapy Home Care Physical Therapy Patient came to rehab with debility. Upon evaluation patient performed bed mobility and transfers with CGA/SBA, ambulated 150' with a rolling walker with CGA (including 50' with at least 2 turns of 90 degrees and 10' over an uneven surface), and could go up and down 1 step using a rolling walker with CGA. Patient has been performing bed mobility and transfer training, balance and endurance training, functional strengthening, stair training, gait training, and education. Patient has made good progress and has met all of her correction goals. Now, patient performs bed mobility and transfers with mod I, car transfer mod I, ambulates 200' with a rolling walker with mod I (including 50' with at least 2 turns of 90 degrees and 10' over an uneven surface), can pick and shovel man an object from the floor with SBA, and can go up and down 12 steps using 2 handrails with SBA. Patient is discharging from this facility today and will be discharged from PT at this time. Occupational Therapy Decreased Activ Tolerance, Decreased UE Strength, Dependent Transfers, Impaired I ADL's, Impaired Self-Care Skills, Restricted Funct UE ROM PT Cokeman Goals Jail Goals PT Cokeman Goals Time Frame: November 24, 2017 Transfers (B,C,W/C) (FIM): 7 Roll Left to Right (QC): 6 Sit to Lying (QC): 6 Lying-Sitting on Side/Bed(QC): 6 Sit to Stand (QC): 6 Chair/Zoa-rb-Recuh Xfer(QC): 6 Car Transfer (QC): 6 Does the Patient Walk: Yes Gait (FIM): 6 Gait distance (FIM): 3=150 ft Walk 10 feet (QC): 6 Walk 10ft-Uneven Surface(QC): 6 Walk 50ft with 2 Turns (QC): 6 Walk 150 ft (QC): 6 Gait Level of Assist: 6 Gait Assistive Device: FWW Does the Pt use WC or Scooter?: No Stairs (FIM): 5 (met) # of Steps: 8 1 Step (curb) (QC): 6 4 Steps (QC): 5 12 Steps (QC): 88 Picking up an Object (QC): 4 OT Jail Goals Cokeman Goals Time Frame: November 22, 2017 Eating (FIM): 6 Eating (QC): 6 Oral Hygiene (QC): 6 Grooming(FIM): 6 Bathing(FIM): 6 Shower/Bathe Self (QC): 5 Upper Body Dressing(FIM): 6 Upper Body Dressing (QC): 6 Lower Body Dressing(FIM): 6 Lower Body Dressing (QC): 6 On/Off Footwear (QC): 6 Toileting(FIM): 6 Toileting Hygiene (QC): 6 Transfers (B,C,W/C) (FIM): 6 Toilet/Commode Transfer(FIM): 6 Toilet/Commode Transfer (QC): 6 Shower Transfer(FIM): 5 Additional Goals: 1-Demonstrate ADL Tasks, 2-Verbalize Understanding, 3- ImproveStrength/Gwen 1=Demonstrate adherence to instructed precautions during ADL tasks. 2=Patient will verbalize/demonstrate understanding of assistive devices/ modifications for ADL. 3=Patient will improve strength/tolerance for activity to enable patient to perform ADL's. NATTY ROJAS PT November 15, 2017 09:40
[2017-11-15 11:20] VITALS: BP 137/72
--- NOTE | 2017-12-01 03:23 | DISCHARGE SUMMARY ---
DATE OF SERVICE: 11/15/2017 HISTORY OF PRESENT ILLNESS: The patient is an 87-year-old female who lives alone in [place], [place], but has family checking in on her daily and doing her meds who had a general decline in function since being released from this hospital following treatment for UTI. She was reported to have been modified independent with a front wheel walker or cane prior to this, but has some memory loss, which has impacted upon her function as well. Currently, she is on antibiotic for UTI. PAST MEDICAL HISTORY: UTI, dehydration, altered mental status, atrial fibrillation, coronary artery disease, mild dementia. She has had prior spinal surgery and a knee replacement. PRIMARY CARE PHYSICIAN: Dr. Burkett. Hospitalist service is following the patient at this time. MEDICAL COURSE: The patient was afebrile during her stay. Her pulse was 73, respirations 20, blood pressure 137/72 on 11/15/2017; O2 sat 95% on room air. H and H on 11/03/2017 was 8.7/25. Chemistry on 11/03/2017 showed CO2 low at 20, BUN elevated at 28. Blood glucose 176, calcium 7.4, magnesium level 1.6, total bilirubin elevated at 2.9, AST elevated at 48. C-reactive protein elevated at 26.71. These labs were done on acute floor. She continued on her Synthroid, diltiazem, ASA, Eliquis, Topral XL, Crestor, Lactinex, Pepcid, ibuprofen. She completed a course of Cipro for UTI. REHABILITATION COURSE: She was assessed by speech therapy upon admission to rehab unit and significant memory loss was noted. The patient declined any therapy for this or compensatory techniques and speech therapy signed off. Physical therapy notes upon admission, the patient was contact guard to standby assist for bed mobility and transfers, could ambulate 150 feet with a wheeled walker with contact guard. The patient made good progress and upon discharge was modified independent with bed mobility and transfers and car transfers, can ambulate 200 feet with a wheeled walker with modified independence. OT notes upon admission that the patient was min assist for lower body dressing, toileting hygiene and toilet transfers. Upon discharge, the patient independent with eating, grooming, bathing, dressing and toilet transfers. DISCHARGE INSTRUCTIONS: The patient is discharged to home with family and home health care. The patient will have a followup with Dr. Burkett, PCP. DISCHARGE MEDICATIONS: Eliquis 5 mg p.o. b.i.d., ASA 81 mg p.o. daily, calcium carbonate with vitamin D3 one tablet p.o. each day at bedtime, diltiazem 240 mg p.o. daily and 120 mg p.o. each day at bedtime, ibuprofen 240 mg p.o. t.i.d. p.r.n. mild pain. Probiotic 1 capsule p.o. at noon, levothyroxine 120 mcg p.o. daily, Imodium 2 mg p.o. daily p.r.n. diarrhea, loratadine 10 mg p.o. each day at bedtime p.r.n. allergies, metoprolol 50 mg p.o. each day at bedtime, fish oil 1400 mg p.o. at noon, Zantac 150 mg p.o. b.i.d. p.r.n. heartburn. Crestor 5 mg p.o. each day at bedtime. DISCHARGE DIAGNOSES: 1. Rehabilitation, general debilitation secondary to urinary tract infection. 2. Atrial fibrillation, controlled with medication. 3. Coronary artery disease, stable. 4. Mild dementia, declines compensatory therapy techniques. 5. Hypothyroidism, on replacement. 6. Chronic obstructive pulmonary disease, stable. 7. Hypercholesterolemia, on statin. 8. Hypertension, controlled with medication. 9. Neuropathy. 10. Gastroesophageal reflux disease, on meds. 11. Anxiety, on meds. 12. Depression, on meds. 13. Loose stools, improved. 14. History of smoking. CONDITION AT DISCHARGE: Improved and stable. PROGNOSIS: Rehab prognosis appears good for some continued improvement; however, due to her age and multiple comorbidities and mild dementia, she will continue to require some supervision of family members at home and may eventually benefit from more formal assisted living setting. Job ID: [id number] DocumentID: [id number] Dictated Date: 11/30/2017 15:58:41 Icu Manager Date: 12/01/2017 03:22:41 Dictated By: KYLIE REYES MD [facility]
== END 2017-11-15 11:15 | disposition home health service (06) | DRG 690 ==
PROVIDERS: ADMIT Physical Medicine & Rehabilitation; ATTEND Physical Medicine & Rehabilitation
DX: N39.0 Urinary tract infection, site not specified (principal); I48.91 Unspecified atrial fibrillation; I25.10 Atherosclerotic heart disease of native coronary artery without angina pectoris; F03.90 Unspecified dementia, unspecified severity, without behavioral disturbance, psychotic disturbance, mood disturbance, and anxiety; E03.9 Hypothyroidism, unspecified; J44.9 Chronic obstructive pulmonary disease, unspecified; E78.00 Pure hypercholesterolemia, unspecified; I10 Essential (primary) hypertension; G62.9 Polyneuropathy, unspecified; K21.9 Gastro-esophageal reflux disease without esophagitis; F41.9 Anxiety disorder, unspecified; F32.9 Major depressive disorder, single episode, unspecified; R19.7 Diarrhea, unspecified; Z87.891 Personal history of nicotine dependence

== ENCOUNTER 2018-03-25 15:03 | Inpatient (IN) | payer MEDICARE, OTHER ==
[2018-03-25] VITALS (11 sets, daily range): BP systolic 104–145; BP diastolic 46–89
[~2018-03-25] VITALS: Ht 165.1 cm; Wt 80.3 kg
[~2018-03-25 15:03] MED LIST changes: -AMLO5TAB2 PO; +AMLO5TAB7 PO; -ROSU5TAB11 PO; +ROSU5TAB12 PO
[2018-03-25] MEDS ORDERED: DILTIAZEM 25 MG/5 ML INJ (CARDIZEM) VIAL ONE (15:05)
--- NOTE | 2018-03-25 15:13 | ED Cardiac General ---
History of Present Illness General Stated Complaint: A-FIB Source: patient, EMS Exam Limitations: no limitations History of Present Illness Date Seen by Provider: Mar 25, 2018 Time Seen by Provider: 15:11 Initial Comments To ER per EMS from home with reports of dizziness. She initially had a bit of shortness of breath with exertion and chest pain. The chest pain lasted only a few minutes before resolving spontaneously. She is symptom-free at this time except for the persistent dizziness. EMS arrived and noted her to be in atrial fibrillation with a rapid ventricular response rate of about 140. Blood pressure is fine at 114/48 and she is mentating normally. She has a known history of atrial fibrillation, takes liquids, just saw Dr. Garcia yesterday. Timing/Duration: 4-6 hours Severity: mild Location: other Activities at Onset: none Prior CP/Workup: cardiac cath NTG SL PARK ATTENDANT: No ASA po PARK ATTENDANT: No Associated Systoms: Chest Pain, Shortness of Air Allergies and Home Medications Allergies Coded Allergies: Fish Containing Products (Verified Allergy, Unknown, 06/02/16) Home Medications Apixaban 5 Mg Tablet, 5 MG PO BID, (Reported) Aspirin 81 Mg Tablet.dr, 81 MG PO DAILY, (Reported) Calcium Carbonate/Vitamin D3 1 Each Tablet, 1 TAB PO HS, (Reported) Diltiazem HCl 240 Mg Cap.er.24h, 240 MG PO DAILY, (Reported) Diltiazem HCl 120 Mg Cap.er.24h, 120 MG PO HS, (Reported) Ibuprofen 200 Mg Tablet, 200-400 MG PO TID PRN for PAIN-MILD, (Reported) L.acidoph & Paracasei,B.lactis 1 Each Capsule, 1 CAP PO 1200, (Reported) Levothyroxine Sodium 125 Mcg Tablet, 125 MCG PO DAILY, (Reported) Loperamide HCl 2 Mg Tablet, 2 MG PO UD PRN for DIARRHEA, (Reported) Loratadine 10 Mg Tablet, 10 MG PO HS PRN for ALLERGIES, (Reported) Metoprolol Succinate 50 Mg Tab.er.24h, 50 MG PO HS, (Reported) Blain-3/Dha/Epa/Fish Oil 1 Each Capsule.dr, 1,400 MG PO 1200, (Reported) Ranitidine HCl 150 Mg Tablet, 150 MG PO BID PRN for HEARTBURN, (Reported) Rosuvastatin Calcium 5 Mg Tablet, 5 MG PO HS, (Reported) Patient Home Medication List Home Medication List Reviewed: Yes Review of Systems Review of Systems Constitutional: see HPI EENTM: No Symptoms Reported Respiratory: See HPI, SOA With Exertion Cardiovascular: See HPI, Chest Pain (resolved), Irregular Heart Rate, Lightheadedness Gastrointestinal: See HPI Musculoskeletal: no symptoms reported Skin: no symptoms reported Psychiatric/Neurological: No Symptoms Reported Endocrine: No Symptoms Reported Past Zwzxhta-Izcbgx-Buudfg Hx Patient Social History Type Used: Cigarettes Former Smoker, Quit: May 24, 1966 2nd Hand Smoke Exposure: No Recent Hopitalizations: No Immunizations Up To Date PED Vaccines UTD: No Date of Pneumonia Vaccine: October 28, 2015 Seasonal Allergies Seasonal Allergies: No Past Medical History Surgeries: Yes (implanted loop recorder) Hysterectomy, Joint Replacement Respiratory: Yes Pneumonia, COPD Currently Using CPAP: No Currently Using BIPAP: No Cardiac: No High Cholesterol, Hypertension Neurological: Yes Dementia, Neuropathy Reproductive Disorders: Yes KENNEL AIDE History: Hysterectomy Genitourinary: Yes Renal Failure, UTI-Chronic Gastrointestinal: Yes Gastroesophageal Reflux, Gall Bladder Disease Musculoskeletal: Yes Chronic Back Pain Endocrine: Yes Hypothyroidsim HEENT: No Cancer: No Psychosocial: Yes Anxiety, Depression Integumentary: No Blood Disorders: No Adverse Reaction/Blood Tranf: No Family Medical History Patient reports no known family medical history. No Pertinent Family Hx, Hypertension Physical Exam Vital Signs Vital Signs - First Documented 03/25/18 15:05 Temp 97.4 Pulse 135 Resp 20 B/P (MAP) 114/48 (70) Pulse Ox 97 Capillary Refill : Height, Weight, BMI Height: 5'5.00" Weight: 189lbs. 0.0oz. 85.110626jt; 31.3 BMI Method:Stated General Appearance: No Apparent Distress, WD/WN, Other (alert very pleasant no distress) HEENT: PERRL/EOMI, TMs Normal Neck: Full Range of Motion, Normal Inspection Respiratory: Normal Breath Sounds, No Accessory Muscle Use, No Respiratory Distress Cardiovascular: Irregularly Irregular, Tachycardia (rate of 105-140) Gastrointestinal: Non Tender, Soft Rectal: Other (attempted to collect a stool sample via digital rectal exam to test for occult blood. This was done with Yumiko Vaca at the bedside. There is no stool palpable in the rectal vault to sample.) Extremity: Normal Capillary Refill, Pedal Edema (1+ bilateral lower cavities) Neurologic/Psychiatric: Alert, Oriented x3 Skin: Normal Color, Warm/Dry Progress/Results/Core Measures Results/Orders Lab Results Laboratory Tests Test 03/25/18 15:05 Range/Units White Blood Count 5.3 4.3-11.0 10^3/uL Red Blood Count 1.64 L 4.35-5.85 10^6/uL Hemoglobin 7.1 L 11.5-16.0 G/DL Hematocrit 19 *L 35-52 % Mean Corpuscular Volume 118 H 80-99 FL Mean Corpuscular Hemoglobin 43 H 25-34 PG Mean Corpuscular Hemoglobin Concent 37 H 32-36 G/DL Red Cell Distribution Width 18.1 H 10.0-14.5 % Platelet Count 184 130-400 10^3/uL Mean Platelet Volume 9.7 7.4-10.4 FL Neutrophils (%) (Auto) 83 H 42-75 % Lymphocytes (%) (Auto) 12 12-44 % Monocytes (%) (Auto) 4 0-12 % Eosinophils (%) (Auto) 1 0-10 % Basophils (%) (Auto) 0 0-10 % Neutrophils # (Auto) 4.4 1.8-7.8 X 10^3 Lymphocytes # (Auto) 0.6 L 1.0-4.0 X 10^3 Monocytes # (Auto) 0.2 0.0-1.0 X 10^3 Eosinophils # (Auto) 0.1 0.0-0.3 10^3/uL Basophils # (Auto) 0.0 0.0-0.1 10^3/uL Prothrombin Time 15.5 H 12.2-14.7 SEC INR Comment 1.2 0.8-1.4 Activated Partial Thromboplast Time 36 H 24-35 SEC Sodium Level 136 135-145 MMOL/L Potassium Level 4.1 3.6-5.0 MMOL/L Chloride Level 104 98-107 MMOL/L Carbon Dioxide Level 23 21-32 MMOL/L Anion Gap 9 5-14 MMOL/L Blood Urea Nitrogen 29 H 7-18 MG/DL Creatinine 1.34 H 0.60-1.30 MG/DL Estimat Glomerular Filtration Rate 38 BUN/Creatinine Ratio 22 Glucose Level 178 H 70-105 MG/DL Calcium Level 8.8 8.5-10.1 MG/DL Corrected Calcium 8.7 8.5-10.1 MG/DL Magnesium Level 2.0 1.8-2.4 MG/DL Total Bilirubin 3.1 H 0.1-1.0 MG/DL Aspartate Amino Transf (AST/SGOT) 22 5-34 U/L Alanine Aminotransferase (ALT/SGPT) 14 0-55 U/L Alkaline Phosphatase 75 40-136 U/L Myoglobin 43.7 10.0-92.0 NG/ML Troponin I < 0.30 <0.30 NG/ML B-Type Natriuretic Peptide 345.2 H <100.0 PG/ML Total Protein 6.7 6.4-8.2 GM/DL Albumin 4.1 3.2-4.5 GM/DL My Orders Orders - DOLORES BURGESS APRN Diltiazem Injection (Cardizem Injection) (03/25/18 15:15) Cbc With Automated Diff (03/25/18 15:10) Magnesium (03/25/18 15:10) Chest 1 View, Ap/Pa Only (03/25/18 15:10) Ekg Tracing (03/25/18 15:10) Cardiac Profile 1 (03/25/18 15:10) Comprehensive Metabolic Panel (03/25/18 15:10) Myoglobin Serum (03/25/18 15:10) Protime With Inr (03/25/18 15:10) Partial Thromboplastin Time (03/25/18 15:10) O2 (03/25/18 15:10) Monitor-Rhythm Ecg Trace Only (03/25/18 15:10) Lipid Panel (03/26/18 06:00) Aspirin Chewable Tablet (Baby Aspirin Ch (03/25/18 15:15) Saline Lock/Iv-Start (03/25/18 15:10) BNP (03/25/18 15:10) Ns Iv 500 Ml (Sodium Chloride 0.9%) (03/25/18 15:15) Red Cells Leukocytes Reduced (03/25/18 15:24) Type And Screen (03/25/18 15:24) Medications Given in ED Current Medications Medications Dose Ordered Sig/Susanne Route Start Time Stop Time Status Last Admin Dose Admin Diltiazem HCl 10 mg ONCE ONCE IVP 03/25/18 15:15 03/25/18 15:16 DC 03/25/18 15:09 10 MG Vital Signs/I&O 03/25/18 03/25/18 15:05 15:28 Temp 97.4 Pulse 135 135 Resp 20 B/P (MAP) 114/48 (70) 123/66 Pulse Ox 97 98 Departure Communication (Admissions) Time/Spoke to Admitting Phy: 16:[address] Garcia. We will continue the eliquis, transfuse 1 unit of packed red cells today, admit to hospitalist and continue Cardizem. I notified Dr. Briceno. He is agreeable to this. Impression Primary Impression: Atrial fibrillation with rapid ventricular response Disposition: ADMITTED INPATIENT Condition: Improved Admissions Decision to Admit Reason: Admit from ER (General) Decision to Admit/Date: Mar 25, 2018 Time/Decision to Admit Time: 16:34 Departure-Patient Inst. Referrals: VIVI OATES MD (PCP/Family) Primary Care Physician DOLORES BURGESS APRN Mar 25, 2018 15:13
[2018-03-25] MEDS ORDERED: DILTIAZEM 25 MG/5 ML INJ (CARDIZEM) VIAL IVP ONE (15:15)
[2018-03-25] MEDS ORDERED: ASPIRIN 81 MG CHEW (CHILDREN'S ASA) PO ONE (15:15)
[2018-03-25] MEDS ORDERED: DILTIAZEM IV FOR DRIP 125 MG in NS (IVPB) 100 ML IV SCH (15:15)
[2018-03-25] MEDS ORDERED: NS IV 500 ML 500 ML IV SCH ×2 (15:15→17:30)
[2018-03-25 15:18] LABS: BASOPHILS % (AUTO) 0 % (0-10); EOSINOPHILS # (AUTO) 0.1 10^3/uL (0.0-0.3); EOSINOPHILS % (AUTO) 1 % (0-10); HEMOGLOBIN 7.1 G/DL (11.5-16.0); LYMPHOCYTES # (AUTO) 0.6 X 10^3 (1.0-4.0); LYMPHOCYTES % (AUTO) 12 % (12-44); MEAN CORPUSCULAR HEMOGLOBIN 43 PG (25-34); MEAN CORPUSCULAR HGB CONC 37 G/DL (32-36); MEAN CORPUSCULAR VOLUME 118 FL (80-99); MEAN PLATELET VOLUME 9.7 FL (7.4-10.4); MONOCYTES # (AUTO) 0.2 X 10^3 (0.0-1.0); MONOCYTES % (AUTO) 4 % (0-12); NEUTROPHILS # (AUTO) 4.4 X 10^3 (1.8-7.8); NEUTROPHILS % (AUTO) 83 % (42-75); PLATELET COUNT 184 10^3/uL (130-400); RED BLOOD COUNT 1.64 10^6/uL (4.35-5.85); RED CELL DISTRIBUTION WIDTH 18.1 % (10.0-14.5); WHITE BLOOD COUNT 5.3 10^3/uL (4.3-11.0)
[2018-03-25 15:22] LABS: HEMATOCRIT 19 % (35-52)
[2018-03-25 15:29] LABS: INR 1.2 (0.8-1.4); PROTHROMBIN TIME PATIENT 15.5 SEC (12.2-14.7)
[2018-03-25 15:38] LABS: ALANINE AMINOTRANSFERASE 14 U/L (0-55); ALBUMIN 4.1 GM/DL (3.2-4.5); ALKALINE PHOSPHATASE 75 U/L (40-136); BILIRUBIN,TOTAL 3.1 MG/DL (0.1-1.0); BUN/CREATININE RATIO 22; CALCIUM 8.8 MG/DL (8.5-10.1); CARBON DIOXIDE 23 MMOL/L (21-32); CHLORIDE 104 MMOL/L (98-107); CREATININE SERUM 1.34 MG/DL (0.60-1.30); GFR ESTIMATED 38; GLUCOSE 178 MG/DL (70-105); POTASSIUM 4.1 MMOL/L (3.6-5.0); SODIUM 136 MMOL/L (135-145); TOTAL PROTEIN 6.7 GM/DL (6.4-8.2)
[2018-03-25 15:45] LABS: MYOGLOBIN SERUM 43.7 NG/ML (10.0-92.0)
--- NOTE | 2018-03-25 15:51 | Diagnostic Imaging Report ---
INDICATION: Hypertension and dizziness. EXAMINATION: Portable chest at 3:41 p.m. FINDINGS: Heart size and pulmonary vascularity are normal. Lungs are clear. There are no effusions or pneumothoraces. IMPRESSION: Negative chest. Dictated by: Dictated on workstation # [id number]
[2018-03-25] MEDS ORDERED: CATHETER FLUSH 10 ML SYR IV PRN (17:30)
[2018-03-25] MEDS: DILTIAZEM IV FOR DRIP 125 MG in NS (IVPB) 100 ML IV SCH (17:33)
[2018-03-25] MEDS ORDERED: FLU QUADRIvalent (5+ YOA) 2018-2019 (AFLURIA) 0.5 ML IM ONE (17:45)
[2018-03-25] MEDS: PANTOPRAZOLE 40 MG (PROTONIX) VIAL IV SCH (18:28)
[2018-03-25] MEDS: NS IV 1000 ML 1,000 ML IV SCH (18:28)
[2018-03-26] VITALS (20 sets, daily range): BP systolic 106–186; BP diastolic 50–76
[2018-03-26 03:11] LABS: BASOPHILS % (AUTO) 0 % (0-10); EOSINOPHILS # (AUTO) 0.1 10^3/uL (0.0-0.3); EOSINOPHILS % (AUTO) 3 % (0-10); HEMOGLOBIN 7.3 G/DL (11.5-16.0); LYMPHOCYTES # (AUTO) 0.6 X 10^3 (1.0-4.0); LYMPHOCYTES % (AUTO) 14 % (12-44); MEAN CORPUSCULAR HEMOGLOBIN 39 PG (25-34); MEAN CORPUSCULAR HGB CONC 36 G/DL (32-36); MEAN CORPUSCULAR VOLUME 108 FL (80-99); MEAN PLATELET VOLUME 8.8 FL (7.4-10.4); MONOCYTES # (AUTO) 0.2 X 10^3 (0.0-1.0); MONOCYTES % (AUTO) 5 % (0-12); NEUTROPHILS # (AUTO) 3.3 X 10^3 (1.8-7.8); NEUTROPHILS % (AUTO) 78 % (42-75); PLATELET COUNT 153 10^3/uL (130-400); RED BLOOD COUNT 1.87 10^6/uL (4.35-5.85); WHITE BLOOD COUNT 4.3 10^3/uL (4.3-11.0)
[2018-03-26 03:14] LABS: HEMATOCRIT 20 % (35-52)
[2018-03-26 03:35] LABS: ALBUMIN 3.5 GM/DL (3.2-4.5); BILIRUBIN,TOTAL 2.9 MG/DL (0.1-1.0); CALCIUM 8.5 MG/DL (8.5-10.1); CREATININE SERUM 1.07 MG/DL (0.60-1.30); POTASSIUM 3.9 MMOL/L (3.6-5.0); TOTAL PROTEIN 5.6 GM/DL (6.4-8.2)
[2018-03-26 03:45] LABS: CHOLESTEROL 95 MG/DL (< 200); HDL CHOLESTEROL 33 MG/DL (40-60); TRIGLYCERIDES 114 MG/DL (<150); VLDL CHOLESTEROL 23 MG/DL (5-40)
[2018-03-26] MEDS: PANTOPRAZOLE 40 MG (PROTONIX) VIAL IV SCH (08:00)
--- NOTE | 2018-03-26 10:00 | Consultation-Cardiology ---
HPI-Cardiology Cardiology Consultation Date of Consultation 03/26/18 Date of Admission Time Seen by Provider: 09:55 Indication: Chest pain, atrial fibrillation HPI Mrs. Morse is an 87 years old lady with history of paroxysmal atrial flutter ablation, hypertension hyperlipidemia. Was in her usual state of health until yesterday when she started having tightness in her chest, felt dizzy and lightheaded. Came into the emergency room by the time she arrived to the emergency room her chest pain was better. She was still feeling lightheaded and dizzy. She was noted to be in atrial fibrillation with rapid ventricular response in addition to severe anemia. She was started on Cardizem drip, overnight she converted to sinus rhythm, she received 2 units of packed RBCs, still anemic. Currently she is feeling better. She denied any active chest pain. No palpitation, no syncope or near syncopal episodes. No claudications. Home Medications & Allergies Allergies: Coded Allergies: Fish Containing Products (Verified Allergy, Unknown, 06/02/16) Home Medication List Reviewed: Yes TCO-Kpmwgh-Aqlxvn Hx Patient Social History Alcohol Use: Denies Use Recreational Drug Use: No Smoking Status: Former Smoker Type Used: Cigarettes 2nd Hand Smoke Exposure: No Recent Foreign Travel: No Recent Infectious Disease Expo: No Recent Hopitalizations: No Physical Abuse Screen: No Sexual Abuse: No Immunizations Up To Date Tetanus Booster (TDap): Unknown Date of Pneumonia Vaccine: October 28, 2015 Past Medical History Past medical history as described below Family Medical History Significant Family History: No Pertinent Family Hx, Hypertension Family Medical Hx Noncontributory to her current condition Family History: Patient reports no known family medical history. Review of Systems Constitutional: see HPI, dizziness, malaise, weakness EENTM: see HPI, no symptoms reported Respiratory: see HPI; No cough; dyspnea on exertion; No hemoptysis, No orthopnea, No phlegm, No short of breath, No stridor, No wheezing, No other Cardiovascular: see HPI, chest pain; No edema, No Hx of Intervention, No palpitations, No syncope, No vascular heart diseas, No other Gastrointestinal: no symptoms reported, see HPI Genitourinary: no symptoms reported, see HPI Musculoskeletal: no symptoms reported, see HPI Skin: no symptoms reported, see HPI Psychiatric/Neurological: No Symptoms Reported, See HPI Reviewed Test Results Reviewed Test Results Lab Laboratory Tests Test 03/25/18 15:05 03/25/18 17:24 03/26/18 03:03 Range/Units White Blood Count 5.3 4.3 4.3-11.0 10^3/uL Red Blood Count 1.64 L 1.87 L 4.35-5.85 10^6/uL Hemoglobin 7.1 L 7.3 L 11.5-16.0 G/DL Hematocrit 19 *L 20 *L 35-52 % Mean Corpuscular Volume 118 H 108 H 80-99 FL Mean Corpuscular Hemoglobin 43 H 39 H 25-34 PG Mean Corpuscular Hemoglobin Concent 37 H 36 32-36 G/DL Red Cell Distribution Width 18.1 H 24.0 H 10.0-14.5 % Platelet Count 184 153 130-400 10^3/uL Mean Platelet Volume 9.7 8.8 7.4-10.4 FL Neutrophils (%) (Auto) 83 H 78 H 42-75 % Lymphocytes (%) (Auto) 12 14 12-44 % Monocytes (%) (Auto) 4 5 0-12 % Eosinophils (%) (Auto) 1 3 0-10 % Basophils (%) (Auto) 0 0 0-10 % Neutrophils # (Auto) 4.4 3.3 1.8-7.8 X 10^3 Lymphocytes # (Auto) 0.6 L 0.6 L 1.0-4.0 X 10^3 Monocytes # (Auto) 0.2 0.2 0.0-1.0 X 10^3 Eosinophils # (Auto) 0.1 0.1 0.0-0.3 10^3/uL Basophils # (Auto) 0.0 0.0 0.0-0.1 10^3/uL Prothrombin Time 15.5 H 12.2-14.7 SEC INR Comment 1.2 0.8-1.4 Activated Partial Thromboplast Time 36 H 24-35 SEC Sodium Level 136 139 135-145 MMOL/L Potassium Level 4.1 3.9 3.6-5.0 MMOL/L Chloride Level 104 109 H 98-107 MMOL/L Carbon Dioxide Level 23 20 L 21-32 MMOL/L Anion Gap 9 10 5-14 MMOL/L Blood Urea Nitrogen 29 H 27 H 7-18 MG/DL Creatinine 1.34 H 1.07 0.60-1.30 MG/DL Estimat Glomerular Filtration Rate 38 49 BUN/Creatinine Ratio 22 25 Glucose Level 178 H 115 H 70-105 MG/DL Calcium Level 8.8 8.5 8.5-10.1 MG/DL Corrected Calcium 8.7 8.9 8.5-10.1 MG/DL Magnesium Level 2.0 1.8-2.4 MG/DL Total Bilirubin 3.1 H 2.9 H 0.1-1.0 MG/DL Aspartate Amino Transf (AST/SGOT) 22 18 5-34 U/L Alanine Aminotransferase (ALT/SGPT) 14 13 0-55 U/L Alkaline Phosphatase 75 62 40-136 U/L Myoglobin 43.7 10.0-92.0 NG/ML Troponin I < 0.30 < 0.30 <0.30 NG/ML B-Type Natriuretic Peptide 345.2 H <100.0 PG/ML Total Protein 6.7 5.6 L 6.4-8.2 GM/DL Albumin 4.1 3.5 3.2-4.5 GM/DL Triglycerides Level 114 <150 MG/DL Cholesterol Level 95 < 200 MG/DL LDL Cholesterol Direct 48 1-129 MG/DL VLDL Cholesterol 23 5-40 MG/DL HDL Cholesterol 33 L 40-60 MG/DL Physical Exam Vital Signs Vital Signs - First Documented 03/25/18 03/25/18 15:05 16:45 Temp 97.4 Pulse 135 Resp 20 B/P (MAP) 114/48 (70) Pulse Ox 97 O2 Delivery Room Air Capillary Refill : Less Than 3 Seconds Height, Weight, BMI Height: 5'5.00" Weight: 177lbs. 0.0oz. 80.392863bn; 29.5 BMI Method:Stated General Appearance: No Apparent Distress, WD/WN Eyes: Bilateral Eye Normal Inspection, Bilateral Eye PERRL, Bilateral Eye EOMI HEENT: PERRL/EOMI, TMs Normal, Normal ENT Inspection, Pharynx Normal Neck: Full Range of Motion, Normal Inspection, Non Tender, Supple, Carotid Bruit Respiratory: Chest Non Tender, Lungs Clear, Normal Breath Sounds, No Accessory Muscle Use, No Respiratory Distress Cardiovascular: Regular Rate, Rhythm, No Edema, No Gallop, No JVD, No Murmur, Normal Peripheral Pulses, Systolic Murmur, Irregularly Irregular Gastrointestinal: Normal Bowel Sounds, No Organomegaly, No Pulsatile Mass, Non Tender, Soft Back: Normal Inspection, No CVA Tenderness, No Vertebral Tenderness Extremity: Normal Capillary Refill, Normal Inspection, Normal Range of Motion, Non Tender, No Calf Tenderness, No Pedal Edema Neurologic/Psychiatric: Alert, Oriented x3, No Motor/Sensory Deficits, Normal Mood/Affect Skin: Normal Color, Warm/Dry Lymphatic: No Adenopathy A/P-Cardiology Admission Diagnosis Chest pain nonspecific etiology Chronic atrial fibrillation Anemia Hypertension Assessment/Plan Chest pain nonspecific etiology, probably due to combination of anemia and tachycardia in addition to coronary artery disease. Her last stress test was done in 2010, currently she is chest pain-free. We'll continue monitoring and considering stress test as an outpatient. Anemia, severe, she has history of chronic anemia, she is maintained on oral anticoagulation, transfused, continue to monitor H&H. Dizziness and lightheadedness, probably due to combination of anemia and tachycardia, feeling better at this time. Continue to monitor Paroxysmal atrial fibrillation, multiple episodes of atrial fibrillation, converted to sinus rhythm at this time. Maintained on oral anticoagulation. Continue to monitor [id number] score of 4, yearly risk of stroke without oral anticoagulation is 4 percent maintained on Eliquis. History of chronic compensated left ventricular diastolic dysfunction. Most recent 2-D echocardiogram none April 2016 revealed normal left ventricular size, EF 60 percent. Mild mitral and tricuspid regurgitation. PA pressure 45 mmHg. Continue to monitor. Hypertension, controlled. Continue to monitor blood pressure/heart rate. Hypothyroidism, managed by primary care physician. Mild bilateral carotid stenosis, nonobstructive disease, last ultrasound was done in June 2016. CTA of head and neck done August 26, 2017 revealed no significant stenosis. Continue to monitor. Hyperlipidemia, continue to monitor lipids Clinical Quality Measures AMI/AHF: ASA po Prior to arrival: No DVT/VTE Risk/Contraindication: Risk Factor Score Per Nursin RFS Level Per Nursing on Admit: 2=Moderate CESAR LEYVA MD Mar 26, 2018 10:00
[2018-03-26] MEDS ORDERED: TRIM100T PO (10:06)
[2018-03-26] MEDS ORDERED: DILTIAZEM 240 MG (CARDIZEM CD) CAP PO ONE (13:31)
[2018-03-26] MEDS ORDERED: DILTIAZEM 240 MG (CARDIZEM CD) CAP PO SCH (13:40)
--- NOTE | 2018-03-26 14:24 | History & Physical-Hospitalist ---
History of Present Illness HPI/Chief Complaint The patient is an 87-year-old white female who presented to the emergency room yesterday with complaints of feeling fainty and week. While there she was found to be anemic and in atrial fibrillation with a rapid ventricular response. She is known to have atrial fibrillation and sees Dr. Gross for the management of this. She is on diltiazem at home. Because of this she was not given a bolus of IV Cardizem but merely started on a drip. At this time she is in a sinus rhythm with a rate of 80. She is receiving a blood transfusion. She reports that she feels much better today than yesterday. Dr. Garcia has cleared her for discharge later this afternoon after completion of transfusions. Her daughter is here with her and is concerned that we walk her prior to discharge in that she has 3 steps to climb to get into her home. This seems entirely reasonable. Date Seen 03/26/18 Attending Physician Terrance Lake MD PCP Jung Burkett MD Referring Physician Date of Admission Mar 25, 2018 at 16:07 Home Medications & Allergies Home Medications Reviewed patient Home Medication Reconciliation performed by pharmacy medication reconciliations metal technician and/or nursing. Patients Allergies have been reviewed. Allergies Allergies Coded Allergies Fish Containing Products (Verified Allergy, Unknown, 06/02/16) Past Lwhylwa-Uudbqm-Pqgtep Hx Patient Social History Alcohol Use: Denies Use Recreational Drug Use: No Smoking Status: Former Smoker Former Smoker, Quit: May 24, 1966 Type Used: Cigarettes 2nd Hand Smoke Exposure: No Physical Abuse Screen: No Sexual Abuse: No Recent Foreign Travel: No Contact w/other who traveled: No Recent Hopitalizations: No Recent Infectious Disease Expo: No Immunizations Up To Date Tetanus Booster (TDap): Unknown Pediatric: No Date of Pneumonia Vaccine: October 28, 2015 Seasonal Allergies Seasonal Allergies: No Past Medical History Surgeries: Hysterectomy, Joint Replacement Respiratory: COPD Currently Using CPAP: No Currently Using BIPAP: No Cardiac: High Cholesterol, Hypertension Neurological: Dementia, Neuropathy Reproductive: Yes Hysterectomy Genitourinary: Renal Failure, UTI-Chronic Gastrointestinal: Gastroesophageal Reflux, Hemorrhoids, Gall Bladder Disease Musculoskeletal: Chronic Back Pain Endocrine: Hypothyroidsim Psychosocial: Anxiety, Depression History of Blood Disorders: No Adverse Reaction to Blood Aviles: No Family History Patient reports no known family medical history. No Pertinent Family Hx, Hypertension Review of Systems Constitutional: see HPI EENTM: no symptoms reported Respiratory: short of breath Cardiovascular: palpitations Gastrointestinal: no symptoms reported Musculoskeletal: muscle weakness Skin: no symptoms reported Psychiatric/Neurological: No Symptoms Reported Physical Exam Physical Exam Vital Signs Vital Signs - First Documented 03/25/18 03/25/18 15:05 16:45 Temp 97.4 Pulse 135 Resp 20 B/P (MAP) 114/48 (70) Pulse Ox 97 O2 Delivery Room Air Capillary Refill : Less Than 3 Seconds Height, Weight, BMI Height: 5'5.00" Weight: 177lbs. 0.0oz. 80.951362uy; 29.5 BMI Method:Stated General Appearance: No Apparent Distress, WD/WN Eyes: Bilateral Eye Normal Inspection HEENT: Normal ENT Inspection Neck: Normal Inspection Respiratory: Chest Non Tender, Lungs Clear, Normal Breath Sounds, No Accessory Muscle Use, No Respiratory Distress Cardiovascular: Regular Rate, Rhythm, No Edema, No Gallop, No JVD, No Murmur, Normal Peripheral Pulses Gastrointestinal: Normal Bowel Sounds, No Organomegaly, No Pulsatile Mass, Non Tender, Soft Back: Normal Inspection Extremity: Normal Capillary Refill, Normal Inspection Neurologic/Psychiatric: Alert, Oriented x3, No Motor/Sensory Deficits, Normal Mood/Affect Skin: Normal Color, Warm/Dry Results Results/Procedures Labs Laboratory Tests 03/25/18 15:05 03/26/18 03:03 Patient resulted labs reviewed. Clinical Quality Measures AMI/AHF: ASA po Prior to arrival: No DVT/VTE Risk/Contraindication: Risk Factor Score Per Nursin RFS Level Per Nursing on Admit: 2=Moderate TERRANCE LAKE MD Mar 26, 2018 14:24
[2018-03-26] MEDS: DILTIAZEM IV FOR DRIP 125 MG in NS (IVPB) 100 ML IV SCH (16:32)
[2018-03-26 16:44] LABS: HEMOGLOBIN 8.9 G/DL (11.5-16.0); MEAN PLATELET VOLUME 9.2 FL (7.4-10.4); RED BLOOD COUNT 2.4 10^6/uL (4.35-5.85); WHITE BLOOD COUNT 4.1 10^3/uL (4.3-11.0)
[2018-03-26] MEDS: NS IV 1000 ML 1,000 ML IV SCH (18:16)
[2018-03-26] MEDS ORDERED: ROSUVASTATIN 5 MG (CRESTOR) TABLET PO SCH (21:00)
[2018-03-26] MEDS ORDERED: meTOproloL SUCCINATE 50 MG (TOPROL XL) TAB PO SCH (21:00)
[2018-03-26] MEDS ORDERED: DILTIAZEM 120 MG (CARDIZEM CD) CAP PO SCH (21:00)
[2018-03-27] MEDS ORDERED: LEVOTHYROXINE 125 MCG (LEVOTHROID) TABLET PO SCH (06:30)
--- NOTE | 2018-03-28 16:29 | Physician Query-Final Dx ---
Final Diagnosis Give Final Diagnosis Please give Final Diagnosis ALAINA SANTANA Mar 28, 2018 16:28
== END 2018-03-26 19:45 | disposition home or self-care (01) | DRG 812 ==
LOC: EDUNIT# 15:03 → ER 15:04 → ICU 16:07
PROVIDERS: ADMIT Internal Medicine; ATTEND Internal Medicine
DX: D64.9 Anemia, unspecified (principal); I48.0 Paroxysmal atrial fibrillation; G62.9 Polyneuropathy, unspecified; F03.90 Unspecified dementia, unspecified severity, without behavioral disturbance, psychotic disturbance, mood disturbance, and anxiety; I11.9 Hypertensive heart disease without heart failure; E03.9 Hypothyroidism, unspecified; I65.23 Occlusion and stenosis of bilateral carotid arteries; J44.9 Chronic obstructive pulmonary disease, unspecified; E78.00 Pure hypercholesterolemia, unspecified; K21.9 Gastro-esophageal reflux disease without esophagitis; G89.29 Other chronic pain; M54.9 Dorsalgia, unspecified; F41.8 Other specified anxiety disorders; Z87.891 Personal history of nicotine dependence; Z79.01 Long term (current) use of anticoagulants; Z96.60 Presence of unspecified orthopedic joint implant
CPT/HCPCS: 36415; 71045; 80053; 80061; 83735; 83874; 83880; 84484; 85025; 85027; 85610; 85730; 86850; 86900; 86901; 86920; 93005; 93041

== ENCOUNTER → 2018-03-30 | Outpatient (CLI) | payer MEDICARE, OTHER ==
[~2018-03-30] MED LIST changes: +REGADENOSON 0.4 MG/5 ML SYR (LEXISCAN) IV ONE
[2018-03-30] MEDS: CATHETER FLUSH 10 ML SYR IV PRN ×2 (11:48→13:07)
[2018-03-30 13:05] VITALS: BP 176/47
--- NOTE | 2018-03-30 15:19 | STRESS TEST ---
DATE OF SERVICE: 03/30/2018 LEXISCAN MYOVIEW STRESS TEST REPORT REFERRING PHYSICIAN: Dr. Burkett. Baseline heart rate is 76. Baseline blood pressure 177/79. Baseline EKG is sinus rhythm with no ischemic changes. In summary, the patient was injected with 10.54 mCi of technetium-99 Myoview and the resting images were obtained. Then, the patient received 0.4 mg of Lexiscan followed by 31.3 mCi of technetium-99 Myoview. Throughout the test, there were no EKG changes. The resting and stress images were reviewed and compared in the short axis, horizontal long axis, and vertical long axis views. Review of the images showed good radiotracer uptake with no significant ischemia or infarction on SPECT images. SSS is 0, TID value 0.99. On the gated images, the left ventricle appeared to be in normal size with normal contractility. Calculated ejection fraction 60%. CONCLUSION: 1. The patient tolerated Lexiscan well. 2. No ischemia or infarction on SPECT images. 3. Normal left ventricular size with normal contractility. Calculated ejection fraction 60%. Job ID: [id number] DocumentID: [id number] Dictated Date: 03/30/2018 15:09:17 Route Salesman And Driver Date: 03/30/2018 15:18:44 Dictated By: CESAR LEYVA MD
== END ==
LOC: CARD 10:51
PROVIDERS: ATTEND Internal Medicine Cardiovascular Disease
DX: I48.91 Unspecified atrial fibrillation (principal); R07.89 Other chest pain; I50.9 Heart failure, unspecified
CPT/HCPCS: 78452; 93017

== ENCOUNTER 2018-04-14 12:19 | Inpatient (IN) | payer MEDICARE, OTHER ==
[~2018-04-14] VITALS: Ht 165.1 cm; Wt 80.4 kg
[~2018-04-14 12:19] MED LIST changes: -REGADENOSON 0.4 MG/5 ML SYR (LEXISCAN) IV ONE
[2018-04-14] MEDS ORDERED: NS IV 1000 ML 1,000 ML IV ONE (12:57)
[2018-04-14] MEDS ORDERED: DILTIAZEM IV FOR DRIP 125 MG in NS (IVPB) 100 ML IV SCH (13:00)
[2018-04-14] MEDS ORDERED: DILTIAZEM 25 MG/5 ML INJ (CARDIZEM) VIAL IVP ONE (13:00)
[2018-04-14 13:10] LABS: BASOPHILS % (AUTO) 0 % (0-10); EOSINOPHILS # (AUTO) 0.1 10^3/uL (0.0-0.3); EOSINOPHILS % (AUTO) 2 % (0-10); HEMATOCRIT 23 % (35-52); LYMPHOCYTES # (AUTO) 0.5 X 10^3 (1.0-4.0); LYMPHOCYTES % (AUTO) 10 % (12-44); MEAN CORPUSCULAR HEMOGLOBIN 37 PG (25-34); MEAN CORPUSCULAR HGB CONC 34 G/DL (32-36); MEAN CORPUSCULAR VOLUME 108 FL (80-99); MEAN PLATELET VOLUME 8.9 FL (7.4-10.4); MONOCYTES # (AUTO) 0.2 X 10^3 (0.0-1.0); MONOCYTES % (AUTO) 3 % (0-12); NEUTROPHILS # (AUTO) 4.1 X 10^3 (1.8-7.8); NEUTROPHILS % (AUTO) 85 % (42-75); PLATELET COUNT 192 10^3/uL (130-400); RED BLOOD COUNT 2.16 10^6/uL (4.35-5.85); RED CELL DISTRIBUTION WIDTH 25.2 % (10.0-14.5); WHITE BLOOD COUNT 4.9 10^3/uL (4.3-11.0)
[2018-04-14 13:27] LABS: INR 1.5 (0.8-1.4); PROTHROMBIN TIME PATIENT 17.9 SEC (12.2-14.7)
[2018-04-14 13:34] LABS: ALANINE AMINOTRANSFERASE 18 U/L (0-55); ALBUMIN 4.1 GM/DL (3.2-4.5); ALKALINE PHOSPHATASE 78 U/L (40-136); BILIRUBIN,TOTAL 2.1 MG/DL (0.1-1.0); BUN/CREATININE RATIO 25; CALCIUM 8.9 MG/DL (8.5-10.1); CARBON DIOXIDE 24 MMOL/L (21-32); CHLORIDE 105 MMOL/L (98-107); CREATININE SERUM 1.31 MG/DL (0.60-1.30); GFR ESTIMATED 38; GLUCOSE 177 MG/DL (70-105); POTASSIUM 4.8 MMOL/L (3.6-5.0); SODIUM 139 MMOL/L (135-145); TOTAL PROTEIN 6.6 GM/DL (6.4-8.2)
[2018-04-14 13:41] LABS: MYOGLOBIN SERUM 36.9 NG/ML (10.0-92.0)
--- NOTE | 2018-04-14 13:50 | Diagnostic Imaging Report ---
INDICATION: Tachycardia. Portable upright AP view of the chest is obtained with comparison made study of 03/25/2018. There is mild cardiomegaly. There is air trapping, bilaterally. Prominent interstitial markings in the right base are similar to previous study. There is no evidence of pneumothorax, consolidation or significant change from previous examination. IMPRESSION: Stable appearance of the chest without focal consolidation or overt edema. Dictated by: Dictated on workstation # [id number]
--- NOTE | 2018-04-14 15:49 | ED Cardiac General ---
History of Present Illness General Chief Complaint: Cardiac/General Problems Stated Complaint: TACHYCARDIC Nursing Triage Note: pt presents to ed with complaints of tachycardia, diahrrea, and dizziness starting this am. pt has hx of afib. pt denies cp. Source: patient Exam Limitations: no limitations History of Present Illness Date Seen by Provider: Apr 14, 2018 Time Seen by Provider: 12:46 Initial Comments This 87-year-old woman presents to the emergency room complaining of dizziness and a fast heart rate. She also had some diarrhea yesterday. Patient has history of atrial fibrillation and is on Eliquis. She also is on high doses of diltiazem. She reports good compliance with her medications. She is noted to have irregular rhythm with a rate of 130 on assessment. She denies any chest pain. Allergies and Home Medications Allergies Coded Allergies: Fish Containing Products (Verified Allergy, Unknown, 06/02/16) Home Medications Amiodarone HCl 200 Mg Tablet, 200 MG PO DAILY Prescribed by: CARLOS OCONNELL on 04/16/18 1157 Apixaban 5 Mg Tablet, 5 MG PO BID, (Reported) Calcium Carbonate/Vitamin D3 1 Each Tablet, 1 TAB PO HS, (Reported) Diltiazem HCl 240 Mg Cap.er.24h, 240 MG PO DAILY, (Reported) Diltiazem HCl 120 Mg Cap.er.24h, 120 MG PO HS, (Reported) L.acidoph & Paracasei,B.lactis 1 Each Capsule, 1 CAP PO 1200, (Reported) Levothyroxine Sodium 125 Mcg Tablet, 125 MCG PO DAILY, (Reported) Loperamide HCl 2 Mg Tablet, 2 MG PO UD PRN for DIARRHEA, (Reported) Loratadine 10 Mg Tablet, 10 MG PO HS PRN for ALLERGIES, (Reported) Metoprolol Succinate 50 Mg Tab.er.24h, 50 MG PO HS, (Reported) [place]-3/Dha/Epa/Fish Oil 1 Each Capsule.dr, 1,400 MG PO 1200, (Reported) Ranitidine HCl 150 Mg Tablet, 150 MG PO BID PRN for HEARTBURN, (Reported) Rosuvastatin Calcium 5 Mg Tablet, 5 MG PO HS, (Reported) Trimethoprim 100 Mg Tablet, 100 MG PO HS, (Reported) Patient Home Medication List Home Medication List Reviewed: Yes Review of Systems Review of Systems Constitutional: no symptoms reported EENTM: No Symptoms Reported Respiratory: No Symptoms Reported Cardiovascular: See HPI Gastrointestinal: See HPI Genitourinary: No Symptoms Reported Musculoskeletal: no symptoms reported Skin: no symptoms reported Psychiatric/Neurological: No Symptoms Reported Endocrine: No Symptoms Reported Hematologic/Lymphatic: No Symptoms Reported Past Heyxtxp-Cuqyny-Uidpec Hx Past Med/Social Hx: Reviewed and Corrections made Patient Social History Alcohol Use: Denies Use Recreational Drug Use: No Smoking Status: Former Smoker Type Used: Cigarettes Former Smoker, Quit: May 24, 1966 2nd Hand Smoke Exposure: No Recent Foreign Travel: No Contact w/Someone Who Travel: No Recent Infectious Disease Expo: No Recent Hopitalizations: No Physical Abuse: No Sexual Abuse: No Mistreated: No Fear: No Immunizations Up To Date Tetanus Booster (TDap): Unknown PED Vaccines UTD: No Date of Pneumonia Vaccine: October 28, 2015 Seasonal Allergies Seasonal Allergies: No Past Medical History Surgeries: Yes (implanted loop recorder) Hysterectomy, Joint Replacement Respiratory: Yes Pneumonia, COPD Currently Using CPAP: No Currently Using BIPAP: No Cardiac: Yes (LOOP RECORDER) Atrial Fibrillation, High Cholesterol, Hypertension Neurological: Yes Dementia, Neuropathy 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 No Pertinent Family Hx, Hypertension Physical Exam Vital Signs Capillary Refill : Less Than 3 Seconds Height, Weight, BMI Height: 5'5.00" Weight: 177lbs. 0.0oz. 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 Norm as Tested Skin: Normal Color, Warm/Dry Progress/Results/Core Measures Results/Orders Lab Results Laboratory Tests Test 10/18/18 13:03 Range/Units White Blood Count 4.9 4.3-11.0 10^3/uL Red Blood Count 2.16 L 4.35-5.85 10^6/uL Hemoglobin 8.0 L 11.5-16.0 G/DL Hematocrit 23 L 35-52 % Mean Corpuscular Volume 108 H 80-99 FL Mean Corpuscular Hemoglobin 37 H 25-34 PG Mean Corpuscular Hemoglobin Concent 34 32-36 G/DL Red Cell Distribution Width 25.2 H 10.0-14.5 % Platelet Count 192 130-400 10^3/uL Mean Platelet Volume 8.9 7.4-10.4 FL Neutrophils (%) (Auto) 85 H 42-75 % Lymphocytes (%) (Auto) 10 L 12-44 % Monocytes (%) (Auto) 3 0-12 % Eosinophils (%) (Auto) 2 0-10 % Basophils (%) (Auto) 0 0-10 % Neutrophils # (Auto) 4.1 1.8-7.8 X 10^3 Lymphocytes # (Auto) 0.5 L 1.0-4.0 X 10^3 Monocytes # (Auto) 0.2 0.0-1.0 X 10^3 Eosinophils # (Auto) 0.1 0.0-0.3 10^3/uL Basophils # (Auto) 0.0 0.0-0.1 10^3/uL Prothrombin Time 17.9 H 12.2-14.7 SEC INR Comment 1.5 H 0.8-1.4 Activated Partial Thromboplast Time 38 H 24-35 SEC Sodium Level 139 135-145 MMOL/L Potassium Level 4.8 3.6-5.0 MMOL/L Chloride Level 105 98-107 MMOL/L Carbon Dioxide Level 24 21-32 MMOL/L Anion Gap 10 5-14 MMOL/L Blood Urea Nitrogen 33 H 7-18 MG/DL Creatinine 1.31 H 0.60-1.30 MG/DL Estimat Glomerular Filtration Rate 38 BUN/Creatinine Ratio 25 Glucose Level 177 H 70-105 MG/DL Calcium Level 8.9 8.5-10.1 MG/DL Corrected Calcium 8.8 8.5-10.1 MG/DL Magnesium Level 2.0 1.8-2.4 MG/DL Total Bilirubin 2.1 H 0.1-1.0 MG/DL Aspartate Amino Transf (AST/SGOT) 21 5-34 U/L Alanine Aminotransferase (ALT/SGPT) 18 0-55 U/L Alkaline Phosphatase 78 40-136 U/L Myoglobin 36.9 10.0-92.0 NG/ML Troponin I < 0.30 <0.30 NG/ML Total Protein 6.6 6.4-8.2 GM/DL Albumin 4.1 3.2-4.5 GM/DL Thyroid Stimulating Hormone (TSH) 0.22 L 0.35-4.94 UIU/ML Free Thyroxine 1.37 0.70-1.48 NG/DL My Orders Orders - YOVANI ELMORE MD Ekg Tracing (04/14/18 12:45) Monitor-Rhythm Ecg Trace Only (04/14/18 12:45) Cbc With Automated Diff (04/14/18 12:56) Magnesium (04/14/18 12:56) Chest 1 View, Ap/Pa Only (04/14/18 12:56) Cardiac Profile 1 (04/14/18 12:56) Comprehensive Metabolic Panel (04/14/18 12:56) Myoglobin Serum (04/14/18 12:56) Protime With Inr (04/14/18 12:56) Partial Thromboplastin Time (04/14/18 12:56) O2 (04/14/18 12:56) Lipid Panel (04/15/18 06:00) Saline Lock/Iv-Start (04/14/18 12:56) Saline Lock/Iv-Start (04/14/18 12:57) Ns Iv 1000 Ml (Sodium Chloride 0.9%) (04/14/18 12:57) Diltiazem Injection (Cardizem Injection) (04/14/18 13:00) Ns (Ivpb) (Sodium C... W/Diltiazem Iv Fo (04/14/18 13:00) Thyroid Stimulating Hormone (04/14/18 15:20) Free T4 (Free Thyroxine) (04/14/18 15:20) Medications Given in ED Vital Signs/I&O Blood Pressure Mean: 87 Progress Progress Note : Progress Note Patient presented with a regular tachycardia around 130 bpm suspected to be atrial flutter. Valsalva maneuver did not resolve her tachycardia. IV fluids and a Cardizem drip were initiated. Patient eventually changed from atrial flutter into atrial fibrillation with a heart rate around the 110s. Dr. Garcia was consulted and recommended admission and continued Cardizem drip as patient is failing oral Cardizem at home. Patient did eventually convert to sinus rhythm prior to being transferred to the ICU. Initial ECG Rhythm: A Fib/Flutter EKG #1: EKG Time: 12:48 Rate: 131 Comment Machine read the rhythm as sinus tachycardia but this is likely in atrial flutter with 2 to one conduction. No overt ST elevation or depression. EKG #2: EKG Time: 14:41 Rate: 106 Rhythm: A Fib/Flutter ECG Impression: Atrial Fibrillation w/RVR Comment Atrial fibrillation with mild RVR. No overt ST elevation or depression. This is a change from the prior rhythm. Diagnostic Imaging Diagonstic Imaging: Xray Plain Films/CT/US/NM/MRI: chest Comments NAME: NIKHIL ARAIZA [facility] REC#: [id number] PT STATUS: ADM IN : 1930 PHYSICIAN: YOVANI ELMORE MD ADMIT DATE: 04/14/18/ICU Signed Date of Exam: 04/14/18 CHEST 1 VIEW, AP/PA ONLY INDICATION: Tachycardia. Portable upright AP view of the chest is obtained with comparison made study of 03/25/2018. There is mild cardiomegaly. There is air trapping, bilaterally. Prominent interstitial markings in the right base are similar to previous study. There is no evidence of pneumothorax, consolidation or significant change from previous examination. IMPRESSION: Stable appearance of the chest without focal consolidation or overt edema. Dictated by: Dictated on workstation # [id number] Dict: 04/14/18 1347 Trans: 04/14/18 1710 Interpreted by: BERNARDO FELIX MD Electronically signed by: BERNARDO FELIX MD 04/14/18 1710 Departure Communication (Admissions) Time/Spoke to Admitting Phy: 15:28 Dr. Cowart Time/Spoke to Consulting Phy: 15:24 Dr. Garcia Impression Primary Impression: Atrial flutter with rapid ventricular response Additional Impressions: Atrial fibrillation Qualified Codes: I48.0 - Paroxysmal atrial fibrillation Dizziness Renal insufficiency Disposition: ADMITTED INPATIENT Condition: Improved Admissions Decision to Admit Reason: Admit from ER (General) Decision to Admit/Date: Apr 14, 2018 Time/Decision to Admit Time: 15:24 Departure-Patient Inst. Referrals: VIVI OATES MD (PCP/Family) Primary Care Physician Scripts Amiodarone HCl (Amiodarone HCl) 200 Mg Tablet 200 MG PO DAILY for 30 Days, #60 TAB Prov: Chavo COSTA MD 04/16/18 Copy Copies To 1: VIVI OATES MD, JOSHUA T MD Apr 14, 2018 15:49
[2018-04-14 16:06] LABS: FREE T4 (FREE THYROXINE) 1.37 NG/DL (0.70-1.48)
--- NOTE | 2018-04-14 16:27 | Consultation-Cardiology ---
HPI-Cardiology Cardiology Consultation Date of Consultation 04/14/18 Date of Admission Time Seen by Provider: 16:23 Indication: Atrial fibrillation HPI 87 years old lady with history of paroxysmal atrial fibrillation, called my office this morning complaining of generalized fatigue and loss of energy with tachycardia, sent to the emergency room and noted to be in atrial fibrillation with rapid ventricular response, she was started on Cardizem drip. Converted to sinus rhythm, still complaining of mild fatigue. Denied any chest pain. No syncope or near syncopal episodes. Home Medications & Allergies Allergies: Coded Allergies: Fish Containing Products (Verified Allergy, Unknown, 06/02/16) Home Medication List Reviewed: Yes VNR-Mvakga-Rresbb Hx Patient Social History Alcohol Use: Denies Use Recreational Drug Use: No Smoking Status: Former Smoker Type Used: Cigarettes 2nd Hand Smoke Exposure: No Recent Foreign Travel: No Recent Infectious Disease Expo: No Recent Hopitalizations: No Immunizations Up To Date Tetanus Booster (TDap): Unknown Date of Pneumonia Vaccine: October 28, 2015 Past Medical History Past medical history as described Family Medical History Significant Family History: No Pertinent Family Hx, Hypertension Family History: Patient reports no known family medical history. Review of Systems Constitutional: see HPI, malaise, weakness EENTM: see HPI, no symptoms reported Respiratory: see HPI, dyspnea on exertion Cardiovascular: see HPI, palpitations Gastrointestinal: see HPI, diarrhea Genitourinary: no symptoms reported, see HPI Musculoskeletal: no symptoms reported, see HPI Skin: no symptoms reported, see HPI Psychiatric/Neurological: No Symptoms Reported, See HPI Reviewed Test Results Reviewed Test Results Lab Laboratory Tests Test 04/14/18 13:03 Range/Units White Blood Count 4.9 4.3-11.0 10^3/uL Red Blood Count 2.16 L 4.35-5.85 10^6/uL Hemoglobin 8.0 L 11.5-16.0 G/DL Hematocrit 23 L 35-52 % Mean Corpuscular Volume 108 H 80-99 FL Mean Corpuscular Hemoglobin 37 H 25-34 PG Mean Corpuscular Hemoglobin Concent 34 32-36 G/DL Red Cell Distribution Width 25.2 H 10.0-14.5 % Platelet Count 192 130-400 10^3/uL Mean Platelet Volume 8.9 7.4-10.4 FL Neutrophils (%) (Auto) 85 H 42-75 % Lymphocytes (%) (Auto) 10 L 12-44 % Monocytes (%) (Auto) 3 0-12 % Eosinophils (%) (Auto) 2 0-10 % Basophils (%) (Auto) 0 0-10 % Neutrophils # (Auto) 4.1 1.8-7.8 X 10^3 Lymphocytes # (Auto) 0.5 L 1.0-4.0 X 10^3 Monocytes # (Auto) 0.2 0.0-1.0 X 10^3 Eosinophils # (Auto) 0.1 0.0-0.3 10^3/uL Basophils # (Auto) 0.0 0.0-0.1 10^3/uL Prothrombin Time 17.9 H 12.2-14.7 SEC INR Comment 1.5 H 0.8-1.4 Activated Partial Thromboplast Time 38 H 24-35 SEC Sodium Level 139 135-145 MMOL/L Potassium Level 4.8 3.6-5.0 MMOL/L Chloride Level 105 98-107 MMOL/L Carbon Dioxide Level 24 21-32 MMOL/L Anion Gap 10 5-14 MMOL/L Blood Urea Nitrogen 33 H 7-18 MG/DL Creatinine 1.31 H 0.60-1.30 MG/DL Estimat Glomerular Filtration Rate 38 BUN/Creatinine Ratio 25 Glucose Level 177 H 70-105 MG/DL Calcium Level 8.9 8.5-10.1 MG/DL Corrected Calcium 8.8 8.5-10.1 MG/DL Magnesium Level 2.0 1.8-2.4 MG/DL Total Bilirubin 2.1 H 0.1-1.0 MG/DL Aspartate Amino Transf (AST/SGOT) 21 5-34 U/L Alanine Aminotransferase (ALT/SGPT) 18 0-55 U/L Alkaline Phosphatase 78 40-136 U/L Myoglobin 36.9 10.0-92.0 NG/ML Troponin I < 0.30 <0.30 NG/ML Total Protein 6.6 6.4-8.2 GM/DL Albumin 4.1 3.2-4.5 GM/DL Thyroid Stimulating Hormone (TSH) 0.22 L 0.35-4.94 UIU/ML Free Thyroxine 1.37 0.70-1.48 NG/DL Physical Exam Vital Signs Vital Signs - First Documented 04/14/18 04/14/18 12:55 13:28 Temp 98.0 Pulse 131 Resp 20 B/P (MAP) 148/76 (100) Pulse Ox 95 O2 Delivery Room Air Capillary Refill : Less Than 3 Seconds Height, Weight, BMI Height: 5'5.00" Weight: 177lbs. 0.0oz. 80.673256ws; 29.5 BMI Method:Stated General Appearance: No Apparent Distress, WD/WN Eyes: Bilateral Eye Normal Inspection, Bilateral Eye PERRL, Bilateral Eye EOMI HEENT: PERRL/EOMI, TMs Normal, Normal ENT Inspection, Pharynx Normal Neck: Full Range of Motion, Normal Inspection, Non Tender, Supple, Carotid Bruit Respiratory: Chest Non Tender, Lungs Clear, Normal Breath Sounds, No Accessory Muscle Use, No Respiratory Distress Cardiovascular: Regular Rate, Rhythm, No Edema, No Gallop, No JVD, No Murmur, Normal Peripheral Pulses Gastrointestinal: Normal Bowel Sounds, No Organomegaly, No Pulsatile Mass, Non Tender, Soft Back: Normal Inspection, No CVA Tenderness, No Vertebral Tenderness Extremity: Normal Capillary Refill, Normal Inspection, Normal Range of Motion, Non Tender, No Calf Tenderness, No Pedal Edema Neurologic/Psychiatric: Alert, Oriented x3, No Motor/Sensory Deficits, Normal Mood/Affect Skin: Normal Color, Warm/Dry Lymphatic: No Adenopathy A/P-Cardiology Admission Diagnosis Paroxysmal atrial fibrillation Tachycardia Hypertension Hyperlipidemia Assessment/Plan Paroxysmal atrial fibrillation, back to sinus rhythm, had history of paroxysmal atrial fibrillation. Currently on Cardizem drip, I will restart Cardizem, I am planning to initiate amiodarone at this time and evaluate her tolerance and response. Next Generalized fatigue and loss of energy secondary to palpitation tachycardia [id number] score of 4, yearly risk of stroke without oral anticoagulation is 4 percent maintained on Eliquis. History of chronic compensated left ventricular diastolic dysfunction, I will reevaluate 2-D echocardiogram Hypertension, restart home medications and monitor Hypothyroidism, managed by primary care physician. Mild bilateral carotid stenosis, nonobstructive disease, last ultrasound was done in June 2016. CTA of head and neck done August 26, 2017 revealed no significant stenosis. Continue to monitor. Hyperlipidemia, continue to monitor lipids CESAR LEYVA MD Apr 14, 2018 16:27
[2018-04-14] MEDS ORDERED: AMIODARONE FOR BOLUS 150 MG in D5W 100 ML IVPB 100 ML IV NR (16:30)
[2018-04-14] MEDS ORDERED: CATHETER FLUSH 10 ML SYR IV PRN (16:45)
[2018-04-14] MEDS ORDERED: DOCUSATE SODIUM 100 MG (COLACE) CAP PO PRN (17:15)
[2018-04-14] MEDS ORDERED: ONDANSETRON 4 MG/2 ML (SDV) Z0FRAN IVP PRN (17:15)
[2018-04-14] MEDS ORDERED: HYDROcodone/APAP 5 MG/325 MG (LORTAB) TAB PO PRN (17:15)
[2018-04-14] MEDS ORDERED: CALCIUM CARBONATE 500 MG (TUMS) TAB.CHEW PO PRN (17:15)
[2018-04-14] MEDS ORDERED: ALPRAZolam 0.25 MG (XANAX) TAB PO PRN (17:15)
[2018-04-14] MEDS ORDERED: ACETAMINOPHEN 500 MG TAB (TYLENOL) PO PRN (17:15)
[2018-04-14] MEDS ORDERED: LOPERAMIDE 2 MG (IMODIUM) CAP PO PRN (17:30)
[2018-04-14] MEDS ORDERED: IBUPROFEN TABLET 200 MG TAB PO PRN (17:30)
[2018-04-14] MEDS: AMIODARONE INJECTION 450 MG in D5W IV SOLUTION (EXCEL) 250 ML IV SCH (18:04)
[2018-04-14 19:00] VITALS: BP 128/48
[2018-04-14] MEDS: DILTIAZEM IV FOR DRIP 125 MG in NS (IVPB) 100 ML IV SCH (19:08)
[2018-04-14 20:00] VITALS: BP 120/49
[2018-04-14] MEDS ORDERED: FLU QUADRIvalent (5+ YOA) 2018-2019 (AFLURIA) 0.5 ML IM ONE (20:30)
[2018-04-14] MEDS ORDERED: LORATADINE (CLARITIN) 10 MG TAB PO PRN (21:00)
[2018-04-14 21:04] VITALS: BP 123/51
[2018-04-14] MEDS: APIXABAN 5 MG (ELIQUIS) TABLET PO SCH (21:47)
[2018-04-14] MEDS: AMIODARONE 200 MG (CORDARONE) TAB PO SCH (21:47)
[2018-04-14] MEDS: ROSUVASTATIN 5 MG (CRESTOR) TABLET PO SCH (21:47)
[2018-04-14] MEDS: CATHETER FLUSH 10 ML SYR IV SCH (21:48)
[2018-04-14 22:00] VITALS: BP 136/49
[2018-04-14 23:00] VITALS: BP 141/47
[2018-04-15] VITALS (28 sets, daily range): BP systolic 110–180; BP diastolic 49–98
[2018-04-15] MEDS: AMIODARONE INJECTION 450 MG in D5W IV SOLUTION (EXCEL) 250 ML IV SCH (02:16)
[2018-04-15 03:58] LABS: BASOPHILS % (AUTO) 0 % (0-10); EOSINOPHILS # (AUTO) 0.1 10^3/uL (0.0-0.3); EOSINOPHILS % (AUTO) 2 % (0-10); LYMPHOCYTES # (AUTO) 0.6 X 10^3 (1.0-4.0); LYMPHOCYTES % (AUTO) 13 % (12-44); MEAN CORPUSCULAR HEMOGLOBIN 39 PG (25-34); MEAN CORPUSCULAR HGB CONC 36 G/DL (32-36); MEAN CORPUSCULAR VOLUME 110 FL (80-99); MEAN PLATELET VOLUME 9.6 FL (7.4-10.4); MONOCYTES # (AUTO) 0.2 X 10^3 (0.0-1.0); MONOCYTES % (AUTO) 4 % (0-12); NEUTROPHILS % (AUTO) 82 % (42-75); PLATELET COUNT 171 10^3/uL (130-400); RED BLOOD COUNT 1.79 10^6/uL (4.35-5.85); WHITE BLOOD COUNT 4.9 10^3/uL (4.3-11.0)
[2018-04-15 04:06] LABS: HEMATOCRIT 20 % (35-52)
[2018-04-15 04:20] LABS: CALCIUM 8.5 MG/DL (8.5-10.1); CREATININE SERUM 1.13 MG/DL (0.60-1.30); MAGNESIUM 2.3 MG/DL (1.8-2.4); PHOSPHORUS 4.2 MG/DL (2.3-4.7); POTASSIUM 4.4 MMOL/L (3.6-5.0)
[2018-04-15 04:42] LABS: CHOLESTEROL 95 MG/DL (< 200); HDL CHOLESTEROL 38 MG/DL (40-60); TRIGLYCERIDES 116 MG/DL (<150); VLDL CHOLESTEROL 23 MG/DL (5-40)
[2018-04-15 04:59] LABS: POTASSIUM 4.4 MMOL/L (3.6-5.0)
[2018-04-15 05:00] LABS: ALBUMIN 3.5 GM/DL (3.2-4.5); BILIRUBIN,TOTAL 2.1 MG/DL (0.1-1.0); CALCIUM 8.5 MG/DL (8.5-10.1); CREATININE SERUM 1.14 MG/DL (0.60-1.30); TOTAL PROTEIN 5.5 GM/DL (6.4-8.2)
--- NOTE | 2018-04-15 06:56 | Diagnostic Imaging Report ---
INDICATION: Shortness of breath. Portable chest 4:39 AM FINDINGS: Heart size and pulmonary vascularity are normal. Lungs are clear. There are no effusions or pneumothoraces. There is a loop recorder projected over the left lower chest. IMPRESSION: No acute abnormalities in the chest. Dictated by: Dictated on workstation # [id number]
[2018-04-15] MEDS: CATHETER FLUSH 10 ML SYR IV SCH ×3 (07:10→20:46)
[2018-04-15] MEDS: LEVOTHYROXINE 125 MCG (LEVOTHROID) TABLET PO SCH (07:10)
--- NOTE | 2018-04-15 07:55 | Cardiology Progress Note ---
Subjective Date Seen by Provider: Apr 15, 2018 Time Seen by Provider: 07:53 Subjective/Events-last exam Patient is in bed, feeling better, no new complaint, had a drop in her hemoglobin Review of Systems General: No Chills, No Night Sweats, No Fatigue, No Malaise, No Appetite, No Other HEENT: No Head Aches, No Visual Changes, No Eye Pain, No Ear Pain, No Dysphasia , No Sinus Congestion, No Post Nasal Drip, No Sore Throat, No Other Pulmonary: No Dyspnea, No Cough, No Pleuritic Chest Pain, No Other Cardiovascular: No: Chest Pain, Palpitations, Orthopnea, Paroxysmal Noc. Dyspnea, Edema, Lt Headedness, Other Objective-Cardiology Exam Last Set of Vital Signs Vital Signs 04/14/18 04/15/18 13:28 06:00 Temp 97.3 Pulse 70 Resp 14 B/P (MAP) 165/98 (120) Pulse Ox 98 O2 Delivery Room Air Capillary Refill : Less Than 3 Seconds I&O Intake and Output 04/15/18 00:00 Intake Total 1203 ml Balance 1203 ml Intake Oral 100 ml IV Total 1103 ml Daily Weight Change No General: Alert, Oriented X3, Cooperative HEENT: Atraumatic, PERRLA Neck: Supple, No JVD, No Thyromegaly Lungs: Clear to Auscultation, Normal Air Movement Heart: Regular Rate, Normal S1, Normal S2, No Murmurs Abdomen: Normal Bowel Sounds, Soft, No Tenderness, No Hepatosplenomegaly, No Masses Extremities: No Clubbing, No Cyanosis, No Edema, Normal Pulses, No Tenderness/ Swelling Skin: No Rashes, No Breakdown, No Significant Lesion Neuro: Normal Gait, Normal Speech, Strength at 5/5 X4 Ext, Normal Tone, Sensation Intact Psych/Mental Status: Mental Status NL, Mood NL Results Lab Laboratory Tests 04/14/18 13:03 04/15/18 03:15 A/P-Cardiology Admission Diagnosis Paroxysmal atrial fibrillation Tachycardia Hypertension Hyperlipidemia Assessment/Plan Paroxysmal atrial fibrillation, back to sinus rhythm, had history of paroxysmal atrial fibrillation. Back on oral Cardizem, I started amiodarone loading dose. Continue to monitor Severe anemia, worsening today, will transfuse 2 units of packed RBCs, stool for occult blood and anemia analyzer, I consulted Dr. Miller, patient may require endoscopy Generalized fatigue and loss of energy secondary to palpitation tachycardia, feeling better at this time [id number] score of 4, yearly risk of stroke without oral anticoagulation is 4 percent maintained on Eliquis. History of chronic compensated left ventricular diastolic dysfunction, I will reevaluate 2-D echocardiogram Hypertension, home medication restarted. Continue to monitor blood pressure Hypothyroidism, managed by primary care physician. Mild bilateral carotid stenosis, nonobstructive disease, last ultrasound was done in June 2016. CTA of head and neck done August 26, 2017 revealed no significant stenosis. Continue to monitor. Hyperlipidemia, continue to monitor lipids Clinical Quality Measures DVT/VTE Risk/Contraindication: Risk Factor Score Per Nursin RFS Level Per Nursing on Admit: 2=Moderate CESAR LEYVA MD Apr 15, 2018 07:55
[2018-04-15] MEDS: APIXABAN 5 MG (ELIQUIS) TABLET PO SCH ×2 (08:30→20:43)
[2018-04-15] MEDS: AMIODARONE 200 MG (CORDARONE) TAB PO SCH ×2 (08:30→20:43)
[2018-04-15] MEDS: DILTIAZEM 240 MG (CARDIZEM CD) CAP PO SCH (08:31)
[2018-04-15] MEDS ORDERED: FAMOTIDINE 20 MG (PEPCID) TABLET PO PRN (09:00)
[2018-04-15] MEDS ORDERED: NS (IVPB) 250 ML ONE (09:04)
[2018-04-15 09:12] LABS: ABSOLUTE RETIC # 87 10e9/L (24-90); BASOPHILS % (AUTO) 0 % (0-10); EOSINOPHILS # (AUTO) 0.1 10^3/uL (0.0-0.3); EOSINOPHILS % (AUTO) 2 % (0-10); HEMATOCRIT 21 % (35-52); HEMOGLOBIN 7.3 G/DL (11.5-16.0); LYMPHOCYTES # (AUTO) 0.6 X 10^3 (1.0-4.0); LYMPHOCYTES % (AUTO) 12 % (12-44); MEAN CORPUSCULAR HEMOGLOBIN 38 PG (25-34); MEAN CORPUSCULAR HGB CONC 36 G/DL (32-36); MEAN CORPUSCULAR VOLUME 108 FL (80-99); MONOCYTES # (AUTO) 0.2 X 10^3 (0.0-1.0); MONOCYTES % (AUTO) 4 % (0-12); NEUTROPHILS # (AUTO) 4.3 X 10^3 (1.8-7.8); NEUTROPHILS % (AUTO) 82 % (42-75); PLATELET COUNT 168 10^3/uL (130-400); RED CELL DISTRIBUTION WIDTH 25.3 % (10.0-14.5); RETICULOCYTE % 4.58 % (0.50-2.40); WHITE BLOOD COUNT 5.2 10^3/uL (4.3-11.0)
[2018-04-15] MEDS ORDERED: NS (IVPB) 250 ML IV ONE (09:36)
[2018-04-15 09:54] LABS: BAND NEUTROPHILS 0 %; BASOPHILS % (MANUAL) 0 %; EOSINOPHILS % (MANUAL) 1 %; HYPERSEGMENTED NEUT MODERATE; LYMPHOCYTES % (MANUAL) 13 %; MONOCYTES % (MANUAL) 4 %; NEUTROPHILS % (MANUAL) 82 %
[2018-04-15 09:55] LABS: ANISOCYTOSIS MARKED
--- NOTE | 2018-04-15 10:58 | History & Physical-Hospitalist ---
History of Present Illness HPI/Chief Complaint CC: AF w/RVR HPI: This is an 87-year-old white female clinic patient of Dr. 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 Patient was found to have atrial fibrillation with rapid ventricular response requiring IV Cardizem and gentle IV fluids in addition hemoglobin of 8 was noted on admission that has decreased to 7 requiring 2 units of packed red blood cells and hematology consultation. Patient has such significant dementia that underwent unable to give any significant details that are reliable from the patient. Most of this information is coming from prior chart. Currently IV Cardizem has been discontinued was given amiodarone IV load and Dr. Garcia is in the midst of changing medication to oral. Her rate currently is 77. Source: patient Exam Limitations: other (dementia) Date Seen 04/15/18 Time Seen by a Provider: 10:00 Attending Physician Staci Gallagher DO PCP Jung Burkett MD Referring Physician Date of Admission Apr 14, 2018 at 15:32 Home Medications & Allergies Home Medications Reviewed patient Home Medication Reconciliation performed by pharmacy medication reconciliations lead technician and/or nursing. Patients Allergies have been reviewed. Allergies Allergies Coded Allergies Fish Containing Products (Verified Allergy, Unknown, 06/02/16) Past Wlqihiv-Noczjp-Yslhcs Hx Past Med/Social Hx: Reviewed Nursing Past Med/Soc Hx, Reviewed and Corrections made Patient Social History Marrital Status: single Employed/Student: retired Alcohol Use: Denies Use Recreational Drug Use: No Smoking Status: Former Smoker Former Smoker, Quit: May 24, 1966 Type Used: Cigarettes 2nd Hand Smoke Exposure: No Physical Abuse Screen: No Sexual Abuse: No Recent Foreign Travel: No Contact w/other who traveled: No Recent Hopitalizations: No Recent Infectious Disease Expo: No Immunizations Up To Date Tetanus Booster (TDap): Unknown Pediatric: No Date of Pneumonia Vaccine: October 28, 2015 Seasonal Allergies Seasonal Allergies: No Past Medical History Surgeries: Hysterectomy, Joint Replacement Respiratory: COPD Currently Using CPAP: No Currently Using BIPAP: No Cardiac: Atrial Fibrillation, Coronary Artery Disease, High Cholesterol, Hypertension Neurological: Dementia, Neuropathy Reproductive: Yes Hysterectomy Genitourinary: Renal Failure, UTI-Chronic Gastrointestinal: Gastroesophageal Reflux, Hemorrhoids, Gall Bladder Disease Musculoskeletal: Chronic Back Pain Endocrine: Hypothyroidsim Psychosocial: Anxiety, Depression History of Blood Disorders: No Adverse Reaction to Blood [place]iles: No Family History Patient reports no known family medical history. No Pertinent Family Hx, Hypertension Review of Systems Constitutional: see HPI, dizziness, weakness EENTM: no symptoms reported Respiratory: no symptoms reported Cardiovascular: palpitations Gastrointestinal: diarrhea, loss of appetite, nausea, vomiting Genitourinary: decreased output Musculoskeletal: no symptoms reported Skin: no symptoms reported Psychiatric/Neurological: No Symptoms Reported All Other Systems Reviewed Negative Unless Noted: Yes Physical Exam Physical Exam Vital Signs Vital Signs - First Documented 04/14/18 04/14/18 12:55 13:28 Temp 98.0 Pulse 131 Resp 20 B/P (MAP) 148/76 (100) Pulse Ox 95 O2 Delivery Room Air Capillary Refill : Less Than 3 Seconds Height, Weight, BMI Height: 5'5.00" Weight: 173lbs. 8.0oz. [id number]; 28.9 BMI Method:Stated General Appearance: No Apparent Distress, WD/WN, Chronically ill Eyes: Bilateral Eye Normal Inspection, Bilateral Eye PERRL HEENT: PERRL/EOMI, TMs Normal, Normal ENT Inspection, Pharynx Normal Neck: Full Range of Motion, Normal Inspection, Non Tender, Supple, Carotid Bruit Respiratory: Chest Non Tender, Lungs Clear, Normal Breath Sounds, No Accessory Muscle Use, No Respiratory Distress Cardiovascular: Regular Rate, Rhythm, No Edema, No Gallop, No JVD, No Murmur, Normal Peripheral Pulses Gastrointestinal: Normal Bowel Sounds, No Organomegaly, No Pulsatile Mass, Non Tender, Soft Back: Normal Inspection, No CVA Tenderness, No Vertebral Tenderness Extremity: Normal Capillary Refill, Normal Inspection, Normal Range of Motion, Non Tender, No Calf Tenderness, No Pedal Edema Neurologic/Psychiatric: Alert, Oriented x3, No Motor/Sensory Deficits, Normal Mood/Affect, Disoriented (subtle with poor recall) Skin: Normal Color, Warm/Dry Lymphatic: No Adenopathy Results Results/Procedures Labs Laboratory Tests 04/14/18 13:03 04/15/18 03:15 04/15/18 08:49 Patient resulted labs reviewed. Assessment/Plan Admission Diagnosis Assessment: Atrial fibrillation with rapid ventricular response Severe anemia requiring transfusions and hematology consult Dementia Hypertension Hyperlipidemia Hypothyroidism Acute renal insufficiency Nausea and vomiting and diarrhea now resolved Plan: Home meds Rate control per cardiology Transfuse 2 units Hematology consult is appreciated Admission Status: Inpatient Order (span 2 midnights) Reason for Inpatient Admission: AF w/RVR and anemia requiring transfusions will require 3 days of management before able to DC Diagnosis/Problems Diagnosis/Problems (1) Atrial flutter with rapid ventricular response Status: Acute (2) Anemia Status: Chronic Qualifiers: Anemia type: unspecified type Qualified Codes: D64.9 - Anemia, unspecified (3) Transfusion of blood during current hospitalisation Status: Acute (4) Renal insufficiency Status: Acute (5) Debility Status: Acute (6) Hypothyroidism Status: Chronic Qualifiers: Hypothyroidism type: acquired Qualified Codes: E03.9 - Hypothyroidism, unspecified (7) Dementia Status: Chronic Qualifiers: Dementia type: Alzheimer's disease Alzheimer's disease onset: unspecified onset Dementia behavioral disturbance: without behavioral disturbance Qualified Codes: G30.9 - Alzheimer's disease, unspecified; F02.80 - Dementia in other diseases classified elsewhere without behavioral disturbance (8) CAD (coronary artery disease) Status: Chronic Qualifiers: Coronary Disease-Associated Artery/Lesion type: [place] artery [place] vs. transplanted heart: [place] heart Associated angina: without angina Qualified Codes: I25.10 - Atherosclerotic heart disease of [place] coronary artery without angina pectoris Clinical Quality Measures DVT/VTE Risk/Contraindication: Risk Factor Score Per Nursin RFS Level Per Nursing on Admit: 2=Moderate STACI GALLAGHER DO Apr 15, 2018 10:58
[2018-04-15] MEDS ORDERED: CYANOCOBALAMIN INJ 1000 MCG/ML IM NR (14:00)
--- NOTE | 2018-04-15 14:11 | Oncology Consultation ---
Visit Information Visit Information Date of Admission Apr 14, 2018 at 15:32 Attending Physician Staci Cowart DO Admitting Physician Jung Burkett MD Chief Complaint Progressive anemia Interval History Ms. Morse is a 87 year old white female with h/o of paroxysmal aFib and dementia who was admitted to ICU this time for Afib with rapid ventricular response. She was treated with cardizem and converted to sinus rhythm now. She has been on Eliquis for aFib and stroke prevention. She was noticed to have Hb 8 Hct 23, MCV 108 WBC 4.9 and Plt 192k on admission. Her Hb was dropped to 7.[address] Garcia called for management of anemia. Pt is getting 2 units of RBC transfusion today. She had 2 units of RBC on 03/25/18. She had macrocytic anemia in October 2017 and also required RBC transfusion. Her renal function is marginal Cr 1.1 this time and was in the 1.5 range in the past. I consulted the patient on: 04/15/18 14:04 Time Seen by Provider: 14:04 Review of Systems Constitutional: weakness EENTM: blurred vision Respiratory: no symptoms reported Cardiovascular: see HPI Gastrointestinal: no symptoms reported Genitourinary: no symptoms reported Skin: no symptoms reported Psychiatric/Neurological: No Symptoms Reported Health Status Allergies Coded Allergies: Fish Containing Products (Verified Allergy, Unknown, 06/02/16) Home Medications Apixaban (Eliquis) 5 Mg Tablet, 5 MG PO BID, (Reported) Calcium Carbonate/Vitamin D3 (Os-Sanya 500+D3 Caplet) 1 Each Tablet, 1 TAB PO HS, (Reported) Diltiazem HCl (Cartia Xt) 240 Mg Cap.er.24h, 240 MG PO DAILY, (Reported) Diltiazem HCl (Cartia Xt) 120 Mg Cap.er.24h, 120 MG PO HS, (Reported) Ibuprofen (Advil) 200 Mg Tablet, 200-400 MG PO TID PRN for PAIN-MILD, (Reported) L.acidoph & Paracasei,B.lactis (Probiotic) 1 Each Capsule, 1 CAP PO 1200, ( Reported) Levothyroxine Sodium (Levothyroxine Sodium) 125 Mcg Tablet, 125 MCG PO DAILY, ( Reported) Loperamide HCl (Imodium A-D) 2 Mg Tablet, 2 MG PO UD PRN for DIARRHEA, (Reported ) Loratadine (Claritin) 10 Mg Tablet, 10 MG PO HS PRN for ALLERGIES, (Reported) Metoprolol Succinate (Metoprolol Succinate) 50 Mg Tab.er.24h, 50 MG PO HS, ( Reported) [place]-3/Dha/Epa/Fish Oil (Fish Oil 1,400 mg Softgel) 1 Each Capsule.dr, 1,400 MG PO 1200, (Reported) Ranitidine HCl (Zantac) 150 Mg Tablet, 150 MG PO BID PRN for HEARTBURN, ( Reported) Rosuvastatin Calcium (Rosuvastatin Calcium) 5 Mg Tablet, 5 MG PO HS, (Reported) Trimethoprim (Trimethoprim) 100 Mg Tablet, 100 MG PO HS, (Reported) WMP-Gghhwu-Iuwezr Hx Patient Social History Marrital Status: single Employed/Student: retired Alcohol Use: Denies Use Recreational Drug Use: No Smoking Status: Former Smoker Type Used: Cigarettes 2nd Hand Smoke Exposure: No Recent Foreign Travel: No Contact w/other who traveled: No Recent Infectious Disease Expo: No Recent Hopitalizations: No Physical Abuse Screen: No Sexual Abuse: No Immunizations Up To Date Tetanus Booster (TDap): Unknown Date of Pneumonia Vaccine: October 28, 2015 Family Medical History Significant Family History: No Pertinent Family Hx, Hypertension Family History: Patient reports no known family medical history. Physical Exam Vital Signs Vital Signs - First Documented 04/14/18 04/14/18 12:55 13:28 Temp 98.0 Pulse 131 Resp 20 B/P (MAP) 148/76 (100) Pulse Ox 95 O2 Delivery Room Air Capillary Refill : Less Than 3 Seconds Height, Weight, BMI Height: 5'5.00" Weight: 173lbs. 8.0oz. 78.054114su; 28.9 BMI Method:Stated General Appearance: No Apparent Distress HEENT: PERRL/EOMI Neck: Non Tender, Supple Respiratory: Lungs Clear, No Accessory Muscle Use, No Respiratory Distress Cardiovascular: Regular Rate, Rhythm, No Edema, No JVD Gastrointestinal: Non Tender, Soft Extremity: Non Tender, No Calf Tenderness, No Pedal Edema Neurologic/Psychiatric: Alert, Oriented x3, Other (mild dementia) Data Review Labs Laboratory Tests 04/15/18 03:15 04/15/18 08:49 Laboratory Tests 04/14/18 13:03: Red Blood Count 2.16L, Hemoglobin 8.0L, Hematocrit 23L, Mean Corpuscular Volume 108H, Mean Corpuscular Hemoglobin 37H, Red Cell Distribution Width 25.2H, Neutrophils (%) (Auto) 85H, Lymphocytes (%) (Auto) 10L, Lymphocytes # (Auto) 0.5L, Prothrombin Time 17.9H, INR Comment 1.5H, Activated Partial Thromboplast Time 38H, Blood Urea Nitrogen 33H, Creatinine 1.31H, Glucose Level 177H, Total Bilirubin 2.1H, Thyroid Stimulating Hormone (TSH) 0.22L 04/15/18 03:15: Red Blood Count 1.79L, Hemoglobin 7.0L, Hematocrit 20*L, Mean Corpuscular Volume 110H, Mean Corpuscular Hemoglobin 39H, Red Cell Distribution Width 25.0H , Neutrophils (%) (Auto) 82H, Lymphocytes # (Auto) 0.6L, Blood Urea Nitrogen 30H , Glucose Level 135H, Total Bilirubin 2.1H, Lactate Dehydrogenase 518H, Total Protein 5.5L, HDL Cholesterol 38L 04/15/18 08:49: Red Blood Count 1.90L, Hemoglobin 7.3L, Hematocrit 21L, Mean Corpuscular Volume 108H, Mean Corpuscular Hemoglobin 38H, Red Cell Distribution Width 25.3H, Neutrophils (%) (Auto) 82H, Lymphocytes # (Auto) 0.6L, Percent Reticulocyte Count 4.58H 04/15/18 13:30: Laboratory Tests 04/15/18 03:15 04/15/18 08:49 Impression & Plan Impression & Plan IMP: 1. Macrocytic anemia, Hb 7-8, MCV 108-118 since 10/2017, required multiple RBC transfusions. Possible MDS with refractory anemia but can not completely rule out hemolytic anemia at this point. 2. Paroxysmal Afib with RVR now converted to sinus rhythm, high risk of stroke and needs to be on Eliquis. Stool occult blood test negative so far. 3. h/o hypothyroidism 4. Alzhemer's disease, appeared mild. 5. h/o renal insufficiency. Plan: 1. RBC transfusion support to keep her Hb above 8. 2. B12 injection monthly and folic acid daily. 3. She may need to have bone marrow exam at some point but it can be done as out -pt. If she is MDS refractory anemia, the treatment for her would be just RBC transfusion as needed. 4. I will see her in 2-4 weeks after discharge 5. Check haptoglobin and LDH to determine if she is hemolyzing. 6. She can go home from hematology point of view. Thank you for consultation. TARIQ SUMMERS MD Apr 15, 2018 14:11
[2018-04-15] MEDS ORDERED: PATIENT MAY USE OWN MED,SINGLE MED PO SCH (14:45)
[2018-04-15] MEDS: DILTIAZEM IV FOR DRIP 125 MG in NS (IVPB) 100 ML IV SCH (18:45)
[2018-04-15] MEDS: ROSUVASTATIN 5 MG (CRESTOR) TABLET PO SCH (20:43)
[2018-04-15] MEDS ORDERED: TRIMETHOPRIM 100 MG TAB (PROLOPRIM) NON-FORMULARY PO SCH ×2 (21:00)
[2018-04-16] VITALS (11 sets, daily range): BP systolic 155–191; BP diastolic 69–93
[2018-04-16 03:49] LABS: BASOPHILS % (AUTO) 0 % (0-10); EOSINOPHILS # (AUTO) 0.2 10^3/uL (0.0-0.3); EOSINOPHILS % (AUTO) 3 % (0-10); HEMATOCRIT 29 % (35-52); HEMOGLOBIN 10.7 G/DL (11.5-16.0); LYMPHOCYTES # (AUTO) 0.7 X 10^3 (1.0-4.0); LYMPHOCYTES % (AUTO) 12 % (12-44); MEAN CORPUSCULAR HEMOGLOBIN 36 PG (25-34); MEAN CORPUSCULAR HGB CONC 36 G/DL (32-36); MEAN CORPUSCULAR VOLUME 99 FL (80-99); MEAN PLATELET VOLUME 9.6 FL (7.4-10.4); MONOCYTES # (AUTO) 0.2 X 10^3 (0.0-1.0); MONOCYTES % (AUTO) 3 % (0-12); NEUTROPHILS # (AUTO) 4.6 X 10^3 (1.8-7.8); NEUTROPHILS % (AUTO) 82 % (42-75); PLATELET COUNT 123 10^3/uL (130-400); RED BLOOD COUNT 2.98 10^6/uL (4.35-5.85); RED CELL DISTRIBUTION WIDTH 24.3 % (10.0-14.5); WHITE BLOOD COUNT 5.6 10^3/uL (4.3-11.0)
[2018-04-16 04:06] LABS: CREATININE SERUM 1.07 MG/DL (0.60-1.30); MAGNESIUM 2.1 MG/DL (1.8-2.4); POTASSIUM 4.3 MMOL/L (3.6-5.0)
[2018-04-16] MEDS: CATHETER FLUSH 10 ML SYR IV SCH (06:44)
[2018-04-16] MEDS: LEVOTHYROXINE 125 MCG (LEVOTHROID) TABLET PO SCH (06:44)
[2018-04-16] MEDS ORDERED: MULTIVIT W/MINERALS TAB (THERAGRAN M) PO SCH (07:00)
[2018-04-16] MEDS ORDERED: FOLIC ACID 1 MG TAB PO SCH (09:00)
[2018-04-16] MEDS: APIXABAN 5 MG (ELIQUIS) TABLET PO SCH (09:41)
[2018-04-16] MEDS: AMIODARONE 200 MG (CORDARONE) TAB PO SCH (09:43)
[2018-04-16] MEDS: DILTIAZEM 240 MG (CARDIZEM CD) CAP PO SCH (09:43)
--- NOTE | 2018-04-16 11:01 | Cardiology Progress Note ---
Cardiology SOAP Progress Note Subjective: No cardiac symptoms. Objective: I&O/Vital Signs 04/15/18 04/16/18 04/16/18 04/16/18 23:34 00:00 00:00 01:00 Temp 97.5 Pulse 79 75 Resp 21 B/P (MAP) 155/86 (109) Pulse Ox 96 96 O2 Delivery Room Air Room Air 04/16/18 04/16/18 04/16/18 04/16/18 01:00 02:00 03:00 03:46 Temp 98.5 Pulse 79 73 79 Resp 20 21 B/P (MAP) 167/78 (107) Pulse Ox 96 94 94 O2 Delivery Room Air Room Air Room Air 04/16/18 04/16/18 04/16/18 04/16/18 04:00 04:00 05:00 06:00 Pulse 75 78 77 Resp 18 23 18 B/P (MAP) 172/69 (103) 180/77 (111) 181/75 (110) Pulse Ox 93 96 96 98 O2 Delivery Room Air Room Air Room Air Room Air 04/16/18 04/16/18 04/16/18 04/16/18 07:00 08:00 08:00 11:25 Temp 98.2 Pulse 79 Pulse Ox 96 96 O2 Delivery Room Air Room Air 04/16/18 00:00 Intake Total 1329 ml Output Total 575 ml Balance 754 ml Weight (Pounds): 177 Weight (Ounces): 5.0 Weight (Calculated Kilograms): 80.225444 Constitutional: No appears stated age; AAO x 3; No apparent distress, No PERRL , No well-developed, No well-nourished, No other Respiratory: No accessory muscle use, No respiratory distress, No chest tender , No chest expansion is symmetric; chest is bilaterally symmetric; No lungs clear to percussion; lungs clear to auscultation; No crackles, No rhonchi, No rales, No stridor, No wheezing, No pleural rub, No other Cardiovascular: regular rate-rhythm; No irregularly irregular, No extra beats, No parasternal heave is noted, No JVD, No edema, No bradycardia, No tachycardia , No point of maximal impulse, No cardiac thrills are palpable; S1 and S2; No gallop/S3, No gallop/S4, No diastolic murmur, No systolic murmur, No friction rub, No click, No other Gastrointestional: No tender, No soft, No round, No distended, No pulsatile mass, No organomegaly, No guarding, No rebound, No tenderness, No hernia, No mass, No audible bowel sounds, No abnormal bowel sounds, No abdominal bruits, No spleenomegaly, No other Extremities: No normal range of motion, No non-tender, No normal inspection, No pedal edema, No calf tenderness, No normal capillary refill, No pelvis stable , No calf tenderness, No inflammation, No pedal edema, No slow capillary refill , No swelling, No other, No abrasion, No clubbing, No cyanosis, No ecchymosis, No laceration, No no lower extremity edema bilateral, No significant edema, No tenderness, No wound Neurologic/Psychiatric: no motor/sensory deficits, alert, normal mood/affect, oriented x 3 Skin: No normal color, No warm/dry, No cyanosis, No cool, No diaphoresis, No damp, No ecchymosis, No jaundice, No mottled, No pallor, No rash, No tattoos/ piercings, No ulcerations, No rash on exposed areas, No ulcerations on exposed areas, No other Results/Procedures: Labs Laboratory Tests 04/15/18 13:30: Stool Occult Blood Immunoassay NEGATIVE 04/16/18 03:20: White Blood Count 5.6, Red Blood Count 2.98L, Hemoglobin 10.7#L, Hematocrit 29L , Mean Corpuscular Volume 99, Mean Corpuscular Hemoglobin 36H, Mean Corpuscular Hemoglobin Concent 36, Red Cell Distribution Width 24.3H, Platelet Count 123L, Mean Platelet Volume 9.6, Neutrophils (%) (Auto) 82H, Lymphocytes (%) (Auto) 12 , Monocytes (%) (Auto) 3, Eosinophils (%) (Auto) 3, Basophils (%) (Auto) 0, Neutrophils # (Auto) 4.6, Lymphocytes # (Auto) 0.7L, Monocytes # (Auto) 0.2, Eosinophils # (Auto) 0.2, Basophils # (Auto) 0.0, Sodium Level 139, Potassium Level 4.3, Chloride Level 108H, Carbon Dioxide Level 21, Anion Gap 10, Blood Urea Nitrogen 24H, Creatinine 1.07, Estimat Glomerular Filtration Rate 49, BUN/ Creatinine Ratio 22, Glucose Level 132H, Calcium Level 9.0, Phosphorus Level 4.0 , Magnesium Level 2.1 A/P: Assessment/Dx: Admission Diagnosis Paroxysmal atrial fibrillation Tachycardia Hypertension Hyperlipidemia Plan: Assessment/Plan Paroxysmal atrial fibrillation, back to sinus rhythm, had history of paroxysmal atrial fibrillation. Can be discharged on Cardizem and amiodarone. Follow-up with Dr. Garcia. Severe anemia, followed with hematology. Generalized fatigue and loss of energy secondary to palpitation tachycardia, feeling better at this time [id number] score of 4, yearly risk of stroke without oral anticoagulation is 4 percent maintained on Eliquis. History of chronic compensated left ventricular diastolic dysfunction, I will reevaluate 2-D echocardiogram Hypertension, home medication restarted. Continue to monitor blood pressure Hypothyroidism, managed by primary care physician. Mild bilateral carotid stenosis, nonobstructive disease, last ultrasound was done in June 2016. CTA of head and neck done August 26, 2017 revealed no significant stenosis. Continue to monitor. Hyperlipidemia, continue to monitor lipids Thank you for your consultation. Please call me if you have any questions. Candi Gross MD, FACP, FACC, FSCAI, FHRS, CCDS Interventional Cardiology Cardiac Electrophysiology Vascular Medicine and Endovascular Interventions Chavo GROSS MD Apr 16, 2018 11:01 am
[2018-04-16] MEDS ORDERED: AMIO200T4 PO ×2 (11:16→11:57)
--- NOTE | 2018-04-16 11:32 | Discharge Summary-Hospitalist ---
Diagnosis/Chief Complaint Date of Admission Apr 14, 2018 at 15:32 Date of Discharge Discharge Date: Apr 16, 2018 Admission Diagnosis Assessment: Atrial fibrillation with rapid ventricular response Severe anemia requiring transfusions and hematology consult Dementia Hypertension Hyperlipidemia Hypothyroidism Acute renal insufficiency Nausea and vomiting and diarrhea now resolved Plan: Home meds Rate control per cardiology Transfuse 2 units Hematology consult is appreciated Discharge Diagnosis (1) Atrial flutter with rapid ventricular response Status: Acute (2) Anemia Status: Chronic (3) Transfusion of blood during current hospitalisation Status: Acute (4) Renal insufficiency Status: Acute (5) Debility Status: Acute (6) Hypothyroidism Status: Chronic (7) Dementia Status: Chronic (8) CAD (coronary artery disease) Status: Chronic Discharge Summary Discharge Physical Exam Allergies: Coded Allergies: Fish Containing Products (Verified Allergy, Unknown, 06/02/16) Vitals & I&Os Vital Signs Date Time Temp Pulse Resp B/P (MAP) Pulse Ox O2 Delivery O2 Flow Rate FiO2 04/16/18 11:25 96 Room Air 04/16/18 08:00 98.2 04/16/18 07:00 79 04/16/18 06:00 18 181/75 (110) General Appearance: No Apparent Distress, WD/WN Respiratory: Chest Non Tender, Lungs Clear, Normal Breath Sounds, No Accessory Muscle Use, No Respiratory Distress Cardiovascular: Regular Rate, Rhythm, No Edema, No Gallop, No JVD, No Murmur, Normal Peripheral Pulses Hospital Course Patient presented emergency room with palpitations and heart racing. She was found to be in atrial fibrillation with rapid ventricular response. She was admitted the intensive care unit and started on IV Cardizem. Amiodarone was initiated by Dr. Gross and the patient converted to sinus rhythm. The morning of her discharge she is requesting discharge she stated that she felt well with no chest symptoms denying shortness of breath tolerating solids. She is in sinus rhythm with a ventricular response in the 70 bpm range. She was evaluated by cardiology and they agree with discharge. She is also being followed by hematology and an hemoglobin of 7. She reportedly has history of myelodysplastic anemia and received 2 units of packed cells with a discharge hemoglobin of 10. She has regular monthly follow-up with Dr. Miller which she will keep. She'll be seeing cardiology in 1-2 weeks to monitor amiodarone. Labs (last 24 hrs) Laboratory Tests 04/15/18 13:30: Stool Occult Blood Immunoassay NEGATIVE 04/16/18 03:20: White Blood Count 5.6, Red Blood Count 2.98L, Hemoglobin 10.7#L, Hematocrit 29L , Mean Corpuscular Volume 99, Mean Corpuscular Hemoglobin 36H, Mean Corpuscular Hemoglobin Concent 36, Red Cell Distribution Width 24.3H, Platelet Count 123L, Mean Platelet Volume 9.6, Neutrophils (%) (Auto) 82H, Lymphocytes (%) (Auto) 12 , Monocytes (%) (Auto) 3, Eosinophils (%) (Auto) 3, Basophils (%) (Auto) 0, Neutrophils # (Auto) 4.6, Lymphocytes # (Auto) 0.7L, Monocytes # (Auto) 0.2, Eosinophils # (Auto) 0.2, Basophils # (Auto) 0.0, Sodium Level 139, Potassium Level 4.3, Chloride Level 108H, Carbon Dioxide Level 21, Anion Gap 10, Blood Urea Nitrogen 24H, Creatinine 1.07, Estimat Glomerular Filtration Rate 49, BUN/ Creatinine Ratio 22, Glucose Level 132H, Calcium Level 9.0, Phosphorus Level 4.0 , Magnesium Level 2.1 Patient resulted labs reviewed. Discussion & Recommendations Discharge Planning: >30 minutes discharge planning Discharge Home Medications: Active Scripts Active Amiodarone HCl 200 Mg Tablet 400 Mg PO BID 30 Days Reported Trimethoprim 100 Mg Tablet 100 Mg PO HS Zantac (Ranitidine HCl) 150 Mg Tablet 150 Mg PO BID PRN Eliquis (Apixaban) 5 Mg Tablet 5 Mg PO BID Imodium A-D (Loperamide HCl) 2 Mg Tablet 2 Mg PO UD PRN Claritin (Loratadine) 10 Mg Tablet 10 Mg PO HS PRN Advil (Ibuprofen) 200 Mg Tablet 200-400 Mg PO TID PRN Fish Oil 1,400 mg Softgel ([place]-3/Dha/Epa/Fish Oil) 1 Each Capsule.dr 1,400 Mg PO 1200 Probiotic (L.acidoph & Paracasei,B.lactis) 1 Each Capsule 1 Cap PO 1200 Rosuvastatin Calcium 5 Mg Tablet 5 Mg PO HS Cartia Xt (Diltiazem HCl) 120 Mg Cap.er.24h 120 Mg PO HS Cartia Xt (Diltiazem HCl) 240 Mg Cap.er.24h 240 Mg PO DAILY Metoprolol Succinate 50 Mg Tab.er.24h 50 Mg PO HS Levothyroxine Sodium 125 Mcg Tablet 125 Mcg PO DAILY Os-Sanya 500+D3 Caplet (Calcium Carbonate/Vitamin D3) 1 Each Tablet 1 Tab PO HS Instructions to patient/family Please see electronic discharge instructions given to patient. Clinical Quality Measures DVT/VTE Risk/Contraindication: Risk Factor Score Per Nursin RFS Level Per Nursing on Admit: 2=Moderate Copy Copies To 1: VIVI OATES MD Problem Qualifiers (1) Anemia: Anemia type: unspecified type Qualified Codes: D64.9 - Anemia, unspecified (2) Hypothyroidism: Hypothyroidism type: acquired Qualified Codes: E03.9 - Hypothyroidism, unspecified (3) Dementia: Dementia type: Alzheimer's disease Alzheimer's disease onset: unspecified onset Dementia behavioral disturbance: without behavioral disturbance Qualified Codes: G30.9 - Alzheimer's disease, unspecified; F02.80 - Dementia in other diseases classified elsewhere without behavioral disturbance (4) CAD (coronary artery disease): Coronary Disease-Associated Artery/Lesion type: [place] artery [place] vs. transplanted heart: [place] heart Associated angina: without angina Qualified Codes: I25.10 - Atherosclerotic heart disease of [place] coronary artery without angina pectoris TERRENCE JOSE MD Apr 16, 2018 11:32
--- NOTE | 2018-04-16 12:21 | Oncology Progress Note ---
Subjective Date Seen by a Provider: Apr 16, 2018 Time Seen by a Provider: 12:18 Subjective/Events-last exam Doing well and will be discharged home today. Had 2 units of RBC yesterday and Hb is up properly 7.3 to 10.7. She also got her B12 injection yesterday and oral folic acid. Data Review Labs Laboratory Tests 04/16/18 03:20 Laboratory Tests 04/14/18 13:03: Red Blood Count 2.16L, Hemoglobin 8.0L, Hematocrit 23L, Mean Corpuscular Volume 108H, Mean Corpuscular Hemoglobin 37H, Red Cell Distribution Width 25.2H, Neutrophils (%) (Auto) 85H, Lymphocytes (%) (Auto) 10L, Lymphocytes # (Auto) 0.5L, Prothrombin Time 17.9H, INR Comment 1.5H, Activated Partial Thromboplast Time 38H, Blood Urea Nitrogen 33H, Creatinine 1.31H, Glucose Level 177H, Total Bilirubin 2.1H, Thyroid Stimulating Hormone (TSH) 0.22L 04/15/18 03:15: Red Blood Count 1.79L, Hemoglobin 7.0L, Hematocrit 20*L, Mean Corpuscular Volume 110H, Mean Corpuscular Hemoglobin 39H, Red Cell Distribution Width 25.0H , Neutrophils (%) (Auto) 82H, Lymphocytes # (Auto) 0.6L, Blood Urea Nitrogen 30H , Glucose Level 135H, Total Bilirubin 2.1H, Lactate Dehydrogenase 518H, Total Protein 5.5L, HDL Cholesterol 38L 04/15/18 08:49: Red Blood Count 1.90L, Hemoglobin 7.3L, Hematocrit 21L, Mean Corpuscular Volume 108H, Mean Corpuscular Hemoglobin 38H, Red Cell Distribution Width 25.3H, Neutrophils (%) (Auto) 82H, Lymphocytes # (Auto) 0.6L, Percent Reticulocyte Count 4.58H 04/15/18 13:30: 04/16/18 03:20: Red Blood Count 2.98L, Hemoglobin 10.7#L, Hematocrit 29L, Mean Corpuscular Hemoglobin 36H, Red Cell Distribution Width 24.3H, Platelet Count 123L, Neutrophils (%) (Auto) 82H, Lymphocytes # (Auto) 0.7L, Chloride Level 108H, Blood Urea Nitrogen 24H, Glucose Level 132H Laboratory Tests 04/16/18 03:20 Physical Exam Vital Signs Vital Signs - First Documented 04/14/18 04/14/18 12:55 13:28 Temp 98.0 Pulse 131 Resp 20 B/P (MAP) 148/76 (100) Pulse Ox 95 O2 Delivery Room Air Capillary Refill : Less Than 3 Seconds Height, Weight, BMI Height: 5'5.00" Weight: 177lbs. 5.0oz. 80.913968in; 28.9 BMI Method:Stated General Appearance: No Apparent Distress Neck: Non Tender, Supple Respiratory: Lungs Clear, No Accessory Muscle Use, No Respiratory Distress Cardiovascular: Regular Rate, Rhythm, No Edema Gastrointestinal: Non Tender, Soft Neurologic/Psychiatric: Alert, Oriented x3 Impression & Plan Impression & Plan IMP: 1. Macrocytic anemia, Hb 7-8, MCV 108-118 since 10/2017, required multiple RBC transfusions. Possible MDS with refractory anemia but can not completely rule out hemolytic anemia at this point. 2. Paroxysmal Afib with RVR now converted to sinus rhythm, high risk of stroke and needs to be on Eliquis. Stool occult blood test negative so far. 3. h/o hypothyroidism 4. Alzhemer's disease, appeared mild. 5. h/o renal insufficiency. Plan: 1. RBC transfusion support to keep her Hb above 8. 2. B12 injection monthly and folic acid daily. 3. She may need to have bone marrow exam at some point but it can be done as out -pt. If she is MDS refractory anemia, the treatment for her would be just RBC transfusion as needed. 4. I will see her in 2-4 weeks after discharge. Please set up appointment for her when discharge 5. F/u result of haptoglobin and LDH to determine if she is hemolyzing. 6. She can go home from hematology point of view. Thank you for consultation. Clinical Quality Measures DVT/VTE Risk/Contraindication: Risk Factor Score Per Nursin RFS Level Per Nursing on Admit: 2=Moderate TARIQ SUMMERS MD Apr 16, 2018 12:21
--- NOTE | 2018-04-16 12:37 | Diagnostic Imaging Report ---
INDICATION: Dyspnea. TIME OF EXAM: 4:33 AM Correlation is made with prior study one day earlier. FINDINGS: Cardiac monitoring device overlies the left hilum. The lungs are clear. No infiltrate or failure is seen. No effusion or pneumothorax is identified. IMPRESSION: No acute cardiopulmonary process is detected. Dictated by: Dictated on workstation # [id number]
== END 2018-04-16 13:04 | disposition home or self-care (01) | DRG 309 ==
LOC: EDUNIT# 12:19 → ER 12:21 → ICU 15:32 → UNDOADMIN 15:32
PROVIDERS: ADMIT Internal Medicine; ATTEND Internal Medicine
DX: I48.0 Paroxysmal atrial fibrillation (principal); D59.9 Acquired hemolytic anemia, unspecified; D53.9 Nutritional anemia, unspecified; I48.92 Unspecified atrial flutter; D46.9 Myelodysplastic syndrome, unspecified; N28.9 Disorder of kidney and ureter, unspecified; D46.4 Refractory anemia, unspecified; I11.9 Hypertensive heart disease without heart failure; E78.00 Pure hypercholesterolemia, unspecified; E78.5 Hyperlipidemia, unspecified; R19.7 Diarrhea, unspecified; R11.2 Nausea with vomiting, unspecified; J44.9 Chronic obstructive pulmonary disease, unspecified; E03.9 Hypothyroidism, unspecified; G62.9 Polyneuropathy, unspecified; G30.9 Alzheimer's disease, unspecified; F02.80 Dementia in other diseases classified elsewhere, unspecified severity, without behavioral disturbance, psychotic disturbance, mood disturbance, and anxiety; K21.9 Gastro-esophageal reflux disease without esophagitis; K64.9 Unspecified hemorrhoids; M54.9 Dorsalgia, unspecified; F41.9 Anxiety disorder, unspecified; F32.9 Major depressive disorder, single episode, unspecified; R53.83 Other fatigue; R00.0 Tachycardia, unspecified; I65.23 Occlusion and stenosis of bilateral carotid arteries; I25.10 Atherosclerotic heart disease of native coronary artery without angina pectoris; Z79.01 Long term (current) use of anticoagulants; Z87.891 Personal history of nicotine dependence; Z96.60 Presence of unspecified orthopedic joint implant
CPT/HCPCS: 36415; 71045; 80048; 80053; 80061; 82274; 82607; 82746; 83010; 83615; 83735; 83874; 84100; 84439; 84443; 84484; 85007; 85025; 85027; 85045; 85610; 85730; 86850; 86900; 86901; 86920; 93005; 93041; 93306; 96361; 96365; 96366

== ENCOUNTER 2018-04-29 06:55 | Emergency (ER) | payer MEDICARE, OTHER ==
[~2018-04-29] VITALS: Ht 162.6 cm; Wt 81.6 kg
[~2018-04-29 06:55] MED LIST changes: +AMIO200T4 PO
--- NOTE | 2018-04-29 07:15 | ED Fall/Injury ---
General Stated Complaint: LEFT SHOULDER PAIN Source: patient Exam Limitations: no limitations History of Present Illness Date Seen by Provider: Apr 29, 2018 Time Seen by Provider: 07:11 Initial Comments The patient is an 87-year-old white female known to me. She reports that she was letting her dog back into the house after he had completed his backyard business. She somehow tripped over him and fell heavily on her left shoulder. She reports significant pain in that area. There are no other complaints and there was no loss of consciousness. Occurred: just prior to arrival Injuries/Pain Location: upper extremity Context: tripped Loss of Consciousness: no loss of consciousness Allergies and Home Medications Allergies Coded Allergies: Fish Containing Products (Verified Allergy, Unknown, 06/02/16) Home Medications Amiodarone HCl 200 Mg Tablet, 200 MG PO DAILY Prescribed by: CARLOS OCONNELL on 04/16/18 1157 Apixaban 5 Mg Tablet, 5 MG PO BID, (Reported) Calcium Carbonate/Vitamin D3 1 Each Tablet, 1 TAB PO HS, (Reported) Diltiazem HCl 240 Mg Cap.er.24h, 240 MG PO DAILY, (Reported) Diltiazem HCl 120 Mg Cap.er.24h, 120 MG PO HS, (Reported) L.acidoph & Paracasei,B.lactis 1 Each Capsule, 1 CAP PO 1200, (Reported) Levothyroxine Sodium 125 Mcg Tablet, 125 MCG PO DAILY, (Reported) Loperamide HCl 2 Mg Tablet, 2 MG PO UD PRN for DIARRHEA, (Reported) Loratadine 10 Mg Tablet, 10 MG PO HS PRN for ALLERGIES, (Reported) Metoprolol Succinate 50 Mg Tab.er.24h, 50 MG PO HS, (Reported) [place]-3/Dha/Epa/Fish Oil 1 Each Capsule.dr, 1,400 MG PO 1200, (Reported) Ranitidine HCl 150 Mg Tablet, 150 MG PO BID PRN for HEARTBURN, (Reported) Rosuvastatin Calcium 5 Mg Tablet, 5 MG PO HS, (Reported) Trimethoprim 100 Mg Tablet, 100 MG PO HS, (Reported) Patient Home Medication List Home Medication List Reviewed: Yes Review of Systems Review of Systems Constitutional: see HPI Eyes: No Symptoms Reported Ears, Nose, Mouth, Throat: no symptoms reported Respiratory: no symptoms reported Cardiovascular: no symptoms reported Gastrointestinal: no symptoms reported Genitourinary: no symptoms reported Musculoskeletal: see HPI Skin: no symptoms reported Psychiatric/Neurological: No Symptoms Reported Past Uggtcmg-Orqkyh-Hjcnpm Hx Patient Social History Type Used: Cigarettes Former Smoker, Quit: May 24, 1966 2nd Hand Smoke Exposure: No Recent Foreign Travel: No Contact w/Someone Who Travel: No Recent Hopitalizations: No Immunizations Up To Date Tetanus Booster (TDap): Unknown PED Vaccines UTD: No Date of Pneumonia Vaccine: October 28, 2015 Seasonal Allergies Seasonal Allergies: No Past Medical History Surgeries: Yes (implanted loop recorder) Hysterectomy, Joint Replacement Respiratory: Yes Pneumonia, COPD Currently Using CPAP: No Currently Using BIPAP: No Cardiac: Yes (LOOP RECORDER) Atrial Fibrillation, Coronary Artery Disease, High Cholesterol, Hypertension Neurological: Yes Dementia, Neuropathy 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 No Pertinent Family Hx, Hypertension Physical Exam Vital Signs Vital Signs - First Documented 04/29/18 07:14 Temp 98.0 Pulse 65 Resp 18 B/P (MAP) 149/53 (85) Capillary Refill : Height, Weight, BMI Height: 5'5.00" Weight: 177lbs. 5.0oz. 80.684578az; 28.9 BMI Method:Stated General Appearance: mild distress HEENT: normal ENT inspection Neck: full range of motion Cardiovascular: normal peripheral pulses, regular rate, rhythm, no edema, no gallop, no JVD, no murmur Respiratory: chest non-tender, lungs clear, normal breath sounds, no respiratory distress, no accessory muscle use Gastrointestinal: normal bowel sounds, non tender, soft, no organomegaly, no pulsatile mass Back: normal inspection Extremities: other (no ecchymosis or deformity left shoulder) Neurologic/Psychiatric: cable testers helper II-XII nml as tested, no motor/sensory deficits, alert, normal mood/affect, oriented x 3 Skin: normal color, warm/dry Lymphatic: no adenopathy There is no ecchymosis at the shoulder. There is no step-off below the acromion process. There is no deformity of the proximal humerus. [place] Coma Score Best Eye Response: (4) Open Spontaneously Best Verbal Response: (5) Oriented Best Motor Response: (6) Obeys Commands Progress/Results/Core Measures Results/Orders My Orders Orders - [facility] [place] MD Shoulder, Left, 3 Views (04/29/18 07:17) Vital Signs/I&O 04/29/18 07:14 Temp 98.0 Pulse 65 Resp 18 B/P (MAP) 149/53 (85) Departure Communication (Admissions) X-ray showed significant arthritic changes but no evidence of fracture or dislocation. Impression Primary Impression: fall at home Additional Impression: left shoulder contusion Disposition: 01 HOME, SELF-CARE Condition: Stable/Unchanged Departure-Patient Inst. Decision time for Depature: 08:23 Referrals: VIVI OATES MD (PCP/Family) Primary Care Physician Add. Discharge Instructions: Use Tylenol as necessary for pain. An ice pack may be useful. SERA LA[place] MD Apr 29, 2018 07:15
--- NOTE | 2018-04-29 07:32 | Diagnostic Imaging Report ---
INDICATION: Pain. Three views were obtained. FINDINGS: There is moderate arthrosis of the acromioclavicular joint. There is also degenerative changes of the glenohumeral joint. There is no fracture or dislocation. Left lung is clear. Soft tissues are unremarkable. 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
[2018-04-29 08:45] VITALS: BP 149/53
== END 2018-04-29 08:46 | disposition home or self-care (01) ==
LOC: EDUNIT# 06:55 → ER 06:57
DX: S40.012A Contusion of left shoulder, initial encounter (principal); J44.9 Chronic obstructive pulmonary disease, unspecified; I48.91 Unspecified atrial fibrillation; I25.10 Atherosclerotic heart disease of native coronary artery without angina pectoris; E78.00 Pure hypercholesterolemia, unspecified; I10 Essential (primary) hypertension; F03.90 Unspecified dementia, unspecified severity, without behavioral disturbance, psychotic disturbance, mood disturbance, and anxiety; K21.9 Gastro-esophageal reflux disease without esophagitis; E03.9 Hypothyroidism, unspecified; F41.9 Anxiety disorder, unspecified; F32.9 Major depressive disorder, single episode, unspecified; Z87.19 Personal history of other diseases of the digestive system; Z87.440 Personal history of urinary (tract) infections; Z79.01 Long term (current) use of anticoagulants; Z87.891 Personal history of nicotine dependence; Z90.710 Acquired absence of both cervix and uterus; Z87.01 Personal history of pneumonia (recurrent); W18.09XA Striking against other object with subsequent fall, initial encounter; Y92.007 Garden or yard of unspecified non-institutional (private) residence as the place of occurrence of the external cause
CPT/HCPCS: 73030

== ENCOUNTER 2018-07-11 10:09 | Outpatient (RCR) | payer MEDICARE, OTHER | END 2018-07-11 11:56 | disposition home or self-care (01) | PROVIDERS: ATTEND Internal Medicine | DX: M25.512 Pain in left shoulder (principal); M25.511 Pain in right shoulder ==

== ENCOUNTER 2018-08-03 12:51 | Outpatient (RCR) | payer MEDICARE, OTHER ==
[2018-05-11 13:24] LABS: BASOPHILS % (AUTO) 0 % (0-10); EOSINOPHILS # (AUTO) 0.2 10^3/uL (0.0-0.3); EOSINOPHILS % (AUTO) 2 % (0-10); HEMATOCRIT 38 % (35-52); HEMOGLOBIN 12.8 G/DL (11.5-16.0); LYMPHOCYTES # (AUTO) 0.7 X 10^3 (1.0-4.0); LYMPHOCYTES % (AUTO) 7 % (12-44); MEAN CORPUSCULAR HEMOGLOBIN 34 PG (25-34); MEAN CORPUSCULAR HGB CONC 34 G/DL (32-36); MEAN CORPUSCULAR VOLUME 101 FL (80-99); MONOCYTES # (AUTO) 0.5 X 10^3 (0.0-1.0); MONOCYTES % (AUTO) 5 % (0-12); NEUTROPHILS # (AUTO) 8.8 X 10^3 (1.8-7.8); NEUTROPHILS % (AUTO) 86 % (42-75); PLATELET COUNT 237 10^3/uL (130-400); RED CELL DISTRIBUTION WIDTH 16.6 % (10.0-14.5); WHITE BLOOD COUNT 10.3 10^3/uL (4.3-11.0)
[2018-05-11 13:48] LABS: ALBUMIN 4.2 GM/DL (3.2-4.5); BILIRUBIN,TOTAL 1.4 MG/DL (0.1-1.0); CALCIUM 9.3 MG/DL (8.5-10.1); CREATININE SERUM 1.37 MG/DL (0.60-1.30); POTASSIUM 5.4 MMOL/L (3.6-5.0); TOTAL PROTEIN 6.8 GM/DL (6.4-8.2)
[~2018-08-03 12:51] MED LIST changes: -AMLO5TAB7 PO; +AMLO5TAB9 PO; -DILT120C63 PO; +DILT120C94 PO
[2018-08-03] MEDS ORDERED: CYANOCOBALAMIN INJ 1000 MCG/ML (CANCER CENTER) ONE (13:20)
== END 2018-08-09 | disposition home or self-care (01) ==
LOC: ONC 12:51
PROVIDERS: ATTEND Internal Medicine Hematology & Oncology
DX: D59.9 Acquired hemolytic anemia, unspecified (principal)
CPT/HCPCS: 36415; 80053; 82728; 83540; 85025; 96372; 99213

== ENCOUNTER 2018-10-26 13:12 | Outpatient (RCR) | payer MEDICARE, OTHER ==
[~2018-10-26 13:12] MED LIST changes: +CYANOCOBALAMIN INJ 1000 MCG/ML (CANCER CENTER) ONE
[2018-10-26 13:36] LABS: BASOPHILS % (AUTO) 0 % (0-10); EOSINOPHILS # (AUTO) 0.2 10^3/uL (0.0-0.3); EOSINOPHILS % (AUTO) 2 % (0-10); HEMATOCRIT 41 % (35-52); HEMOGLOBIN 13.9 G/DL (11.5-16.0); LYMPHOCYTES # (AUTO) 1.1 X 10^3 (1.0-4.0); LYMPHOCYTES % (AUTO) 10 % (12-44); MEAN CORPUSCULAR HEMOGLOBIN 31 PG (25-34); MEAN CORPUSCULAR HGB CONC 34 G/DL (32-36); MEAN CORPUSCULAR VOLUME 90 FL (80-99); MEAN PLATELET VOLUME 10.7 FL (7.4-10.4); MONOCYTES # (AUTO) 0.7 X 10^3 (0.0-1.0); MONOCYTES % (AUTO) 6 % (0-12); NEUTROPHILS # (AUTO) 8.8 X 10^3 (1.8-7.8); NEUTROPHILS % (AUTO) 82 % (42-75); PLATELET COUNT 210 10^3/uL (130-400); RED CELL DISTRIBUTION WIDTH 14.1 % (10.0-14.5); WHITE BLOOD COUNT 10.7 10^3/uL (4.3-11.0)
[2018-10-26 13:55] LABS: ALBUMIN 4.1 GM/DL (3.2-4.5); BILIRUBIN,TOTAL 0.9 MG/DL (0.1-1.0); CALCIUM 9.4 MG/DL (8.5-10.1); CREATININE SERUM 1.36 MG/DL (0.60-1.30); POTASSIUM 4.6 MMOL/L (3.6-5.0); TOTAL PROTEIN 6.7 GM/DL (6.4-8.2)
[2018-10-26] MEDS ORDERED: CYANOCOBALAMIN INJ 1000 MCG/ML (CANCER CENTER) ONE (13:56)
== END 2018-11-29 | disposition home or self-care (01) ==
LOC: ONC 13:12
PROVIDERS: ATTEND Internal Medicine Hematology & Oncology
DX: D53.9 Nutritional anemia, unspecified (principal); I48.0 Paroxysmal atrial fibrillation; I12.9 Hypertensive chronic kidney disease with stage 1 through stage 4 chronic kidney disease, or unspecified chronic kidney disease; N18.9 Chronic kidney disease, unspecified; E78.5 Hyperlipidemia, unspecified; E03.9 Hypothyroidism, unspecified; G30.9 Alzheimer's disease, unspecified; F02.80 Dementia in other diseases classified elsewhere, unspecified severity, without behavioral disturbance, psychotic disturbance, mood disturbance, and anxiety; R79.89 Other specified abnormal findings of blood chemistry; Z79.01 Long term (current) use of anticoagulants; Z79.899 Other long term (current) drug therapy
CPT/HCPCS: 36415; 80053; 82728; 83540; 85025; 96372

== ENCOUNTER 2019-01-16 14:22 | Outpatient (RCR) | payer MEDICARE, OTHER ==
[2018-12-22 14:55] LABS: BASOPHILS % (AUTO) 0 % (0-10); EOSINOPHILS # (AUTO) 0.2 10^3/uL (0.0-0.3); EOSINOPHILS % (AUTO) 2 % (0-10); HEMATOCRIT 38 % (35-52); HEMOGLOBIN 12.9 G/DL (11.5-16.0); LYMPHOCYTES # (AUTO) 0.8 X 10^3 (1.0-4.0); LYMPHOCYTES % (AUTO) 9 % (12-44); MEAN CORPUSCULAR HEMOGLOBIN 31 PG (25-34); MEAN CORPUSCULAR HGB CONC 34 G/DL (32-36); MEAN CORPUSCULAR VOLUME 91 FL (80-99); MEAN PLATELET VOLUME 10.4 FL (7.4-10.4); MONOCYTES # (AUTO) 0.6 X 10^3 (0.0-1.0); MONOCYTES % (AUTO) 6 % (0-12); NEUTROPHILS # (AUTO) 7.7 X 10^3 (1.8-7.8); NEUTROPHILS % (AUTO) 83 % (42-75); PLATELET COUNT 195 10^3/uL (130-400); WHITE BLOOD COUNT 9.3 10^3/uL (4.3-11.0)
[2018-12-22 15:19] LABS: BILIRUBIN,TOTAL 0.8 MG/DL (0.1-1.0); CALCIUM 9.4 MG/DL (8.5-10.1); CREATININE SERUM 1.29 MG/DL (0.60-1.30); POTASSIUM 4.4 MMOL/L (3.6-5.0); TOTAL PROTEIN 6.6 GM/DL (6.4-8.2)
[2019-01-16 14:53] LABS: BASOPHILS % (AUTO) 0 % (0-10); EOSINOPHILS # (AUTO) 0.3 10^3/uL (0.0-0.3); EOSINOPHILS % (AUTO) 3 % (0-10); HEMATOCRIT 37 % (35-52); HEMOGLOBIN 12.4 G/DL (11.5-16.0); LYMPHOCYTES # (AUTO) 0.8 X 10^3 (1.0-4.0); LYMPHOCYTES % (AUTO) 9 % (12-44); MEAN CORPUSCULAR HEMOGLOBIN 31 PG (25-34); MEAN CORPUSCULAR HGB CONC 33 G/DL (32-36); MEAN CORPUSCULAR VOLUME 93 FL (80-99); MEAN PLATELET VOLUME 10.6 FL (7.4-10.4); MONOCYTES # (AUTO) 0.7 X 10^3 (0.0-1.0); MONOCYTES % (AUTO) 7 % (0-12); NEUTROPHILS # (AUTO) 7.4 X 10^3 (1.8-7.8); NEUTROPHILS % (AUTO) 81 % (42-75); PLATELET COUNT 196 10^3/uL (130-400); RED CELL DISTRIBUTION WIDTH 13.8 % (10.0-14.5); WHITE BLOOD COUNT 9.1 10^3/uL (4.3-11.0)
[2019-01-16 15:12] LABS: ALBUMIN 3.9 GM/DL (3.2-4.5); BILIRUBIN,TOTAL 0.7 MG/DL (0.1-1.0); CALCIUM 9.1 MG/DL (8.5-10.1); CREATININE SERUM 1.17 MG/DL (0.60-1.30); POTASSIUM 4.4 MMOL/L (3.6-5.0); TOTAL PROTEIN 6.5 GM/DL (6.4-8.2)
== END 2019-03-22 | disposition home or self-care (01) ==
LOC: ONC 14:22
PROVIDERS: ATTEND Internal Medicine Hematology & Oncology
DX: D53.9 Nutritional anemia, unspecified (principal)
CPT/HCPCS: 36415; 80053; 82728; 83036; 83540; 84443; 85025; 99213

== ENCOUNTER → 2019-01-16 | Outpatient (CLI) | payer MEDICARE, OTHER ==
[~2019-01-16] MED LIST changes: -CYANOCOBALAMIN INJ 1000 MCG/ML (CANCER CENTER) ONE; +RANI-613 PO; -RANI150T46 PO; -ROSU5TAB12 PO; +ROSU5TAB13 PO
== END ==
LOC: LAB 14:32
PROVIDERS: ATTEND Internal Medicine
DX: Z01.89 Encounter for other specified special examinations (principal)

== ENCOUNTER 2019-07-17 14:07 | Outpatient (RCR) | payer MEDICARE, OTHER ==
[~2019-07-17 14:07] MED LIST changes: -ACET-77 PO; +ACET-78 PO; +DILT120C88 PO; -DILT120C94 PO; -LISI1TAB10 PO; +LISI1TAB26 PO; -METO-370 PO; +METO50TA7 PO; +SIMV20TA26 PO; -SIMV20TA3 PO
== END 2019-10-15 | disposition home or self-care (01) ==
LOC: ONC 14:07
PROVIDERS: ATTEND Internal Medicine Hematology & Oncology
DX: D53.9 Nutritional anemia, unspecified (principal)
CPT/HCPCS: 99213

== ENCOUNTER → 2020-04-03 | Outpatient (CLI) | payer MEDICARE, OTHER ==
[~2020-04-03] VITALS: Ht 165 cm; Wt 77.0 kg
[~2020-04-03] MED LIST changes: +ASPI-1238 PO; -ASPI-983 PO; +CATHETER FLUSH 10 ML SYR IV PRN; +REGADENOSON 0.4 MG/5 ML SYR (LEXISCAN) IV ONE
[2020-04-03 13:27] VITALS: BP 193/78
[2020-04-03 13:33] VITALS: BP 183/62
--- NOTE | 2020-04-03 15:50 | Cardiology Stress Test Report ---
Stress Test Report Date of Procedure/Referring: Date of Procedure: Apr 03, 2020 Bridget Lazcano Admitting Physician Jung Burkett MD Indications: Shortness of breath Baseline Heart Rate: 80 Baseline Blood Pressure: Blood Pressure Systolic: 183 Blood Pressure Diastolic: 62 Baseline Vitals Vital Signs Date Time Temp Pulse Resp B/P (MAP) Pulse Ox O2 Delivery O2 Flow Rate FiO2 04/03/20 13:27 82 17 193/78 (116) 97 Room Air Baseline EKG: Baseline EKG: normal sinus rhythm Summary After explaining the procedure to the patient, she signed a consent and then brought to the stress nuclear laboratory. Patient received 0.4 mg Lexiscan for stress test, ECG, heart rate and blood pressure were monitored continuously. Resting and stress dose of radio tracer were injected, imaging was acquired and reviewed in short axis, horizontal long axis and vertical long axis views. TID: 1.13 SSS: 0 SDS: 0 EF: 65 1. Patient tolerated Lexiscan well 2. No significant ischemia or infarction on SPECT images 3. Normal left ventricular size, EF 65 percent CESAR LEYVA MD Apr 03, 2020 15:50
== END ==
LOC: CARD 11:30
PROVIDERS: ATTEND Physician Assistant
DX: I35.8 Other nonrheumatic aortic valve disorders (principal); E78.2 Mixed hyperlipidemia; I10 Essential (primary) hypertension; I65.23 Occlusion and stenosis of bilateral carotid arteries
CPT/HCPCS: 78452; 93017; 93306; A9502

== ENCOUNTER 2020-07-15 12:43 | Outpatient (RCR) | payer MEDICARE, OTHER ==
[~2020-07-15 12:43] MED LIST changes: -AMIO200T4 PO; +AMIO200T6 PO; +AMLO-250 PO; -AMLO5TAB9 PO; -CATHETER FLUSH 10 ML SYR IV PRN; -CIPR500T4 PO; +CIPR500T5 PO; -REGADENOSON 0.4 MG/5 ML SYR (LEXISCAN) IV ONE
[2020-07-15 13:03] LABS: BASOPHILS % (AUTO) 0 % (0-10); EOSINOPHILS # (AUTO) 0.3 10^3/uL (0.0-0.3); EOSINOPHILS % (AUTO) 3 % (0-10); HEMATOCRIT 39 % (35-52); HEMOGLOBIN 13.2 g/dL (11.5-16.0); LYMPHOCYTES # (AUTO) 0.9 10^3/uL (1.0-4.0); LYMPHOCYTES % (AUTO) 9 % (12-44); MEAN CORPUSCULAR HEMOGLOBIN 31 pg (25-34); MEAN CORPUSCULAR HGB CONC 34 g/dL (32-36); MEAN CORPUSCULAR VOLUME 91 fL (80-99); MEAN PLATELET VOLUME 10.6 fL (9.0-12.2); MONOCYTES # (AUTO) 0.5 10^3/uL (0.0-1.0); MONOCYTES % (AUTO) 6 % (0-12); NEUTROPHILS # (AUTO) 7.6 10^3/uL (1.8-7.8); NEUTROPHILS % (AUTO) 82 % (42-75); PLATELET COUNT 201 10^3/uL (130-400); WHITE BLOOD COUNT 9.3 10^3/uL (4.3-11.0)
[2020-07-15 13:27] LABS: ALBUMIN 3.8 GM/DL (3.2-4.5); BILIRUBIN,TOTAL 0.8 MG/DL (0.1-1.0); CALCIUM 9.2 MG/DL (8.5-10.1); CREATININE SERUM 1.32 MG/DL (0.60-1.30); POTASSIUM 4.6 MMOL/L (3.6-5.0); TOTAL PROTEIN 6.6 GM/DL (6.4-8.2)
[2020-10-12] MEDS ORDERED: FLEC50TA PO ×2 (18:17)
[2020-10-12] MEDS ORDERED: METF-478 PO ×2 (18:17)
[2020-10-12] MEDS ORDERED: FERR-84 PO ×2 (18:17)
[2020-10-12] MEDS ORDERED: LOSA25TA41 PO ×2 (18:17)
[2020-10-12] MEDS ORDERED: PSYL2WAF PO ×2 (18:17)
[2020-10-12] MEDS ORDERED: MULT-1029 PO ×2 (18:18)
[2020-10-14] MEDS ORDERED: LORA10TA76 PO (10:09)
[2020-10-14] MEDS ORDERED: FAMO10TA43 PO ×2 (10:09)
[2020-10-14] MEDS ORDERED: LOPE-134 PO ×2 (10:09)
[2020-10-14] MEDS ORDERED: OMEG12002 PO ×2 (10:09)
[2020-10-14] MEDS ORDERED: ACET-2267 PO ×2 (10:09)
[2020-10-22] MEDS ORDERED: MTP25TSR PO ×2 (10:04)
== END 2020-10-13 | disposition home or self-care (01) ==
LOC: ONC 12:43
PROVIDERS: ATTEND Internal Medicine Hematology & Oncology
DX: D53.9 Nutritional anemia, unspecified (principal); G30.9 Alzheimer's disease, unspecified; N18.9 Chronic kidney disease, unspecified; R73.9 Hyperglycemia, unspecified; R94.5 Abnormal results of liver function studies
CPT/HCPCS: 80053; 82728; 83540; 85025; G0463; 99213

== ENCOUNTER → 2020-08-26 | Outpatient (CLI) | payer MEDICARE, OTHER ==
[~2020-08-26] MED LIST changes: +CATHETER FLUSH 10 ML SYR IV PRN; +HOLD METFORMIN - RECEIVED CONTRAST 20 ML VIAL IV SCH; +IOHEXOL 350 MG/ML 100 ML (OMNIPAQUE 350) VIAL IV ONE; +NS 100 ML (IVPB) BAG IV ONE
[2020-08-26 15:49] LABS: HEMOGLOBIN 12.9 g/dL (11.5-16.0); MEAN PLATELET VOLUME 10.1 fL (9.0-12.2); WHITE BLOOD COUNT 8.8 10^3/uL (4.3-11.0)
[2020-08-26 16:18] LABS: POTASSIUM 4.7 MMOL/L (3.6-5.0)
[2020-08-26 16:23] LABS: BILIRUBIN,TOTAL 0.8 MG/DL (0.1-1.0)
[2020-08-26 16:24] LABS: CREATININE SERUM 1.19 MG/DL (0.60-1.30)
--- NOTE | 2020-08-26 17:04 | Diagnostic Imaging Report ---
PROCEDURE: CT chest with contrast only. TECHNIQUE: Multiple contiguous axial images were obtained through the chest after administration of intravenous contrast. Auto Exposure Controls were utilized during the CT exam to meet ALARA standards for radiation dose reduction. INDICATION: Left breast mass. There is a 3 x 4 cm lobulated mass in the left breast. This appears to have somewhat of a capsular appearance with low-density tissue within the encapsulated portion. There is no hilar or mediastinal lymphadenopathy. There is no axillary lymphadenopathy. Lungs are clear. There are no effusions or pneumothoraces. There is calcific atherosclerosis of the aorta. There are stones in the gallbladder. There are hypodense cystic-appearing lesions in the liver. There are 2 large right renal cysts each measuring 8 cm in diameter. There is coronary atherosclerosis. There is a loop recorder in the left mid chest subcutaneous soft tissues. IMPRESSION: Subcutaneous lobulated mass left breast. This should be considered neoplasm until proven otherwise. Patient also has cholecystolithiasis. There is coronary and aortic calcific atherosclerosis. There are hepatic and right renal cysts. Dictated by: Dictated on workstation # [id number]
== END ==
LOC: RAD 15:32
PROVIDERS: ATTEND Physician Assistant
DX: N63.20 Unspecified lump in the left breast, unspecified quadrant (principal); I70.0 Atherosclerosis of aorta; I25.10 Atherosclerotic heart disease of native coronary artery without angina pectoris; N28.1 Cyst of kidney, acquired; K80.20 Calculus of gallbladder without cholecystitis without obstruction; K76.89 Other specified diseases of liver
CPT/HCPCS: 36415; 71260; 80053; 85027

== ENCOUNTER → 2020-09-02 | Outpatient (CLI) | payer MEDICARE, OTHER ==
[~2020-09-02] MED LIST changes: -CATHETER FLUSH 10 ML SYR IV PRN; -HOLD METFORMIN - RECEIVED CONTRAST 20 ML VIAL IV SCH; -IOHEXOL 350 MG/ML 100 ML (OMNIPAQUE 350) VIAL IV ONE; -NS 100 ML (IVPB) BAG IV ONE
--- NOTE | 2020-09-02 15:31 | Diagnostic Imaging Report ---
INDICATION: Left breast lump and mass noted on recent CT. TECHNIQUE: Sonographic interrogation of the area of lump in the left breast was performed. FINDINGS: There is a large hypoechoic solid mass at the 8 o'clock location of the left breast 9 to 10 cm from the nipple measuring 4.0 x 3.3 x 2.7 cm. This demonstrates increased blood flow. This is most consistent with a large breast neoplasm. This extends to the skin surface. IMPRESSION: Large solid mass in the left breast at the 8 o'clock location 9 to 10 cm from the nipple suggestive of breast neoplasm. This would be amenable to ultrasound-guided core biopsy. ACR BI-RADS Category 4: Suspicious abnormality. Dictated by: Dictated on workstation # [id number]
== END ==
LOC: RAD 13:41
PROVIDERS: ATTEND Physician Assistant
DX: N63.24 Unspecified lump in the left breast, lower inner quadrant (principal); R92.8 Other abnormal and inconclusive findings on diagnostic imaging of breast
CPT/HCPCS: 76642

== ENCOUNTER → 2020-09-11 | Outpatient (CLI) | payer MEDICARE, OTHER ==
[~2020-09-11] MED LIST changes: +LIDOCAINE 1% INJ 20 ML 20 ML VIAL INJ ONE; +LIDOCAINE 1% INJ 20 ML 20 ML VIAL ONE
--- NOTE | 2020-09-11 15:55 | Diagnostic Imaging Report ---
INDICATION: Right breast pain. COMPARISON: Correlation is made with the prior mammogram from 03/05/2011. TECHNIQUE: Unilateral right 2D and 3D diagnostic mammography was performed with CAD. FINDINGS: The right breast is heterogeneously dense, limiting the sensitivity of mammography. There are benign parenchymal and vascular calcifications throughout the right breast. No mass is detected. The right axilla is unremarkable. IMPRESSION: No mammographic features suspicious for malignancy are identified. ACR BI-RADS Category 2: Benign findings. Result letter will be mailed to the patient. Note: At least 10% of breast cancer is not imaged by mammography. Dictated by: Dictated on workstation # [id number]
--- NOTE | 2020-09-12 08:42 | Diagnostic Imaging Report ---
INDICATION: Left breast mass. Patient presents for ultrasound guided biopsy. DETAILS OF THE PROCEDURE: The patient was brought to the sonographic suite and placed on the table in the supine position. Ultrasound imaging of the left breast was performed to evaluate for an appropriate entry site. The left breast was then prepped and draped in the usual sterile fashion. A small amount of 1% lidocaine was utilized for local anesthesia. A total of 3 core biopsies was obtained of the large solid mass at the 8 o'clock location of the left breast, 9 to 10 cm from the nipple, utilizing a 14-gauge Achieve needle. A marker clip was then deployed. Hemostasis was obtained using manual compression. The patient tolerated the procedure well and left the Department in stable condition. IMPRESSION: Successful ultrasound guided core biopsy of a left breast mass. Pathology results are currently pending. Dictated by: Dictated on workstation # [id number]
== END ==
LOC: RAD 14:30
PROVIDERS: ATTEND Physician Assistant
DX: N63.20 Unspecified lump in the left breast, unspecified quadrant (principal); N64.4 Mastodynia
CPT/HCPCS: 19083; 77065; A4648; G0279

== ENCOUNTER 2020-09-24 13:37 | Outpatient (RCR) | payer MEDICARE, OTHER ==
[~2020-09-24 13:37] MED LIST changes: -LIDOCAINE 1% INJ 20 ML 20 ML VIAL INJ ONE; -LIDOCAINE 1% INJ 20 ML 20 ML VIAL ONE
[2020-09-24 14:48] LABS: BASOPHILS % (AUTO) 0 % (0-10); EOSINOPHILS # (AUTO) 0.3 10^3/uL (0.0-0.3); EOSINOPHILS % (AUTO) 3 % (0-10); HEMATOCRIT 39 % (35-52); HEMOGLOBIN 13.1 g/dL (11.5-16.0); LYMPHOCYTES # (AUTO) 0.9 10^3/uL (1.0-4.0); LYMPHOCYTES % (AUTO) 9 % (12-44); MEAN CORPUSCULAR HEMOGLOBIN 31 pg (25-34); MEAN CORPUSCULAR HGB CONC 34 g/dL (32-36); MEAN CORPUSCULAR VOLUME 90 fL (80-99); MONOCYTES # (AUTO) 0.6 10^3/uL (0.0-1.0); MONOCYTES % (AUTO) 6 % (0-12); NEUTROPHILS # (AUTO) 8.4 10^3/uL (1.8-7.8); NEUTROPHILS % (AUTO) 82 % (42-75); PLATELET COUNT 208 10^3/uL (130-400); WHITE BLOOD COUNT 10.3 10^3/uL (4.3-11.0)
[2020-09-24 15:06] LABS: ALBUMIN 3.9 GM/DL (3.2-4.5); BILIRUBIN,TOTAL 0.8 MG/DL (0.1-1.0); CALCIUM 8.9 MG/DL (8.5-10.1); CREATININE SERUM 1.24 MG/DL (0.60-1.30); POTASSIUM 4.8 MMOL/L (3.6-5.0); TOTAL PROTEIN 6.7 GM/DL (6.4-8.2)
[2020-10-12] MEDS ORDERED: FERR-84 PO (18:17)
[2020-10-12] MEDS ORDERED: METF-478 PO (18:17)
[2020-10-12] MEDS ORDERED: FLEC50TA PO (18:17)
[2020-10-12] MEDS ORDERED: LOSA25TA41 PO (18:17)
[2020-10-12] MEDS ORDERED: PSYL2WAF PO (18:17)
[2020-10-12] MEDS ORDERED: MULT-1029 PO (18:18)
[2020-10-14] MEDS ORDERED: LOPE-134 PO (10:09)
[2020-10-14] MEDS ORDERED: OMEG12002 PO (10:09)
[2020-10-14] MEDS ORDERED: LORA10TA76 PO (10:09)
[2020-10-14] MEDS ORDERED: ACET-2267 PO (10:09)
[2020-10-14] MEDS ORDERED: FAMO10TA43 PO (10:09)
[2020-10-15] MEDS ORDERED: CEFD300C3 PO (10:57)
[2020-10-22] MEDS ORDERED: MTP25TSR PO (10:04)
[2020-11-11] MEDS ORDERED: FEN12TD TD (10:46)
[2020-11-11] MEDS ORDERED: FURO40TA4 PO (10:46)
== END 2020-12-23 | disposition home or self-care (01) ==
LOC: ONC 13:37
PROVIDERS: ATTEND Internal Medicine Hematology & Oncology
DX: C50.912 Malignant neoplasm of unspecified site of left female breast (principal); I48.0 Paroxysmal atrial fibrillation; G30.9 Alzheimer's disease, unspecified; N18.9 Chronic kidney disease, unspecified; D64.89 Other specified anemias; E78.2 Mixed hyperlipidemia
CPT/HCPCS: 80053; 85025; 86300; G0463; 99213

== ENCOUNTER 2020-10-12 10:43 | Observation (INO) | payer MEDICARE, OTHER ==
[~2020-10-12] VITALS: Ht 165 cm; Wt 77.3 kg
--- NOTE | 2020-10-12 10:58 | ED Fall/Injury ---
General Chief Complaint: Trauma-Non Activation Stated Complaint: FELL AT HOME Nursing Triage Note: ARRIVED VIA EMS FROM HOME AFTER FALLING FROM A STANDING POSITION. STATES SHE HIT HER HEAD. DENIES HEAD/NECK PAIN OR LOC. COMPLAINS OF RIGHT LOWER LEG AND HIP PAIN. PT A/0X3 Source: patient Exam Limitations: no limitations History of Present Illness Date Seen by Provider: Oct 12, 2020 Time Seen by Provider: 10:40 Initial Comments The patient presents to the ER by EMS from home with chief complaint that just prior to arrival she had a fall landing on her right knee as well as striking her head. She is on Eliquis. She had no loss of consciousness is having no nausea. She says she has very little pain as long she does not move but most of her pain is in her distal right femur just above the knee where she had it replaced many years ago by an orthopedic surgeon in [place], [place]. She is having no numbness tingling or loss of sensation. She is not having any pain in her head or neck. Her daughter sets her meds up and the patient states she takes them fastidiously Allergies and Home Medications Allergies Coded Allergies: Fish Containing Products (Verified Allergy, Unknown, 06/02/16) Home Medications Apixaban 5 Mg Tablet, 5 MG PO BID, (Reported) Last Action: Reviewed Calcium Carbonate/Vitamin D3 1 Each Tablet, 1 TAB PO HS, (Reported) Last Action: Reviewed Diltiazem HCl 240 Mg Cap.er.24h, 240 MG PO DAILY, (Reported) Last Action: Reviewed Ferrous Sulfate 325 Mg Tablet, 325 MG PO ,,,Wed, (Reported) Last Action: Reviewed Flecainide Acetate 50 Mg Tablet, 50 MG PO BID, (Reported) Last Action: Converted L.acidoph & Paracasei,B.lactis 1 Each Capsule, 1 CAP PO 1200, (Reported) Last Action: Reviewed Levothyroxine Sodium 125 Mcg Tablet, 125 MCG PO DAILY, (Reported) Last Action: Reviewed Loperamide HCl 2 Mg Tablet, 2 MG PO UD PRN for DIARRHEA, (Reported) Last Action: Reviewed Loratadine 10 Mg Tablet, 10 MG PO HS PRN for ALLERGIES, (Reported) Last Action: Reviewed Losartan Potassium 25 Mg Tablet, 25 MG PO DAILY, (Reported) Last Action: Continued Metformin HCl 500 Mg Tab.er.24, 500 MG PO DAILY, (Reported) Last Action: Continued Metoprolol Succinate 50 Mg Tab.er.24h, 50 MG PO HS, (Reported) Last Action: Continued Multivit-Min/FA/Lycopene/Lut 1 Each Tablet, 1 EACH PO 1200, (Reported) Last Action: Reviewed Roosevelt-3/Dha/Epa/Fish Oil 1 Each Capsule.dr, 1,400 MG PO 1200, (Reported) Last Action: Reviewed Psyllium Husk (with Sugar) 2 Gm Wafer, 2 GM PO DAILY, (Reported) Last Action: Reviewed Ranitidine HCl 150 Mg Tablet, 150 MG PO BID PRN for HEARTBURN, (Reported) Last Action: Reviewed Rosuvastatin Calcium 5 Mg Tablet, 5 MG PO HS, (Reported) Last Action: Continued Trimethoprim 100 Mg Tablet, 100 MG PO HS, (Reported) Last Action: Converted Patient Home Medication List Home Medication List Reviewed: Yes Review of Systems Review of Systems Constitutional: No chills, No diaphoresis Eyes: Denies Blindness, Denies Drainage Ears, Nose, Mouth, Throat: denies ear pain, denies ear discharge Respiratory: No cough, No hemoptysis Cardiovascular: No chest pain, No palpitations Gastrointestinal: No abdominal pain, No nausea Genitourinary: No discharge, No dysuria Musculoskeletal: No back pain; joint pain; No neck pain All Other Systems Reviewed Negative Unless Noted: Yes Past Hrvjyke-Lgtqai-Bnhatn Hx Patient Social History Alcohol Use: Denies Use Smoking Status: Former Smoker Type Used: Cigarettes Former Smoker, Quit: May 24, 1966 2nd Hand Smoke Exposure: No Recent Infectious Disease Expo: No Recent Hopitalizations: Yes Immunizations Up To Date Tetanus Booster (TDap): Unknown PED Vaccines UTD: No Date of Pneumonia Vaccine: October 28, 2015 Seasonal Allergies Seasonal Allergies: Yes Past Medical History Surgeries: Yes Hysterectomy, Joint Replacement Respiratory: No Pneumonia, COPD Currently Using CPAP: No Currently Using BIPAP: No Cardiac: No Atrial Fibrillation, Coronary Artery Disease, High Cholesterol, Hypertension Neurological: No Dementia, Neuropathy Reproductive Disorders: 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 No Pertinent Family Hx, Hypertension Physical Exam Vital Signs Vital Signs - First Documented 10/12/20 10:43 Temp 36.6 Pulse 61 Resp 16 B/P (MAP) 113/51 (71) Pulse Ox 93 O2 Delivery Room Air Capillary Refill : Less Than 3 Seconds Height, Weight, BMI Height: 5'4.00" Weight: 180lbs. 5.0oz. 81.597671lc; 28.00 BMI Method:Estimated General Appearance: WD/WN, no apparent distress HEENT: PERRL/EOMI, normal ENT inspection (Negative raccoon eyes), TMs normal (Negative for brush sign), pharynx normal, other (Atraumatic head) Neck: full range of motion, normal inspection Cardiovascular: normal peripheral pulses, regular rate, rhythm Respiratory: lungs clear, normal breath sounds, no respiratory distress, no accessory muscle use Peripheral Pulses: 2+ Dorsalis Pedis (R), 2+ Left Dors-Pedis (L) Gastrointestinal: non tender, soft Pelvic: normal external exam Extremities: other (Painful flexion of the right knee. No deformity or ecchymoses. Tenderness to direct palpation of the distal right femur. Minor tenderness to palpation over the proximal greater trochanter of the right femur.) Neurologic/Psychiatric: alert, normal mood/affect, oriented x 3 Skin: normal color, warm/dry Progress/Results/Core Measures Results/Orders Lab Results Laboratory Tests Test 10/12/20 11:00 Range/Units White Blood Count 9.6 4.3-11.0 10^3/uL Red Blood Count 4.24 3.80-5.11 10^6/uL Hemoglobin 12.9 11.5-16.0 g/dL Hematocrit 39 35-52 % Mean Corpuscular Volume 92 80-99 fL Mean Corpuscular Hemoglobin 30 25-34 pg Mean Corpuscular Hemoglobin Concent 33 32-36 g/dL Red Cell Distribution Width 13.2 10.0-14.5 % Platelet Count 205 130-400 10^3/uL Mean Platelet Volume 10.5 9.0-12.2 fL Immature Granulocyte % (Auto) 0 % Neutrophils (%) (Auto) 83 H 42-75 % Lymphocytes (%) (Auto) 8 L 12-44 % Monocytes (%) (Auto) 7 0-12 % Eosinophils (%) (Auto) 2 0-10 % Basophils (%) (Auto) 0 0-10 % Neutrophils # (Auto) 7.9 H 1.8-7.8 10^3/uL Lymphocytes # (Auto) 0.8 L 1.0-4.0 10^3/uL Monocytes # (Auto) 0.6 0.0-1.0 10^3/uL Eosinophils # (Auto) 0.2 0.0-0.3 10^3/uL Basophils # (Auto) 0.0 0.0-0.1 10^3/uL Immature Granulocyte # (Auto) 0.0 0.0-0.1 10^3/uL Sodium Level 136 135-145 MMOL/L Potassium Level 4.6 3.6-5.0 MMOL/L Chloride Level 98 98-107 MMOL/L Carbon Dioxide Level 25 21-32 MMOL/L Anion Gap 13 5-14 MMOL/L Blood Urea Nitrogen 29 H 7-18 MG/DL Creatinine 1.20 0.60-1.30 MG/DL Estimat Glomerular Filtration Rate 42 BUN/Creatinine Ratio 24 Glucose Level 297 H 70-105 MG/DL Calcium Level 8.7 8.5-10.1 MG/DL Corrected Calcium 8.9 8.5-10.1 MG/DL Total Bilirubin 0.9 0.1-1.0 MG/DL Aspartate Amino Transf (AST/SGOT) 17 5-34 U/L Alanine Aminotransferase (ALT/SGPT) 22 0-55 U/L Alkaline Phosphatase 106 40-136 U/L Total Protein 6.6 6.4-8.2 GM/DL Albumin 3.8 3.2-4.5 GM/DL My Orders Orders - JEFFREY,ELISE J Knee, Right, 3 Views (10/12/20 10:52) Hip, Right, 2 Views (10/12/20 10:52) Ct Head/Cervical Spine Wo (10/12/20 10:52) Cbc With Automated Diff (10/12/20 10:52) Comprehensive Metabolic Panel (10/12/20 10:52) Ua Culture If Indicated (10/12/20 10:52) Vital Signs/I&O 10/12/20 10:43 Temp 36.6 Pulse 61 Resp 16 B/P (MAP) 113/51 (71) Pulse Ox 93 O2 Delivery Room Air Blood Pressure Mean: 71 Progress Progress Note : Time: 10:57 Progress Note She has declined anything for pain at this time. Were going to get a blood draw urine and x-rays of her right knee and right hip. CT of the head and neck. Diagnostic Imaging Diagonstic Imaging: Xray Plain Films/CT/US/NM/MRI: knee (Right) Comments NAME: NIKHIL ARAIZA MED REC#: [id number] PT STATUS: REG ER : 1930 PHYSICIAN: ELISE MURPHY MD ADMIT DATE: 10/12/20/ER Draft Date of Exam:10/12/20 KNEE, RIGHT, 3 VIEWS EXAMINATION: Right knee at 1120 hours. INDICATION: Fell, knee pain. AP and oblique views were obtained. There are no prior studies available for comparison. FINDINGS: There is a total knee prosthesis in place. The prosthetic component seen in good position. There is no fracture or acute bony abnormality evident. There is an irregular 9.6 mm calcific density in the soft tissues along the medial aspect of the knee joint. This could be a sequela of prior trauma. This does not have the appearance of an acute injury. The soft tissues are unremarkable. However, I would recommend that a lateral view be obtained for further evaluation of possible joint effusion. IMPRESSION: 1. There is no acute bony abnormality identified and the total knee prosthesis appears to be in good position. 2. The calcific density in the soft tissues medial to the knee joint is uncertain etiology. 3. A lateral view should be considered for further study. Dictated on workstation # [id number] Dict: 10/12/20 1128 Trans: 10/12/20 1133 [id number] Interpreted by: BRANDY NARANJO MD Electronically signed by: Reviewed: Reviewed by Me Diagonstic Imaging: Xray Plain Films/CT/US/NM/MRI: hip Comments [facility] [place] NAME: NIKHIL ARAIZA [facility] REC#: [id number] PT STATUS: REG ER : 1930 PHYSICIAN: ELISE MURPHY MD ADMIT DATE: 10/12/20/ER Draft Date of Exam:10/12/20 HIP, RIGHT, 2 VIEWS EXAMINATION: Right hip unilateral 2 or 3 views (w/pelvis when done) HISTORY: Fall, hip pain EXAMINATION: Right hip from 10/12/2020. FINDINGS: 3 views of the hip. There is severe degenerative disease within the joint with no fractures or dislocations appreciated. There is a total knee arthroplasty which is intact as visualized. Atherosclerotic disease is noted. There is a rounded lytic appearing lesion within the mid aspect of the right inferior pubic ramus. A superimposed fracture not excluded. IMPRESSION: 1. No acute fractures within the femur 2. Lytic lesion suspected within the right inferior pubic ramus. A superimposed nondisplaced pathologic fracture difficult to exclude. Dictated on workstation # [id number] Dict: 10/12/20 1129 Trans: 10/12/20 1131 [facility] [id number] Interpreted by: EMELY VASQUES MD Electronically signed by: Reviewed: Reviewed by Me Diagonstic Imaging: CT Plain Films/CT/US/NM/MRI: c-spine, head Comments NAME: NIKHIL ARAIZA [facility] REC#: [id number] PT STATUS: REG ER : 1930 PHYSICIAN: ELISE MURPHY MD ADMIT DATE: 10/12/20/ER Draft Date of Exam:10/12/20 CT HEAD/CERVICAL SPINE WO PROCEDURE: CT head and CT cervical spine without contrast. TECHNIQUE: Multiple contiguous axial images were obtained through the brain and cervical spine without the use of intravenous contrast. Sagittal and coronal reformations through the cervical spine were then performed. Auto Exposure Controls were utilized during the CT exam to meet ALARA standards for radiation dose reduction. INDICATION: Status post fall, hit head. EXAMINATION: CT brain, CT cervical spine 10/12/2020. Correlation made to CT brain from 11/01/2017. FINDINGS: Brain: There is no acute hemorrhage or infarct. No mass effect or midline shift. No hydrocephalus. There is a calcified lesion left of midline towards the vertex measuring 14 mm in greatest dimension stable from previous imaging, likely a meningioma. The osseous structures are intact. No acute process seen in the paranasal sinuses or mastoid air cells. IMPRESSION: 1. Chronic findings with no acute intracranial process. CT cervical spine: Comparison made to 06/11/2017. There is persistent grade 1 anterolisthesis at C3-C4 stable from previous imaging. Minimal grade 1 anterolisthesis C4-C5 also stable. There is mild grade 1 anterolisthesis at C7-T1 unchanged. No acute fractures appreciated. Multilevel spur disc complex is noted throughout the spine. Bilateral facet hypertrophy also seen throughout the spine. The prevertebral soft tissues unremarkable. Visualized lung apices unremarkable. IMPRESSION: 1. Multilevel diffuse chronic findings stable from previous imaging. No acute process appreciated. Dictated on workstation # [id number] Dict: 10/12/20 1122 Trans: 10/12/20 1130 [facility] [id number] Interpreted by: EMELY VASQUES MD Electronically signed by: Reviewed: Reviewed by Me Consults : Consulting Physician: MAMADOU SAXENA Consults Notes Discussed the case and he states that we should stop the tamoxifen. If they want help with placement they can contact the social professionals at the cancer center on Wednesday. Departure Communication (Admissions) Time/Spoke to Admitting Phy: 12:[address] Stern he agrees to observe the patient if the family feels they cannot take care of her at home. Impression Primary Impression: UTI (urinary tract infection) Qualified Codes: N30.00 - Acute cystitis without hematuria Additional Impressions: Physical debility Falls Qualified Codes: W19.XXXA - Unspecified fall, initial encounter History of breast cancer in adulthood Disposition: ADMITTED INPATIENT Condition: Stable Admissions Decision to Admit Reason: Admit from ER (General) Decision to Admit/Date: Oct 12, 2020 Time/Decision to Admit Time: 11:45 Departure-Patient Inst. Referrals: VIVI OATES MD (PCP/Family) Primary Care Physician ELISE MURPHY Oct 12, 2020 10:58
[2020-10-12 11:14] LABS: BASOPHILS % (AUTO) 0 % (0-10); EOSINOPHILS # (AUTO) 0.2 10^3/uL (0.0-0.3); EOSINOPHILS % (AUTO) 2 % (0-10); HEMATOCRIT 39 % (35-52); HEMOGLOBIN 12.9 g/dL (11.5-16.0); LYMPHOCYTES # (AUTO) 0.8 10^3/uL (1.0-4.0); LYMPHOCYTES % (AUTO) 8 % (12-44); MEAN CORPUSCULAR HEMOGLOBIN 30 pg (25-34); MEAN CORPUSCULAR HGB CONC 33 g/dL (32-36); MEAN CORPUSCULAR VOLUME 92 fL (80-99); MEAN PLATELET VOLUME 10.5 fL (9.0-12.2); MONOCYTES # (AUTO) 0.6 10^3/uL (0.0-1.0); MONOCYTES % (AUTO) 7 % (0-12); NEUTROPHILS # (AUTO) 7.9 10^3/uL (1.8-7.8); NEUTROPHILS % (AUTO) 83 % (42-75); PLATELET COUNT 205 10^3/uL (130-400); WHITE BLOOD COUNT 9.6 10^3/uL (4.3-11.0)
--- NOTE | 2020-10-12 11:31 | Diagnostic Imaging Report ---
PROCEDURE: CT head and CT cervical spine without contrast. TECHNIQUE: Multiple contiguous axial images were obtained through the brain and cervical spine without the use of intravenous contrast. Sagittal and coronal reformations through the cervical spine were then performed. Auto Exposure Controls were utilized during the CT exam to meet ALARA standards for radiation dose reduction. INDICATION: Status post fall, hit head. EXAMINATION: CT brain, CT cervical spine 10/12/2020. Correlation made to CT brain from 11/01/2017. FINDINGS: Brain: There is no acute hemorrhage or infarct. No mass effect or midline shift. No hydrocephalus. There is a calcified lesion left of midline towards the vertex measuring 14 mm in greatest dimension stable from previous imaging, likely a meningioma. The osseous structures are intact. No acute process seen in the paranasal sinuses or mastoid air cells. IMPRESSION: 1. Chronic findings with no acute intracranial process. CT cervical spine: Comparison made to 06/11/2017. There is persistent grade 1 anterolisthesis at C3-C4 stable from previous imaging. Minimal grade 1 anterolisthesis C4-C5 also stable. There is mild grade 1 anterolisthesis at C7-T1 unchanged. No acute fractures appreciated. Multilevel spur disc complex is noted throughout the spine. Bilateral facet hypertrophy also seen throughout the spine. The prevertebral soft tissues unremarkable. Visualized lung apices unremarkable. IMPRESSION: 1. Multilevel diffuse chronic findings stable from previous imaging. No acute process appreciated. Dictated by: Dictated on workstation # [id number]
--- NOTE | 2020-10-12 11:32 | Diagnostic Imaging Report ---
EXAMINATION: Right hip unilateral 2 or 3 views (w/pelvis when done) HISTORY: Fall, hip pain EXAMINATION: Right hip from 10/12/2020. FINDINGS: 3 views of the hip. There is severe degenerative disease within the joint with no fractures or dislocations appreciated. There is a total knee arthroplasty which is intact as visualized. Atherosclerotic disease is noted. There is a rounded lytic appearing lesion within the mid aspect of the right inferior pubic ramus. A superimposed fracture not excluded. IMPRESSION: 1. No acute fractures within the femur 2. Lytic lesion suspected within the right inferior pubic ramus. A superimposed nondisplaced pathologic fracture difficult to exclude. Dictated by: Dictated on workstation # [id number]
--- NOTE | 2020-10-12 11:34 | Diagnostic Imaging Report ---
EXAMINATION: Right knee at 1120 hours. INDICATION: Fell, knee pain. AP and oblique views were obtained. There are no prior studies available for comparison. FINDINGS: There is a total knee prosthesis in place. The prosthetic component seen in good position. There is no fracture or acute bony abnormality evident. There is an irregular 9.6 mm calcific density in the soft tissues along the medial aspect of the knee joint. This could be a sequela of prior trauma. This does not have the appearance of an acute injury. The soft tissues are unremarkable. However, I would recommend that a lateral view be obtained for further evaluation of possible joint effusion. IMPRESSION: 1. There is no acute bony abnormality identified and the total knee prosthesis appears to be in good position. 2. The calcific density in the soft tissues medial to the knee joint is uncertain etiology. 3. A lateral view should be considered for further study. Dictated by: Dictated on workstation # [id number]
[2020-10-12 11:49] LABS: ALBUMIN 3.8 GM/DL (3.2-4.5); POTASSIUM 4.6 MMOL/L (3.6-5.0)
[2020-10-12 11:50] LABS: CALCIUM 8.7 MG/DL (8.5-10.1)
[2020-10-12 11:52] LABS: TOTAL PROTEIN 6.6 GM/DL (6.4-8.2)
[2020-10-12 11:54] LABS: BILIRUBIN,TOTAL 0.9 MG/DL (0.1-1.0)
[2020-10-12 11:55] LABS: CREATININE SERUM 1.2 MG/DL (0.60-1.30)
[2020-10-12 12:34] LABS: BILIRUBIN,URINE NEGATIVE (NEGATIVE); CLARITY,URINE CLEAR; COLOR,URINE YELLOW; GLUCOSE, URINE (UA) 3+ (NEGATIVE); KETONES,URINE NEGATIVE (NEGATIVE); LEUKOCYTE ESTERASE ,URINE TRACE (NEGATIVE); NITRITE,URINE NEGATIVE (NEGATIVE); PROTEIN,URINE NEGATIVE (NEGATIVE)
[2020-10-12 12:54] LABS: BACTERIA,URINE TRACE /HPF
[2020-10-12] MEDS ORDERED: cefTRIAXone FOR IV USE 1,000 MG in WATER (STERILE) FOR INJECTION 10 ML IV ONE (13:15)
[2020-10-12 13:58] VITALS: BP 174/68
[2020-10-12 14:52] VITALS: BP 174/68
[2020-10-12] MEDS ORDERED: CATHETER FLUSH 10 ML SYR IV PRN (15:00)
[2020-10-12 15:36] VITALS: BP 152/57
[2020-10-12] MEDS: LACTATED RINGERS 1,000 ML IV SCH (15:38)
[2020-10-12] MEDS ORDERED: ONDANSETRON 4 MG (ZOFRAN) ORAL DISSOLVE TAB PO PRN (16:00)
[2020-10-12] MEDS ORDERED: polyethylene glycoL POWDER 17 GM (MIRALAX) PACK PO PRN (16:00)
[2020-10-12] MEDS ORDERED: MILK OF MAGNESIA 400 MG/5 ML 30 ML UDC PO PRN (16:00)
[2020-10-12] MEDS ORDERED: BISACODYL 10 MG SUPP (DULCOLAX) PR PRN (16:00)
[2020-10-12] MEDS ORDERED: ANTACID SUSP 30 ML UDC (MYLANTA) PO PRN (16:00)
[2020-10-12] MEDS ORDERED: ACETAMINOPHEN 325 MG TABLET PO PRN (16:00)
[2020-10-12] MEDS ORDERED: ONDANSETRON 4 MG/2 ML (SDV) Z0FRAN IV PRN (16:00)
[2020-10-12] MEDS ORDERED: METF-478 PO (18:17)
[2020-10-12] MEDS ORDERED: PSYL2WAF PO (18:17)
[2020-10-12] MEDS ORDERED: LOSA25TA41 PO (18:17)
[2020-10-12] MEDS ORDERED: FLEC50TA PO (18:17)
[2020-10-12] MEDS ORDERED: FERR-84 PO (18:17)
[2020-10-12] MEDS ORDERED: MULT-1029 PO (18:18)
[2020-10-12 20:15] VITALS: BP 155/69
[2020-10-12] MEDS: APIXABAN 5 MG (ELIQUIS) TABLET PO SCH (20:30)
[2020-10-12] MEDS: MELATONIN 3 MG TABLET PO PRN (20:31)
[2020-10-12] MEDS: FLECAINIDE 100 MG (TAMBOCOR) TAB PO SCH (20:33)
[2020-10-12] MEDS: dilTIAZem120 MG (CARDIZEM CD) CAP PO SCH (20:33)
[2020-10-12] MEDS: TRIMETHOPRIM 100 MG TAB (PROLOPRIM) PO SCH (20:36)
[2020-10-12] MEDS ORDERED: meTOproloL SUCCINATE 50 MG (TOPROL XL) TAB PO SCH (21:00)
[2020-10-12] MEDS ORDERED: ROSUVASTATIN 5 MG (CRESTOR) TABLET PO SCH (21:00)
[2020-10-13] VITALS (7 sets, daily range): BP systolic 112–165; BP diastolic 47–83
[2020-10-13 04:58] LABS: BASOPHILS % (AUTO) 0 % (0-10); EOSINOPHILS # (AUTO) 0.2 10^3/uL (0.0-0.3); EOSINOPHILS % (AUTO) 3 % (0-10); HEMATOCRIT 36 % (35-52); HEMOGLOBIN 11.8 g/dL (11.5-16.0); LYMPHOCYTES % (AUTO) 11 % (12-44); MEAN CORPUSCULAR HEMOGLOBIN 30 pg (25-34); MEAN CORPUSCULAR HGB CONC 33 g/dL (32-36); MEAN CORPUSCULAR VOLUME 93 fL (80-99); MEAN PLATELET VOLUME 10.6 fL (9.0-12.2); MONOCYTES # (AUTO) 0.7 10^3/uL (0.0-1.0); MONOCYTES % (AUTO) 8 % (0-12); NEUTROPHILS # (AUTO) 6.7 10^3/uL (1.8-7.8); NEUTROPHILS % (AUTO) 77 % (42-75); PLATELET COUNT 171 10^3/uL (130-400); WHITE BLOOD COUNT 8.6 10^3/uL (4.3-11.0)
[2020-10-13 05:14] LABS: POTASSIUM 4.6 MMOL/L (3.6-5.0)
[2020-10-13 05:15] LABS: CALCIUM 8.1 MG/DL (8.5-10.1)
[2020-10-13 05:20] LABS: CREATININE SERUM 1.07 MG/DL (0.60-1.30)
[2020-10-13] MEDS ORDERED: LEVOTHYROXINE 125 MCG (LEVOTHROID) TABLET PO SCH (06:30)
[2020-10-13] MEDS: LACTATED RINGERS 1,000 ML IV SCH (07:47)
[2020-10-13] MEDS ORDERED: metFORMIN XR 500 MG (GLUCOPHAGE XR) TAB PO SCH (09:00)
[2020-10-13] MEDS ORDERED: LOSARTAN 25 MG (COZAAR) TAB PO SCH (09:00)
[2020-10-13] MEDS: APIXABAN 5 MG (ELIQUIS) TABLET PO SCH ×2 (09:27→21:05)
[2020-10-13] MEDS: FLECAINIDE 100 MG (TAMBOCOR) TAB PO SCH (09:28)
[2020-10-13] MEDS ORDERED: PATIENT MAY USE OWN MEDS, ALL MC SCH (12:15)
--- NOTE | 2020-10-13 13:33 | History & Physical-Hospitalist ---
History of Present Illness HPI/Chief Complaint Quin Morse is an 89-year-old female with past medical history of hypertension, hyperlipidemia, atrial fibrillation, hypothyroidism, type 2 diabetes mellitus, who presented with weakness and falls. She lives at home by herself and uses either a walker or a cane depending on the situation. She has home health care and caregivers but no 24-hour support. She has had some recent falls and her daughter is worried about her safety. She denies any fevers or chills. She denies any lightheadedness or dizziness. She denies any chest pain or palpitations. She denies any shortness of breath or cough. She denies any abdominal pain, nausea, vomiting, diarrhea, or constipation. She denies any dysuria or urinary changes. She has been having right knee pain which is a chronic issue. The's may have worsened after she started taking tamoxifen. She was recently diagnosed with breast cancer. Her oncologist, Dr. Miller, does not think that she would be a candidate for surgery or radiation. She does have a visit scheduled with Dr. Wilson to consider surgery. Source: patient, family Exam Limitations: no limitations Date Seen 10/13/20 Time Seen by a Provider: 11:25 Attending Physician Trina Grimes MD PCP Jung Burkett MD Referring Physician MAMADOU SAXENA Date of Admission Oct 12, 2020 at 12:00 Home Medications & Allergies Home Medications Reviewed patient Home Medication Reconciliation performed by pharmacy medication reconciliations clinical pharmacy technician and/or nursing. Patients Allergies have been reviewed. Allergies Allergies Coded Allergies Fish Containing Products (Verified Allergy, Unknown, 06/02/16) Patient Social History Tobacco Use?: No Smoking Status: Former Smoker Smokeless Tobacco Frequency: Former User Use of E-Cig and/or Vaping dev: No Substance use?: No Alcohol Use?: No Pt stated abuse/neglect: No Immunizations Up To Date Influenza Vaccine Up-to-Date: Yes; Up-to-Date First/Initial COVID19 Vaccinat: 07/25/2020 Second COVID19 Vaccination Esa: 08/22/2020 Tetanus Booster (TDap): Unknown Hepatitis A: No Hepatitis B: No TB Skin Test: None Date of Pneumonia Vaccine: October 28, 2015 Current Status status: No status: No Do you have an Advance Directi: Yes Advance Directive Location: Family to bring in copy Primary Language: Malay Past Medical History Hypertension Hyperlipidemia Atrial fibrillation Hypothyroidism Type 2 diabetes mellitus Family Medical History Family Hx: Noncontributory Review of Systems Constitutional: weakness EENTM: no symptoms reported Respiratory: no symptoms reported Cardiovascular: no symptoms reported Gastrointestinal: no symptoms reported Genitourinary: no symptoms reported Musculoskeletal: joint pain Skin: no symptoms reported Psychiatric/Neurological: No Symptoms Reported Physical Exam Physical Exam Vital Signs Vital Signs - First Documented 10/12/20 10:43 Temp 36.6 Pulse 61 Resp 16 B/P (MAP) 113/51 (71) Pulse Ox 93 O2 Delivery Room Air Capillary Refill : Less Than 3 Seconds Height, Weight, BMI Height: 5'4.00" Weight: 180lbs. 5.0oz. 81.863746sz; 73.43 BMI Method:Estimated General Appearance: No Apparent Distress, Obese HEENT: PERRL/EOMI, Pharynx Normal Neck: Normal Inspection, Supple Respiratory: Lungs Clear, Normal Breath Sounds, No Respiratory Distress Cardiovascular: Regular Rate, Rhythm, No Edema, No Murmur Gastrointestinal: Normal Bowel Sounds, Non Tender, Soft Extremity: Normal Inspection, Non Tender, No Pedal Edema Neurologic/Psychiatric: Alert, Oriented x3, Normal Mood/Affect Skin: Normal Color, Warm/Dry Results Results/Procedures Labs Laboratory Tests 10/12/20 11:00 10/13/20 04:37 Patient resulted labs reviewed. Imaging: Reviewed Imaging Report Assessment/Plan Admission Diagnosis Urinary tract infection Admission Status: Observation Assessment and Plan UTI UA consistent with UTI Urine culture with Proteus mirabilis Await final ID and susceptibilities Started on Rocephin Debility Recent falls PT/OT SW consulted Discussed all options with patient and daughter IRU vs SNF vs HH vs NH Also discussed possibility of hospice in setting of breast cancer Breast cancer, possibly metastatic Biopsy revealed breast cancer Per patient/family, not planning for surgery or radiation due to location of tumor and comorbidities Lytic hip lesion identified on xray Plan to discuss case with Dr. Miller on Wednesday Consider hospice/palliative care on discharge HTN HLD T2DM AFib Hypothyroidism Continue home meds Diagnosis/Problems Diagnosis/Problems (1) UTI (urinary tract infection) Status: Acute Qualifiers: Urinary tract infection type: acute cystitis Hematuria presence: without hematuria Qualified Codes: N30.00 - Acute cystitis without hematuria (2) Falls Status: Acute Qualifiers: Encounter type: initial encounter Qualified Codes: W19.XXXA - Unspecified fall, initial encounter (3) Debility Status: Acute (4) Breast cancer Status: Acute Qualifiers: Patient sex: female Laterality: left (5) HTN (hypertension) Status: Chronic (6) HLD (hyperlipidemia) Status: Chronic (7) T2DM (type 2 diabetes mellitus) Status: Chronic (8) Afib Status: Chronic (9) Obesity Status: Chronic (10) Hypothyroidism Status: Chronic TRINA GRIMES MD Oct 13, 2020 13:33
[2020-10-13] MEDS: cefTRIAXone 1,000 MG/SWFI 10 ML IV PUSH IV SCH ×2 (13:58)
[2020-10-13] MEDS: MELATONIN 3 MG TABLET PO PRN (21:00)
[2020-10-13] MEDS: dilTIAZem120 MG (CARDIZEM CD) CAP PO SCH (21:04)
[2020-10-13] MEDS: TRIMETHOPRIM 100 MG TAB (PROLOPRIM) PO SCH (21:05)
[2020-10-13] MEDS: ROSUVASTATIN 5 MG (CRESTOR) TABLET PO SCH (21:06)
[2020-10-13] MEDS: FLECAINIDE 50 MG TABLET PO SCH (21:07)
[2020-10-13] MEDS: meTOproloL SUCCINATE 50 MG (TOPROL XL) TAB PO SCH (21:09)
[2020-10-14 03:22] VITALS: BP 157/71
[2020-10-14] MEDS: LACTATED RINGERS 1,000 ML IV SCH (03:51)
[2020-10-14] MEDS: LEVOTHYROXINE 125 MCG (LEVOTHROID) TABLET PO SCH (06:19)
[2020-10-14 08:00] VITALS: BP 145/67
--- NOTE | 2020-10-14 09:17 | Occupational Therapy Eval ---
OT Evaluation-General/PLF Medical Diagnosis Admission Date Oct 12, 2020 at 12:00 Medical Diagnosis: weakness/falls Onset Date: Oct 12, 2020 Therapy Diagnosis Therapy Diagnosis: decreased ADL Status Height/Weight Height (Feet): 5 Height (Inches): 4.00 Weight (Pounds): 180 Weight (Ounces): 5.0 Precautions Precautions/Isolations: Fall Prevention, Standard Precautions Referral Physician: Jarred Referral Reason: Evaluation/Treatment Medical History Pertinent Medical History: Atrial Fib, Arthritis, DM, GERD, HTN, Hypothroidism, Smoking Additional Medical History breast cancer Current History ED due to weakness/falls Social History Current Living Status: Alone ADL-Prior Level of Function SCALE: Activities may be completed with or without assistive devices. 3-Dkcjzbteyt-yyudciy completes the activity by him/herself with no assistance from a helper. 5-Set-up or Clean-up Assistance-helper sets up or cleans up; patient completes activity. [place] assists only prior to or following the activity. 4-Supervision or Touching Assistance-helper provides verbal cues and/or touc jack/steadying and/or contact guard assistance as patient completes activity. Assistance may be provided throughout the activity or intermittently. 3-Partial/Moderate Assistance-helper does LESS THAN HALF the effort. [place] lifts, holds or supports trunk or limbs, but provides less than half the effort. 2-Substantial/Maximal Assistance-helper does MORE THAN HALF the effort. [place] lifts or holds trunk or limbs and provides more than half the effort. 4-Wlxvvcuem-hfegup does ALL the effort. Patient does none of the effort to complete the activity. Or, the assistance of 2 or more helpers is required for the patient to complete the activity. If activity was not attempted, code reason: 7-Patient Refused. 9-Not Applicable-not attempted and the patient did not perform the activity before the current illness, exacerbation or injury. 10-Not Attempted due to Environmental Limitations-(lack of equipment, weather restraints, etc.). 88-Not Attempted due to Medical Conditions or Safety Concerns. ADL PLOF Comments Pt reports having assistance while bathing (has help washing her hair and back, but able to wash all other parts), she has a tub transfer bench and grab bars. Her daughter completes IADLs for pt, including medication management, bills, and grocery shopping. Pt also has meals on wheels M-F. She has a cane and walker at home that she uses. She completes toileting mod I using toilet tongs/AE, and she is mostly independent with dressing (90% of time per pt), requiring assistance with fasteners on some clothing items. Self Care: Needed Some Help Functional Cognition: Independent DME/Equipment: Bath Bench, Grab Bars, Tub/Shower DME/Equipment Comments walker, cane, bath bench, toilet tongs/AE for toileting OT Current Status Subjective Pt seated upright in recliner, stating she did not get coffee with her breakfast, and is unable to eat her pancakes. When OT asked about why she couldn't eat, pt went on to state what all she ordered with breakfast, and how she did not get coffee, never answering OT's question. Mental Status/Objective Patient Orientation: Person, Place, Situation Attachments: IV Current Glasses/Contacts: Yes Hearing Aids: No Dentures/Partials: No Hand Dominance: Right Upper Extremity ROM RUE shoulder flexion to approx 90 degrees, LUE shoulder flexion to approx 130 degrees. Pt reports both shoulders give her problems, she has had outpt PT in past Upper Extremity Coordination WFL Upper Extremity Sensation WFL Upper Extremity Strength grossly 3/5 ADL-Treatment Eating (QC): 6 (Pt able to use utensils, cut food, and open containers. ) On/Off Footwear (QC): 4 (supervision, pt able to doff/don bilateral gripper socks, and don slip on shoes.) Toileting Hygiene (QC): 3 (Per pt report, she is able to manage clothing, requires assistance with hygiene after BM) Other Treatments Pt seated in recliner finishing breakfast. OT educated pt on purpose and benefit of OT, she verbalized understanding. Pt provided information about PLOF and home set up, and participated in UE Screen. Pt indicates she has someone come into her home to assist with bathing, and her daughter assists with IADLs. Pt able to complete footwear, with increased time. Pt reports pain in L ankle and knee with bending forward, but able to complete task. Pt declined toileting, as she just got back from the bathroom prior to tx. OT educated pt on purpose and benefit of exercise, she verbalized understanding. Pt completed x10 reps each of the following BUE exercises: shoulder flexion (to 90 degrees), elbow flexion/extension, and finger flexion/extension. Pt instructed to complete a few times throughout the day, increasing reps as tolerated. Nurse states pt okay to have coffee, OT provided pt with coffee and she was able to put in creamer and sugar independently. Post tx, pt seated in recliner, call light in reach and all needs met. Education OT Patient Education: Correct positioning, Modified ADL techniques, Progress toward Goal/Update tx plan, Purpose of tx/functional activities Teaching Recipient: Patient Teaching Methods: Discussion Response to Teaching: Verbalize Understanding OT Fci Goals Fci Goals Time Frame: Oct 21, 2020 Eating (QC): 6 Oral Hygiene (QC): 6 Toileting Hygiene (QC): 6 Shower/Bathe Self (QC): 4 Upper Body Dressing (QC): 6 Lower Body Dressing (QC): 6 On/Off Footwear (QC): 6 Additional Goals: 1-Demonstrate ADL Tasks, 2-Verbalize Understanding, 3- ImproveStrength/Gwen 1=Demonstrate adherence to instructed precautions during ADL tasks. 2=Patient will verbalize/demonstrate understanding of assistive devices/modifications for ADL. 3=Patient will improve strength/tolerance for activity to enable patient to perform ADL's. OT Education/Plan Problem List/Assessment Assessment: Decreased Activ Tolerance, Decreased UE Strength, Impaired I ADL's, Impaired Self-Care Skills, Restricted Funct UE ROM Pt would benefit from skilled OT services in order to increase safety and independence with ADLs and functional mobility, and increase BUE strength and functional endurance to maximize LOF for safe return home. Discharge Recommendations Plan/Recommendations: Continue POC Treatment Plan/Plan of Care Patient would benefit from OT for education, treatment and training to promote independence in ADL's, mobility, safety and/or upper extremity function for ADL's. Plan of Care: ADL Retraining, Functional Mobility, UE Funct Exercise/Act Treatment Duration: Oct 21, 2020 Frequency: 5 times per week Estimated Hrs Per Day: .25 hour per day Time/GCodes Start Time: 08:45 Stop Time: 09:08 Total Time Billed (hr/min): 23 Billed Treatment Time 1, EVM (10'), ADL (13') GIO ARREOLA OT Oct 14, 2020 09:17
[2020-10-14] MEDS: metFORMIN XR 500 MG (GLUCOPHAGE XR) TAB PO SCH (09:25)
[2020-10-14] MEDS: LOSARTAN 25 MG (COZAAR) TAB PO SCH (09:26)
[2020-10-14] MEDS: FLECAINIDE 50 MG TABLET PO SCH ×2 (09:27→21:04)
[2020-10-14] MEDS: APIXABAN 5 MG (ELIQUIS) TABLET PO SCH ×2 (09:28→21:05)
[2020-10-14] MEDS ORDERED: LOPE-134 PO (10:09)
[2020-10-14] MEDS ORDERED: LORA10TA76 PO (10:09)
[2020-10-14] MEDS ORDERED: ACET-2267 PO (10:09)
[2020-10-14] MEDS ORDERED: OMEG12002 PO (10:09)
[2020-10-14] MEDS ORDERED: FAMO10TA43 PO (10:09)
--- NOTE | 2020-10-14 11:21 | Progress Note - Hospitalist ---
Subjective HPI/CC On Admission Date Seen by Provider: Oct 14, 2020 Time Seen by Provider: 11:14 Quin Morse is an 89-year-old female with past medical history of hypertension, hyperlipidemia, atrial fibrillation, hypothyroidism, type 2 diabetes mellitus, who presented with weakness and falls. She lives at home by herself and uses either a walker or a cane depending on the situation. She has home health care and caregivers but no 24-hour support. She has had some recent falls and her daughter is worried about her safety. She denies any fevers or chills. She denies any lightheadedness or dizziness. She denies any chest pain or palpitations. She denies any shortness of breath or cough. She denies any abdominal pain, nausea, vomiting, diarrhea, or constipation. She denies any dysuria or urinary changes. She has been having right knee pain which is a chronic issue. The's may have worsened after she started taking tamoxifen. She was recently diagnosed with breast cancer. Her oncologist, Dr. Miller, does not think that she would be a candidate for surgery or radiation. She does have a visit scheduled with Dr. Wilson to consider surgery. Subjective/Events-last exam Pt reports doing well. No complaints. Awaiting evaluation by PT. Daughter at bedside and we all discussed plan for home with HH vs IRU, vs even NF if needed. Patient very hopeful to go home though. Encouraged patient that discharge plan will be discussed with her, family. and myself to formulate safe plan. Daughter states pt has been to IRU before and is hopeful for her to return there. Objective Exam Vital Signs Vital Signs Date Time Temp Pulse Resp B/P (MAP) Pulse Ox O2 Delivery O2 Flow Rate FiO2 10/14/20 08:00 36.5 101 16 145/67 (93) 98 Room Air Capillary Refill : Less Than 3 Seconds General Appearance: No Apparent Distress, WD/WN Respiratory: Lungs Clear, No Respiratory Distress Cardiovascular: Regular Rate, Rhythm, No Murmur Gastrointestinal: Normal Bowel Sounds, Soft Neurologic/Psychiatric: Alert, Oriented x3 Results/Procedures Lab Patient resulted labs reviewed. Imaging: Reviewed Imaging Report Assessment/Plan Assessment and Plan Assess & Plan/Chief Complaint UTI UA consistent with UTI Urine culture with Proteus mirabilis Continue Rocephin per sensitivities Debility Recent falls PT/OT SW consulted Discussed all options with patient and daughter IRU vs SNF vs HH vs NH Also Dr Stern discussed possibility of hospice in setting of breast cancer Breast cancer, possibly metastatic Biopsy revealed breast cancer Per patient/family To Jarred, not planning for surgery or radiation due to location of tumor and comorbidities Family reports to be that pt has an appointment with Dr Wilson Lytic hip lesion identified on xray but daughter states that pt's imaging was negative for any metastatic disease (though I do not see a PET scan) Plan to discuss case with Dr. Miller on HTN HLD T2DM AFib Hypothyroidism Continue home meds DVT ppx: LONG Gill MD Oct 14, 2020 11:21
--- NOTE | 2020-10-14 11:47 | Physical Therapy Evaluation ---
PT Evaluation-General Medical Diagnosis Admission Date Oct 12, 2020 at 12:00 Medical Diagnosis: weakness/falls Onset Date: Oct 12, 2020 Therapy Diagnosis Therapy Diagnosis: debility/weakness Height/Weight Height (Feet): 5 Height (Inches): 4.00 Weight (Pounds): 180 Weight (Ounces): 5.0 Precautions Precautions/Isolations: Fall Prevention, Standard Precautions Weight Bear Status Right Lower Extremity: Right Weight Bearing/Tolerated Left Lower Extremity: Left Weight Bearing/Tolerated Referral Physician: Jarred Reason for Referral: Evaluation/Treatment Medical History Pertinent Medical History: Atrial Fib, Arthritis, DM, Dementia, GERD, HTN, Hypothroidism, Neuropathy, Renal Insufficiency, Smoking Current History EMS secondary to fall at home with right LE pain. Reviewed History: Yes Social History Home: Single Level Current Living Status: Alone (family assist ) Entry Into Home: Stairs With Railing PT Steps Into Home: 1 PT Steps Inside Home: 3 Prior Prior Level of Function SCALE: Activities may be completed with or without assistive devices. 5-Jrlygcxovb-gitudmv completes the activity by him/herself with no assistance from a helper. 5-Set-up or Clean-up Assistance-helper sets up or cleans up; patient completes activity. [place] assists only prior to or following the activity. 4-Supervision or Touching Assistance-helper provides verbal cues and/or touching/steadying and/or contact guard assistance as patient completes activity. Assistance may be provided throughout the activity or intermittently. 3-Partial/Moderate Assistance-helper does LESS THAN HALF the effort. [place] lifts, holds or supports trunk or limbs, but provides less than half the effort. 2-Substantial/Maximal Assistance-helper does MORE THAN HALF the effort. [place] lifts or holds trunk or limbs and provides more than half the effort. 4-Vauanhfpr-kywqpg does ALL the effort. Patient does none of the effort to complete the activity. Or, the assistance of 2 or more helpers is required for the patient to complete the activity. If activity was not attempted, code reason: 7-Patient Refused. 9-Not Applicable-not attempted and the patient did not perform the activity before the current illness, exacerbation or injury. 10-Not Attempted due to Environmental Limitations-(lack of equipment, weather restraints, etc.). 88-Not Attempted due to Medical Conditions or Safety Concerns. Bed Mobility: 5 Transfers (B,C,W/C): 5 Gait: 5 Stairs: 5 Indoor Mobility (Ambulation): Independent Stairs: Needed Some Help Prior Devices Use: Walker PT Evaluation-Current Subjective Patient agrees to PT. Denies pain at this time. Objective Patient Orientation: Person, Time, Situation Attachments: IV ROM/Strength ROM Lower Extremities bilateral LE WFL Strength Lower Extremities 4-/5 grossly bilateral LE Integumentary/Posture Integumentary refer to nursing notes Bowel Incontinence: No Bladder Incontinence: No Posture trunk flexed posture Neuromuscular (Tone, Coordination, Reflexes) grossly intact Sensory Vision: Wears Glasses Hearing: Impaired Hand Dominance: Right Sensation Right Lower Extremit: Impaired Sensation Left Lower Extremity: Impaired Transfers Roll Left to Right (QC): 4 Sit to Lying (QC): 4 Lying to Sitting/Side of Bed(Q: 4 Sit to Stand (QC): 4 Chair/Mvc-tu-Yovom Xfer(QC): 4 Gait Does the Patient Walk?: Yes Mode of Locomotion: Walk Anticipated Mode of Locomotion: Walk Walk 10 feet (QC): 4 Walk 50 ft with 2 Turns(QC): 4 Walk 150 ft (QC): 4 Distance: 500' Gait Assistive Device: FWW Comments/Gait Description reciprocal pattern/safe/ no deviation Balance Sitting Static: Normal Sitting Dynamic: Normal Standing Static: Normal Standing Dynamic: Normal Assessment/Needs 89 y.o. female will benefit from skilled PT to address functional strength and mobility to improve current LOF to safely return to home with family at maximum LOF. Rehab Potential: Guarded PT Senior Care Goals Senior Care Goals PT Civil Transportation Engineer Goals Time Frame: October 26, 2020 Roll Left & Right (QC): 5 Sit to Lying (QC): 5 Lying-Sitting on Side/Bed(QC): 5 Sit to Stand (QC): 5 Chair/Nhv-bd-Yuevb Xfer(QC): 5 Toilet Transfer (QC): 5 Car Transfer (QC): 5 Does the Patient Walk: Yes Walk 10 feet (QC): 5 Walk 50ft with 2 Turns (QC): 5 Walk 150 ft (QC): 5 Walking 10ft on Uneven Surface: 5 1 Step (curb) (QC): 5 4 Steps (QC): 5 PT Plan Treatment/Plan Treatment Plan: Continue Plan of Care Treatment Plan: Education, Functional Activity Gwen, Functional Strength, Gait, Safety, Therapeutic Exercise, Transfers Treatment Duration: October 26, 2020 Frequency: 6 times per week Estimated Hrs Per Day: .25 hour per day Patient and/or Family Agrees t: Yes Time/GCodes Time In: 1100 Time Out: 1112 Total Billed Treatment Time: 12 Total Billed Treatment 1 visit EVMod 12 min ABDULAZIZ BLACKMAN PT Oct 14, 2020 11:47
[2020-10-14 12:00] VITALS: BP 133/54
[2020-10-14] MEDS: cefTRIAXone 1,000 MG/SWFI 10 ML IV PUSH IV SCH ×2 (13:57)
[2020-10-14 16:00] VITALS: BP 116/72
[2020-10-14 20:00] VITALS: BP 136/55
[2020-10-14] MEDS: TRIMETHOPRIM 100 MG TAB (PROLOPRIM) PO SCH (21:03)
[2020-10-14] MEDS: ROSUVASTATIN 5 MG (CRESTOR) TABLET PO SCH (21:06)
[2020-10-14] MEDS: dilTIAZem120 MG (CARDIZEM CD) CAP PO SCH (21:59)
[2020-10-15] VITALS: BP 138/83
[2020-10-15] MEDS: meTOproloL SUCCINATE 50 MG (TOPROL XL) TAB PO SCH (00:59)
[2020-10-15 04:55] VITALS: BP 158/70
[2020-10-15] MEDS: LEVOTHYROXINE 125 MCG (LEVOTHROID) TABLET PO SCH (06:18)
[2020-10-15 08:00] VITALS: BP 172/68
[2020-10-15] MEDS: metFORMIN XR 500 MG (GLUCOPHAGE XR) TAB PO SCH (09:10)
[2020-10-15] MEDS: LOSARTAN 25 MG (COZAAR) TAB PO SCH (09:12)
[2020-10-15] MEDS: APIXABAN 5 MG (ELIQUIS) TABLET PO SCH (09:13)
[2020-10-15] MEDS: FLECAINIDE 50 MG TABLET PO SCH (09:14)
--- NOTE | 2020-10-15 09:57 | Physical Therapy Daily Note ---
PT Daily Note-Current Subjective Patient agrees to PT. Mental Status Patient Orientation: Person, Time, Situation Transfers SCALE: Activities may be completed with or without assistive devices. 8-Sswsdhzlhq-dlfuglj completes the activity by him/herself with no assistance from a helper. 5-Set-up or Clean-up Assistance-helper sets up or cleans up; patient completes activity. [place] assists only prior to or following the activity. 4-Supervision or Touching Assistance-helper provides verbal cues and/or touching/steadying and/or contact guard assistance as patient completes activity. Assistance may be provided throughout the activity or intermittently. 3-Partial/Moderate Assistance-helper does LESS THAN HALF the effort. [place] lifts, holds or supports trunk or limbs, but provides less than half the effort. 2-Substantial/Maximal Assistance-helper does MORE THAN HALF the effort. [place] lifts or holds trunk or limbs and provides more than half the effort. 9-Ucyypqxhd-aggdog does ALL the effort. Patient does none of the effort to c omplete the activity. Or, the assistance of 2 or more helpers is required for the patient to complete the activity. If activity was not attempted, code reason: 7-Patient Refused. 9-Not Applicable-not attempted and the patient did not perform the activity before the current illness, exacerbation or injury. 10-Not Attempted due to Environmental Limitations-(lack of equipment, weather restraints, etc.). 88-Not Attempted due to Medical Conditions or Safety Concerns. Lying to Sitting/Side of Bed(Q: 6 Sit to Stand (QC): 4 Chair/Buh-tx-Gmdkc Xfer(QC): 4 Weight Bearing Right Lower Extremity: Right Weight Bearing/Tolerated Left Lower Extremity: Left Weight Bearing/Tolerated Gait Training Does the Patient Walk?: Yes Distance: 550' Walk 10 feet (QC): 5 Walk 50 ft with 2 Turns(QC): 5 Walk 150 ft (QC): 5 Gait Assistive Device: FWW extended UE's with FWW use/functional gait sequence Exercises Seated Therapy Exercises: Ankle pumps, Long arc quads, Hip flexion Seated Reps: 15 Treatments PT answered call light and assisted patient with dressing and ADL's due to patient had not been OOB and patient requested. Assessment Patient tolerated treatment well and is up in recliner with coffee in hand. PT Mcfp Goals Mcfp Goals PT Machine I Coremaker Goals Time Frame: October 26, 2020 Roll Left & Right (QC): 5 Sit to Lying (QC): 5 Lying-Sitting on Side/Bed(QC): 5 Sit to Stand (QC): 5 Chair/Fof-bg-Hctcv Xfer(QC): 5 Toilet Transfer (QC): 5 Car Transfer (QC): 5 Does the Patient Walk: Yes Walk 10 feet (QC): 5 Walk 50ft with 2 Turns (QC): 5 Walk 150 ft (QC): 5 Walking 10ft on Uneven Surface: 5 1 Step (curb) (QC): 5 4 Steps (QC): 5 PT Plan Treatment/Plan Treatment Plan: Continue Plan of Care Treatment Plan: Education, Functional Activity Gwen, Functional Strength, Gait, Safety, Therapeutic Exercise, Transfers Treatment Duration: October 26, 2020 Frequency: 6 times per week Estimated Hrs Per Day: .25 hour per day Patient and/or Family Agrees t: Yes Time/GCodes Time In: 820 Time Out: 843 Total Billed Treatment Time: 23 Total Billed Treatment 1 visit FA x 2 23 min ABDULAZIZ BLACKMAN PT Oct 15, 2020 09:57
--- NOTE | 2020-10-15 10:56 | D/C HH Face to Face Order ---
D/C Face to Face Orders Instructions for Patient Via [facility], Patient Instructions/FollowUp: Please continue to take your medications as written. Please follow up with your primary care doctor to follow up this hospital stay. Physician to follow Patient: Dr Burkett Discharge Diet for Home: No Restrictions Patient Data-Allergies,Ht & Wt Patient Allergies: Coded Allergies: Fish Containing Products (Verified Allergy, Unknown, 06/02/16) Height (Feet): 5 Height (Inches): 4.00 Weight (Pounds): 180 Weight (Ounces): 5.0 Home Health Need/Face to Face Date of Face to Face: Oct 15, 2020 Clinical Findings: Generalized weakness and fatigue, Muscle weakness, Unsteady gait I have seen Pt sudy-ht-baft: Yes Discharged To: Home Diagnosis/Conditions: breast cancer Patient is Homebound due to: Jaja fall risk due to instabilty, Muscle weakness Homebound Status Due to the above stated illness, injury or surgical procedure (medical condition or diagnosis) and associated clinical findings, the patient is homebound because of his/her inability to leave home except with aid of a supportive device and/or person AND leaving the home requires a considerable and taxing effort or is medically contraindicated. Pt req the following assistanc: Aid of another person, Walker Home Health Nursing Orders Home Health Services Order: Nursing Services, Wreath Inspector-Evaluate & Treat, Physical Therapy-Evaluate & Treat Therapy Orders Therapy Orders: OT (must have SN or PT order), Physical Therapy Therapy Specific Orders: Eval assistive deivces, Teach enviro modifications/safety, Gait training, Increase strength/endurance Certify Stmt I certify that this patient is under my care and that I, a nurse practitioner or a physician; a vet assistant working with me, had a face to face encounter that - meets the physician face to face encounter requirements with this patient as dated. LONG MCGILL MD Oct 15, 2020 10:56
[2020-10-15] MEDS ORDERED: CEFD300C3 PO (10:57)
--- NOTE | 2020-10-15 10:58 | Discharge Summary ---
Diagnosis/Chief Complaint Date of Admission Oct 12, 2020 at 12:00 Date of Discharge Discharge Date: Oct 15, 2020 Admission Diagnosis Urinary tract infection Primary Care Jung Burkett MD Discharge Diagnosis (1) UTI (urinary tract infection) Status: Acute (2) Falls Status: Acute (3) Debility Status: Acute (4) Breast cancer Status: Acute (5) HTN (hypertension) Status: Chronic (6) HLD (hyperlipidemia) Status: Chronic (7) T2DM (type 2 diabetes mellitus) Status: Chronic (8) Afib Status: Chronic (9) Obesity Status: Chronic (10) Hypothyroidism Status: Chronic Discharge Summary Discharge Physical Exam Allergies: Coded Allergies: Fish Containing Products (Verified Allergy, Unknown, 06/02/16) Vitals & I&Os Vital Signs Date Time Temp Pulse Resp B/P (MAP) Pulse Ox O2 Delivery O2 Flow Rate FiO2 10/15/20 13:30 36.0 78 16 142/65 98 Room Air General Appearance: No Apparent Distress, WD/WN Neurologic/Psychiatric: Alert, Oriented x3 Hospital Course Pt was admitted due to debility after recent urinary tract infection. She was treated with antibiotics and seen by PT/OT and did very well. ARU evaluation was requested but she did too well to qualify. She was discharged home with family support and home health services and daughter is going to pursue assisted living facilities in the near future. Labs (last 24 hrs) Microbiology 10/12/20 Urine Culture - Final, Complete Proteus mirabilis Patient resulted labs reviewed. Imaging: Reviewed Imaging Report Discussion & Recommendations Discharge Planning: >30 minutes discharge planning Discharge Home Medications: Active Scripts Active Cefdinir 300 Mg Capsule 300 Mg PO BID Reported Pepcid AC (Famotidine) 10 Mg Tablet 10 Mg PO DAILY PRN Imodium A-D (Loperamide HCl) 2 Mg Tablet 2 Mg PO DAILY PRN Tylenol Extra Strength (Acetaminophen) 500 Mg Tablet 500 Mg PO Q6H PRN Fish Oil 1,200 mg Softgel (Lopeno-3/Dha/Epa/Fish Oil) 1,200 Mg Capsule 1,200 Mg PO 1200 Centrum Silver Tablet (Multivit-Min/FA/Lycopene/Lut) 1 Each Tablet 1 Each PO 1200 Iron (Ferrous Sulfate) 325 Mg Tablet 325 Mg PO CORDERO,,,SAT Metamucil Fiber Thin (Psyllium Husk (with Sugar)) 2 Gm Wafer 2 Gm PO DAILY Metformin HCl ER (Metformin HCl) 500 Mg Tab.er.24 500 Mg PO DAILY Flecainide Acetate 50 Mg Tablet 50 Mg PO BID Losartan Potassium 25 Mg Tablet 25 Mg PO DAILY Trimethoprim 100 Mg Tablet 100 Mg PO Q72H Eliquis (Apixaban) 5 Mg Tablet 5 Mg PO BID Claritin (Loratadine) 10 Mg Tablet 10 Mg PO HS PRN Probiotic (L.acidoph & Paracasei,B.lactis) 1 Each Capsule 1 Cap PO 1200 Rosuvastatin Calcium 5 Mg Tablet 5 Mg PO HS Cartia Xt (Diltiazem HCl) 240 Mg Cap.er.24h 240 Mg PO DAILY Metoprolol Succinate 50 Mg Tab.er.24h 50 Mg PO HS Levothyroxine Sodium 125 Mcg Tablet 125 Mcg PO DAILY Os-Sanya 500+D3 Caplet (Calcium Carbonate/Vitamin D3) 1 Each Tablet 1 Tab PO HS Instructions to patient/family Please see electronic discharge instructions given to patient. Problem Qualifiers (1) UTI (urinary tract infection): Urinary tract infection type: acute cystitis Hematuria presence: without hematuria Qualified Codes: N30.00 - Acute cystitis without hematuria (2) Falls: Encounter type: initial encounter Qualified Codes: W19.XXXA - Unspecified fall, initial encounter (3) Breast cancer: Patient sex: female Laterality: left LONG MCGILL MD Oct 15, 2020 10:58
[2020-10-15 12:00] VITALS: BP 142/65
[2020-10-15 13:30] VITALS: BP 142/65
== END 2020-10-15 13:30 | disposition home health service (06) ==
LOC: EDUNIT# 10:43 → ER 10:45 → 4TH 12:00
PROVIDERS: ADMIT Internal Medicine; ATTEND Internal Medicine
DX: N39.0 Urinary tract infection, site not specified (principal); R53.81 Other malaise; I10 Essential (primary) hypertension; E78.5 Hyperlipidemia, unspecified; E11.9 Type 2 diabetes mellitus without complications; I48.91 Unspecified atrial fibrillation; E03.9 Hypothyroidism, unspecified; C50.912 Malignant neoplasm of unspecified site of left female breast; J44.9 Chronic obstructive pulmonary disease, unspecified; I25.10 Atherosclerotic heart disease of native coronary artery without angina pectoris; E78.00 Pure hypercholesterolemia, unspecified; K21.9 Gastro-esophageal reflux disease without esophagitis; G89.29 Other chronic pain; M54.9 Dorsalgia, unspecified; F41.9 Anxiety disorder, unspecified; F32.9 Major depressive disorder, single episode, unspecified; E66.9 Obesity, unspecified; Z68.28 Body mass index [BMI] 28.0-28.9, adult; Z79.01 Long term (current) use of anticoagulants; Z79.84 Long term (current) use of oral hypoglycemic drugs; Z79.899 Other long term (current) drug therapy; Z91.013 Allergy to seafood; Z90.710 Acquired absence of both cervix and uterus; W19.XXXA Unspecified fall, initial encounter; Z87.891 Personal history of nicotine dependence
CPT/HCPCS: 70450; 72125; 73502; 73562; 80048; 80053; 81000; 85025 ×2; 87077; 87088; 87186; 94760; 96374; 97162; 97166; 97530; 97535; 99284; G0378; 36415

== ENCOUNTER 2020-10-17 05:37 | Outpatient (CLI) | payer MEDICARE, OTHER ==
[~2020-10-17] VITALS: Ht 165.1 cm; Wt 77.1 kg
[~2020-10-17 05:37] MED LIST changes: +ACET-2267 PO; +CEFD300C3 PO; +FAMO10TA43 PO; +FERR-84 PO; +FLEC50TA PO; +LOSA25TA41 PO; +METF-478 PO; +OMEG12002 PO; +PSYL2WAF PO
[2020-10-22] MEDS ORDERED: MTP25TSR PO (10:04)
== END 2020-10-22 10:11 | disposition home or self-care (01) ==
LOC: PREOP 05:37
PROVIDERS: ATTEND Surgery
DX: Z01.818 Encounter for other preprocedural examination (principal)

== ENCOUNTER 2020-10-22 13:08 | Outpatient (RCR) | payer MEDICARE, OTHER ==
[~2020-10-22 13:08] MED LIST changes: +MTP25TSR PO; -SULF1TAB35 PO; +SULF1TAB38 PO
[2020-11-11] MEDS ORDERED: FEN12TD TD (10:46)
[2020-11-11] MEDS ORDERED: FURO40TA4 PO (10:46)
== END 2021-01-20 | disposition home or self-care (01) ==
LOC: ONC 13:08
PROVIDERS: ATTEND Internal Medicine Hematology & Oncology
DX: D53.9 Nutritional anemia, unspecified (principal); G30.9 Alzheimer's disease, unspecified; I48.0 Paroxysmal atrial fibrillation; I13.0 Hypertensive heart and chronic kidney disease with heart failure and stage 1 through stage 4 chronic kidney disease, or unspecified chronic kidney disease; N18.9 Chronic kidney disease, unspecified; I50.30 Unspecified diastolic (congestive) heart failure; E03.9 Hypothyroidism, unspecified; E78.2 Mixed hyperlipidemia; R94.5 Abnormal results of liver function studies
CPT/HCPCS: 99213

== ENCOUNTER 2020-10-25 11:55 | Inpatient (IN) | payer MEDICARE, OTHER ==
[~2020-10-25] VITALS: Ht 165.1 cm; Wt 77.1 kg
[2020-10-25] VITALS (11 sets, daily range): BP systolic 87–170; BP diastolic 64–97
[~2020-10-25 11:55] MED LIST changes: +SULF1TAB35 PO; -SULF1TAB38 PO
[2020-10-25] MEDS ORDERED: ceFAZolin INJECTION 1,000 MG in WATER (STERILE) FOR INJECTION 10 ML IV ONE (12:15)
[2020-10-25] MEDS ORDERED: LACTATED RINGERS 1,000 ML IV PRN (12:15)
[2020-10-25] MEDS ORDERED: fentaNYL INJ 100 MCG/2 ML AMP ONE (12:30)
[2020-10-25] MEDS ORDERED: LIDOCAINE/EPI 1%-1:100,000 (XYLOCAINE) 20ML ONE (12:33)
--- NOTE | 2020-10-25 12:33 | Progress Note-Pre Operative ---
Pre-Operative Progress Note H&P Reviewed The H&P was reviewed, patient examined and no changes noted. Date Seen by Provider: Oct 25, 2020 Time Seen by Provider: 12:32 Date H&P Reviewed: Oct 25, 2020 Time H&P Reviewed: 12:33 Pre-Operative Diagnosis: metastatic left breast cancer TA MATIAS DO Oct 25, 2020 12:33
[2020-10-25] MEDS ORDERED: LIDOCAINE PF 2% 5 ML (XYLOCAINE) VIAL ONE (12:38)
[2020-10-25] MEDS ORDERED: ONDANSETRON 4 MG/2 ML (SDV) Z0FRAN ONE (12:38)
[2020-10-25] MEDS ORDERED: proPOfol 200 MG/20 ML (DIPRIVAN) VIAL IV ONE (12:38)
[2020-10-25] MEDS ORDERED: SEVOFLURANE (ULTANE) 15 ML INHAL SOLN ONE ×2 (12:39→13:41)
[2020-10-25] MEDS ORDERED: BUPIVACAINE 0.5% 30 ML (SENSORCAINE) VIAL ONE (12:48)
[2020-10-25] MEDS ORDERED: HYDROcodone/APAP 5 MG/325 MG (LORTAB) TAB PO PRN (13:45)
[2020-10-25] MEDS ORDERED: morphine INJ 4 MG/ML 1 ML (VIAL/SYRINGE) IVP PRN (13:45)
--- NOTE | 2020-10-25 13:47 | Progress Note-Post Operative ---
Post-Operative Progess Note Surgeon (s)/Fancy Packer (s) Surgeon TA MATISA DO Fancy Packer: na Pre-Operative Diagnosis metastatic left breast cancer Post-Operative Diagnosis same Procedure & Operative Findings Date of Procedure 10/25/20 Procedure Performed/Findings partial left breast mastectomy Anesthesia Type general Estimated Blood Loss Estimated blood loss (mL): minimal Specimens/Packing Specimens Removed left breast TA MATIAS DO Oct 25, 2020 13:47
[2020-10-25] MEDS ORDERED: morphine INJ 10 MG/ML 1ML (SYR OR VIAL) ONE (13:59)
[2020-10-25] MEDS ORDERED: ONDANSETRON 4 MG/2 ML (SDV) Z0FRAN IV PRN (14:00)
[2020-10-25] MEDS ORDERED: ACETAMINOPHEN 500 MG TAB (TYLENOL) PO PRN (14:00)
[2020-10-25] MEDS ORDERED: LORATADINE (CLARITIN) 10 MG TAB PO PRN (14:00)
[2020-10-25] MEDS ORDERED: NON-FORMULARY MEDICATION 1 EA EA (Famotidine (Pepcid AC) 10 MG) PO PRN (14:00)
[2020-10-25] MEDS ORDERED: ONDANSETRON 4 MG/2 ML (SDV) Z0FRAN IVP PRN (14:15)
[2020-10-25] MEDS ORDERED: morphine INJ 10 MG/ML 1ML (SYR OR VIAL) IVP ONE (14:15)
--- NOTE | 2020-10-25 14:25 | Anesthesia-General Post-Op ---
General Patient Condition Mental Status/LOC: Same as Preop Cardiovascular: Satisfactory Nausea/Vomiting: Absent Respiratory: Satisfactory Pain: Controlled Complications: Absent Post Op Complications Complications None Follow Up Care/Instructions Patient Instructions None needed. Anesthesia/Patient Condition Patient Condition Patient is doing well, no complaints, stable vital signs, no apparent adverse anesthesia problems. BLANCA CONWAY DO Oct 25, 2020 14:25
[2020-10-25] MEDS: LACTATED RINGERS 1,000 ML IV SCH (15:04)
[2020-10-25] MEDS ORDERED: FAMOTIDINE 20 MG (PEPCID) TABLET PO PRN (15:30)
[2020-10-25] MEDS: FLECAINIDE 100 MG (TAMBOCOR) TAB PO SCH (18:53)
[2020-10-25] MEDS ORDERED: NON-FORMULARY MEDICATION 1 EA EA (Flecainide Acetate 50 MG) PO SCH (21:00)
[2020-10-25] MEDS ORDERED: ROSUVASTATIN 5 MG (CRESTOR) TABLET PO SCH (21:00)
[2020-10-26] VITALS: BP 129/57
--- NOTE | 2020-10-26 01:19 | OPERATIVE REPORT ---
DATE OF SERVICE: 10/25/2020 PREOPERATIVE DIAGNOSIS: Metastatic left breast cancer. POSTOPERATIVE DIAGNOSIS: Metastatic left breast cancer. PROCEDURE: Left partial mastectomy. SURGEON: Ta Wilson DO SMOKING PIPE DRILLER AND THREADER: Dr. Muse, assisted in retraction, dissection and closure. ANESTHESIA: General. ESTIMATED BLOOD LOSS: Minimal. COMPLICATIONS: None. INDICATIONS: The patient is an 89-year-old female with metastatic left breast cancer. The tumor has started eroding through the skin. The patient and family were discussed risks and benefits of procedure and wished to proceed with procedure. Consent was signed in the chart. DESCRIPTION OF PROCEDURE: The patient was taken to the operating suite. She was prepped and draped in sterile fashion. Surgical pause was performed. Local anesthetic was infiltrated over the area of the left breast. An elliptical incision was made around the visible tumor and taking a large portion of the inferomedial breast. Cautery was used to dissect down through the subcutaneous tissues and around the palpable tumor until the pectoral fascia was visualized and the pectoral fascia was then removed off of the pectoralis major muscle, removing the entire specimen. Hemostasis was achieved. The wound was then irrigated with copious amounts of irrigation. Hemostasis again was achieved. The subcutaneous tissues were then reapproximated using 3-0 Vicryl. Skin was then closed using 4-0 Monocryl. The area was then washed and dried and Skin Affix was placed over the incisions. Sterile bandage was applied. The patient tolerated procedure well without any complications. She was taken to recovery room in stable condition. Job ID: [id number] DocumentID: [id number] Dictated Date: 10/25/2020 20:25:59 Gerontology Aide Date: 10/26/2020 01:18:12 Dictated By: TA WILSON DO
[2020-10-26] MEDS: LACTATED RINGERS 1,000 ML IV SCH (04:51)
[2020-10-26 04:55] VITALS: BP 151/78
[2020-10-26 05:45] LABS: BASOPHILS % (AUTO) 0 % (0-10); EOSINOPHILS # (AUTO) 0.1 10^3/uL (0.0-0.3); EOSINOPHILS % (AUTO) 2 % (0-10); HEMATOCRIT 36 % (35-52); HEMOGLOBIN 11.8 g/dL (11.5-16.0); LYMPHOCYTES # (AUTO) 0.9 10^3/uL (1.0-4.0); LYMPHOCYTES % (AUTO) 10 % (12-44); MEAN CORPUSCULAR HEMOGLOBIN 31 pg (25-34); MEAN CORPUSCULAR HGB CONC 33 g/dL (32-36); MEAN CORPUSCULAR VOLUME 93 fL (80-99); MEAN PLATELET VOLUME 10.7 fL (9.0-12.2); MONOCYTES # (AUTO) 0.6 10^3/uL (0.0-1.0); MONOCYTES % (AUTO) 7 % (0-12); NEUTROPHILS # (AUTO) 6.6 10^3/uL (1.8-7.8); NEUTROPHILS % (AUTO) 80 % (42-75); PLATELET COUNT 159 10^3/uL (130-400); WHITE BLOOD COUNT 8.2 10^3/uL (4.3-11.0)
[2020-10-26 06:03] LABS: CALCIUM 7.8 MG/DL (8.5-10.1); CREATININE SERUM 1.09 MG/DL (0.60-1.30)
[2020-10-26] MEDS ORDERED: LEVOTHYROXINE 125 MCG (LEVOTHROID) TABLET PO SCH (06:30)
[2020-10-26] MEDS ORDERED: metFORMIN XR 500 MG (GLUCOPHAGE XR) TAB PO SCH (08:00)
[2020-10-26] MEDS ORDERED: hydrALAZINE (APESOLINE) 20 MG/ML VIAL IV PRN (08:15)
[2020-10-26] MEDS: FLECAINIDE 100 MG (TAMBOCOR) TAB PO SCH (08:16)
[2020-10-26 08:34] VITALS: BP 128/60
[2020-10-26] MEDS ORDERED: LOSARTAN 25 MG (COZAAR) TAB PO SCH (09:00)
--- NOTE | 2020-10-26 11:03 | Discharge Inst-Simple/Standard ---
Discharge Inst-Standard Patient Instructions/Follow Up Plan of Care/Instructions/FU: 2 weeks Katie Use fluff bandages and trse wrap or stuffed sports bra for support to the left breast. Activity as Tolerated: No Discharge Diet: Regular Diet Other Inst to Patient Follow up Appt: Make appointment for 2 week. Instructions: No lifting greater than 10 pounds. No strenuous activity. May shower in 24 hours, no tub bath or soaking. Use incentive spirometer at home as directed. No Smoking Keep supportive bandage over area and change daily. Skin/Wound Care: You have special glue over your incision that will fall off on it's own. Symptoms to Report: Appetite Changes, Extremity Discoloration, Numbness/Tingling, Swelling Increased, Bleeding Excessive, Eyesight Changes, Pain Increased, Urine Color Change, Constipation(Persistent), Fever over 101 degree F, Pain/Pressure in chest, Urinating Difficulty, Cough Up/Vomit Blood, Heart Beat Irreg/Pounding, Pain/Pressure in jaw, Vaginal Bleeding Increase, Cramps in feet or legs, Lightheadedness, Pain/Pressure in shoulder, Diarrhea(Persistent), Memory Changes Suddenly, Questions/Concerns, Weight gain consecutive days, Dizziness/Fainting, Nausea/Vomiting, Shortness of Breath, Weight gain over 2 pounds If questions or concerns contact your physician Or seek help at emergency department. TA MATIAS DO October 26, 2020 11:03
--- NOTE | 2020-10-26 11:06 | Progress Note - Surgery ---
Subjective Date Seen by a Provider: October 26, 2020 Time Seen by a Provider: 10:13 Subjective/Events-last exam Patient is doing well. She is not having any significant pain. She is feeling well and wanting to go home. She denies any nausea vomiting fever sweats chills shortness of breath or chest pain. Objective Exam Vital Signs Date Time Temp Pulse Resp B/P (MAP) Pulse Ox O2 Delivery O2 Flow Rate FiO2 10/26/20 08:55 Room Air 10/26/20 08:34 36.0 95 18 128/60 (82) 94 Room Air 10/26/20 04:55 36.0 86 18 151/78 (102) 96 Room Air 10/26/20 00:00 36.1 97 18 129/57 (81) 97 Room Air 10/25/20 21:00 Room Air 10/25/20 19:00 36.4 98 17 107/64 (78) 93 Room Air 10/25/20 15:21 36.3 113 16 140/72 (94) 96 Room Air 10/25/20 14:45 36.2 20 150/82 (104) 94 Room Air 10/25/20 14:45 Room Air 10/25/20 14:40 20 148/82 (104) 94 Room Air 10/25/20 14:30 20 155/87 (109) 96 Room Air 10/25/20 14:30 Room Air 10/25/20 14:20 15 87/97 (94) Room Air 10/25/20 14:15 OxyMask 3 10/25/20 14:10 20 159/75 (103) 98 OxyMask 3 10/25/20 14:00 OxyMask 6 10/25/20 14:00 20 151/70 (97) 100 OxyMask 3 10/25/20 13:50 20 170/83 (112) 100 3 10/25/20 13:45 36.2 20 141/73 (95) 100 OxyMask 6 10/25/20 13:45 OxyMask 6 10/25/20 12:49 36.5 78 20 146/66 (92) 98 Room Air I & O 10/26/20 07:00 Intake Total 510 ml Balance 510 ml Capillary Refill : Less Than 3 Seconds General Appearance: No Apparent Distress, WD/WN HEENT: PERRL/EOMI, Normal ENT Inspection Neck: Full Range of Motion, Non Tender Respiratory: Chest Non Tender, No Accessory Muscle Use, No Respiratory Distress Cardiovascular: Regular Rate, Rhythm, No JVD Gastrointestinal: non tender, soft Extremity: Normal Inspection Neurologic/Psychiatric: Alert, Oriented x3, Normal Mood/Affect Skin: Normal Color, Warm/Dry, Other (left breast incision clean dry and intact, no signs of infection) Results Lab Laboratory Tests 10/25/20 12:54: Glucometer 199H 10/26/20 05:09: White Blood Count 8.2, Red Blood Count 3.85, Hemoglobin 11.8, Hematocrit 36, Mean Corpuscular Volume 93, Mean Corpuscular Hemoglobin 31, Mean Corpuscular Hemoglobin Concent 33, Red Cell Distribution Width 13.6, Platelet Count 159, Mean Platelet Volume 10.7, Immature Granulocyte % (Auto) 0, Neutrophils (%) (Auto) 80H, Lymphocytes (%) (Auto) 10L, Monocytes (%) (Auto) 7, Eosinophils (%) (Auto) 2, Basophils (%) (Auto) 0, Neutrophils # (Auto) 6.6, Lymphocytes # (Auto) 0.9L, Monocytes # (Auto) 0.6, Eosinophils # (Auto) 0.1, Basophils # (Auto) 0.0, Immature Granulocyte # (Auto) 0.0, Sodium Level 138, Potassium Level 5.0, Chloride Level 105, Carbon Dioxide Level 25, Anion Gap 8, Blood Urea Nitrogen 27H, Creatinine 1.09, Estimat Glomerular Filtration Rate 47, BUN/Creatinine Ratio 25, Glucose Level 204H, Calcium Level 7.8L Microbiology 10/25/20 MRSA Screen - Final, Complete MRSA not isolated Assessment/Plan Assessment/Plan Assessment/Plan left metastatic breast cancer s/p left partial mastectomy Doing well. Pain controlled. Okay to sc home F/u 2 weeks. Final Diagnosis left metastatic breast cancer s/p left partial mastectomy TA MATIAS DO October 26, 2020 11:06
== END 2020-10-26 11:35 | disposition home or self-care (01) | DRG 582 ==
LOC: 4TH 11:55 → SURG 11:56 → EDSTATUS 13:00 → 4TH 15:13
PROVIDERS: ADMIT Surgery; ATTEND Surgery
PROC: 0HBU0ZZ Excision of Left Breast, Open Approach (ICD-10-PCS; principal; 2020-10-25 12:59)
DX: C50.919 Malignant neoplasm of unspecified site of unspecified female breast (principal); C79.89 Secondary malignant neoplasm of other specified sites; I50.32 Chronic diastolic (congestive) heart failure; M51.06 Intervertebral disc disorders with myelopathy, lumbar region; Z79.01 Long term (current) use of anticoagulants; I48.91 Unspecified atrial fibrillation; E66.9 Obesity, unspecified; Z68.28 Body mass index [BMI] 28.0-28.9, adult; Z96.651 Presence of right artificial knee joint; Z87.891 Personal history of nicotine dependence; E03.9 Hypothyroidism, unspecified; E78.00 Pure hypercholesterolemia, unspecified; I11.0 Hypertensive heart disease with heart failure
CPT/HCPCS: 36415; 80048; 82947; 85025; 87081

== ENCOUNTER 2020-11-08 13:44 | Inpatient (IN) | payer MEDICARE, OTHER ==
[~2020-11-08] VITALS: Ht 165 cm; Wt 77.0 kg
--- NOTE | 2020-11-08 13:49 | ED General ---
General Stated Complaint: SOB Source of Information: Patient Exam Limitations: No Limitations History of Present Illness Date Seen by Provider: November 08, 2020 Time Seen by Provider: 13:47 Initial Comments ER by EMS from home with reports of dyspnea on exertion getting worse. She had labs ordered today to work up this shortness of breath and was called and told that her D-dimer was elevated. 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 Her dose was restarted today. Her oncologist Dr. Miller does not recommend surgery or radiation given comorbidities (per last history and physica). Daughter is present and states that the patient is scheduled to enter assisted living on Wednesday. Patient is DO NOT RESUSCITATE status. Timing/Duration: 1-2 Days Severity: Moderate Associated Systoms: Shortness of Air Allergies and Home Medications Allergies Coded Allergies: Fish Containing Products (Verified Allergy, Unknown, 06/02/16) Home Medications Acetaminophen 500 Mg Tablet, 500 MG PO Q6H PRN for PAIN-MILD (1-4), (Reported) Apixaban 5 Mg Tablet, 5 MG PO BID, (Reported) Calcium Carbonate/Vitamin D3 1 Each Tablet, 1 TAB PO HS, (Reported) Diltiazem HCl 240 Mg Cap.er.24h, 240 MG PO DAILY, (Reported) Famotidine 10 Mg Tablet, 10 MG PO DAILY PRN for HEARTBURN, (Reported) Ferrous Sulfate 325 Mg Tablet, 325 MG PO ,,,Sat, (Reported) Flecainide Acetate 50 Mg Tablet, 50 MG PO BID, (Reported) L.acidoph & Paracasei,B.lactis 1 Each Capsule, 1 CAP PO 1200, (Reported) Levothyroxine Sodium 125 Mcg Tablet, 125 MCG PO DAILY, (Reported) Loperamide HCl 2 Mg Tablet, 2 MG PO DAILY PRN for DIARRHEA, (Reported) Loratadine 10 Mg Tablet, 10 MG PO HS PRN for ALLERGIES, (Reported) Losartan Potassium 25 Mg Tablet, 25 MG PO DAILY, (Reported) Metformin HCl 500 Mg Tab.er.24, 500 MG PO DAILY, (Reported) Metoprolol Succinate 25 Mg Tab.er.24h, 25 MG PO HS, (Reported) Multivit-Min/FA/Lycopene/Lut 1 Each Tablet, 1 EACH PO 1200, (Reported) [place]-3/Dha/Epa/Fish Oil 1,200 Mg Capsule, 1,200 MG PO 1200, (Reported) Psyllium Husk (with Sugar) 2 Gm Wafer, 2 GM PO DAILY, (Reported) Rosuvastatin Calcium 5 Mg Tablet, 5 MG PO HS, (Reported) Trimethoprim 100 Mg Tablet, 100 MG PO Q72H, (Reported) Patient Home Medication List Home Medication List Reviewed: Yes Review of Systems Review of Systems Constitutional: see HPI EENTM: see HPI Respiratory: see HPI, dyspnea on exertion Cardiovascular: no symptoms reported Genitourinary: no symptoms reported Musculoskeletal: no symptoms reported Skin: no symptoms reported Psychiatric/Neurological: No Symptoms Reported Hematologic/Lymphatic: No Symptoms Reported Past Lkwitsy-Hnzouv-Pgylil Hx Patient Social History Type Used: Cigarettes Former Smoker, Quit: May 24, 1966 2nd Hand Smoke Exposure: No Recent Hopitalizations: Yes (Recent fall 10/12/2020) Immunizations Up To Date Tetanus Booster (TDap): Unknown PED Vaccines UTD: No Date of Pneumonia Vaccine: October 28, 2015 Date of Influenza Vaccine: Mar 28, 2020 Seasonal Allergies Seasonal Allergies: Yes Past Medical History Surgeries: Yes (carpal tunnel, R TKR, laminectomy x2) Hysterectomy, Joint Replacement, Thyroidectomy Respiratory: Yes COPD Currently Using CPAP: No Currently Using BIPAP: No Cardiac: No Atrial Fibrillation, Coronary Artery Disease, High Cholesterol, Hypertension Neurological: Yes Dementia, Neuropathy 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 Genitourinary: Yes Renal Failure, UTI-Chronic Gastrointestinal: Yes Gastroesophageal Reflux, Chronic Constipation, Hemorrhoids Musculoskeletal: Yes Arthritis, Chronic Back Pain Endocrine: Yes Hypothyroidsim HEENT: No Cancer: Yes Breast What Type of Treatment Did You: Surgical Intervention Psychosocial: Yes Anxiety, Depression Integumentary: No Blood Disorders: No Adverse Reaction/Blood Tranf: No Family Medical History No Pertinent Family Hx, Hypertension Noncontributory Physical Exam Vital Signs Vital Signs - First Documented 11/08/20 13:51 Temp 36.6 Pulse 80 Resp 25 B/P (MAP) 128/59 (82) Pulse Ox 99 O2 Delivery Room Air Capillary Refill : Height, Weight, BMI Height: 5'4.00" Weight: 180lbs. 5.0oz. 81.711914ad; 28.28 BMI Method:Estimated General Appearance: No Apparent Distress, WD/WN Eyes: Bilateral Eye Normal Inspection, Bilateral Eye PERRL, Bilateral Eye EOMI Neck: Full Range of Motion, Normal Inspection Respiratory: Normal Breath Sounds, No Accessory Muscle Use, No Respiratory Distress Cardiovascular: Regular Rate, Rhythm, Normal Peripheral Pulses Gastrointestinal: Normal Bowel Sounds, Non Tender, Soft Extremity: Normal Capillary Refill, Normal Inspection Neurologic/Psychiatric: Alert, Oriented x3 Skin: Normal Color, Warm/Dry Progress/Results/Core Measures Suspected Sepsis SIRS Temperature: Pulse: Respiratory Rate: Laboratory Tests 11/08/20 13:50: White Blood Count 10.9 Blood Pressure / Mean: Laboratory Tests 11/08/20 13:50: Creatinine 1.25, Platelet Count 220, Total Bilirubin 0.8 Results/Orders Lab Results Laboratory Tests Test 11/08/20 13:50 11/08/20 15:14 Range/Units White Blood Count 10.9 4.3-11.0 10^3/uL Red Blood Count 3.93 3.80-5.11 10^6/uL Hemoglobin 12.0 11.5-16.0 g/dL Hematocrit 36 35-52 % Mean Corpuscular Volume 92 80-99 fL Mean Corpuscular Hemoglobin 31 25-34 pg Mean Corpuscular Hemoglobin Concent 33 32-36 g/dL Red Cell Distribution Width 14.4 10.0-14.5 % Platelet Count 220 130-400 10^3/uL Mean Platelet Volume 11.0 9.0-12.2 fL Immature Granulocyte % (Auto) 1 % Neutrophils (%) (Auto) 88 H 42-75 % Lymphocytes (%) (Auto) 6 L 12-44 % Monocytes (%) (Auto) 6 0-12 % Eosinophils (%) (Auto) 0 0-10 % Basophils (%) (Auto) 0 0-10 % Neutrophils # (Auto) 9.5 H 1.8-7.8 10^3/uL Lymphocytes # (Auto) 0.6 L 1.0-4.0 10^3/uL Monocytes # (Auto) 0.6 0.0-1.0 10^3/uL Eosinophils # (Auto) 0.0 0.0-0.3 10^3/uL Basophils # (Auto) 0.0 0.0-0.1 10^3/uL Immature Granulocyte # (Auto) 0.1 0.0-0.1 10^3/uL Neutrophils % (Manual) 89 % Lymphocytes % (Manual) 5 % Monocytes % (Manual) 6 % Anisocytosis SLIGHT Sodium Level 134 L 135-145 MMOL/L Potassium Level 5.0 3.6-5.0 MMOL/L Chloride Level 104 98-107 MMOL/L Carbon Dioxide Level 20 L 21-32 MMOL/L Anion Gap 10 5-14 MMOL/L Blood Urea Nitrogen 27 H 7-18 MG/DL Creatinine 1.25 0.60-1.30 MG/DL Estimat Glomerular Filtration Rate 40 BUN/Creatinine Ratio 22 Glucose Level 202 H 70-105 MG/DL Calcium Level 8.0 L 8.5-10.1 MG/DL Corrected Calcium 8.5 8.5-10.1 MG/DL Magnesium Level 2.2 1.6-2.4 MG/DL Total Bilirubin 0.8 0.1-1.0 MG/DL Aspartate Amino Transf (AST/SGOT) 21 5-34 U/L Alanine Aminotransferase (ALT/SGPT) 27 0-55 U/L Alkaline Phosphatase 92 40-136 U/L Troponin I 0.047 H 0.045 H <0.028 NG/ML B-Type Natriuretic Peptide 502.0 H <100.0 PG/ML Total Protein 6.2 L 6.4-8.2 GM/DL Albumin 3.4 3.2-4.5 GM/DL Procalcitonin 0.04 <0.10 NG/ML My Orders Orders - DOLORES BURGESS APRN BNP (11/08/20 13:46) Cbc With Automated Diff (11/08/20 13:46) Comprehensive Metabolic Panel (11/08/20 13:46) Ekg Tracing (11/08/20 13:46) Troponin I (11/08/20 13:46) Chest 1 View, Ap/Pa Only (11/08/20 13:46) Magnesium (11/08/20 13:46) Ed Iv/Invasive Line Start (11/08/20 13:46) Manual Differential (11/08/20 13:50) Procalcitonin (Pct) (11/08/20 14:30) Echo W Doppler/Color Flow (11/08/20 14:49) Troponin I (11/08/20 14:49) Vital Signs/I&O 11/08/20 13:51 Temp 36.6 Pulse 80 Resp 25 B/P (MAP) 128/59 (82) Pulse Ox 99 O2 Delivery Room Air Capillary Refill : Diagnostic Imaging Diagonstic Imaging: Xray Plain Films/CT/US/NM/MRI: chest Comments NAME: NIKHIL ARAIZA [facility] REC#: [id number] PT STATUS: REG ER : 1930 PHYSICIAN: DOLORES BURGESS APRN ADMIT DATE: 11/08/20/ER Draft Date of Exam:11/08/20 CHEST 1 VIEW, AP/PA ONLY EXAMINATION: Chest radiograph, portable AP view. DATE: 11/08/2020 2:09 PM INDICATION: 89-year-old female, dyspnea. COMPARISON: April 16, 2018. FINDINGS: Stable overall appearance of the cardiomediastinal silhouette. There is no identified pneumothorax. There is blunting of the left lateral costophrenic angle and nonspecific left basilar airspace consolidation. There are streaky opacities in the right lung base. There is a mildly displaced right seventh rib fracture with underlying bone lesion consistent with a pathologic fracture. There is also a destructive bone lesion involving the lateral aspect of the right third rib. There is also a destructive lesion in the inferior aspect of the sternum. IMPRESSION: 1. Nonspecific bibasilar airspace consolidation which may relate to infiltrate, atelectasis, and/or effusions. 2. Mildly displaced pathologic fracture of the right seventh rib with underlying bone lesion as well as additional destructive bone lesion involving the right third rib laterally and destructive lesion of the inferior sternum. These bone lesions are most likely related to bone metastasis. Multiple myeloma would be the main differential diagnostic consideration. Dictated on workstation # [id number] Dict: 11/08/20 1412 Trans: 11/08/20 1420 CV [id number] Interpreted by: AMANDA GRIDER MD Electronically signed by: Departure Communication (Admissions) NAME: NIKHIL ARAIZA [facility] REC#: [id number] PT STATUS: REG ER : 1930 PHYSICIAN: DOLORES BURGESS APRN ADMIT DATE: 11/08/20/ER Signed Date of Exam:11/08/20 CHEST 1 VIEW, AP/PA ONLY EXAMINATION: Chest radiograph, portable AP view. DATE: 11/08/2020 2:09 PM INDICATION: 89-year-old female, dyspnea. COMPARISON: April 16, 2018. FINDINGS: Stable overall appearance of the cardiomediastinal silhouette. There is no identified pneumothorax. There is blunting of the left lateral costophrenic angle and nonspecific left basilar airspace consolidation. There are streaky opacities in the right lung base. There is a mildly displaced right seventh rib fracture with underlying bone lesion consistent with a pathologic fracture. There is also a destructive bone lesion involving the lateral aspect of the right third rib. There is also a destructive lesion in the inferior aspect of the sternum. IMPRESSION: 1. Nonspecific bibasilar airspace consolidation which may relate to infiltrate, atelectasis, and/or effusions. 2. Mildly displaced pathologic fracture of the right seventh rib with underlying bone lesion as well as additional destructive bone lesion involving the right third rib laterally and destructive lesion of the inferior sternum. These bone lesions are most likely related to bone metastasis. Multiple myeloma would be the main differential diagnostic consideration. Dictated by: Dictated on workstation # [id number] Dict: 11/08/20 1412 Trans: 11/08/20 2044 [facility] [id number] Interpreted by: AMANDA GRIDER MD Electronically signed by: AMANDA GRIDER MD 11/08/[address] Moore cardiology. He recommended an echocardiogram and a repeat troponin. The repeat troponin had actually declined. BN P came back a little high at 500. The echocardiogram per the tech did show reduced ejection fraction with some septal abnormalities. Updated Dr. Gross of these findings, plan to admit. Chest x-ray does show new lytic lesion in the right third rib and a pathologic fracture of the right seventh rib though she has no pain to these locations. Also shows some bibasilar infiltrate. She denies fevers or chills and has no cough. Normal procalcitonin as well. Cardiomediastinal silhouette is normal without amaury pulmonary edema and clinically she is not overtly volume overloaded. We will do 20 mg of IV Lasix here and defer any additional diuretic use to hospitalist/cardiology. Her biggest complaint is of some mid back pain and right hip pain that causes her troubles with walking. She has known lytic lesion right inferior pubic ramus. I will order a CT scan of the thoracolumbar spine without contrast later today. Her daughter is afraid she is unable to care for herself at home [id number]-with the patient and her daughter. They plan to meet again with Dr. Miller on 11/21. Patient does not want chemotherapy she is very clear about this. Impression Primary Impression: New onset left bundle branch block (LBBB) Additional Impressions: [place] (dyspnea on exertion) Breast cancer, left Bone metastases Physical debility Dementia Disposition: ADMITTED INPATIENT Condition: Stable Admissions Decision to Admit Reason: Admit from ER (General) Decision to Admit/Date: November 08, 2020 Time/Decision to Admit Time: 15:59 Departure-Patient Inst. Referrals: VIVI OATES MD (PCP/Family) Primary Care Physician DOLORES BURGESS APRN November 08, 2020 13:49
[2020-11-08 14:01] LABS: BASOPHILS % (AUTO) 0 % (0-10); EOSINOPHILS % (AUTO) 0 % (0-10); HEMATOCRIT 36 % (35-52); LYMPHOCYTES # (AUTO) 0.6 10^3/uL (1.0-4.0); LYMPHOCYTES % (AUTO) 6 % (12-44); MEAN CORPUSCULAR HEMOGLOBIN 31 pg (25-34); MEAN CORPUSCULAR HGB CONC 33 g/dL (32-36); MEAN CORPUSCULAR VOLUME 92 fL (80-99); MONOCYTES # (AUTO) 0.6 10^3/uL (0.0-1.0); MONOCYTES % (AUTO) 6 % (0-12); NEUTROPHILS # (AUTO) 9.5 10^3/uL (1.8-7.8); NEUTROPHILS % (AUTO) 88 % (42-75); PLATELET COUNT 220 10^3/uL (130-400); WHITE BLOOD COUNT 10.9 10^3/uL (4.3-11.0)
[2020-11-08 14:09] LABS: ALBUMIN 3.4 GM/DL (3.2-4.5)
[2020-11-08 14:11] LABS: TOTAL PROTEIN 6.2 GM/DL (6.4-8.2)
[2020-11-08 14:13] LABS: BILIRUBIN,TOTAL 0.8 MG/DL (0.1-1.0)
[2020-11-08 14:15] LABS: CREATININE SERUM 1.25 MG/DL (0.60-1.30)
[2020-11-08 14:16] LABS: ANISOCYTOSIS SLIGHT; LYMPHOCYTES % (MANUAL) 5 %; MONOCYTES % (MANUAL) 6 %; NEUTROPHILS % (MANUAL) 89 %
[2020-11-08 14:18] LABS: MAGNESIUM 2.2 MG/DL (1.6-2.4)
--- NOTE | 2020-11-08 14:20 | Diagnostic Imaging Report ---
EXAMINATION: Chest radiograph, portable AP view. DATE: 11/08/2020 2:09 PM INDICATION: 89-year-old female, dyspnea. COMPARISON: April 16, 2018. FINDINGS: Stable overall appearance of the cardiomediastinal silhouette. There is no identified pneumothorax. There is blunting of the left lateral costophrenic angle and nonspecific left basilar airspace consolidation. There are streaky opacities in the right lung base. There is a mildly displaced right seventh rib fracture with underlying bone lesion consistent with a pathologic fracture. There is also a destructive bone lesion involving the lateral aspect of the right third rib. There is also a destructive lesion in the inferior aspect of the sternum. IMPRESSION: 1. Nonspecific bibasilar airspace consolidation which may relate to infiltrate, atelectasis, and/or effusions. 2. Mildly displaced pathologic fracture of the right seventh rib with underlying bone lesion as well as additional destructive bone lesion involving the right third rib laterally and destructive lesion of the inferior sternum. These bone lesions are most likely related to bone metastasis. Multiple myeloma would be the main differential diagnostic consideration. Dictated by: Dictated on workstation # [id number]
[2020-11-08] MEDS ORDERED: FUROSEMIDE 40 MG/4 ML INJ (LASIX) IVP ONE (16:15)
[2020-11-08] MEDS ORDERED: CATHETER FLUSH 10 ML SYR IV PRN (17:15)
[2020-11-08] MEDS ORDERED: HYDROcodone/APAP 5 MG/325 MG (LORTAB) TAB PO PRN (17:15)
[2020-11-08] MEDS ORDERED: ONDANSETRON 4 MG (ZOFRAN) ORAL DISSOLVE TAB PO PRN (18:00)
[2020-11-08] MEDS ORDERED: ONDANSETRON 4 MG/2 ML (SDV) Z0FRAN IV PRN (18:00)
[2020-11-08] MEDS ORDERED: BISACODYL 10 MG SUPP (DULCOLAX) PR PRN (18:00)
[2020-11-08] MEDS ORDERED: ANTACID SUSP 30 ML UDC (MYLANTA) PO PRN (18:00)
[2020-11-08] MEDS ORDERED: MELATONIN 3 MG TABLET PO PRN (18:00)
[2020-11-08] MEDS ORDERED: ACETAMINOPHEN 325 MG TABLET PO PRN (18:00)
[2020-11-08] MEDS ORDERED: polyethylene glycoL POWDER 17 GM (MIRALAX) PACK PO PRN (18:00)
[2020-11-08] MEDS: APIXABAN 5 MG (ELIQUIS) TABLET PO SCH (18:16)
--- NOTE | 2020-11-08 18:42 | Diagnostic Imaging Report ---
PROCEDURE: CT thoracic and lumbar spine without contrast. TECHNIQUE: Multiple contiguous axial images were obtained through the thoracic and lumbar spine without the use of intravenous contrast. Sagittal and coronal reformations were then performed. All CT scans use one or more of the following dose optimizing techniques: automated exposure control, MA and/or KvP adjustment based on a patient size and exam type, or iterative reconstruction. INDICATION: Metastatic breast cancer. CORRELATION STUDY: CT chest 08/26/2020 FINDINGS: Thoracic spine: Thoracic spinal alignment is anatomic. Overall vertebral body heights are maintained currently. There is bridging osteophytes through large portion of the thoracic spine could reflect underlying ankylosing spondylolysis. There is a very heterogeneous appearance about the osseous structures. There are more focal areas of lytic, destructive type change present. Largest involves the posterior inferior T4 vertebral body with loss of the posterior and inferior cortical margins. A more focal lucency at inferior T3 vertebral body. More focal destruction involving the superior T11 endplate with destruction and loss of portion of the superior endplate cortex. Additional small areas of decreased attenuation are also present. Also significant destructive lytic changes of the proximal posterior T4 rib on the right. There is a presence of a small moderate bilateral pleural effusions layering dependently. Significant coronary artery calcification. Probable right renal cyst. Lumbar spine: Lumbar spinal alignment with mild anterolisthesis of L3 on L4. Otherwise maintained. Prior decompressive laminectomy at the L4 level. Heterogeneous attenuation is demonstrated throughout the osseous structures. No compression deformity or loss of height. Largest lesion left aspect L4. Significant calcification of the abdominal aorta. Colonic diverticulosis present. May be slightly more focal lucency about the posterior S1 as well as S3 vertebral levels. There does appear to be significant spinal canal narrowing at the L2-L3, L3-L4 levels owing to degenerative change. Various degrees of foraminal narrowing are also present. IMPRESSION: 1. Multiple areas of a lytic type change involving the thoracic, lumbar and likely sacral vertebral body as well as the right 4th rib. Findings are consistent with multifocal osseous metastasis. Largest lesion involving the T3, T4, T11, L4 vertebral bodies as well as right 4th rib. At the T4 level, there is disruption of the posterior inferior cortex of T4 vertebral body. Definitive soft tissue extensions of the spinal canal did result in spinal canal compromise and does not appear to suggested at this time but the patient may be prone to this. If further assessment desired, MRI and/or bone scan would be recommended. Dictated by: Dictated on workstation # [id number]
[2020-11-08] MEDS ORDERED: NON-FORMULARY MEDICATION 1 EA EA (Trimethoprim 100 MG) PO SCH (19:00)
[2020-11-08 19:20] VITALS: BP 117/59
[2020-11-08] MEDS ORDERED: TRIMETHOPRIM 100 MG TAB (PROLOPRIM) PO SCH (19:30)
[2020-11-08] MEDS ORDERED: APIXABAN 5 MG (ELIQUIS) TABLET PO SCH (21:00)
[2020-11-08] MEDS ORDERED: CALCIUM CARB + VIT D 600 MG (CALCARB + D) TAB PO SCH (21:00)
[2020-11-08] MEDS: ROSUVASTATIN 5 MG (CRESTOR) TABLET PO SCH (21:12)
[2020-11-08] MEDS: FLECAINIDE 100 MG (TAMBOCOR) TAB PO SCH (21:13)
[2020-11-08] MEDS: DOCUSATE SODIUM 100 MG (COLACE) CAP PO SCH (21:14)
[2020-11-08] MEDS: inSUlin ASPART (NovoLOG) 1 UNIT/0.01 ML (CHARGE PER UNIT) SC SCH (21:15)
[2020-11-08] MEDS: SENNOSIDES 8.6 MG (SENOKOT) TAB PO SCH (21:15)
[2020-11-08] MEDS: CATHETER FLUSH 10 ML SYR IV SCH (21:16)
[2020-11-08 23:55] VITALS: BP 114/54
[2020-11-09 04:45] VITALS: BP 124/76
[2020-11-09 05:53] LABS: BASOPHILS % (AUTO) 0 % (0-10); EOSINOPHILS # (AUTO) 0.2 10^3/uL (0.0-0.3); EOSINOPHILS % (AUTO) 2 % (0-10); HEMATOCRIT 36 % (35-52); HEMOGLOBIN 11.7 g/dL (11.5-16.0); LYMPHOCYTES # (AUTO) 0.6 10^3/uL (1.0-4.0); LYMPHOCYTES % (AUTO) 6 % (12-44); MEAN CORPUSCULAR HEMOGLOBIN 30 pg (25-34); MEAN CORPUSCULAR HGB CONC 32 g/dL (32-36); MEAN CORPUSCULAR VOLUME 94 fL (80-99); MEAN PLATELET VOLUME 10.6 fL (9.0-12.2); MONOCYTES # (AUTO) 0.6 10^3/uL (0.0-1.0); MONOCYTES % (AUTO) 6 % (0-12); NEUTROPHILS # (AUTO) 7.7 10^3/uL (1.8-7.8); NEUTROPHILS % (AUTO) 85 % (42-75); PLATELET COUNT 192 10^3/uL (130-400); WHITE BLOOD COUNT 9.1 10^3/uL (4.3-11.0)
[2020-11-09] MEDS: APIXABAN 5 MG (ELIQUIS) TABLET PO SCH ×2 (05:53→17:59)
[2020-11-09] MEDS: CATHETER FLUSH 10 ML SYR IV SCH ×3 (05:53→19:57)
[2020-11-09] MEDS: inSUlin ASPART (NovoLOG) 1 UNIT/0.01 ML (CHARGE PER UNIT) SC SCH ×2 (05:53→11:21)
[2020-11-09 06:03] LABS: POTASSIUM 4.7 MMOL/L (3.6-5.0)
[2020-11-09 06:04] LABS: CALCIUM 8.2 MG/DL (8.5-10.1)
[2020-11-09 06:08] LABS: CREATININE SERUM 1.11 MG/DL (0.60-1.30)
[2020-11-09] MEDS: LEVOTHYROXINE 125 MCG (LEVOTHROID) TABLET PO SCH (06:31)
[2020-11-09] MEDS ORDERED: FERROUS SULF 325 MG (IRON) TAB PO SCH (07:00)
[2020-11-09 08:00] VITALS: BP 132/67
[2020-11-09] MEDS: DOCUSATE SODIUM 100 MG (COLACE) CAP PO SCH ×2 (08:02→19:55)
[2020-11-09] MEDS: SENNOSIDES 8.6 MG (SENOKOT) TAB PO SCH ×2 (08:02→19:55)
[2020-11-09] MEDS: FLECAINIDE 100 MG (TAMBOCOR) TAB PO SCH ×2 (08:29→19:52)
[2020-11-09] MEDS: PSYLLIUM POWDER (METAMUCIL) 5.8 GM PACKET PO SCH (08:29)
[2020-11-09] MEDS: LOSARTAN 25 MG (COZAAR) TAB PO SCH (08:29)
[2020-11-09] MEDS ORDERED: metFORMIN XR 500 MG (GLUCOPHAGE XR) TAB PO SCH (09:00)
[2020-11-09] MEDS ORDERED: TRIMETHOPRIM 100 MG TAB (PROLOPRIM) PO SCH (09:00)
[2020-11-09 12:00] VITALS: BP 115/56
[2020-11-09] MEDS ORDERED: OMEGA 3 (FISH OIL) 1000 MG CAP PO SCH (12:00)
[2020-11-09] MEDS ORDERED: MULTIVIT W/MINERALS TAB (THERAGRAN M) PO SCH (12:00)
[2020-11-09] MEDS ORDERED: LACTOBACILLUS ACIDOPHILUS (PROBIOTIC) CAPSULE PO SCH (12:00)
[2020-11-09] MEDS ORDERED: PROMETHAZINE INJ 25 MG/ML (PHENERGAN) AMP IVP PRN (13:45)
[2020-11-09] MEDS ORDERED: FUROSEMIDE 40 MG (LASIX) TAB PO ONE (13:45)
[2020-11-09] MEDS ORDERED: ONDANSETRON 4 MG/2 ML (SDV) Z0FRAN IVP PRN (13:45)
[2020-11-09] MEDS ORDERED: fentaNYL PATCH 12 MCG (DURAGESIC) TD SCH (14:00)
--- NOTE | 2020-11-09 15:36 | Consultation-Cardiology ---
HPI-Cardiology Cardiology Consultation: Date of Consultation 11/09/20 Date of Admission Attending Physician Ely Stern MD Admitting Physician Jung Burkett MD Consulting Physician Chavo GROSS MD HPI: Time Seen by a Provider: 15:36 Chief Complaint: shortness of breath 89 year old lady with AF on eliquis, Breast cancer with surgery. presents with shortness of breath. was also found to have a LBBB on EKG. serial troponin ruled out ACS. Echo showed LV systolic dysfunction. Improved with lasix Review of Systems-Cardiology Review of Systems Constitutional: As described under HPI; No As described under HPI, No no symptoms reported, No chills, No fever, No lightheadedness Eyes: No As described under HPI, No no symptoms reported, No blindness, No blurred vision, No contact lenses, No drainage, No decreased acuity, No foreign body sensation, No pain, No vision change Ears/Nose/Throat: No As described under HPI, No no symptoms reported, No chronic hearing loss, No ear discharge, No ear pain, No nasal drainage, No ulcerations Respiratory: No no symptoms reported; As described under HPI; No As described under HPI, No cough, No orthopnea; shortness of breath; No SOB with excertion Cardiovascular: No no symptoms reported; As described under HPI; No As described under HPI, No chest pain, No edema, No irregular heart rate, No lightheadedness, No palpitations Gastrointestinal: No no symptoms reported, No As described under HPI, No abdomen distended, No abdominal pain, No blood streaked bowels, No constipation, No diarrhea, No nausea, No vomiting, No stool coloration changes Genitourinary: No As described under HPI, No burning, No dysuria, No discharge, No frequency, No flank pain, No hematuria, No urgency : Yes : No Skin: No rash, No skin related problems, No ulcerations Psychiatric/Neurological: No anxiety, No depression, No seizure, No focal weakness, No syncope Hematologic: No bleeding abnormalities NEI-[id number]-Dogtkf Hx Patient Social History Smoking Status: Former Smoker 2nd Hand Smoke Exposure: No Have you traveled recently?: No Alcohol Use?: No Pt feels they are or have been: No Immunizations Up To Date Tetanus Booster (TDap): Unknown Date of Pneumonia Vaccine: October 28, 2015 Date of Influenza Vaccine: Apr 28, 2020 Past Medical History PMH As described under Assessment. Family Medical History Family Medical History: No fam history of early CAD Family History: Patient reports no known family medical history. Allergies and Home Medications Allergies Coded Allergies: Fish Containing Products (Verified Allergy, Unknown, 06/02/16) Home Medications Acetaminophen 500 Mg Tablet, 500 MG PO Q6H PRN for PAIN-MILD (1-4), (Reported) Apixaban 5 Mg Tablet, 5 MG PO BID, (Reported) Last Action: Continued Calcium Carbonate/Vitamin D3 1 Each Tablet, 1 TAB PO HS, (Reported) Last Action: Converted Diltiazem HCl 240 Mg Cap.er.24h, 240 MG PO DAILY, (Reported) Last Action: Continued Famotidine 10 Mg Tablet, 10 MG PO DAILY PRN for HEARTBURN, (Reported) Ferrous Sulfate 325 Mg Tablet, 325 MG PO Martinez,,,Sat, (Reported) Last Action: Continued Flecainide Acetate 50 Mg Tablet, 50 MG PO BID, (Reported) Last Action: Converted L.acidoph & Paracasei,B.lactis 1 Each Capsule, 1 CAP PO 1200, (Reported) Last Action: Converted Levothyroxine Sodium 125 Mcg Tablet, 125 MCG PO DAILY, (Reported) Last Action: Continued Loperamide HCl 2 Mg Tablet, 2 MG PO DAILY PRN for DIARRHEA, (Reported) Loratadine 10 Mg Tablet, 10 MG PO HS PRN for ALLERGIES, (Reported) Losartan Potassium 25 Mg Tablet, 25 MG PO DAILY, (Reported) Last Action: Continued Metformin HCl 500 Mg Tab.er.24, 500 MG PO DAILY, (Reported) Last Action: Continued Metoprolol Succinate 25 Mg Tab.er.24h, 25 MG PO HS, (Reported) Last Action: Continued Multivit-Min/FA/Lycopene/Lut 1 Each Tablet, 1 EACH PO 1200, (Reported) Last Action: Converted Magnolia-3/Dha/Epa/Fish Oil 1,200 Mg Capsule, 1,200 MG PO 1200, (Reported) Last Action: Converted Psyllium Husk (with Sugar) 2 Gm Wafer, 2 GM PO DAILY, (Reported) Last Action: Converted Rosuvastatin Calcium 5 Mg Tablet, 5 MG PO HS, (Reported) Last Action: Continued Trimethoprim 100 Mg Tablet, 100 MG PO Q72H, (Reported) Last Action: Converted Patient Home Medication List Home Medication List Reviewed: Yes Physical Exam-Cardiology Physical Exam Vital Signs/I&O 11/10/20 11/10/20 11/10/20 16:00 19:57 19:59 Temp 35.9 Pulse 61 60 Resp 20 B/P (MAP) 116/54 (74) 102/46 (64) Pulse Ox 92 O2 Delivery Room Air Room Air 11/10/20 00:00 Intake Total 1570 ml Output Total 2750 ml Balance -1180 ml Capillary Refill : Less Than 3 Seconds Constitutional: appears stated age; No apparent distress; well-developed, well- nourished HEENT: PERRL; No discharge; hearing is well preserved, oral hygience is good; No ulceration, No xanthelasmas are seen Neck: No carotid bruit; carotid pulses are 2 + bilaterally Respiratory: chest is bilaterally symmetric, lungs clear to auscultation Cardiovascular: regular rate-rhythm, S1 and S2 Gastrointestinal: soft, audible bowel sounds; No spleenomegaly Rectal: deferred Extremities: No clubbing, No cyanosis; no lower extremity edema bilateral; No significant edema Neurologic/Psychiatric: alert, oriented x 3, power is 5/5 both on sides Skin: normal color; No rash, No ulcerations Data Review Labs A/P-Cardiology Assessment/Admission Diagnosis breast cancer with possible mets, Cardiomyopathy, Mild acute systolic CHF Plan metastatic cancer - will likely pursue palliative care. medical therapy for systolic CHF with lasix Thank you for your consultation. Please call me if you have any questions. Candi Gross MD, FACP, FACC, FSCAI, FHRS, CCDS Interventional Cardiology Cardiac Electrophysiology Vascular Medicine and Endovascular Interventions Chavo GROSS MD November 09, 2020 15:36
[2020-11-09 15:45] VITALS: BP 104/71
--- NOTE | 2020-11-09 19:19 | History & Physical-Hospitalist ---
History of Present Illness HPI/Chief Complaint Quin Morse is an 89 year old female with PMH HTN, HLD, AFib on Eliquis, hypothyroidism, breast cancer s/p recent partial left mastectomy, who presented with shortness of breath. She reports shortness of breath with minimal exertion. She has been having leg swelling as well. She denies chest pain. She denies cough. She denies fevers and chills. She denies abdominal pain, nausea, vomiting, and diarrhea. She has been having back pain. She is not on chemotherapy and she says she does not want to do chemotherapy for her breast cancer. Source: patient, family Exam Limitations: no limitations Date Seen 11/09/20 Time Seen by a Provider: 11:15 Attending Physician Trina Grimes MD PCP Jung Burkett MD Referring Physician Date of Admission November 08, 2020 at 16:04 Home Medications & Allergies Home Medications Reviewed patient Home Medication Reconciliation performed by pharmacy medication reconciliations distribution field technician and/or nursing. Patients Allergies have been reviewed. Allergies Allergies Coded Allergies Fish Containing Products (Verified Allergy, Unknown, 06/02/16) Patient Social History Tobacco Use?: No Smoking Status: Former Smoker Use of E-Cig and/or Vaping dev: No Substance use?: No Alcohol Use?: No Pt stated abuse/neglect: No Immunizations Up To Date Influenza Vaccine Up-to-Date: Yes; Up-to-Date Tetanus Booster (TDap): Unknown Hepatitis A: No Hepatitis B: No TB Skin Test: None Date of Pneumonia Vaccine: October 28, 2015 Current Status status: No status: No Do you have an Advance Directi: Yes Advance Directive Location: Home Communicates: Verbally Primary Language: [place] Citizen Preferred Spoken Language: [place] Citizen Is interpretation needed?: No Sensory deficits: Vision impairment Implanted or Applied Medical D: Heart mechanical device Past Medical History Hypertension Hyperlipidemia Atrial fibrillation Hypothyroidism Type 2 diabetes mellitus Breast Cancer Family Medical History Family Hx: Noncontributory Review of Systems Constitutional: weakness EENTM: no symptoms reported Respiratory: dyspnea on exertion Cardiovascular: no symptoms reported Gastrointestinal: no symptoms reported Genitourinary: no symptoms reported Musculoskeletal: back pain Skin: no symptoms reported Psychiatric/Neurological: No Symptoms Reported Physical Exam Physical Exam Vital Signs Vital Signs - First Documented 11/08/20 13:51 Temp 36.6 Pulse 80 Resp 25 B/P (MAP) 128/59 (82) Pulse Ox 99 O2 Delivery Room Air Capillary Refill : Less Than 3 Seconds Height, Weight, BMI Height: 5'4.00" Weight: 180lbs. 5.0oz. [id number]; 28.28 BMI Method:Estimated General Appearance: No Apparent Distress, Obese HEENT: PERRL/EOMI, Pharynx Normal Neck: Normal Inspection, Supple Respiratory: Lungs Clear, Normal Breath Sounds, No Respiratory Distress Cardiovascular: Regular Rate, Rhythm, No Murmur Gastrointestinal: Normal Bowel Sounds, Non Tender, Soft Back: Vertebral Tenderness Extremity: Non Tender, Pedal Edema, Swelling Neurologic/Psychiatric: Alert, Oriented x3, Depressed Affect, Motor Weakness Skin: Normal Color, Warm/Dry Results Results/Procedures Labs Laboratory Tests 11/08/20 13:50 11/09/20 05:35 Patient resulted labs reviewed. 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 Pain of malignancy metastatic to bone Acute heart failure with reduced ejection fraction and diastolic dysfunction Advanced age Poor prognosis Echo revealed new onset reduced EF 35-40%, diastolic dysfunction Started on IV Lasix, switch to oral CT imaging revealed multiple lytic lesions of the spine and ribs indicative of diffuse metastatic disease Discussed options and patient does not want to pursue chemotherapy, will pursue hospice care instead Palliative care consulted, appreciate assistance Add low dose Fentanyl patch, will titrate up as needed Transition to general diet Discontinuing non-essential medications at patient request Previously planned to move into assisted living facility Will likely require fdc placement on discharge HTN AFib HLD Hypothyroid Continue home meds Diagnosis/Problems Diagnosis/Problems (1) Breast cancer metastasized to bone Status: Acute Qualifiers: Laterality: left Qualified Codes: C50.912 - Malignant neoplasm of unspecified site of left female breast; C79.51 - Secondary malignant neoplasm of bone (2) Pain due to malignant neoplasm metastatic to bone Status: Acute (3) Acute heart failure with reduced ejection fraction and diastolic dysfunction Status: Acute (4) Poor prognosis Status: Acute (5) Advanced age Status: Chronic TRINA GRIMES MD November 09, 2020 19:19
[2020-11-09] MEDS: ROSUVASTATIN 5 MG (CRESTOR) TABLET PO SCH (19:54)
[2020-11-09 20:30] VITALS: BP 106/57
[2020-11-10 00:39] VITALS: BP 133/70
[2020-11-10] MEDS: APIXABAN 5 MG (ELIQUIS) TABLET PO SCH ×2 (06:24→17:23)
[2020-11-10] MEDS: LEVOTHYROXINE 125 MCG (LEVOTHROID) TABLET PO SCH (06:24)
[2020-11-10] MEDS: CATHETER FLUSH 10 ML SYR IV SCH ×3 (06:24→19:54)
[2020-11-10 07:26] VITALS: BP 112/66
[2020-11-10] MEDS: PSYLLIUM POWDER (METAMUCIL) 5.8 GM PACKET PO SCH (08:34)
[2020-11-10] MEDS: SENNOSIDES 8.6 MG (SENOKOT) TAB PO SCH ×2 (08:37→19:51)
[2020-11-10] MEDS: LOSARTAN 25 MG (COZAAR) TAB PO SCH (08:37)
[2020-11-10] MEDS: DOCUSATE SODIUM 100 MG (COLACE) CAP PO SCH ×2 (08:37→19:50)
[2020-11-10] MEDS: FUROSEMIDE 40 MG (LASIX) TAB PO SCH (08:37)
[2020-11-10] MEDS: FLECAINIDE 100 MG (TAMBOCOR) TAB PO SCH ×2 (08:37→19:52)
--- NOTE | 2020-11-10 11:56 | Progress Note - Hospitalist ---
Subjective HPI/CC On Admission Date Seen by Provider: November 10, 2020 Time Seen by Provider: 11:30 Quin Morse is an 89 year old female with PMH HTN, HLD, AFib on Eliquis, hypothyroidism, breast cancer s/p recent partial left mastectomy, who presented with shortness of breath. She reports shortness of breath with minimal exertion. She has been having leg swelling as well. She denies chest pain. She denies cough. She denies fevers and chills. She denies abdominal pain, nausea, vomiting, and diarrhea. She has been having back pain. She is not on chemotherapy and she says she does not want to do chemotherapy for her breast cancer. Subjective/Events-last exam She is doing well this morning. She has been able to move from the bed to the chair without any back pain. She has been eating and drinking. She has no other complaints or concerns. Objective Exam Vital Signs Vital Signs Date Time Temp Pulse Resp B/P (MAP) Pulse Ox O2 Delivery O2 Flow Rate FiO2 11/10/20 08:45 94 Room Air 11/10/20 07:26 35.8 84 22 112/66 (81) Capillary Refill : Less Than 3 Seconds General Appearance: No Apparent Distress, WD/WN Respiratory: Lungs Clear, Normal Breath Sounds, No Respiratory Distress Cardiovascular: Regular Rate, Rhythm, No Murmur Gastrointestinal: Normal Bowel Sounds, Non Tender, Soft Extremity: Normal Inspection, Non Tender, Pedal Edema Neurologic/Psychiatric: Alert, Oriented x3, Normal Mood/Affect, Motor Weakness Skin: Normal Color, Warm/Dry Results/Procedures Lab Patient resulted labs reviewed. Imaging: Reviewed Imaging Report Assessment/Plan Assessment and Plan Assess & Plan/Chief Complaint Metastatic breast cancer to the bone Pain of malignancy metastatic to bone Acute heart failure with reduced ejection fraction and diastolic dysfunction Advanced age Poor prognosis Echo revealed new onset reduced EF 35-40%, diastolic dysfunction Continue oral Lasix CT imaging revealed multiple lytic lesions of the spine and ribs indicative of diffuse metastatic disease Discussed options and patient does not want to pursue chemotherapy, will pursue hospice care instead Patient and daughter would like to discuss plan with Dr. Miller on Wednesday Palliative care consulted, appreciate assistance Continue low dose Fentanyl patch, will titrate up as needed Discontinued non-essential medications at patient request Plan for discharge to assisted living vs [facility] on hospice HTN AFib Hypothyroid Continue home meds Diagnosis/Problems Diagnosis/Problems (1) Breast cancer metastasized to bone Status: Acute Qualifiers: Laterality: left Qualified Codes: C50.912 - Malignant neoplasm of unspecified site of left female breast; C79.51 - Secondary malignant neoplasm of bone (2) Pain due to malignant neoplasm metastatic to bone Status: Acute (3) Acute heart failure with reduced ejection fraction and diastolic dysfunction Status: Acute (4) Poor prognosis Status: Acute (5) Advanced age Status: Chronic TRINA GRIMES MD November 10, 2020 11:56
[2020-11-10 16:00] VITALS: BP 116/54
[2020-11-10] MEDS: ROSUVASTATIN 5 MG (CRESTOR) TABLET PO SCH (19:52)
[2020-11-10 19:57] VITALS: BP 102/46
--- NOTE | 2020-11-10 22:46 | Cardiology Progress Note ---
Cardiology SOAP Progress Note Subjective: no shortness of breath Objective: I&O/Vital Signs 11/10/20 11/10/20 11/10/20 16:00 19:57 19:59 Temp 35.9 Pulse 61 60 Resp 20 B/P (MAP) 116/54 (74) 102/46 (64) Pulse Ox 92 O2 Delivery Room Air Room Air 11/10/20 00:00 Intake Total 1570 ml Output Total 2750 ml Balance -1180 ml Weight (Pounds): 180 Weight (Ounces): 5.0 Weight (Calculated Kilograms): [id number] Constitutional: appears stated age; No apparent distress; well-developed, well- nourished Respiratory: chest is bilaterally symmetric, lungs clear to auscultation Cardiovascular: regular rate-rhythm, S1 and S2 Gastrointestional: soft, audible bowel sounds; No spleenomegaly Extremities: No clubbing, No cyanosis; no lower extremity edema bilateral; No significant edema Neurologic/Psychiatric: alert, oriented x 3, power is 5/5 both on sides Skin: normal color; No rash, No ulcerations A/P: Assessment/Dx: breast cancer with possible mets, Cardiomyopathy, Mild acute systolic CHF Plan: metastatic cancer - will likely pursue palliative care. medical therapy for systolic CHF with lasix Thank you for your consultation. Please call me if you have any questions. Candi Gross MD, FACP, FACC, FSCAI, FHRS, CCDS Interventional Cardiology Cardiac Electrophysiology Vascular Medicine and Endovascular Interventions Clinical Quality Measures Type of Care: Type of Care: Pallative Care Chavo GROSS MD November 10, 2020 22:46
[2020-11-10 23:46] VITALS: BP 120/56
[2020-11-11] MEDS: CATHETER FLUSH 10 ML SYR IV SCH ×3 (05:55→20:29)
[2020-11-11] MEDS: APIXABAN 5 MG (ELIQUIS) TABLET PO SCH ×2 (05:55→17:12)
[2020-11-11] MEDS: LEVOTHYROXINE 125 MCG (LEVOTHROID) TABLET PO SCH (05:55)
[2020-11-11 07:41] VITALS: BP 156/68
[2020-11-11] MEDS: PSYLLIUM POWDER (METAMUCIL) 5.8 GM PACKET PO SCH (08:36)
[2020-11-11] MEDS: LOSARTAN 25 MG (COZAAR) TAB PO SCH (08:36)
[2020-11-11] MEDS: SENNOSIDES 8.6 MG (SENOKOT) TAB PO SCH ×2 (08:36→20:29)
[2020-11-11] MEDS: DOCUSATE SODIUM 100 MG (COLACE) CAP PO SCH ×2 (08:36→20:28)
[2020-11-11] MEDS: FUROSEMIDE 40 MG (LASIX) TAB PO SCH (08:36)
[2020-11-11] MEDS: FLECAINIDE 100 MG (TAMBOCOR) TAB PO SCH ×2 (09:03→20:29)
--- NOTE | 2020-11-11 10:38 | Cardiology Progress Note ---
Subjective Date Seen by Provider: November 11, 2020 Time Seen by Provider: 10:35 Subjective/Events-last exam Patient was seen at bedside, sitting comfortably, feeling better at this time. Review of Systems General: No Chills, No Night Sweats, No Fatigue, No Malaise, No Appetite, No Other HEENT: No Head Aches, No Visual Changes, No Eye Pain, No Ear Pain, No Dysphasia, No Sinus Congestion, No Post Nasal Drip, No Sore Throat, No Other Pulmonary: No Dyspnea, No Cough, No Pleuritic Chest Pain, No Other Cardiovascular: No: Chest Pain, Palpitations, Orthopnea, Paroxysmal Noc. Dyspnea, Edema, Lt Headedness, Other Objective-Cardiology Exam Last Set of Vital Signs Vital Signs 11/11/20 11/11/20 07:41 08:00 Temp 36.2 Pulse 67 Resp 18 B/P (MAP) 156/68 (97) Pulse Ox 91 O2 Delivery Room Air Capillary Refill : Less Than 3 Seconds I&O Intake and Output 11/11/20 00:00 Intake Total 550 ml Output Total 900 ml Balance -350 ml Intake Oral 550 ml Output Urine Total 900 ml # Voids 3 General: Alert, Oriented X3, Cooperative HEENT: Atraumatic, PERRLA Neck: Supple, No JVD, No Thyromegaly Lungs: Clear to Auscultation, Normal Air Movement Heart: Regular Rate, Normal S1, Normal S2, No Murmurs Abdomen: Normal Bowel Sounds, Soft, No Tenderness, No Hepatosplenomegaly, No Masses Extremities: No Clubbing, No Cyanosis, No Edema, Normal Pulses, No Tenderness/Swelling Skin: No Rashes, No Breakdown, No Significant Lesion Neuro: Normal Gait, Normal Speech, Strength at 5/5 X4 Ext, Normal Tone, Sensation Intact Psych/Mental Status: Mental Status NL, Mood NL A/P-Cardiology Admission Diagnosis Metastatic breast cancer Paroxysmal atrial fibrillation Hypertension Hyperlipidemia Assessment/Plan Metastatic breast cancer, has mets to the bone, started on fentanyl patch, does not want any further chemotherapy or radiation therapy. Paroxysmal atrial fibrillation, had multiple episodes of atrial fibrillation. Currently in sinus rhythm. Doing well Anemia, followed and managed by Dr. Li [id number] score of 4, yearly risk of stroke without oral anticoagulation is 4 percent maintained on Eliquis. History of chronic compensated left ventricular diastolic dysfunction, currently stable, no signs of heart failure. Hypertension, blood pressure is controlled, monitor blood pressure Hypothyroidism, managed by primary care physician. Mild bilateral carotid stenosis, nonobstructive disease, last ultrasound was done in June 2016. CTA of head and neck done August 26, 2017 revealed no significant stenosis. Continue to monitor. Hyperlipidemia, continue to monitor lipids CESAR LEYVA MD November 11, 2020 10:38 am
[2020-11-11] MEDS ORDERED: FURO40TA4 PO (10:46)
[2020-11-11] MEDS ORDERED: FEN12TD TD (10:46)
--- NOTE | 2020-11-11 10:49 | Discharge Inst-Simple/Standard ---
Discharge Inst-Standard Discharge Medications New, Converted or Re-Newed RX: Transmitted to Pharmacy Patient Instructions/Follow Up Plan of Care/Instructions/FU: Please continue to take your medications as written. Please follow up with your primary care doctor to follow up this hospital stay. Activity as Tolerated: Yes Discharge Diet: No Restrictions Return to The Hospital For: Worsening pain, shortness of breath, confusion, fever, if you feel you are getting worse. LONG MCGILL MD November 11, 2020 10:49
--- NOTE | 2020-11-11 10:54 | Progress Note - Hospitalist ---
Subjective HPI/CC On Admission Date Seen by Provider: November 11, 2020 Time Seen by Provider: 10:53 Quin Morse is an 89 year old female with PMH HTN, HLD, AFib on Eliquis, hypothyroidism, breast cancer s/p recent partial left mastectomy, who presented with shortness of breath. She reports shortness of breath with minimal exertion. She has been having leg swelling as well. She denies chest pain. She denies cough. She denies fevers and chills. She denies abdominal pain, nausea, vomiting, and diarrhea. She has been having back pain. She is not on chemotherapy and she says she does not want to do chemotherapy for her breast cancer. Subjective/Events-last exam Pt reports feeling well today. No complaints. pain controlled. Planning to DC to [facility] tomorrow when arrangements set up. Objective Exam Vital Signs Vital Signs Date Time Temp Pulse Resp B/P (MAP) Pulse Ox O2 Delivery O2 Flow Rate FiO2 11/11/20 08:00 Room Air 11/11/20 07:41 36.2 67 18 156/68 (97) 91 Capillary Refill : Less Than 3 Seconds General Appearance: No Apparent Distress, WD/WN Respiratory: Lungs Clear, No Respiratory Distress Gastrointestinal: Normal Bowel Sounds, Soft Neurologic/Psychiatric: Alert, Oriented x3 Results/Procedures Lab Patient resulted labs reviewed. Imaging: Reviewed Imaging Report Assessment/Plan Assessment and Plan Assess & Plan/Chief Complaint Metastatic breast cancer to the bone Pain of malignancy metastatic to bone Acute heart failure with reduced ejection fraction and diastolic dysfunction Advanced age Poor prognosis Echo revealed new onset reduced EF 35-40%, diastolic dysfunction Continue oral Lasix CT imaging revealed multiple lytic lesions of the spine and ribs indicative of diffuse metastatic disease Discussed options and patient does not want to pursue chemotherapy, will pursue hospice care instead, elected [facility] hospice- I called and spoke with Brendon Medrano there about this Palliative care consulted, appreciate assistance Continue low dose Fentanyl patch, will titrate up as needed Discontinued non-essential medications at patient request Plan for discharge to [facility] HTN AFib Hypothyroid Continue home meds LONG MCGILL MD November 11, 2020 10:54
[2020-11-11 16:00] VITALS: BP 120/79
[2020-11-11 20:26] VITALS: BP 129/55
[2020-11-11] MEDS: ROSUVASTATIN 5 MG (CRESTOR) TABLET PO SCH (20:29)
[2020-11-12 00:50] VITALS: BP 114/75
[2020-11-12] MEDS: CATHETER FLUSH 10 ML SYR IV SCH (06:19)
[2020-11-12] MEDS: LEVOTHYROXINE 125 MCG (LEVOTHROID) TABLET PO SCH (06:19)
[2020-11-12] MEDS: APIXABAN 5 MG (ELIQUIS) TABLET PO SCH (06:19)
--- NOTE | 2020-11-12 07:45 | Cardiology Progress Note ---
Subjective Date Seen by Provider: November 12, 2020 Time Seen by Provider: 07:44 Subjective/Events-last exam Patient was seen at bedside, laying down comfortably, in good spirit. No new complaint Review of Systems General: No Chills, No Night Sweats, No Fatigue, No Malaise, No Appetite, No Other HEENT: No Head Aches, No Visual Changes, No Eye Pain, No Ear Pain, No Dysphasia, No Sinus Congestion, No Post Nasal Drip, No Sore Throat, No Other Pulmonary: No Dyspnea, No Cough, No Pleuritic Chest Pain, No Other Cardiovascular: No: Chest Pain, Palpitations, Orthopnea, Paroxysmal Noc. Dyspnea, Edema, Lt Headedness, Other Objective-Cardiology Exam Last Set of Vital Signs Vital Signs 11/12/20 00:50 Temp 36.6 Pulse 64 Resp 16 B/P (MAP) 114/75 (88) Pulse Ox 93 O2 Delivery Room Air Capillary Refill : Less Than 3 Seconds I&O Intake and Output 11/12/20 00:00 Intake Total 1210 ml Output Total 600 ml Balance 610 ml Intake Oral 1210 ml Output Urine Total 600 ml # Voids 5 General: Alert, Oriented X3, Cooperative HEENT: Atraumatic, PERRLA Neck: Supple, No JVD, No Thyromegaly Lungs: Clear to Auscultation, Normal Air Movement Heart: Regular Rate, Normal S1, Normal S2, No Murmurs Abdomen: Normal Bowel Sounds, Soft, No Tenderness, No Hepatosplenomegaly, No Masses Extremities: No Clubbing, No Cyanosis, No Edema, Normal Pulses, No Tenderness/Swelling Skin: No Rashes, No Breakdown, No Significant Lesion Neuro: Normal Gait, Normal Speech, Strength at 5/5 X4 Ext, Normal Tone, Sensation Intact Psych/Mental Status: Mental Status NL, Mood NL A/P-Cardiology Admission Diagnosis Metastatic breast cancer Paroxysmal atrial fibrillation Hypertension Hyperlipidemia Assessment/Plan Metastatic breast cancer, has mets to the bone, started on fentanyl patch, does not want any further chemotherapy or radiation therapy. Possible comfort care Paroxysmal atrial fibrillation, had multiple episodes of atrial fibrillation. Currently in sinus rhythm. Doing well Anemia, followed and managed by Dr. Miller [id number] score of 4, yearly risk of stroke without oral anticoagulation is 4 percent maintained on Eliquis. History of chronic compensated left ventricular diastolic dysfunction, currently stable, no signs of heart failure. Hypertension, blood pressure is controlled, monitor blood pressure Hypothyroidism, managed by primary care physician. Mild bilateral carotid stenosis, nonobstructive disease, last ultrasound was done in June 2016. CTA of head and neck done August 26, 2017 revealed no significant stenosis. Continue to monitor. Hyperlipidemia, continue to monitor lipids CESAR LEYVA MD November 12, 2020 07:45
[2020-11-12] MEDS: SENNOSIDES 8.6 MG (SENOKOT) TAB PO SCH (07:50)
[2020-11-12] MEDS: LOSARTAN 25 MG (COZAAR) TAB PO SCH (07:50)
[2020-11-12] MEDS: FLECAINIDE 100 MG (TAMBOCOR) TAB PO SCH (07:50)
[2020-11-12] MEDS: FUROSEMIDE 40 MG (LASIX) TAB PO SCH (07:50)
[2020-11-12] MEDS: DOCUSATE SODIUM 100 MG (COLACE) CAP PO SCH (07:50)
[2020-11-12] MEDS: PSYLLIUM POWDER (METAMUCIL) 5.8 GM PACKET PO SCH ×2 (07:51→07:55)
[2020-11-12 08:00] VITALS: BP 112/56
--- NOTE | 2020-11-12 08:37 | Discharge Summary ---
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 Status: Acute (4) Poor prognosis Status: Acute (5) Advanced age Status: Chronic Discharge Summary Procedures/Consulations Dr Garcia- Cardiology Discharge Physical Exam Allergies: Coded Allergies: Fish Containing Products (Verified Allergy, Unknown, 06/02/16) Vitals & I&Os Vital Signs Date Time Temp Pulse Resp B/P (MAP) Pulse Ox O2 Delivery O2 Flow Rate FiO2 11/12/20 00:50 36.6 64 16 114/75 (88) 93 Room Air General Appearance: No Apparent Distress, WD/WN Respiratory: Lungs Clear, No Respiratory Distress Cardiovascular: Regular Rate, Rhythm, No Murmur Gastrointestinal: Normal Bowel Sounds, Soft Neurologic/Psychiatric: Alert, Oriented x3 Hospital Course Pt was admitted due to new onset heart failure. Her echo was done and revealed an EF of 35%. She was diuresed and did well. She has known metastatic breast cancer and has declined chemotherapy and elected to enroll in [facility]. She is discharging in stable condition to [facility]. Labs (last 24 hrs) Patient resulted labs reviewed. Imaging: Reviewed Imaging Report Discussion & Recommendations Discharge Planning: >30 minutes discharge planning Discharge Home Medications: Active Scripts Active Fentanyl Patch 12 MCG (Fentanyl) 1 Each Patch.td72 12 Mcg TD Q72H Furosemide 40 Mg Tablet 40 Mg PO DAILY Reported Metoprolol Succinate 25 Mg Tab.er.24h 25 Mg PO HS Pepcid AC (Famotidine) 10 Mg Tablet 10 Mg PO DAILY PRN Imodium A-D (Loperamide HCl) 2 Mg Tablet 2 Mg PO DAILY PRN Tylenol Extra Strength (Acetaminophen) 500 Mg Tablet 500 Mg PO Q6H PRN Fish Oil 1,200 mg Softgel ([place]-3/Dha/Epa/Fish Oil) 1,200 Mg Capsule 1,200 Mg PO 1200 Centrum Silver Tablet (Multivit-Min/FA/Lycopene/Lut) 1 Each Tablet 1 Each PO 1200 Iron (Ferrous Sulfate) 325 Mg Tablet 325 Mg PO ,,,SAT Metamucil Fiber Thin (Psyllium Husk (with Sugar)) 2 Gm Wafer 2 Gm PO DAILY Metformin HCl ER (Metformin HCl) 500 Mg Tab.er.24 500 Mg PO DAILY Flecainide Acetate 50 Mg Tablet 50 Mg PO BID Losartan Potassium 25 Mg Tablet 25 Mg PO DAILY Trimethoprim 100 Mg Tablet 100 Mg PO Q72H Eliquis (Apixaban) 5 Mg Tablet 5 Mg PO BID Claritin (Loratadine) 10 Mg Tablet 10 Mg PO HS PRN Probiotic (L.acidoph & Paracasei,B.lactis) 1 Each Capsule 1 Cap PO 1200 Rosuvastatin Calcium 5 Mg Tablet 5 Mg PO HS Cartia Xt (Diltiazem HCl) 240 Mg Cap.er.24h 240 Mg PO DAILY Levothyroxine Sodium 125 Mcg Tablet 125 Mcg PO DAILY Os-Sanya 500+D3 Caplet (Calcium Carbonate/Vitamin D3) 1 Each Tablet 1 Tab PO HS Instructions to patient/family Please see electronic discharge instructions given to patient. Problem Qualifiers (1) Breast cancer metastasized to bone: Laterality: left Qualified Codes: C50.912 - Malignant neoplasm of unspecified site of left female breast; C79.51 - Secondary malignant neoplasm of bone LONG MCGILL MD November 12, 2020 08:37
[2020-11-12 09:40] VITALS: BP 112/56
[2020-11-12] MEDS ORDERED: PATCH REMOVAL TP SCH (14:00)
== END 2020-11-12 09:51 | disposition hospice, inpatient (51) | DRG 291 ==
LOC: EDUNIT# 13:44 → ER 13:46 → 4TH 16:04
PROVIDERS: ADMIT Internal Medicine; ATTEND Internal Medicine
DX: I11.0 Hypertensive heart disease with heart failure (principal); I50.21 Acute systolic (congestive) heart failure; C79.51 Secondary malignant neoplasm of bone; I48.91 Unspecified atrial fibrillation; Z96.651 Presence of right artificial knee joint; E89.0 Postprocedural hypothyroidism; J44.9 Chronic obstructive pulmonary disease, unspecified; I25.10 Atherosclerotic heart disease of native coronary artery without angina pectoris; E78.00 Pure hypercholesterolemia, unspecified; F03.90 Unspecified dementia, unspecified severity, without behavioral disturbance, psychotic disturbance, mood disturbance, and anxiety; K21.9 Gastro-esophageal reflux disease without esophagitis; M19.90 Unspecified osteoarthritis, unspecified site; G89.29 Other chronic pain; M54.9 Dorsalgia, unspecified; F41.9 Anxiety disorder, unspecified; I44.7 Left bundle-branch block, unspecified; R53.81 Other malaise; E11.40 Type 2 diabetes mellitus with diabetic neuropathy, unspecified; I48.0 Paroxysmal atrial fibrillation; D64.9 Anemia, unspecified; I42.9 Cardiomyopathy, unspecified; I65.23 Occlusion and stenosis of bilateral carotid arteries; Z79.01 Long term (current) use of anticoagulants; Z79.84 Long term (current) use of oral hypoglycemic drugs; Z79.899 Other long term (current) drug therapy; Z87.891 Personal history of nicotine dependence; Z90.12 Acquired absence of left breast and nipple; Z85.3 Personal history of malignant neoplasm of breast
CPT/HCPCS: 36415; 71045; 72128; 72131; 80048; 80053; 82947; 83735; 83880; 84145; 84484; 85007; 85025; 85027; 93005; 93306